=== PATIENT | female | born 1970 | race Caucasian/White ===

== ENCOUNTER 2017-10-24 07:10 | Emergency (ER) | payer OTHER ==
[2017-10-24 07:23] VITALS: BP 93/66; PULSE 85; RESP 18; TEMP 98.1
[2017-10-24] MEDS ORDERED: ACET/COD 300 MG/30 MG STARTER PACK 6 TAB BTL PO STA (07:47)
--- NOTE | 2017-10-24 07:52 | ED ---
General Adult HPI - General Chief complaint: Skin/Abscess/Foreign Body Stated complaint: Abscess on bottom Time Seen by Provider: 10/24/17 07:24 Source: patient, RN notes reviewed Mode of arrival: ambulatory Limitations: no limitations - History of Present Illness Initial comments: Patient is a pleasant 47-year-old female presenting to the emergency department with concerns for infection left gluteal region. Patient states it started out as a pimple however has spread. Patient has had abscesses previously in the general region. Patient has had previous incision and drainage. No fevers. No other areas of concern. - Related Data Previous Rx's Medication Instructions Recorded Clindamycin [Cleocin] 2 tab PO Q6H #80 capsule 10/24/17 Allergies Allergy/AdvReac Type Severity Reaction Status Date / Time metformin Allergy Unknown Verified 10/24/17 07:23 sulfamethoxazole Allergy Swelling Verified 10/24/17 07:23 [From Bactrim] trimethoprim [From Bactrim] Allergy Swelling Verified 10/24/17 07:23 Review of Systems ROS Statement: Those systems with pertinent positive or pertinent negative responses have been documented in the HPI. ROS Other: All systems not noted in ROS Statement are negative. Constitutional: Denies: fever Eyes: Denies: eye pain ENT: Denies: ear pain Respiratory: Denies: cough Cardiovascular: Denies: chest pain Endocrine: Denies: fatigue Gastrointestinal: Denies: abdominal pain Genitourinary: Denies: dysuria Musculoskeletal: Denies: back pain Skin: Reports: lesions Neurological: Denies: headache Past Medical History Past Medical History: Coronary Artery Disease (CAD), Chest Pain / Angina, COPD, CVA/TIA, Dementia, Hyperlipidemia, Hypertension, Myocardial Infarction ([place]) History of Any Multi-Drug Resistant Organisms: None Reported Past Surgical History: Coronary Bypass/CABG, Hernia Repair Past Psychological History: No Psychological Hx Reported Smoking Status: Current every day smoker Past Alcohol Use History: None Reported Past Drug Use History: None Reported General Exam Limitations: no limitations General appearance: alert, in no apparent distress Head exam: Present: atraumatic Eye exam: Present: normal appearance Neck exam: Present: normal inspection Respiratory exam: Present: normal lung sounds bilaterally Cardiovascular Exam: Present: regular rate, normal rhythm Neurological exam: Present: alert Psychiatric exam: Present: normal affect, normal mood Skin exam: Present: other (Left gluteal region with area of induration approximately 2 x 4 cm.) Course Vital Signs 10/24/17 07:18 Temperature 98.1 F Pulse Rate 85 Respiratory 18 Rate Blood Pressure 93/66 O2 Sat by Pulse 96 Oximetry Procedures - Incision & Drainage Consent Obtained: verbal consent Time Out Performed?: Yes Site: buttock (Left gluteal) Anesthetic Used: lidocaine 1% I&D Cleaning Method: Betadine Scalpel Used: #11 I&D Drainage Obtained: Blood Patient Tolerated Procedure: well, no complications Medical Decision Making - Medical Decision Making Incision and drainage unable to obtain pus pocket despite probing. Patient is made aware of this. Patient is made aware if symptoms worsen she may need procedure repeated. Disposition Clinical Impression: Cellulitis, gluteal, left Disposition: HOME SELF-CARE Condition: Stable Instructions: Abscess (ED) Additional Instructions: Please follow-up with primary care physician in the beginning of the week for recheck. Return for increased swelling, increased pain, redness, fevers, worsening symptoms or other concerns. Prescriptions: Clindamycin [Cleocin] 2 tab PO Q6H #80 capsule Referrals: Angela Carlos MD [STAFF PHYSICIAN] - 1-2 days Time of Disposition: 07:52
== END 2017-10-24 08:04 | disposition home or self-care (01) ==
LOC: EC 07:10
DX: L03.317 Cellulitis of buttock (principal); F17.200 Nicotine dependence, unspecified, uncomplicated; Z88.2 Allergy status to sulfonamides; Z88.8 Allergy status to other drugs, medicaments and biological substances
CPT/HCPCS: 10060; 99282

== ENCOUNTER 2017-12-26 02:22 | Emergency (ER) | payer OTHER ==
[2017-12-26] MEDS ORDERED: ACETAMINOPHEN TAB 500 MG TAB PO STA (02:44)
--- NOTE | 2017-12-26 02:59 | ED ---
URI HPI - General Chief Complaint: Upper Respiratory Infection Stated Complaint: Fever Time Seen by Provider: 12/26/17 02:38 Source: patient, RN notes reviewed Mode of arrival: ambulatory Limitations: no limitations - History of Present Illness Initial Comments: This is a 47-year-old female who presents to the emergency department with chief complaint of fever. Patient states that she has been feeling unwell since . She complains of fevers and chills, dry cough and nasal congestion. She does report a history of COPD. She states that she has been using her albuterol inhaler. Denies shortness of breath or chest pain, abdominal pain, nausea or vomiting, diarrhea or constipation, headache or dizziness, numbness or tingling, dysuria or hematuria. - Related Data Home Medications Medication Instructions Recorded Confirmed Aspirin EC [Ecotrin Low Dose] 81 mg PO ONCE PRN 10/26/17 10/26/17 Previous Rx's Medication Instructions Recorded Acetaminophen Tab [Tylenol] 650 mg PO Q6HR PRN tab 10/29/17 Amoxic-Pot Clav 875-125Mg 1 tab PO Q12HR #20 tablet 10/29/17 [Augmentin 875-125] Doxycycline Hyclate [Vibramycin] 100 mg PO BID #20 cap 10/29/17 Naproxen [Naprosyn] 500 mg PO BID #20 tab 10/29/17 Nicotine 21Mg/24Hr Patch [Habitrol] 1 patch TRANSDERM DAILY #30 patch 10/29/17 glipiZIDE [Glucotrol] 5 mg PO AC-BID #60 tab 10/29/17 Oseltamivir [Tamiflu] 75 mg PO Q12HR #10 cap 12/26/17 Allergies Allergy/AdvReac Type Severity Reaction Status Date / Time metformin Allergy Nausea & Verified 12/26/17 02:30 Vomiting & Diarrhea sulfamethoxazole Allergy Swelling Verified 12/26/17 02:30 [From Bactrim] trimethoprim [From Bactrim] Allergy Swelling Verified 12/26/17 02:30 Review of Systems ROS Statement: Those systems with pertinent positive or pertinent negative responses have been documented in the HPI. ROS Other: All systems not noted in ROS Statement are negative. Past Medical History Past Medical History: Coronary Artery Disease (CAD), Chest Pain / Angina, COPD, CVA/TIA, Diabetes Mellitus, Hyperlipidemia, Myocardial Infarction ([place]) Additional Past Medical History / Comment(s): Cardiac murmur, PAD, numbness/ tingling bilateral feet, pt states she was told she had a [place] about 6 yrs ago after she had a stress test/EKG- has never had a cardiac cath. Last Myocardial Infarction Date:: ?2011 History of Any Multi-Drug Resistant Organisms: None Reported Past Surgical History: Hernia Repair Additional Past Surgical History / Comment(s): I&D L gluteal abscess, aortagram , aortobi iliac bypass, laparoscopic surgery-one ovary/one tube removed from opposite sides, multiple abdominal incisional hernia repairs with mesh. Past Anesthesia/Blood Transfusion Reactions: No Reported Reaction Past Psychological History: Depression Smoking Status: Current every day smoker - Past Family History Mother Family Medical History: Cancer Additional Family Medical History / Comment(s): Mother is a breast cancer survivor. Father Family Medical History: Coronary Artery Disease (CAD), Diabetes Mellitus, Myocardial Infarction ([place]) Additional Family Medical History / Comment(s): Pt does not know at what age her father had his [place]. General Exam - General Exam Comments Initial Comments: General: Awake and alert, well-developed; in no apparent distress. HEENT: Head atraumatic, normocephalic. Pupils are equal, round and reactive to light. Extraocular movements intact. Oropharynx moist without erythema or exudate. Neck: Supple. Normal ROM. Cardiovascular: Regular rate and rhythm. No murmurs, rubs or gallops. Chest symmetrical. Respiratory: Lungs clear to auscultation bilaterally. No wheezes, rales or rhonchi. Normal respiratory effort with no use of accessory muscles. Abdomen: Soft, non-tender, non-distended. No rigidity, rebound or guarding. Normal bowel sounds in all 4 quadrants. Musculoskeletal: Normal ROM, no tenderness bilateral upper and lower extremities. Ambulating normally. Skin: [place], warm and dry without rashes or lesions. Neurological: Alert and oriented x3. CN II-XII grossly intact. Speech is fluent and answers are appropriate. No focal neuro deficits. Psychiatric: Normal mood and affect. No overt signs of depression or anxiety noted. Limitations: no limitations Course Vital Signs 12/26/17 02:28 Temperature 100.6 F H Pulse Rate 118 H Respiratory 20 Rate Blood Pressure 90/63 O2 Sat by Pulse 97 Oximetry Medical Decision Making - Medical Decision Making This is a 47-year-old female who presents to the emergency department with chief complaint of upper respiratory symptoms since . Patient states of fever, dry cough and sinus congestion. Denies chest pain or shortness of breath. Patient was febrile on presentation and was given Tylenol. Chest x- ray revealed no acute abnormalities. EKG was obtained and revealed normal sinus rhythm. Patient did test positive for influenza B. She will be started on Tamiflu. Recommended increasing fluid intake and treating fevers with Tylenol and/or Motrin. Return parameters were discussed. Patient will be discharged home at this time. She is in agreement with plan and voices understanding. All questions were answered. - Lab Data Lab Results 12/26/17 Range/Units 02:58 Influenza Type A RNA Not Detected (Not Detectd) Influenza Type B (PCR) Detected H (Not Detectd) EKG at 2:58:47. Normal sinus rhythm with possible left atrial enlargement. Ventricular rate 100 bpm, DE interval 128, QRS duration 90, QT/QTC 328/423. No evidence of ST segment elevation or depression. - Radiology Data Radiology results: report reviewed Chest x-ray impression: Normal chest x-ray. Disposition Clinical Impression: Influenza Disposition: HOME SELF-CARE Condition: Good Instructions: Influenza (ED) Additional Instructions: Please increase fluid intake. Please treat fevers with Tylenol and/or Motrin. Please take medications as prescribed. Please follow up with primary care provider within 1-2 days. Return to emergency department if symptoms should worsen or any concerns arise. Prescriptions: Oseltamivir [Tamiflu] 75 mg PO Q12HR #10 cap Referrals: None,Stated [Primary Care Provider] - 1-2 days Time of Disposition: 03:39
--- NOTE | 2017-12-26 03:31 | XR ---
EXAM: XR Chest, 2 Views CLINICAL HISTORY: ITS.REASON XR Reason: cough and fever TECHNIQUE: Frontal and lateral views of the chest. COMPARISON: None. FINDINGS: Lungs: Unremarkable. The lungs are clear. Pleural space: Unremarkable. No pneumothorax. Heart: Unremarkable. No cardiomegaly. Mediastinum: Unremarkable. Bones/joints: Unremarkable. IMPRESSION: Normal chest x-rays.
[2017-12-26 03:46] VITALS: BP 108/69; PULSE 79; RESP 16; TEMP 99.3
== END 2017-12-26 03:46 | disposition home or self-care (01) ==
LOC: EC 02:22
DX: J11.1 Influenza due to unidentified influenza virus with other respiratory manifestations (principal); F17.200 Nicotine dependence, unspecified, uncomplicated; Z86.73 Personal history of transient ischemic attack (TIA), and cerebral infarction without residual deficits; Z88.1 Allergy status to other antibiotic agents; Z88.2 Allergy status to sulfonamides; Z88.8 Allergy status to other drugs, medicaments and biological substances; Z79.82 Long term (current) use of aspirin
CPT/HCPCS: 71046; 87502; 93005; 99284

== ENCOUNTER → 2018-10-06 | Outpatient (CLI) | payer OTHER ==
--- NOTE | 2018-10-06 13:08 | US ---
EXAMINATION TYPE: US carotid duplex BILAT DATE OF EXAM: 10/06/2018 COMPARISON: CLINICAL HISTORY: I65.29 Occlusion and Stenosis. Hx of right CCA occulusion. Patient states having a hx of TIA. No HTN. EXAM MEASUREMENTS: RIGHT: Peak Systolic Velocity (PSV) cm/sec ----- Right CCA: Occluded ----- Right ICA: 22.1 ----- Right ECA: Occuluded ICA/CCA ratio: Unavailable RIGHT: End Diastole cm/sec ----- Right CCA: Occluded ----- Right ICA: 0.0 ----- Right ECA: Occluded LEFT: Peak Systolic Velocity (PSV) cm/sec ----- Left CCA: 154.9 ----- Left ICA: 187.3 ----- Left ECA: 178.5 ICA/CCA ratio: 1.2 LEFT: End Diastole cm/sec ----- Left CCA: 38.6 ----- Left ICA: 54.8 ----- Left ECA: 15.0 VERTEBRALS (direction of flow): Right Vertebral: Antegrade Left Vertebral: Antegrade Rhythm: Normal Elevated left CCA, ICA and ECA velocities. No flow seen in right CCA or ECA. Trickle flow seen in r ight ICA. Right CCA appears small in size compared to contralateral. Left CCA wall thickening visua lized. IMPRESSION: 1. 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 2. Globally elevated left velocities suggest underlying hypertension with degree of grayscale plaquin g suggesting 50-69% stenosis of the carotid bulb. CTA neck could further assess this finding. 3. Incidentally noted partially visualized heterogenous left thyroid nodule measuring 1.7 cm. Full th yroid ultrasound could be performed for full evaluation. Criteria for Assigning % of Stenosis / Diameter reduction (Estimation based on the indirect measurements of the internal carotid artery velocities (ICA PSV). 1. Normal (no stenosis)=ICA PSV < 125 cm/s: ratio < 2.0: ICA EDV<40 cm/s. 2. Less than 50% stenosis=ICA PSV < 125 cm/s: ratio < 2.0: ICA EDV<40 cm/s. 3. 50 to 69% stenosis=ICA PSV of 125 to 230 cm/s: ration 2.0 ? 4.0: ICA EDV 40-100 cm/s. 4. Greater than 70% stenosis to near occlusion= ICA PSV > 230 cm/s: ratio > 4.0: ICA EDV > 100 cm/s. 5. Near occlusion= ICA PSV velocities may be low or undetectable: variable ratio and ICA EDV. 6. Total occlusion=unable to detect flow.
== END ==
LOC: RADUSWWP 12:07
PROVIDERS: ATTEND Family Medicine
DX: I65.21 Occlusion and stenosis of right carotid artery (principal)
CPT/HCPCS: 93880

== ENCOUNTER 2018-11-01 07:48 | Day surgery (SDC) | payer OTHER ==
[2018-10-28 15:36] VITALS: BMI 19.2
[~2018-11-01 07:48] MED LIST: LACTATED RINGERS 1,000 ML IV SCH
[2018-11-01 08:15] VITALS: TEMP 97.8
[2018-11-01 08:23] LABS: Glucose,Whole Blood 138 mg/dL (75-99)
[2018-11-01] MEDS ORDERED: LIDOCAINE 1% INJ 10MG/ML (20 ML MDV) ONE (09:15)
[2018-11-01] MEDS ORDERED: PROPOFOL 10 MG/ML 20 ML VIAL IV ONE (09:15)
[2018-11-01 09:57] VITALS: RESP 18
--- NOTE | 2018-11-01 10:01 | P.PCN ---
Date of Procedure: 11/01/18 Procedure(s) Performed: Procedure: 1. Esophagogastroduodenoscopy and biopsy. 2. Total colonoscopy. Preoperative diagnosis: Abdominal pain, nausea vomiting and weight loss. Postoperative diagnosis: 1. Antral gastritis. 2. Multiple biopsies obtained from the duodenum, antrum and esophagus. 3. Normal colonoscopy. Preparation: HalfLytely prep. Sedation: Was provided by anesthesia. Brief clinical history: The patient is a 48-year-old female who we have evaluated in the office last month for abdominal pain, nausea and vomiting since July 2018. She lost 40 pounds since that time. Her bowel movements have been tending for constipation. No diarrhea or extraintestinal manifestations of inflammatory bowel disease. Procedure: With the patient on her left lateral decubitus position and after informed consent and adequate sedation, I passed the Olympus-GIF H 190 video upper endoscope through the cricopharyngeus down the esophagus. GE junction was at 40 cm from the incisors and there was no definite hiatal hernia or any obvious fasciitis or complicated reflux disease. The endoscope was then passed into the stomach which was insufflated with air and inspected in detail including the retroflex view in the cardia. There was mottling, erythema and friability in the antrum but no ulcers or erosions. Pyloric channel, duodenal bulb, post bulbar area and descending duodenum appeared within normal limits. Because of her symptoms, I obtained biopsies from the duodenum, antrum and esophagus then the endoscope was withdrawn and I proceeded with the colonoscopy. Perianal area did not show any fissures or fistulas. There were no masses felt on digital rectal examination. The Olympus CFH 190L video colonoscope was then inserted in the rectum in the usual fashion and advanced to the cecum. The mucosa appeared healthy. No polyps or tumors were seen or any obvious diverticular disease or other pathology. I retroflexed the endoscope in the rectum before the endoscope was withdrawn. The patient tolerated the procedure well. Plan: The patient was reassured. Will await biopsy results and make further plans based on her course and biopsy results. She will follow-up with you as planned and would keep you updated on her progress.
[2018-11-01 10:12] VITALS: BP 130/88; PULSE 81
== END 2018-11-01 10:39 | disposition home or self-care (01) ==
LOC: ORWHC2ENDO 07:48
DX: K29.50 Unspecified chronic gastritis without bleeding (principal); K20.9 Esophagitis, unspecified; I25.10 Atherosclerotic heart disease of native coronary artery without angina pectoris; J44.9 Chronic obstructive pulmonary disease, unspecified; E11.9 Type 2 diabetes mellitus without complications; E78.5 Hyperlipidemia, unspecified; E04.1 Nontoxic single thyroid nodule; I73.9 Peripheral vascular disease, unspecified; F17.210 Nicotine dependence, cigarettes, uncomplicated; Z79.4 Long term (current) use of insulin; Z88.1 Allergy status to other antibiotic agents; Z88.2 Allergy status to sulfonamides; Z88.8 Allergy status to other drugs, medicaments and biological substances; Z86.73 Personal history of transient ischemic attack (TIA), and cerebral infarction without residual deficits
CPT/HCPCS: 88305; 45378; 43239; J2001; J2704

== ENCOUNTER → 2018-12-06 | Outpatient (CLI) | payer OTHER ==
--- NOTE | 2018-12-06 14:53 | US ---
EXAMINATION TYPE: US thyroid st tissue head/neck DATE OF EXAM: 12/06/2018 COMPARISON: CTA neck 2012 CLINICAL HISTORY: E04.1 Thyroid Nodule. Thyroid nodules GLAND SIZE: Right Lobe: 5.5 x 1.6 x 1.9 cm Overall Parenchyma: heterogenous Left Lobe: 5.7 x 1.8 x 1.8 cm Overall Parenchyma: heterogeneous Isthmus Thickness: 0.2 cm NODULES RIGHT: # of nodules measured on right: 2 1. 0.8 X 0.6 x 0.7 cm hypoechoic mixed nodule at the upper pole with well-defined margins. This nod ule is wider than tall and shows intranodular vascularity. Prior size: no previous 2. 0.8 X 0.6 x 0.7 cm hypoechoic solid nodule at the lower pole with well-defined margins. This nodu le is wider than tall and shows intranodular vascularity. Prior size: no previous LEFT: # of nodules measured on left: 2 1. 2.0 X 1.4 x 1.9 cm hypoechoic mixed nodule at the mid pole with well-defined margins. This nodul e is taller than wide and shows intranodular vascularity. Prior size: no previous 2. 0.6 X 0.4 x 0.5 cm hypoechoic solid nodule at the lower pole with well-defined margins. This nodu le is wider than tall and shows intranodular vascularity. Prior size: no previous ISTHMUS: # of nodules measured in the isthmus: 0 Bilateral neck scanned, no evidence of lymphadenopathy. Homogeneous normal-sized thyroid is present with scattered subcentimeter nodules bilaterally. Dominan t mixed 2.0 cm oval well-circumscribed nodule anteriorly mid pole level is noted. IMPRESSION: A 2.0 cm mixed nodule left thyroid lobe mid pole level anteriorly total points 5 (mixed 1, isoechoic 1, taller than wide 3) TR 4 lesion, moderately suspicious. Advise ultrasound-guided fine-needle as piration.
== END | disposition home or self-care (01) ==
LOC: RADUSWWP 14:19
PROVIDERS: ATTEND Family Medicine
DX: E04.1 Nontoxic single thyroid nodule (principal); E05.90 Thyrotoxicosis, unspecified without thyrotoxic crisis or storm
CPT/HCPCS: 76536

== ENCOUNTER → 2018-12-22 | Outpatient (CLI) | payer OTHER ==
--- NOTE | 2018-12-23 09:51 | NM ---
EXAMINATION TYPE: NM thyroid image w uptake DATE OF EXAM: 12/23/2018 COMPARISON: Thyroid ultrasound 12/06/2018 HISTORY: 48-year-old female thyrotoxicosis TECHNIQUE: Thyroid iodine uptake is calculated and images performed after the oral administration of 309 uCi 1-123 Capsule. FINDINGS: Thyroid scan images show a area of rounded warm uptake at the left midpole. When correlating with thy roid ultrasound, this seems to correspond to the 2.0 cm left midpole nodule. The 4 hour iodine uptake is calculated at 11.4% (normal range 8-14%). The 24-hour iodine uptake is calculated at 28.9% (normal range 15-35%). IMPRESSION: 1. Normal 4 hour and 24-hour iodine uptake values. 2. A 2 cm warm nodule at the left midpole. FNA can be considered.
== END | disposition home or self-care (01) ==
LOC: RADNMMAIN 08:39
PROVIDERS: ATTEND Family Medicine
DX: E05.10 Thyrotoxicosis with toxic single thyroid nodule without thyrotoxic crisis or storm (principal)
CPT/HCPCS: 78014; A9516

== ENCOUNTER → 2019-02-18 | Outpatient (CLI) | payer OTHER ==
--- NOTE | 2019-02-18 13:23 | US ---
EXAMINATION TYPE: US gallbladder DATE OF EXAM: 02/18/2019 COMPARISON: CT 2018 CLINICAL HISTORY: K80.20 Calculus of gallbladder without cholecystit. Pt states ABD pain, possible ga llstones EXAM MEASUREMENTS: Liver Length: 15.7 cm Gallbladder Wall: 0.2 cm CBD: 0.4 cm Right Kidney: 13.1 x 4.6 x 6.7 cm Pancreas: wnl Liver: wnl Gallbladder: Small polyp at neck= 3mm, otherwise GB appeared wnl Evidence for sonographic Mayer's sign: No CBD: wnl Right Kidney: wnl No abnormality visualized to account for pt's symptoms IMPRESSION: 1. Small gallbladder polyp. Otherwise unremarkable study.
== END | disposition home or self-care (01) ==
LOC: RADUSMAIN 12:31
PROVIDERS: ATTEND Surgery Plastic and Reconstructive Surgery
DX: K82.4 Cholesterolosis of gallbladder (principal); Z88.2 Allergy status to sulfonamides; Z88.8 Allergy status to other drugs, medicaments and biological substances
CPT/HCPCS: 76705

== ENCOUNTER → 2019-03-07 | Outpatient (CLI) | payer OTHER ==
--- NOTE | 2019-03-07 10:10 | NM ---
EXAMINATION TYPE: NM hepatobiliary w EF DATE OF EXAM: 03/07/2019 COMPARISON: Ultrasound 02/18/2019 HISTORY: 49-year-old female with pain, cholecystitis TECHNIQUE: After the intravenous administration of 4.4 mCi Tc 99m Mebrofenin hepatobiliary scintigrap hy is performed. Immediate images post injection. FINDINGS: There is satisfactory initial accumulation of tracer by the liver. The gallbladder is visualized wit hin 8 minutes. The small bowel activity is noted within 38 minutes. At one hour 8 ounces of oral en sure plus is given to mimic CCK and gallbladder ejection fraction is calculated at 62.5 %, in the nor mal range. IMPRESSION: No scintigraphic evidence for acute/chronic cholecystitis or biliary dyskinesia.
== END | disposition home or self-care (01) ==
LOC: RADNMMAIN 07:02
PROVIDERS: ATTEND Surgery Plastic and Reconstructive Surgery
DX: K80.10 Calculus of gallbladder with chronic cholecystitis without obstruction (principal)
CPT/HCPCS: 78226; A9537

== ENCOUNTER 2019-03-10 09:26 | Day surgery (SDC) | payer OTHER ==
[2019-03-10 09:44] VITALS: TEMP 97.8
[2019-03-10 10:31] LABS: Glucose,Whole Blood 151 mg/dL (75-99)
[2019-03-10 11:51] VITALS: BP 135/79; PULSE 79; RESP 14
--- NOTE | 2019-03-10 13:42 | US ---
EXAMINATION TYPE: US FNA thyroid first lesion DATE OF EXAM: 03/10/2019 COMPARISON: Ultrasound thyroid 2018 HISTORY: Thyroid nodule. Maximal barrier technique was utilized. After informed consent, skin overlying the left lobe thyroid nodule was localized with ultrasound and the overlying skin prepped and draped. Ultrasound was utili zed using sterile technique. Lidocaine was used for local anesthesia. Five passes with a 25-gauge ne edle were made into the nodule and aspirated specimen was submitted to cytology. Following the proce dure hemostasis achieved. No immediate complication. The patient discharged in stable condition. IMPRESSION: STATUS POST ULTRASOUND GUIDED FINE NEEDLE ASPIRATION OF THYROID NODULE, PATHOLOGY IS PEND ING. THIS PROCEDURE WAS PERFORMED BY THE UNDERSIGNED.
== END 2019-03-10 11:35 | disposition home or self-care (01) ==
LOC: RADPROMAIN 09:26
PROVIDERS: ATTEND Surgery Plastic and Reconstructive Surgery
DX: E04.1 Nontoxic single thyroid nodule (principal); Z88.2 Allergy status to sulfonamides; Z88.8 Allergy status to other drugs, medicaments and biological substances
CPT/HCPCS: 10005; 88173; 88305

== ENCOUNTER → 2019-05-31 | Outpatient (CLI) | payer OTHER ==
[2019-05-31 09:39] LABS: HCT 48.4 % (34.0-46.0); HGB 15.9 gm/dL (11.4-16.0); MCH 29.8 pg (25.0-35.0); MCHC 32.9 g/dL (31.0-37.0); MCV 90.7 fL (80.0-100.0); Mean Platelet Volume 7.1; Platelet Count 276 k/uL (150-450); RBC 5.34 m/uL (3.80-5.40); RDW 13.8 % (11.5-15.5); WBC 8.5 k/uL (3.8-10.6)
== END | disposition home or self-care (01) ==
LOC: LABPAT 08:37
PROVIDERS: ATTEND Surgery Plastic and Reconstructive Surgery
DX: Z01.812 Encounter for preprocedural laboratory examination (principal)
CPT/HCPCS: 36415; 85027

== ENCOUNTER → 2019-06-03 | Day surgery (SDC) | payer OTHER ==
[2019-05-27 10:00] VITALS: BMI 21.4
[~2019-06-03] MED LIST changes: +ACETAMINOPHEN TAB 500 MG TAB PO ONE; +BUPIVACAIN-EPI 0.25%-1:200,000 30 ML VIAL SQ ONE; +DEXAMETHASONE SOD PHOSPHATE 10 MG/ML 1 ML VIAL IV ONE; +GLYCOPYRROLATE 0.2 MG/ML 2 ML VIAL ONE; +HEPARIN SODIUM,PORCINE 5,000 UNIT/ML 1 ML VIAL SQ ONE; +INDOCYANINE GREEN 25 MG VIAL IV ONE; +INDOCYANINE GREEN 25 MG VIAL IV STA; +KETOROLAC 30 MG/ML 1 ML VIAL ONE; +LIDOCAINE 1% 20 ML VIAL (10MG/ML) FOR IV START INTRADERMA PRN; +LIDOCAINE 1% INJ 10MG/ML (20 ML MDV) ONE; +MIDAZOLAM 2 MG/2 ML VIAL IV PRN; +MIDAZOLAM 2 MG/2 ML VIAL ONE; +NEOSTIGMINE 1 MG/ML 10 ML VIAL ONE; +ONDANSETRON 4 MG/2 ML VIAL IVP ONE; +ONDANSETRON 4 MG/2 ML VIAL IVP PRN; +PROPOFOL 10 MG/ML 20 ML VIAL IV ONE; +ROCURONIUM BROMIDE 10 MG/ML 10 ML VIAL IV ONE; +SCOPOLAMINE 1.5MG/72HR PATCH TRANSDERM ONE; +SUCCINYLCHOLINE CHLORIDE 100 MG/5 ML SYR IV ONE; +fentaNYL (PF) 50 MCG/ML 2 ML AMP ONE
--- NOTE | 2019-06-03 07:40 | P.GSHP ---
History of Present Illness H&P Date: 06/03/19 CHIEF COMPLAINT: Cholecystitis HISTORY OF PRESENT ILLNESS: The patient is a 49-year-old female who presents with history of epigastric including right upper quadrant abdominal pain. She underwent diagnostic studies for her gallbladder. Separately her clinical picture was consistent with cholecystitis. Now she presents for surgical intervention. PAST MEDICAL HISTORY: Please see list PAST SURGICAL HISTORY: Please see list MEDICATIONS: Please see list ALLERGIES: Please see list SOCIAL HISTORY: Please see list FAMILY HISTORY: Pertinent for gallbladder disease REVIEW OF ORGAN SYSTEMS: CONSTITUTIONAL: No reports of fevers or chills. HEENT: Denies any troubles with the vision or hearing. SKIN: No skin cancer. PHYSICAL EXAM: VITAL SIGNS: Afebrile vital signs stable GENERAL: Well-developed pleasant in no acute distress. HEENT: No scleral icterus. Extraocular movements grossly intact. Moist buccal mucosa. NECK: Supple without lymphadenopathy. CHEST: Unlabored respirations. Equal bilateral excursions. CARDIOVASCULAR: Regular rate regular rhythm rhythm. Distal 2+ pulses. ABDOMEN: Soft, nondistended. Tender along the epigastrium and right upper quadrant. MUSCULOSKELETAL: No clubbing, cyanosis, or edema. NEURO: Cranial nerves II to XII within normal limits. No focal or lateralizing signs. PSYCH: Alert and oriented to person, place and time. SKIN: Well-perfused good skin turgor. ASSESSMENT: 1. Epigastric and right upper quadrant abdominal pain 2. Chronic cholecystitis PLAN: 1. Will need a robotic cholecystectomy possible open. Benefits and risks were described. 2. Heparin for DVT prophylaxis 5000 units. 3. Antibiotic prophylaxis. Past Medical History Past Medical History: Coronary Artery Disease (CAD), Chest Pain / Angina, COPD, CVA/TIA, Diabetes Mellitus, Hyperlipidemia, Myocardial Infarction ([place]), Musculoskeletal Disorder, Pneumonia, Thyroid Disorder Additional Past Medical History / Comment(s): Cardiac murmur, DDD, Hyperthyroid/Thyroid Nodules, nausea and vomiting since after 2017. Has lost 75lbs. Hx CVA 2007 or 2008, no residual effects. 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 Hx Pneumonia. Last Myocardial Infarction Date:: 2011 History of Any Multi-Drug Resistant Organisms: None Reported Past Surgical History: Section, Heart Catheterization, Hernia Repair Additional Past Surgical History / Comment(s): I&D L gluteal abscess, aortagram, [id number] bypass, laparoscopic surgery-one ovary/one tube removed from opposite sides, multiple abdominal incisional hernia repairs with mesh, Attempted Heart cath but patient states veins collapsed and unable to do. Past Anesthesia/Blood Transfusion Reactions: No Reported Reaction Past Psychological History: No Psychological Hx Reported Smoking Status: Current every day smoker Past Alcohol Use History: None Reported Additional Past Alcohol Use History / Comment(s): Pt started smoking in 1984 and is a ppd smoker. Past Drug Use History: None Reported - Past Family History Mother Family Medical History: Cancer Additional Family Medical History / Comment(s): Mother is a breast cancer survivor. Father Family Medical History: Coronary Artery Disease (CAD), Diabetes Mellitus, Myocardial Infarction ([place]) Additional Family Medical History / Comment(s): Agent [place] Exposure. Pt does not know at what age her father had his [place]. Medications and Allergies Home Medications Medication Instructions Recorded Confirmed Type Insulin Glargine,Hum.rec.anlog 10 unit SQ TID PRN 10/28/18 05/27/19 History [Basaglar Kwikpen U-100] Insulin Lispro [Admelog Solostar] 10 unit SQ BID-W/MEALS PRN 10/28/18 05/27/19 History Acetaminophen Tab [Tylenol Tab] 1,000 mg PO Q6HR PRN 03/03/19 05/27/19 History buPROPion [Wellbutrin] 100 mg PO BID 03/03/19 05/27/19 History Naproxen Sodium [Aleve] 220 mg PO DAILY 03/10/19 05/27/19 History Bentyl (Unknown Dose) 1 tab PO TID PRN 05/27/19 05/27/19 History Allergies Allergy/AdvReac Type Severity Reaction Status Date / Time metformin Allergy Nausea & Verified 05/27/19 09:31 Vomiting & Diarrhea sulfamethoxazole Allergy Swelling Verified 05/27/19 09:31 [From Bactrim] trimethoprim [From Bactrim] Allergy Swelling Verified 05/27/19 09:31
[2019-06-03 10:05] LABS: Glucose,Whole Blood 159 mg/dL (75-99)
[2019-06-03 10:43] LABS: ALT 30 U/L (9-52); AST 25 U/L (14-36); African American GFR (CKD) >90 (>60 ml/min/1.73 sqM); Albumin 4.4 g/dL (3.5-5.0); Alkaline Phosphatase 98 U/L (38-126); Anion Gap 8 mmol/L; Blood Urea Nitrogen 15 mg/dL (7-17); Calcium 9.7 mg/dL (8.4-10.2); Carbon Dioxide 27 mmol/L (22-30); Chloride 105 mmol/L (98-107); Glucose 157 mg/dL (74-99); Potassium 4.1 mmol/L (3.5-5.1); Sodium 140 mmol/L (137-145); Total Bilirubin 0.8 mg/dL (0.2-1.3)
[2019-06-03] MEDS: HYDROmorphone 0.5 MG/0.5 ML SYRINGE IVP PRN ×2 (11:52→11:59)
--- NOTE | 2019-06-03 11:52 | P.OP ---
Date of Procedure: 06/03/19 Description of Procedure: SURGEON: TOYA TOVAR MD PREOPERATIVE DIAGNOSES: 1. Right upper quadrant abdominal pain 2. Gallbladder polyp 3. Chronic cholecystitis 4. Peripheral vascular occlusive disease 5. Diabetes type 2, insulin-dependent, poorly controlled 6. Depressive disorder 7. History of aortobifem bypass 8. History of multiple abdominal surgeries POSTOPERATIVE DIAGNOSES: 1. Right upper quadrant abdominal pain 2. Gallbladder polyp 3. Chronic cholecystitis 4. Peripheral vascular occlusive disease 5. Diabetes type 2, insulin-dependent, poorly controlled 6. Depressive disorder 7. History of aortobifem bypass 8. History of multiple abdominal surgeries OPERATION: Robotic-assisted da Stephane Xi laparoscopic cholecystectomy, multiport with FIREFLY ESTIMATED BLOOD LOSS: 5 mL. SPECIMENS REMOVED: Gallbladder. COMPLICATIONS: None. OPERATIVE FINDINGS: 1. Chronic cholecystitis 2. Console time 12 minutes INDICATIONS: The patient is a 49-year-old female who presents with cholelcystitis and gallbladder polyp. Surgical intervention with a laparoscopic cholecystectomy was described at length including injury to the biliary tree, bleeding, infection, need for further surgery. Informed consent was obtained. Robotic assisted laparoscopic approach was described. Benefits and risks of the procedure including but not limited to bleeding, infection, injury to the biliary tree was described. Informed consent was obtained. DESCRIPTION OF PROCEDURE: Patient was brought to the operating room, placed in supine position. After general induction, the abdomen had been prepped and draped in standard sterile fashion. The robotic da Stephane XI system was primed. After a timeout protocol was performed, the patient had been prepped and draped in standard sterile fashion. The patient was injected with indocyanine green. A 5 mm 0 degrees laparoscopic trocar entry was performed along the left upper quadrant. The abdomen insufflated to 15 mmHg pressure which was tolerated well. Diagnostic laparoscopy demonstrated no injury to bowel viscera or mesentery. The liver surface was unremarkable. Severe peritoneal adhesions including greater omentum to abdominal wall was identified obscuring view of the mid abdomen. The adhesions were undisturbed as the right upper abdomen was unremarkable. Ports were carefully placed along the right upper abdomen. Next, three 8 mm robotic ports were placed along the right upper abdomen. Another 8 mm port was placed along the left upper abdominal wall after exchanging the 5 mm port. Please note that the ports were placed at least 10 to 15 cm away from the target anatomy of the gallbladder. The robot was docked along the left lateral abdomen. The patient was repositioned in reverse Trendelenburg position. Using a grasper for arm 3, a grasper for arm 4, including hook cautery for arm 1, the robotic system was docked and primed as described. Instruments were interchanged by the assistant professor in family studies including hook cautery, Bovie cautery and clip appliers. I had sat at the console. The gallbladder fundus was retracted over the dome of the liver. Initial attention was brought to the infundibulum which was gently retracted in the inferior lateral approach. Using a grasper, the cystic duct including the cystic artery was carefully skeletonized. FIREFLY was used to identify the cystic artery and cystic structures. A critical view of safety was obtained. Large PLASTIC clips were used throughout the entire case. Using a clip negative retoucher 1 clips were placed proximally, and 1 clip was placed between the infundibulum and cystic duct and divided using cautery. Next, the cystic artery was similarly clipped and cauterized. Electro-Bovie cautery was used to remove the gallbladder from the hepatic fossa. Hemostasis was checked and found to be adequate. The robot was undocked. I re-scrubbed into the case. Using a 10 mm Endo Catch bag via the left upper quadrant incision, the specimen was removed from the abdominal cavity. All pneumoperitoneum instruments were evacuated from the abdominal cavity. The incisions were reapproximated using 4-0 Monocryl in an interrupted subcuticular fashion. Fascial defects were less than 8 mm in size. Please note along the trocar sites, local anesthetic was placed as a field block prior to insertion of all instruments. Liquid glue was applied to the skin. At the end of the procedure needle, sponge, and instrument count had been verified correct by the surgical scrub technician. The patient was transferred to postanesthesia care unit in stable condition. Intraoperative films were shared with the patient's family who were very pleased with the level of care. Plan - Discharge Summary Discharge Rx Participant: Yes New Discharge Prescriptions: New Ibuprofen [Motrin] 600 mg PO Q8HR PRN #30 tab PRN Reason: Pain Acetaminophen Tab [Tylenol Tab] 500 mg PO Q6H PRN #30 tablet PRN Reason: Pain No Action Insulin Lispro [Admelog Solostar] 10 unit SQ BID-W/MEALS PRN PRN Reason: Blood Sugar - High Insulin Glargine,Hum.rec.anlog [Basaglar Kwikpen U-100] 10 unit SQ TID PRN PRN Reason: Blood Sugar - High buPROPion [Wellbutrin] 100 mg PO BID Acetaminophen Tab [Tylenol Tab] 1,000 mg PO Q6HR PRN PRN Reason: Pain Naproxen Sodium [Aleve] 220 mg PO DAILY Bentyl (Unknown Dose) 1 tab PO TID PRN PRN Reason: Pain Discharge Medication List Insulin Glargine,Hum.rec.anlog [Basaglar Kwikpen U-100] 10 unit SQ TID PRN 10/28/18 [History] Insulin Lispro [Admelog Solostar] 10 unit SQ BID-W/MEALS PRN 10/28/18 [History] Acetaminophen Tab [Tylenol Tab] 1,000 mg PO Q6HR PRN 03/03/19 [History] buPROPion [Wellbutrin] 100 mg PO BID 03/03/19 [History] Naproxen Sodium [Aleve] 220 mg PO DAILY 03/10/19 [History] Bentyl (Unknown Dose) 1 tab PO TID PRN 05/27/19 [History] Acetaminophen Tab [Tylenol Tab] 500 mg PO Q6H PRN #30 tablet 06/03/19 [Rx] Ibuprofen [Motrin] 600 mg PO Q8HR PRN #30 tab 06/03/19 [Rx] Follow up Appointment(s)/Referral(s): Toya Tovar MD [STAFF PHYSICIAN] - 06/07/19 Patient Instructions/Handouts: Laparoscopic Cholecystectomy (DC), Low Fat Diet (DC) Activity/Diet/Wound Care/Special Instructions: May shower. No baths or soaks for 10 days until 06/13/2019. No lifting over 10 pounds until 06/13/2019. Low-fat diet tonight. Discharge Disposition: HOME SELF-CARE
[2019-06-03 11:56] VITALS: TEMP 97.4
[2019-06-03 12:40] VITALS: RESP 18
[2019-06-03 14:11] VITALS: BP 131/62; PULSE 74
== END | disposition home or self-care (01) ==
LOC: OR 09:31
PROVIDERS: ATTEND Surgery Plastic and Reconstructive Surgery
DX: K81.1 Chronic cholecystitis (principal); K66.0 Peritoneal adhesions (postprocedural) (postinfection); I25.10 Atherosclerotic heart disease of native coronary artery without angina pectoris; I25.2 Old myocardial infarction; I73.9 Peripheral vascular disease, unspecified; J44.9 Chronic obstructive pulmonary disease, unspecified; E11.9 Type 2 diabetes mellitus without complications; E78.5 Hyperlipidemia, unspecified; E05.90 Thyrotoxicosis, unspecified without thyrotoxic crisis or storm; F17.210 Nicotine dependence, cigarettes, uncomplicated; F32.9 Major depressive disorder, single episode, unspecified; Z88.2 Allergy status to sulfonamides; Z88.8 Allergy status to other drugs, medicaments and biological substances; Z86.73 Personal history of transient ischemic attack (TIA), and cerebral infarction without residual deficits; Z79.1 Long term (current) use of non-steroidal anti-inflammatories (NSAID); Z79.899 Other long term (current) drug therapy; Z98.890 Other specified postprocedural states; Z87.01 Personal history of pneumonia (recurrent); Z83.79 Family history of other diseases of the digestive system; Z80.3 Family history of malignant neoplasm of breast; Z82.49 Family history of ischemic heart disease and other diseases of the circulatory system; Z83.3 Family history of diabetes mellitus
CPT/HCPCS: 47562; 88304; 80053; J2250; J1644; J2710; J0690; J2405; J2001; J3010; J1885; J0330; J2704; J1170

== ENCOUNTER 2019-07-17 02:06 | Inpatient (IN) | payer OTHER ==
[2019-07-17 02:19] LABS: Basophils # (A) 0.1 k/uL (0-0.2); Basophils % (A) 1 %; Eosinophils # (A) 0.1 k/uL (0-0.7); Eosinophils % (A) 1 %; HCT 42.9 % (34.0-46.0); HGB 13.9 gm/dL (11.4-16.0); Lymphocytes # (A) 1.2 k/uL (1.0-4.8); Lymphocytes % (A) 10 %; MCH 29.6 pg (25.0-35.0); MCHC 32.3 g/dL (31.0-37.0); MCV 91.7 fL (80.0-100.0); Mean Platelet Volume 7.1; Monocytes # (A) 0.8 k/uL (0-1.0); Monocytes % (A) 7 %; Neutrophils # (A) 9.3 k/uL (1.3-7.7); Neutrophils % (A) 79 %; Platelet Count 196 k/uL (150-450); RBC 4.68 m/uL (3.80-5.40); RDW 12.6 % (11.5-15.5); WBC 11.7 k/uL (3.8-10.6)
[2019-07-17 02:42] LABS: Prothrombin Time 10.6 sec (9.0-12.0)
[2019-07-17] MEDS ORDERED: ATORVASTATIN 40 MG TAB PO STA (02:43)
[2019-07-17] MEDS ORDERED: FUROSEMIDE 10 MG/ML 4 ML VIAL IV STA (02:43)
[2019-07-17] MEDS ORDERED: NITROGLYCERIN-D5W PMX 50 MG in DEXTROSE/WATER 1 250ML.BAG IV ONE (02:43)
[2019-07-17 02:46] LABS: Partial Thromboplastin Time 101.7 sec (22.0-30.0)
--- NOTE | 2019-07-17 02:47 | ED ---
Chest Pain HPI - General Chief Complaint: Chest Pain Stated Complaint: Chest Pain Time Seen by Provider: 07/17/19 02:08 Source: patient, EMS Mode of arrival: EMS Limitations: no limitations - History of Present Illness Initial Comments: sEsence is a 49-year-old female with extensive past medical history most significant for known vasculopathy, diabetes, COPD. Patient presents to the ER today as a transfer from [facility]. Patient reports that last week she had a upper respiratory infection, cough and intermittent chest pain. She reports that over the past few days she's developed worsening pleuritic chest pain, pain is worse with inspiration. This is been associated with progressively worsening shortness of breath. Patient reports that it was the shortness of breath that prompted her to seek care in the emergency department today. Valuation the outside ER revealed chest x-ray concerning for heart failure, EKG with some ST elevations with no reciprocal depressions, labs with the elevated troponin. Patient care was discussed with cardiology who will evaluate the patient upon arrival to our emergency department and agreed with plan for transfer should the patient need cardiac superintendent geophysical laboratory. - Related Data Home Medications Medication Instructions Recorded Confirmed Insulin Glargine,Hum.rec.anlog 10 unit SQ TID PRN 10/28/18 06/03/19 [Basaglar Kwikpen U-100] Insulin Lispro [Admelog Solostar] 10 unit SQ BID-W/MEALS PRN 10/28/18 06/03/19 Acetaminophen Tab [Tylenol Tab] 1,000 mg PO Q6HR PRN 03/03/19 06/03/19 buPROPion [Wellbutrin] 100 mg PO BID 03/03/19 06/03/19 Naproxen Sodium [Aleve] 220 mg PO DAILY 03/10/19 06/03/19 Bentyl (Unknown Dose) 1 tab PO TID PRN 05/27/19 06/03/19 Previous Rx's Medication Instructions Recorded Acetaminophen Tab [Tylenol Tab] 500 mg PO Q6H PRN #30 tablet 06/03/19 Ibuprofen [Motrin] 600 mg PO Q8HR PRN #30 tab 06/03/19 Allergies Allergy/AdvReac Type Severity Reaction Status Date / Time metformin Allergy Nausea & Verified 06/03/19 10:14 Vomiting & Diarrhea sulfamethoxazole Allergy Swelling Verified 06/03/19 10:14 [From Bactrim] trimethoprim [From Bactrim] Allergy Swelling Verified 06/03/19 10:14 Review of Systems ROS Statement: Those systems with pertinent positive or pertinent negative responses have been documented in the HPI. ROS Other: All systems not noted in ROS Statement are negative. EKG Findings - EKG Comments: EKG Findings:: EKG was obtained due to complaint of chest pain and elevated trop onins, EKG was obtained at 2:06 AM, repeat is 1:15 rhythm is sinus tachycardia there is a rightward axis,, normal intervals, AL 136, QRS 96, QTC mildly prolonged at 503. previously present Q waves are now absent, there are ST elevations in V2 V3 and mild ST elevations in V4, no reciprocal depressions. This EKG is concerning for ischemia or inflammation but no acute infarction. Past Medical History Past Medical History: Coronary Artery Disease (CAD), Chest Pain / Angina, COPD, CVA/TIA, Diabetes Mellitus, Hyperlipidemia, Myocardial Infarction ([place]), Muscu loskeletal Disorder, Pneumonia, Thyroid Disorder Additional Past Medical History / Comment(s): Cardiac murmur, DDD, Hyperthyroid/Thyroid Nodules, nausea and vomiting since after of 2017. Has lost 75lbs. Hx CVA 2007 or 2008, no residual effects. 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 Hx Pneumonia. Last Myocardial Infarction Date:: 2011 History of Any Multi-Drug Resistant Organisms: None Reported Past Surgical History: Section, Heart Catheterization, Hernia Repair Additional Past Surgical History / Comment(s): I&D L gluteal abscess, aortagram, Etkpo-Dp-Ggp[place] bypass, laparoscopic surgery-one ovary/one tube removed from opposite sides, multiple abdominal incisional hernia repairs with mesh, Attempted Heart cath but patient states veins collapsed and unable to do. Past Anesthesia/Blood Transfusion Reactions: No Reported Reaction Past Psychological History: No Psychological Hx Reported Smoking Status: Current every day smoker Past Alcohol Use History: None Reported Past Drug Use History: None Reported - Past Family History Mother Family Medical History: Cancer Additional Family Medical History / Comment(s): Mother is a breast cancer survivor. Father Family Medical History: Coronary Artery Disease (CAD), Diabetes Mellitus, Myocardial Infarction ([place]) Additional Family Medical History / Comment(s): Agent [place] Exposure. Pt does not know at what age her father had his [place]. General Exam - General Exam Comments Initial Comments: Physical Exam GENERAL: Chrinically ill appearing, no acute distress, non toxic HENT: Normocephalic, Atraumatic. EYES: PERRL, EOMI PULMONARY: Crackles at bases CARDIOVASCULAR: Tachycardic, regular Poorly perfused bilateral lower extremities consistent with history of PAD ABDOMEN: Soft and nontender with normal bowel sounds. SKIN: Skin is clear with no lesions or rashes and otherwise unremarkable. : Deferred NEUROLOGIC: Patient is alert and oriented x3. Moving all extremities spontaneously MUSCULOSKELETAL: Normal extremities with adequate strength and full range of motion. No lower extremity swelling or edema. No calf tenderness. PSYCHIATRIC: Normal psychiatric evaluation. Limitations: no limitations Course Vital Signs 07/17/19 02:13 Temperature 98.5 F Pulse Rate 115 H Respiratory 22 Rate Blood Pressure 144/87 O2 Sat by Pulse 96 Oximetry Chest Pain MDM - MDM Patient care was discussed with transferring physician and cardiology prior to arrival in a sinus 49-year-old with extensive medical history present with chest pain and elevated troponin EKG with no signs of infarction but possible ischemia Patient was seen and evaluated immediately upon arrival to the emergency department, repeat labs and imaging were obtained Patient was evaluated by cardiology Dr Manrique, based on EKG changes and labs there is concerned that the patient has developed myocarditis he does not believe that this is coronary artery disease at this time. At this time we will treat acute heart failure which is likely secondary to myocarditis. Patient will be placed on nitro drip, given additional dose of Lasix, aspirin, Lipitor. Should the patient's blood pressure remained stable she will get lisinopril the morning. Philosophy Professor Will reevaluate in the morning and make decision regarding beta blockers. Heart failure admissions that was ordered Critical Care Time Critical Care Time: Yes Total Critical Care Time: 30 Critical Care Time: Critical Care Time Critical care time was exclusive of separately billable procedures and treating other patients and teaching time. Critical care was necessary to treat or prevent imminent or life-threatening deterioration. Given the critical condition in which the patient arrived, the patient was immediately assessed by myself and the nurse, and cardiac monitoring initiated due to the potential for rapid decompensation of the patient's clinical condition. During the course of the patients stay, I spent a considerable amount of time at the bedside performing serial re-evaluations of the patient's h emodynamic and clinical status because of the recognized potential threat to life or limb in this condition. I then had a chance to review not only all of the available current laboratory and radiographic studies obtained today, but I also reviewed old records available to me at the time. Additionally, any ancillary information available including aeronautical engineering technologist records were reviewed. Sequential vital signs were obtained. Disposition Clinical Impression: Myocarditis, Chest pain, Elevated troponin, Right lower lobe pneumonia, Cardiomyopathy Disposition: ADMITTED IP TO THIS HOSP Condition: Serious
[2019-07-17 02:52] LABS: ALT 36 U/L (9-52); AST 52 U/L (14-36); African American GFR (CKD) >90 (>60 ml/min/1.73 sqM); Albumin 3.8 g/dL (3.5-5.0); Alkaline Phosphatase 95 U/L (38-126); Anion Gap 12 mmol/L; Blood Urea Nitrogen 17 mg/dL (7-17); Calcium 9.3 mg/dL (8.4-10.2); Carbon Dioxide 19 mmol/L (22-30); Chloride 106 mmol/L (98-107); Glucose 283 mg/dL (74-99); Magnesium 1.7 mg/dL (1.6-2.3); Potassium 3.8 mmol/L (3.5-5.1); Sodium 137 mmol/L (137-145); Total Bilirubin 0.8 mg/dL (0.2-1.3); Total Protein 6.3 g/dL (6.3-8.2)
--- NOTE | 2019-07-17 03:16 | XR ---
EXAMINATION TYPE: XR chest 2V DATE OF EXAM: 07/17/2019 COMPARISON: 12/26/2017 HISTORY: Chest pain TECHNIQUE: Frontal and lateral views of the chest are obtained. FINDINGS: Heart is normal. There is coarsening of the pulmonary interstitial markings. There are no hilar masses. There are chest leads. There is some airspace infiltrate in the right lower lobe manager intel iorly. IMPRESSION: There is some right lower lobe airspace pneumonia that is new compared to old exam. Incr eased diffuse interstitial markings consistent with mild interstitial edema or pneumonia.
[2019-07-17] MEDS: HEPARIN SOD,PORK IN 0.45% NACL 25,000 UNIT in 0.45% NACL 1 250ML.BAG IV SCH (04:17)
--- NOTE | 2019-07-17 07:54 | P.CRDCN ---
History of Present Illness History of present illness: This is Dr. Manrique dictating a consult on this patient The patient was interviewed and examined by me at 2 AM in the ER IMPRESSION / ASSESSMENT: Likely viral myocarditis, with a upper respiratory infection for the past one week Acute heart failure with likely systolic dysfunction, echo awaited Short of breath for one week with pleuritic chest discomfort New 12-lead EKG changes with ST segment abnormality in the precordial leads V1 through V4 and loss of R waves in the precordial leads as compared to old EKGs from 2017 and 2018 Significant bilateral carotid atherosclerosis Significant vascular disease of the aorta, abdominal status post her to surgery by Dr. Rausch Type 2 diabetes Not on any cardiac medications Current smoker PLAN: IV nitroglycerin IV Lasix Continue IV heparin Oral lisinopril Heart failure management Carvedilol today once heart failure improves we'll proceed with coronary angiography HPI Patient presented to [facility] initially with one week of upper respiratory infection and then subsequently shortness of breath with minimal exertion and even at rest. For the last few days she's been experiencing severe discomfort in the chest which is clearly pleuritic in nature and she is unable to take 2 normal breaths. She hasn't smoked for 2 days but is a current smoker No loss of consciousness no palpitations but specifically a pleuritic chest discomfort that was relieved with morphine. When I saw her she had no pain Past called by the ER physician at [facility] stating that this lady had an ST elevation in the precordial leads, was vascular path and was complaining of chest discomfort Plan I reviewed the 12-lead ECGs she had Q waves V1 through V4 with ST segment elevation with biphasic ST-T changes in V1 and V2 and then biphasic in V3 V4 with T-wave inversions in V5 and V6 without any respiratory changes Her repeat ECG was similar We reviewed her old ECGs from 2016 2013 and they were normal with normal R waves Morphine completely relieved her pain but she was clearly short of breath at rest but getting better with IV Lasix Chest x-ray showed increased vascular markings consistent with interstitial edema She was transferred to an intermittent with her and examined her in the ER here ROS: No fever chills or rigors, no cough, phlegm or expectoration, no nausea, vomiting or diarrhea, no hematuria, dysuria, no musculoskeletal complaints, no strokes or seizures, no skin lesions. EXAMINATION: Short of breath at rest Blood pressure 144/87 mmHg initially No JVD. Crackles at the bases posteriorly bilaterally. No S3 gallop. No murmurs. Abdomen soft Unable to palpate femoral pulses. She's had abdominal surgery for aorta. I can't hear any carotid bruits REVIEW OF LABS, ECG & MEDICAL DATA First troponin 5, 2 hours later, her troponin was 4 and then subsequently 3 which not in proportion to her extensively ECG changes and the symptoms that began several days back White count 11.7 thousand with a leftward shift. At lites, normal renal function normal. Glucose elevated. AST 52 BNP 7000. Troponins 5 and 4 and 3 Past Medical History Past Medical History: Coronary Artery Disease (CAD), Chest Pain / Angina, COPD, CVA/TIA, Diabetes Mellitus, Hyperlipidemia, Myocardial Infarction ([place]), Musculoskeletal Disorder, Pneumonia, Thyroid Disorder Additional Past Medical History / Comment(s): Cardiac murmur, DDD, Hyperth yroid/Thyroid Nodules, nausea and vomiting since after 2017. Has lost 75lbs. Hx CVA 2007 or 2008, no residual effects. 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 Hx Pneumonia. Last Myocardial Infarction Date:: 2011 History of Any Multi-Drug Resistant Organisms: None Reported Past Surgical History: Section, Heart Catheterization, Hernia Repair Additional Past Surgical History / Comment(s): I&D L gluteal abscess, aortagram, Ijfue-Qk-Hvjqj bypass, laparoscopic surgery-one ovary/one tube removed from opposite sides, multiple abdominal incisional hernia repairs with mesh, Attempted Heart cath but patient states veins collapsed and unable to do. Past Anesthesia/Blood Transfusion Reactions: No Reported Reaction Past Psychological History: No Psychological Hx Reported Smoking Status: Current every day smoker Past Alcohol Use History: None Reported Past Drug Use History: None Reported - Past Family History Mother Family Medical History: Cancer Additional Family Medical History / Comment(s): Mother is a breast cancer survivor. Father Family Medical History: Coronary Artery Disease (CAD), Diabetes Mellitus, Myocardial Infarction ([place]) Additional Family Medical History / Comment(s): Agent [place] Exposure. Pt does not know at what age her father had his [place]. Medications and Allergies Home Medications Medication Instructions Recorded Confirmed Type Insulin Glargine,Hum.rec.anlog 30 unit SQ DAILY 10/28/18 07/17/19 History [Basaglar Kwikpen U-100] Albuterol Nebulized [Ventolin 2.5 mg INHALATION RT-Q6H PRN 07/17/19 07/17/19 History Nebulized] Cyanocobalamin [Vitamin B-12] 500 mcg PO DAILY 07/17/19 07/17/19 History Insulin Lispro [Admelog] 10 unit SQ AC-TID 07/17/19 07/17/19 History Varenicline Tartrate [Chantix 0.5 mg PO BID 07/17/19 07/17/19 History Starter Pack] Allergies Allergy/AdvReac Type Severity Reaction Status Date / Time sulfamethoxazole Allergy Swelling Verified 07/17/19 07:29 [From Bactrim] trimethoprim [From Bactrim] Allergy Swelling Verified 07/17/19 07:29 metformin AdvReac Nausea & Verified 07/17/19 07:29 Vomiting & Diarrhea Physical Exam Vitals: Vital Signs Temp Pulse Resp BP Pulse Ox 07/17/19 07:44 97.7 F 85 17 97/46 98 07/17/19 07:00 98 F 88 15 90/61 97 07/17/19 06:30 86 15 90/65 97 07/17/19 06:00 90 16 94/66 97 07/17/19 05:30 98.1 F 91 16 100/70 96 07/17/19 05:00 98 16 87/61 96 07/17/19 04:37 98 16 122/86 97 07/17/19 04:32 96 18 122/75 07/17/19 04:27 98 F 101 H 136/77 97 07/17/19 02:13 98.5 F 115 H 22 144/87 96 Intake and Output 07/16/19 07/17/19 07/17/19 22:59 06:59 14:59 Output Total 525 1300 Balance -525 -1300 Output: Urine 525 1300 Other: Weight 66.678 kg Results 07/17/19 02:05 07/17/19 02:05 Cardiac Enzymes 07/17/19 07/17/19 Range/Units 02:05 02:05 AST 52 H (14-36) U/L Troponin I 3.340 H* (0.000-0.034) ng/mL Coagulation 07/17/19 Range/Units 02:05 PT 10.6 (9.0-12.0) sec APTT 101.7 H* (22.0-30.0) sec CBC 07/17/19 Range/Units 02:05 WBC 11.7 H (3.8-10.6) k/uL RBC 4.68 (3.80-5.40) m/uL Hgb 13.9 (11.4-16.0) gm/dL Hct 42.9 (34.0-46.0) % Plt Count 196 (150-450) k/uL Comprehensive Metabolic Panel 07/17/19 Range/Units 02:05 Sodium 137 (137-145) mmol/L Potassium 3.8 (3.5-5.1) mmol/L Chloride 106 (98-107) mmol/L Carbon Dioxide 19 L (22-30) mmol/L BUN 17 (7-17) mg/dL Creatinine 0.71 (0.52-1.04) mg/dL Glucose 283 H (74-99) mg/dL Calcium 9.3 (8.4-10.2) mg/dL AST 52 H (14-36) U/L ALT 36 (9-52) U/L Alkaline Phosphatase 95 (38-126) U/L Total Protein 6.3 (6.3-8.2) g/dL Albumin 3.8 (3.5-5.0) g/dL Current Medications Generic Name Dose Route Start Last Admin Trade Name Freq PRN Reason Stop Dose Admin Aspirin 81 mg 07/18/19 02:45 Aspirin PO DAILY [facility] Atorvastatin Calcium 40 mg 07/17/19 21:00 Lipitor PO HS [facility] Heparin Sodium (Porcine) 0 unit 07/17/19 02:46 Heparin IV PER PROTOCOL PRN Low PTT Protocol Nitroglycerin/Dextrose 50 mg/ 250 mls @ 3 mls/hr 07/17/19 02:43 07/17/19 04:16 IV Solution IV 07/18/19 02:42 10 mcg/min .Q24H ONE 3 mls/hr Administration Protocol 10 MCG/MIN Heparin Sodium/Sodium Chloride 250 mls @ 8.001 mls/hr 07/17/19 03:00 07/17/19 04:17 25,000 unit/ Sodium Chloride IV 12 units/kg/hr .Q24H [facility] 8.001 mls/hr Administration Protocol 12 UNITS/KG/HR Lisinopril 5 mg 07/17/19 09:00 Zestril PO DAILY [facility] Intake and Output 07/16/19 07/17/19 07/17/19 22:59 06:59 14:59 Output Total 525 1300 Balance -525 -1300 Output: Urine 525 1300 Other: Weight 66.678 kg 07/17/19 02:05 07/17/19 02:05
[2019-07-17] MEDS ORDERED: LISINOPRIL 5 MG TAB PO SCH (09:00)
[2019-07-17] MEDS ORDERED: CARVEDILOL 1.563 MG TAB PO SCH (09:15)
[2019-07-17] MEDS: HEPARIN SODIUM,PORCINE 5,000 UNIT/ML 1 ML VIAL IV PRN ×3 (10:02→23:51)
[2019-07-17] MEDS: METOPROLOL TARTRATE 12.5 MG TAB PO SCH ×2 (10:32→20:18)
[2019-07-17 11:35] LABS: Glucose,Whole Blood 364 mg/dL (75-99)
[2019-07-17] MEDS: INSULIN ASPART (NovoLOG) 100 UNIT/ML VIAL SQ SCH ×3 (11:38→20:21)
[2019-07-17 13:09] LABS: African American GFR (CKD) >90 (>60 ml/min/1.73 sqM); Anion Gap 15 mmol/L; Blood Urea Nitrogen 17 mg/dL (7-17); Calcium 9.3 mg/dL (8.4-10.2); Carbon Dioxide 21 mmol/L (22-30); Chloride 101 mmol/L (98-107); Glucose 350 mg/dL (74-99); Sodium 137 mmol/L (137-145); Total Bilirubin 1.1 mg/dL (0.2-1.3); Total Protein 6.7 g/dL (6.3-8.2)
[2019-07-17 13:20] LABS: ALT 62 U/L (9-52); AST 111 U/L (14-36); Alkaline Phosphatase 82 U/L (38-126); Potassium 4.3 mmol/L (3.5-5.1)
--- NOTE | 2019-07-17 14:56 | ECHOF ---
Referral Reason:heart failure MEASUREMENTS -------- HEIGHT: 175.3 cm WEIGHT: 66.7 kg BP: 76/55 IVSd: 1.4 cm (0.6 - 1.1) LVIDd: 5.3 cm (3.9 - 5.3) LVPWd: 1.4 cm (0.6 - 1.1) IVSs: 2.2 cm LVIDs: 3.7 cm LVPWs: 1.9 cm LA Diam: 3.8 cm (2.7 - 3.8) RVIDd: 2.0 cm (< 3.3) LAESV Index (A-L): 26.74 ml/m Ao Diam: 2.6 cm (2.0 - 3.7) AV Cusp: 1.9 cm (1.5 - 2.6) EPSS: 2.0 cm MV E Jose: 0.98 m/s MV DecT: 120 ms MV A Jose: 0.64 m/s MV E/A Ratio: 1.54 AR PHT: 1016 ms MV EF SLOPE: 125.66 mm/s (70 - 150) MV EXCURSION: 12.15 mm (> 18.000) TAPSE: 13.54 mm FINDINGS -------- Sinus rhythm. This was a technically adequate study. The left ventricular size is normal. There is moderate concentric left ventricular hypertrophy. O verall left ventricular systolic function is moderate-severely impaired with, an EF between 30 - 35 % . The diastolic filling pattern indicates impaired relaxation 25.25. Apical anterior LV wall andrew on is hypokinetic. Apical lateral LV wall motion is hypokinetic. Apical inferior LV wall motion is hypokinetic. Apical septum LV wall motion is hypokinetic. The right ventricle is normal in size. Normal LA size by volume 22+/-6 ml/m2. The right atrium is normal in size. Interatrial and interventricular septum intact. Aortic valve is trileaflet and is mildly thickened. There is mild aortic regurgitation. Moderate mitral regurgitation is present. The tricuspid valve appears structurally normal. Trace/mild (physiologic) pulmonic regurgitation. The aortic root size is normal. Normal inferior vena cava with normal inspiratory collapse consistent with estimated right atrial pre ssure of 5 mmHg. There is no pericardial effusion. CONCLUSIONS -------- 1. Sinus rhythm. 2. This was a technically adequate study. 3. The left ventricular size is normal. 4. There is moderate concentric left ventricular hypertrophy. 5. Overall left ventricular systolic function is moderate-severely impaired with, an EF between 30 - 35 %. 6. The diastolic filling pattern indicates impaired relaxation 25.25.. 7. Apical anterior LV wall motion is hypokinetic. 8. Apical lateral LV wall motion is hypokinetic. 9. Apical inferior LV wall motion is hypokinetic. 10. Apical septum LV wall motion is hypokinetic. 11. The right ventricle is normal in size. 12. Normal LA size by volume 22+/-6 ml/m2. 13. The right atrium is normal in size. 14. Interatrial and interventricular septum intact. 15. Aortic valve is trileaflet and is mildly thickened. 16. There is mild aortic regurgitation. 17. Moderate mitral regurgitation is present. 18. The tricuspid valve appears structurally normal. 19. Trace/mild (physiologic) pulmonic regurgitation. 20. The aortic root size is normal. 21. Normal inferior vena cava with normal inspiratory collapse consistent with estimated right atrial pressure of 5 mmHg. 22. There is no pericardial effusion. HEAVY REPAIRER: Guillermina Chow RDCS
[2019-07-17] MEDS: INSULIN DETEMIR (LEVEMIR) 100 UNIT/ML SYR SQ SCH ×2 (15:22→17:59)
[2019-07-17] MEDS: FUROSEMIDE 20 MG TAB PO SCH (16:46)
[2019-07-17] MEDS: LISINOPRIL 5 MG TAB PO SCH (16:49)
[2019-07-17 17:58] LABS: Glucose,Whole Blood 293 mg/dL (75-99)
[2019-07-17 20:15] LABS: Glucose,Whole Blood 269 mg/dL (75-99)
[2019-07-17] MEDS: ATORVASTATIN 40 MG TAB PO SCH (20:15)
--- NOTE | 2019-07-17 20:44 | P.HPIM ---
History of Present Illness H&P Date: 07/17/19 Chief Complaint: Chest pressure History of presenting complaint: This is a pleasant [address] Freya Miles. Chronic stable medical conditions include COPD, , hyperlipidemia, diabetes. Patient states about 9 year ago she was having trouble walking even short distance. She was then seen by Dr. Smith. There trouble accessing her from the artery in the groin and also the rest. Subsequently she had took a bypass done to the block artery in the abdomen to improve her circulation to lower extremity. Patient has continued to smoke up to recently. She also has a complete report right carotid artery. History of 9:00 she suddenly became short of breath and developed chest pressure going across the chest. Became dizzy lightheaded. About 11:30 PM she went to [facility]. Her troponin there was 5 with EKG changes and she was transferred here. EKG was showing some ST elevation anterior leads. Patient also following congestive heart failure. Patient was transferred to our ER from [facility]. Patient is put on IV heparin and given IV Lasix. And admitted. Review of systems: GEN.: Tired EYES: None HEENT: None NECK: None RESPIRATORY: Short of breath and some wheezing CARDIOVASCULAR: As above GASTROINTESTINAL: None GENITOURINARY: None MUSCULOSKELETAL: None LYMPHATICS: None HEMATOLOGICAL: None PSYCHIATRY: But anxious] NEUROLOGICAL: None.. Past medical history to include: COPD, hyperlipidemia, diabetes, right carotid artery block, intra-abdominal artery that was bypassed for lower extremity claudication what patient describes as the aorta Social history: Smoking a pack a day for over 30 years has smoked last 3-4 days. Started using Chantix. Works for [employer]. Lives with her fianc. Physical examination: VITAL SIGNS: 98.5, 115, 22, 144/87, 96% on 4 L GENERAL: BMI 21.7, sitting up in bed a bit anxious. EYES: Pupils equal. Conjunctiva normal. HEENT: External appearance of nose and ears normal, oral cavity grossly normal. NECK: JVD not raised; masses not palpable. HEART: First and second heart sounds are normal; no edema. LUNGS: Respiratory rate increased, diminished breath sounds. ABDOMEN: Soft, nontender, liver spleen not palpable, no masses palpable. PSYCH: [Alert and oriented x3; mood and affect anxious l. NEUROLOGICAL: Cranial nerves grossly intact; no facial asymmetry, power and sensation grossly intact. LYMPHATICS: No lymph nodes palpable in the axilla and neck INVESTIGATIONS, reviewed in the clinical context: White count 10.7 hemoglobin 13.9 platelets 196 potassium 3.8 crit 0.71 glucose 283 Troponin 3.3, 5.5 ProBNP 7190 EKG tracing personally reviewed by me-ST segment elevation in anterior leads and flipped T waves in the V4 to V6 Chest x-ray film personally reviewed by me-pulmonary edema with fluid in the fissures, infiltrative patch at the right lung 2-D echo -, multiple wall motion hypokinesia, moderate MR, EF 20-25% Assessment: -Acute ST elevation myocardial infarction -Acute congestive heart failure from ischemic cardiomyopathy EF of 20-25% -Acute moderate mitral regurgitation could be from acute ischemic cardiomyopathy -acute COPD exacerbation in a smoker -Diabetes mellitus type 2, chronically on insulin -Possible peripheral artery disease -IV heparin monitoring -Possible right lower lobe pneumonia Plan: Cardiogenic of the case. Patient will IV heparin. Did receive IV Lasix. Then switched to by mouth Lasix also and Aldactone Lopressor DEVON inhibitor. And Lipitor. Care was discussed with the patient. Follow with cardiology. We'll a lso consult Dr. Smith, to home the patient is known and patient's a prior difficulty axis both the groin and the wrist. Started on IV ceftriaxone. Also will do a pulmonary consultation Past Medical History Past Medical History: Coronary Artery Disease (CAD), Chest Pain / Angina, COPD, CVA/TIA, Diabetes Mellitus, Hyperlipidemia, Myocardial Infarction ([place]), Musculoskeletal Disorder, Pneumonia, Thyroid Disorder Additional Past Medical History / Comment(s): Cardiac murmur, DDD, Hyperthyroid/Thyroid Nodules, nausea and vomiting since after of 2017. Has lost 75lbs. Hx CVA 2007 or 2008, no residual effects. 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 Hx Pneumonia. Last Myocardial Infarction Date:: 2011 History of Any Multi-Drug Resistant Organisms: None Reported Past Surgical History: Section, Heart Catheterization, Hernia Repair Additional Past Surgical History / Comment(s): I&D L gluteal abscess, aortagram, Fxpgo-Ym-Wvxio bypass, laparoscopic surgery-one ovary/one tube removed from opposite sides, multiple abdominal incisional hernia repairs with mesh, Attempted Heart cath but patient states veins collapsed and unable to do. Past Anesthesia/Blood Transfusion Reactions: No Reported Reaction Past Psychological History: No Psychological Hx Reported Smoking Status: Current every day smoker Past Alcohol Use History: None Reported Past Drug Use History: None Reported - Past Family History Mother Family Medical History: Cancer Additional Family Medical History / Comment(s): Mother is a breast cancer survivor. Father Family Medical History: Coronary Artery Disease (CAD), Diabetes Mellitus, Myocardial Infarction ([place]) Additional Family Medical History / Comment(s): Agent [place] Exposure. Pt does not know at what age her father had his [place]. Medications and Allergies Home Medications Medication Instructions Recorded Confirmed Type Insulin Glargine,Hum.rec.anlog 30 unit SQ DAILY 10/28/18 07/17/19 History [Basaglar Kwikpen U-100] Albuterol Nebulized [Ventolin 2.5 mg INHALATION RT-Q6H PRN 07/17/19 07/17/19 History Nebulized] Cyanocobalamin [Vitamin B-12] 500 mcg PO DAILY 07/17/19 07/17/19 History Insulin Lispro [Admelog] 10 unit SQ AC-TID 07/17/19 07/17/19 History Varenicline Tartrate [Chantix 0.5 mg PO BID 07/17/19 07/17/19 History Starter Pack] Allergies Allergy/AdvReac Type Severity Reaction Status Date / Time sulfamethoxazole Allergy Swelling Verified 07/17/19 07:29 [From Bactrim] trimethoprim [From Bactrim] Allergy Swelling Verified 07/17/19 07:29 metformin AdvReac Nausea & Verified 07/17/19 07:29 Vomiting & Diarrhea Physical Exam Vitals: Vital Signs Temp Pulse Pulse Resp BP BP Pulse Ox 07/17/19 09:50 90 92/72 07/17/19 09:40 69/57 07/17/19 08:59 82 18 79/58 95 07/17/19 08:00 98.3 F 87 18 97/46 97 07/17/19 07:44 97.7 F 85 17 97/46 98 07/17/19 07:00 98 F 88 15 90/61 97 07/17/19 06:30 86 15 90/65 97 07/17/19 06:00 90 16 94/66 97 07/17/19 05:30 98.1 F 91 16 100/70 96 07/17/19 05:00 98 16 87/61 96 07/17/19 04:37 98 16 122/86 97 07/17/19 04:32 96 18 122/75 07/17/19 04:27 98 F 101 H 136/77 97 07/17/19 03:15 98.3 F 87 18 97/46 97 07/17/19 02:13 98.5 F 115 H 22 144/87 96 Intake and Output 07/16/19 07/17/19 07/17/19 22:59 06:59 14:59 Intake Total 45.072 Output Total 525 1300 Balance -525 -1254.928 Intake: Intake, IV Titration 45.072 Amount Heparin Sod,Pork in 0.45% 45.072 NaCl 25,000 unit In 0.45 % NaCl 1 250ml.bag @ 12 UNITS/KG/HR 8.001 mls/hr IV .Q24H [facility] Rx#: [id number] Output: Urine 525 1300 Other: Voiding Method Bedside Commode Weight 66.678 kg Results CBC & Chem 7: 07/17/19 02:05 07/17/19 12:08 Labs: Abnormal Lab Results - Last 24 Hours (Table) 07/17/19 07/17/19 07/17/19 Range/Units 02:05 02:05 02:05 WBC 11.7 H (3.8-10.6) k/uL Neutrophils # 9.3 H (1.3-7.7) k/uL APTT 101.7 H* (22.0-30.0) sec Carbon Dioxide 19 L (22-30) mmol/L Glucose 283 H (74-99) mg/dL POC Glucose (mg/dL) (75-99) mg/dL AST 52 H (14-36) U/L Troponin I (0.000-0.034) ng/mL 07/17/19 07/17/19 07/17/19 Range/Units 02:05 08:15 08:15 WBC (3.8-10.6) k/uL Neutrophils # (1.3-7.7) k/uL APTT 30.2 H (22.0-30.0) sec Carbon Dioxide (22-30) mmol/L Glucose (74-99) mg/dL POC Glucose (mg/dL) (75-99) mg/dL AST (14-36) U/L Troponin I 3.340 H* 5.500 H* (0.000-0.034) ng/mL 07/17/19 Range/Units 11:34 WBC (3.8-10.6) k/uL Neutrophils # (1.3-7.7) k/uL APTT (22.0-30.0) sec Carbon Dioxide (22-30) mmol/L Glucose (74-99) mg/dL POC Glucose (mg/dL) 364 H (75-99) mg/dL AST (14-36) U/L Troponin I (0.000-0.034) ng/mL Thrombosis Risk Factor Assmnt - Choose All That Apply Any of the Below Risk Factors Present?: Yes Each Factor Represents 1 point: Abnormal pulmonary function (COPD), Age 41-60 years, Serious lung disease incl. pneumonia (< 1month) Thrombosis Risk Factor Assessment Total Risk Factor Score: 3 Thrombosis Risk Factor Assessment Level: Moderate Risk
[2019-07-17] MEDS: IPRATROPIUM-ALBUTEROL 3 ML NEB INHALATION SCH (21:04)
[2019-07-17] MEDS: BUDESONIDE 1 MG/2 ML NEBU INHALATION SCH (21:04)
[2019-07-18] MEDS: ASPIRIN 81 MG PO SCH ×2 (05:03→09:36)
[2019-07-18] MEDS: HEPARIN SOD,PORK IN 0.45% NACL 25,000 UNIT in 0.45% NACL 1 250ML.BAG IV SCH (05:35)
[2019-07-18 06:25] LABS: Glucose,Whole Blood 113 mg/dL (75-99)
[2019-07-18 06:28] LABS: Basophils % (A) 0 %; Eosinophils # (A) 0.1 k/uL (0-0.7); Eosinophils % (A) 1 %; HGB 12.9 gm/dL (11.4-16.0); Lymphocytes # (A) 2.8 k/uL (1.0-4.8); Lymphocytes % (A) 22 %; MCH 30.7 pg (25.0-35.0); MCHC 33.1 g/dL (31.0-37.0); MCV 92.9 fL (80.0-100.0); Mean Platelet Volume 6.6; Monocytes # (A) 0.8 k/uL (0-1.0); Monocytes % (A) 6 %; Neutrophils # (A) 8.9 k/uL (1.3-7.7); Neutrophils % (A) 69 %; Platelet Count 230 k/uL (150-450); RDW 12.6 % (11.5-15.5)
[2019-07-18 06:42] LABS: ALT 46 U/L (9-52); AST 48 U/L (14-36); African American GFR (CKD) >90 (>60 ml/min/1.73 sqM); Albumin 3.3 g/dL (3.5-5.0); Alkaline Phosphatase 72 U/L (38-126); Anion Gap 8 mmol/L; Blood Urea Nitrogen 17 mg/dL (7-17); Calcium 9.2 mg/dL (8.4-10.2); Carbon Dioxide 26 mmol/L (22-30); Chloride 104 mmol/L (98-107); Glucose 95 mg/dL (74-99); Potassium 3.8 mmol/L (3.5-5.1); Sodium 138 mmol/L (137-145); Total Bilirubin 0.6 mg/dL (0.2-1.3); Total Protein 5.7 g/dL (6.3-8.2)
[2019-07-18] MEDS: INSULIN ASPART (NovoLOG) 100 UNIT/ML VIAL SQ SCH ×7 (06:51→21:46)
[2019-07-18] MEDS: SPIRONOLACTONE 25 MG TAB PO SCH (09:36)
[2019-07-18] MEDS: METOPROLOL TARTRATE 12.5 MG TAB PO SCH (09:36)
[2019-07-18] MEDS: FUROSEMIDE 20 MG TAB PO SCH (09:36)
[2019-07-18] MEDS: LISINOPRIL 5 MG TAB PO SCH (09:36)
[2019-07-18] MEDS: AZITHROMYCIN 500 MG TAB PO SCH (09:40)
[2019-07-18] MEDS: BUDESONIDE 1 MG/2 ML NEBU INHALATION SCH ×2 (09:46→19:09)
[2019-07-18] MEDS: IPRATROPIUM-ALBUTEROL 3 ML NEB INHALATION SCH ×4 (09:46→19:09)
--- NOTE | 2019-07-18 10:17 | P.GSCN ---
History of Present Illness Consult date: 07/18/19 Reason for Consult: Known to our services, difficult femoral and radial access Requesting physician: Parker Keller History of present illness: This is a 49-year-old female patient who follows on an outpatient basis with Dr. Torin Miles. She has a previous medical history of hyperlipidemia, insulin- dependent diabetes mellitus, complete occlusion of the right internal carotid artery, COPD with current tobacco dependence, aorto-ileac bypass, recent cholecystectomy, and family history of heart disease. Apparently she had what she described as bronchitis approximately 2 weeks ago and was given a Z-Zeeshan, she felt better for a couple days, and then developed what she felt was flulike symptoms. She intended to go to an urgent care center today, however she became increasingly short of breath with worsening chest pain over the weekend, and she presented to [facility] for evaluation and treatment. Chest x- ray was completed with concern for congestive heart failure, EKG was completed with anterior wall ST elevations, troponin was 5, BNP was 7782, and patient was transferred to [facility] for further cardiac evaluation and treatment. First troponin at [facility] was 5.5, decreased to 3.34. She was admitted with consultation placed to cardiology. She was felt to be in acute heart failure with viral myocarditis as the cause for her elevated troponins and EKG changes. According to cardiology the plan is to maximize her heart failure status and then complete heart catheterization to evaluate for coronary artery disease. She does have a long-standing history of difficult vascular access and for this reason Dr. Smith was consulted. Review of Systems Review of systems was completed and is negative except as noted - Cardiovascular Reports as per HPI, Reports chest pain, Reports decreased exercise tolerance, Reports dyspnea on exertion, Reports shortness of breath - Respiratory Reports as per HPI, Reports cough, Reports dyspnea Past Medical History Past Medical History: Coronary Artery Disease (CAD), Chest Pain / Angina, COPD, CVA/TIA, Diabetes Mellitus, Hyperlipidemia, Myocardial Infarction ([place]), Musculoskeletal Disorder, Pneumonia, Thyroid Disorder Additional Past Medical History / Comment(s): Cardiac murmur, DDD, Hyper thyroid/Thyroid Nodules, nausea and vomiting since after 2017. Has lost 75lbs. Hx CVA 2007 or 2008, no residual effects. Right carotid artery 100% blocked, left carotid artery 50% blocked, follows with Dr Rausch [id number]. Hx Pneumonia. Last Myocardial Infarction Date:: 2011 History of Any Multi-Drug Resistant Organisms: None Reported Past Surgical History: Section, Cholecystectomy, Heart Catheterization, Hernia Repair Additional Past Surgical History / Comment(s): I&D L gluteal abscess, aortagram, Rekig-Fy-Bmpts bypass, laparoscopic surgery-one ovary/one tube removed from opposite sides, multiple abdominal incisional hernia repairs with mesh, Attempted Heart cath but patient states veins collapsed and unable to do. Past Anesthesia/Blood Transfusion Reactions: No Reported Reaction Past Psychological History: No Psychological Hx Reported Smoking Status: Current every day smoker Past Alcohol Use History: None Reported Past Drug Use History: None Reported - Past Family History Mother Family Medical History: Cancer, Coronary Artery Disease (CAD) Additional Family Medical History / Comment(s): Mother is a breast cancer survivor. Father Family Medical History: Coronary Artery Disease (CAD), Diabetes Mellitus, Myocardial Infarction ([place]) Additional Family Medical History / Comment(s): Agent [place] Exposure. Pt does not know at what age her father had his [place]. Medications and Allergies Home Medications Medication Instructions Recorded Confirmed Type Insulin Glargine,Hum.rec.anlog 30 unit SQ DAILY 10/28/18 07/17/19 History [Basaglar Kwikpen U-100] Albuterol Nebulized [Ventolin 2.5 mg INHALATION RT-Q6H PRN 07/17/19 07/17/19 History Nebulized] Cyanocobalamin [Vitamin B-12] 500 mcg PO DAILY 07/17/19 07/17/19 History Insulin Lispro [Admelog] 10 unit SQ AC-TID 07/17/19 07/17/19 History Varenicline Tartrate [Chantix 0.5 mg PO BID 07/17/19 07/17/19 History Starter Pack] Allergies Allergy/AdvReac Type Severity Reaction Status Date / Time sulfamethoxazole Allergy Swelling Verified 07/17/19 07:29 [From Bactrim] trimethoprim [From Bactrim] Allergy Swelling Verified 07/17/19 07:29 metformin AdvReac Nausea & Verified 07/17/19 07:29 Vomiting & Diarrhea Surgical - Exam Vital Signs Temp Pulse Resp BP Pulse Ox 98.5 F 115 H 22 144/87 96 07/17/19 02:13 07/17/19 02:13 07/17/19 02:13 07/17/19 02:13 07/17/19 02:13 - General well developed, well nourished, no distress, no pain - Eyes PERRL, normal ocular movement - ENT no hearing loss, poor half-way - Neck no masses, no bruits, trachea midline - Respiratory Lungs sounds diminished bilaterally. Respirations even, nonlabored. Currently on room air with oxygen saturation 93%. - Cardiovascular S1, S2 present. Regular rate and rhythm, sinus rhythm on telemetry. No edema present. No calf pain or tenderness noted. - Abdomen Abdomen: soft, non tender, bowel sounds - Genitourinary Deferred - Rectum Deferred - Integumentary no rash, no growths - Neurologic normal coordination, normal sensation - Musculoskeletal normal gait, normal posture - Psychiatric oriented to time, oriented to person, oriented to place, speech is normal, memory intact Results - Labs 07/18/19 05:40 07/18/19 05:40 Abnormal Lab Results - Last 24 Hours (Table) 07/17/19 07/17/19 07/17/19 Range/Units 11:34 12:08 15:43 WBC (3.8-10.6) k/uL Neutrophils # (1.3-7.7) k/uL APTT 43.7 H (22.0-30.0) sec Carbon Dioxide 21 L (22-30) mmol/L Glucose 350 H (74-99) mg/dL POC Glucose (mg/dL) 364 H (75-99) mg/dL AST 111 H (14-36) U/L ALT 62 H (9-52) U/L Total Protein (6.3-8.2) g/dL Albumin (3.5-5.0) g/dL 07/17/19 07/17/19 07/17/19 Range/Units 17:50 20:14 23:06 WBC (3.8-10.6) k/uL Neutrophils # (1.3-7.7) k/uL APTT 44.3 H (22.0-30.0) sec Carbon Dioxide (22-30) mmol/L Glucose (74-99) mg/dL POC Glucose (mg/dL) 293 H 269 H (75-99) mg/dL AST (14-36) U/L ALT (9-52) U/L Total Protein (6.3-8.2) g/dL Albumin (3.5-5.0) g/dL 07/18/19 07/18/19 07/18/19 Range/Units 05:40 05:40 05:40 WBC 13.0 H (3.8-10.6) k/uL Neutrophils # 8.9 H (1.3-7.7) k/uL APTT 32.6 H (22.0-30.0) sec Carbon Dioxide (22-30) mmol/L Glucose (74-99) mg/dL POC Glucose (mg/dL) (75-99) mg/dL AST 48 H (14-36) U/L ALT (9-52) U/L Total Protein 5.7 L (6.3-8.2) g/dL Albumin 3.3 L (3.5-5.0) g/dL 07/18/19 Range/Units 06:24 WBC (3.8-10.6) k/uL Neutrophils # (1.3-7.7) k/uL APTT (22.0-30.0) sec Carbon Dioxide (22-30) mmol/L Glucose (74-99) mg/dL POC Glucose (mg/dL) 113 H (75-99) mg/dL AST (14-36) U/L ALT (9-52) U/L Total Protein (6.3-8.2) g/dL Albumin (3.5-5.0) g/dL Diabetes panel 07/17/19 07/18/19 Range/Units 12:08 05:40 Sodium 137 138 (137-145) mmol/L Potassium 4.3 3.8 (3.5-5.1) mmol/L Chloride 101 104 (98-107) mmol/L Carbon Dioxide 21 L 26 (22-30) mmol/L BUN 17 17 (7-17) mg/dL Creatinine 0.63 0.66 (0.52-1.04) mg/dL Glucose 350 H 95 (74-99) mg/dL Calcium 9.3 9.2 (8.4-10.2) mg/dL AST 111 H 48 H (14-36) U/L ALT 62 H 46 (9-52) U/L Alkaline Phosphatase 82 72 (38-126) U/L Total Protein 6.7 5.7 L (6.3-8.2) g/dL Albumin 4.0 3.3 L (3.5-5.0) g/dL Calcium panel 07/17/19 07/18/19 Range/Units 12:08 05:40 Calcium 9.3 9.2 (8.4-10.2) mg/dL Albumin 4.0 3.3 L (3.5-5.0) g/dL Pituitary panel 07/17/19 07/18/19 Range/Units 12:08 05:40 Sodium 137 138 (137-145) mmol/L Potassium 4.3 3.8 (3.5-5.1) mmol/L Chloride 101 104 (98-107) mmol/L Carbon Dioxide 21 L 26 (22-30) mmol/L BUN 17 17 (7-17) mg/dL Creatinine 0.63 0.66 (0.52-1.04) mg/dL Glucose 350 H 95 (74-99) mg/dL Calcium 9.3 9.2 (8.4-10.2) mg/dL Adrenal panel 07/17/19 07/18/19 Range/Units 12:08 05:40 Sodium 137 138 (137-145) mmol/L Potassium 4.3 3.8 (3.5-5.1) mmol/L Chloride 101 104 (98-107) mmol/L Carbon Dioxide 21 L 26 (22-30) mmol/L BUN 17 17 (7-17) mg/dL Creatinine 0.63 0.66 (0.52-1.04) mg/dL Glucose 350 H 95 (74-99) mg/dL Calcium 9.3 9.2 (8.4-10.2) mg/dL Total Bilirubin 1.1 0.6 (0.2-1.3) mg/dL AST 111 H 48 H (14-36) U/L ALT 62 H 46 (9-52) U/L Alkaline Phosphatase 82 72 (38-126) U/L Total Protein 6.7 5.7 L (6.3-8.2) g/dL Albumin 4.0 3.3 L (3.5-5.0) g/dL - Imaging Chest x-ray: report reviewed, image reviewed EKG: image reviewed Assessment and Plan Assessment: 1. Elevated troponins with anterior wall EKG changes, questionable STEMI versus acute viral myocarditis 2. Acute systolic heart failure, EF 30-35%, moderate mitral regurgitation 3. Hyperlipidemia 4. Insulin-dependent diabetes mellitus 6. Complete occlusion of the right internal carotid artery 7. COPD with current tobacco dependence 8. History of aortoiliac bypass 9. Recent laparoscopic cholecystectomy Plan: The patient was seen and examined at the bedside. Her chart/diagnostics were reviewed. The case was discussed in detail with Dr. Smith. There is no surgical management from our standpoint. If femoral or radial axis is needed for heart catheterization and is unable to be obtained by the cardiologists, we recommend consultation placed to Dr. Eaton et. al for vascular assistance. Patient encouraged to quit smoking. Increase activity as tolerated. Continue current medical management of other comorbidities per primary care service, cardiology. Thank you Dr. Keller for this consult. Please call us with any further questions. Time with Patient: Greater than 30
[2019-07-18] MEDS ORDERED: ASPIRIN 325 MG TAB PO STA (11:31)
[2019-07-18] MEDS ORDERED: NITROGLYCERIN SL TABS 0.4 MG TAB SUBLINGUAL PRN (11:31)
[2019-07-18] MEDS ORDERED: SODIUM CHLORIDE 0.9% 1,000 ML in EMPTY BAG 1 BAG IV ONE (11:31)
[2019-07-18] MEDS ORDERED: ATORVASTATIN 80 MG TAB PO STA (11:31)
[2019-07-18] MEDS: CARVEDILOL 3.125 MG TAB PO SCH ×2 (11:45→18:08)
[2019-07-18] MEDS: VARENICLINE 1 MG TAB PO SCH ×2 (12:18→21:47)
[2019-07-18] MEDS: INSULIN DETEMIR (LEVEMIR) 100 UNIT/ML SYR SQ SCH (12:43)
[2019-07-18 13:00] LABS: Glucose,Whole Blood 252 mg/dL (75-99)
--- NOTE | 2019-07-18 13:42 | P.CNPUL ---
History of Present Illness Consult date: 07/18/19 Requesting physician: Parker Keller Reason for consult: cough, chest pain, COPD, pneumonia Chief complaint: Right lower lobe pneumonia History of present illness: This is a 49-year-old white female patient of Dr. Freya Miles, who sees Elieser Serna PA-C at her office, has passed Meck[place] history of COPD, not on oxygen at baseline, previous history of pneumonia, frequent bouts of bronchitis, carotid artery stenosis, and patient has a known 100% right carotid stenosis and 60% left-sided carotid stenosis she follows with Dr. Rausch, previous episode of myocardial infarction 8 years ago, diabetes mellitus type 2 on insulin, and patient carries [id number] smoking history, she recently quit 5 days ago, she is currently on Chantix. Patient presented to the emergency department on 07/17 with complaints of midsternal chest pain, which was nonradiating, which was exacerbated by episodes of coughing and deep breathing, increased cough, non-productive, denied any fever, chills, denied any hemoptysis. Patient was a transfer from [facility]. Apparently last week she had a upper respiratory infection, cough and intermittent chest pain. She developed worsening of the pleuritic chest pain worse with inspiration. EKG was obtained on admission showing sinus tachycardia, 1,[address] elevation in V2 and V3, V4 and V5. Labs showed mild leukocytosis with a white blood cell count of 11.7, hemoglobin of 13.9, electrolytes and renal profile were unremarkable with the exception of CO2 which was at 21, glucose was elevated at 350, troponin came back elevated at 3.340, and 5.5, proBNP was 7190, and subsequent one came down to 5330. Chest x-ray showed right lower lobe airspace disease likely related to pneumonia, and increased diffuse interstitial markings consistent with mild interstitial edema. She has been afebrile, she is maintaining stable oxygenation on room air, she has been started on Rocephin and Zithromax, she was given a dose of IV Lasix in the emergency department, she is being evaluated by cardiology, and her echocardiogram revealed moderately severe impaired LVEF of 30-35%, hypokinesis involving the apical anterior lateral LV wall, lateral LV wall and inferior LV wall, as well as a septal wall. There is mild aortic regurgitation, moderate mitral regurgitation, trace pulmonic regurgitation, no pericardial effusion. Review of Systems All systems: negative Constitutional: Denies chills, Denies fever Eyes: denies blurred vision, denies pain Ears, nose, mouth and throat: Denies headache, Denies sore throat Cardiovascular: Reports chest pain, Denies shortness of breath Respiratory: Denies cough Gastrointestinal: Denies abdominal pain, Denies diarrhea, Denies nausea, Denies vomiting Genitourinary: Denies dysuria, Denies hematuria Musculoskeletal: Denies myalgias Integumentary: Denies pruritus, Denies rash Neurological: Denies numbness, Denies weakness Psychiatric: Denies anxiety, Denies depression Endocrine: Denies fatigue, Denies weight change Past Medical History Past Medical History: Coronary Artery Disease (CAD), Chest Pain / Angina, COPD, CVA/TIA, Diabetes Mellitus, Hyperlipidemia, Myocardial Infarction (CO), Musculoskeletal Disorder, Pneumonia, Thyroid Disorder Additional Past Medical History / Comment(s): Cardiac murmur, DDD, Hyperthyroid/Thyroid Nodules, nausea and vomiting since after 2017. Has lost 75lbs. Hx CVA 2007 or 2008, no residual effects. Right carotid artery 100% blocked, left carotid artery 50% blocked, follows with Dr Rausch [id number]. Hx Pneumonia. Last Myocardial Infarction Date:: 2011 History of Any Multi-Drug Resistant Organisms: None Reported Past Surgical History: Section, Cholecystectomy, Heart Catheterization, Hernia Repair Additional Past Surgical History / Comment(s): I&D L gluteal abscess, aortagram, Esuun-Af-Ytnqd bypass, laparoscopic surgery-one ovary/one tube removed from opposite sides, multiple abdominal incisional hernia repairs with mesh, A ttempted Heart cath but patient states veins collapsed and unable to do. Past Anesthesia/Blood Transfusion Reactions: No Reported Reaction Past Psychological History: No Psychological Hx Reported Smoking Status: Current every day smoker Past Alcohol Use History: None Reported Past Drug Use History: None Reported - Past Family History Mother Family Medical History: Cancer, Coronary Artery Disease (CAD) Additional Family Medical History / Comment(s): Mother is a breast cancer survivor. Father Family Medical History: Coronary Artery Disease (CAD), Diabetes Mellitus, Myocardial Infarction (CO) Additional Family Medical History / Comment(s): Agent [place] Exposure. Pt does not know at what age her father had his CO. Medications and Allergies Home Medications Medication Instructions Recorded Confirmed Type Insulin Glargine,Hum.rec.anlog 30 unit SQ DAILY 10/28/18 07/17/19 History [Basaglar Kwikpen U-100] Albuterol Nebulized [Ventolin 2.5 mg INHALATION RT-Q6H PRN 07/17/19 07/17/19 History Nebulized] Cyanocobalamin [Vitamin B-12] 500 mcg PO DAILY 07/17/19 07/17/19 History Insulin Lispro [Admelog] 10 unit SQ AC-TID 07/17/19 07/17/19 History Varenicline Tartrate [Chantix 0.5 mg PO BID 07/17/19 07/17/19 History Starter Pack] Allergies Allergy/AdvReac Type Severity Reaction Status Date / Time sulfamethoxazole Allergy Swelling Verified 07/17/19 07:29 [From Bactrim] trimethoprim [From Bactrim] Allergy Swelling Verified 07/17/19 07:29 metformin AdvReac Nausea & Verified 07/17/19 07:29 Vomiting & Diarrhea Physical Exam Vitals: Vital Signs Temp Pulse Pulse Resp BP BP Pulse Ox 07/18/19 11:48 78 16 07/18/19 11:47 78 16 96/60 96 07/18/19 10:00 68 07/18/19 09:46 66 07/18/19 08:00 118 H 16 131/82 07/18/19 04:00 98.0 F 82 16 100/59 93 L 07/18/19 00:00 98.1 F 95 16 102/51 95 07/17/19 21:17 59 L 07/17/19 21:05 78 07/17/19 20:00 98.0 F 95 16 94/66 95 07/17/19 16:00 97.6 F 84 16 122/64 97 07/17/19 15:19 97 07/17/19 15:00 97.1 F L 94 16 117/67 98 07/17/19 14:14 87 73/60 Intake and Output 07/17/19 07/18/19 07/18/19 22:59 06:59 14:59 Intake Total 429.681 244.749 Output Total 500 Balance -70.319 244.749 Intake: Intake, IV Titration 69.681 244.749 Amount Heparin Sod,Pork in 0.45% 69.681 144.749 NaCl 25,000 unit In 0.45 % NaCl 1 250ml.bag @ 12 UNITS/KG/HR 8.001 mls/hr IV .Q24H [facility] Rx#: [id number] cefTRIAXone 1 gm In 100 Sodium Chloride 0.9% 50 ml @ 100 mls/hr IVPB Q24H [facility] Rx#:[id number] Oral 360 Output: Urine 500 Other: Voiding Method Toilet Toilet Weight 64.7 kg GENERAL EXAM: Alert, pleasant, 49-year-old white female, comfortable in no apparent distress. HEAD: Normocephalic/atraumatic. EYES: Normal reaction of pupils, equal size. Conjunctiva pink, sclera white. NOSE: Clear with pink turbinates. THROAT: No erythema or exudates. NECK: No masses, no JVD, no thyroid enlargement, no adenopathy. CHEST: No chest wall deformity. Symmetrical expansion. LUNGS: Equal air entry with rales at the left base, but no wheeze, rhonchi or dullness. CVS: Regular rate and rhythm, normal S1 and S2, no gallops, no murmurs, no rubs ABDOMEN: Soft, nontender. No hepatosplenomegaly, normal bowel sounds, no guarding or rigidity. EXTREMITIES: No clubbing, no edema, no cyanosis, 2+ pulses and upper and lower extremities. MUSCULOSKELETAL: Muscle strength and tone normal. SPINE: No scoliosis or deformity SKIN: No rashes CENTRAL NERVOUS SYSTEM: Alert and oriented -3. No focal deficits, tone is normal in all 4 extremities. PSYCHIATRIC: Alert and oriented -3. Appropriate affect. Intact judgment and insight. Results - Laboratory Findings CBC and BMP: 07/18/19 05:40 07/18/19 05:40 PT/INR, D-dimer PT 10.6 sec (9.0-12.0) 07/17/19 02:05 INR 1.0 (<1.2) 07/17/19 02:05 Abnormal lab findings: Abnormal Labs 07/17/19 07/17/19 07/17/19 02:05 02:05 02:05 WBC 11.7 H Neutrophils # 9.3 H APTT 101.7 H* Carbon Dioxide 19 L Glucose 283 H POC Glucose (mg/dL) AST 52 H ALT Troponin I Total Protein Albumin Procalcitonin 07/17/19 07/17/19 07/17/19 02:05 08:15 08:15 WBC Neutrophils # APTT 30.2 H Carbon Dioxide Glucose POC Glucose (mg/dL) AST ALT Troponin I 3.340 H* 5.500 H* Total Protein Albumin Procalcitonin 07/17/19 07/17/19 07/17/19 11:34 12:08 15:43 WBC Neutrophils # APTT 43.7 H Carbon Dioxide 21 L Glucose 350 H POC Glucose (mg/dL) 364 H AST 111 H ALT 62 H Troponin I Total Protein Albumin Procalcitonin 07/17/19 07/17/19 07/17/19 17:50 20:14 23:06 WBC Neutrophils # APTT 44.3 H Carbon Dioxide Glucose POC Glucose (mg/dL) 293 H 269 H AST ALT Troponin I Total Protein Albumin Procalcitonin 07/17/19 07/18/19 07/18/19 23:06 05:40 05:40 WBC 13.0 H Neutrophils # 8.9 H APTT Carbon Dioxide Glucose POC Glucose (mg/dL) AST 48 H ALT Troponin I Total Protein 5.7 L Albumin 3.3 L Procalcitonin 0.16 H 07/18/19 07/18/19 07/18/19 05:40 06:24 12:20 WBC Neutrophils # APTT 32.6 H 52.1 H Carbon Dioxide Glucose POC Glucose (mg/dL) 113 H AST ALT Troponin I Total Protein Albumin Procalcitonin 07/18/19 12:40 WBC Neutrophils # APTT Carbon Dioxide Glucose POC Glucose (mg/dL) 252 H AST ALT Troponin I Total Protein Albumin Procalcitonin - Diagnostic Findings Chest x-ray: report reviewed, image reviewed Additional studies: EKG reviewed Assessment and Plan Plan: Assessment: #1. Acute right lower lobe pneumonia, community-acquired #2. Elevated troponins with ST elevation in anterior leads, the possibility of ST elevated myocardial infarction versus acute viral myocarditis #3. Acute exacerbation of congestive heart failure with systolic dysfunction, and echocardiogram revealed severely impaired LVEF of 30-35%, and moderate mitral regurgitation #4. History of COPD #5. Chronic nicotine dependence, in remission for last 5 days, patient is on Chantix, prior to that patient smoked a pack a day for 33 years #6. History of aortoiliac bypass #7. Recent history of laparoscopic cholecystectomy #8. Insulin-dependent diabetes mellitus type 2 #9. Hyperlipidemia #10. Carotid stenosis, bilateral, 100% on the right and 60% on the left, patient follows with Dr. Rausch #11. Previous history of pneumonia, and frequent bouts of bronchitis Plan: Continue current antibiotic coverage, continue breathing treatments, collect a sputum culture. No significant respiratory distress, vital signs are stable, no fever or chills, patient is undergoing cardiac evaluation, echocardiogram results have been noted, her medical therapy is being maximized, she remains on heparin drip. We will continue to follow and make recommendations based on her clinical course, Chantix has been reordered, patient has been counseled on smoking cessation I performed a history & physical examination of the patient and discussed their management with my nurse practitioner, Daiana Rosa. I reviewed the nurse practitioner's note and agree with the documented findings and plan of care. Lung sounds are positive for left basilar crackles. The findings and the impression was discussed with the patient. I attest to the documentation by the nurse practitioner. Time with Patient: Greater than 30
--- NOTE | 2019-07-18 14:06 | P.PN ---
Subjective Progress Note Date: 07/18/19 This is a 49-year-old female who initially presented to [facility], with complaints of one week duration of upper respiratory infection with subsequent shortness of breath. Patient was experiencing some discomfort in the chest as well which is why she presented to [facility]. She described her pain as severe, and occurring only when she would take a deep breath. Patient does have history of nicotine dependence, diabetes, hyperlipidemia, COPD, prior TIA, thyroid disorder, prior aorto iiliac bypass, nicotine dependence, multiple abdominal incisional hernias repaired with mesh. Dr. Manrique was notified by the [facility] emergency room who felt that the patient may be having an ST elevation myocardial infarction. Dr. Manrique reviewed the EKG, on arrival here to [facility] the Dr. Manrique did go to see the patient, she had no pain at that time, and she would take a deep breath however she would complain of some pain. Very pleuritic in nature. Morphine had completely relieved the patient's pain. Chest x-ray was consistent with interstitial edema. It was felt that the patient likely had a viral myocarditis with upper respiratory infection as well as associated acute congestive heart failure. Echocardiogram with Doppler study reveals an ejection fraction of 30- 35% with apical anterior lateral inferior and septal hypokinesia and moderate mitral regurg. Patient was diuresed well through the weekend. Today her breathing is much improved. Blood pressure 90/60 with a heart rate in the 70s. White blood cell count 13.0, hemoglobin 12.9, platelet count 2:30, sodium 138, potassium 3.8, BUN 17 and creatinine 0.6. Pro calcitonin is 0.16. BNP 5330. Objective - Vital Signs Vital signs: Vital Signs Temp 98.0 F 07/18/19 04:00 Pulse 78 07/18/19 11:48 Resp 16 07/18/19 11:48 BP 96/60 07/18/19 11:47 Pulse Ox 96 07/18/19 11:47 Intake & Output 07/17/19 07/18/19 07/18/19 18:59 06:59 18:59 Intake Total 474.753 244.749 Output Total 1600 500 Balance -1125.247 -255.251 Weight 64.7 kg Intake: Intake, IV Titration 114.753 244.749 Amount Heparin Sod,Pork in 0.45% 114.753 144.749 NaCl 25,000 unit In 0.45 % NaCl 1 250ml.bag @ 12 UNITS/KG/HR 8.001 mls/hr IV .Q24H [facility] Rx#: [id number] cefTRIAXone 1 gm In 100 Sodium Chloride 0.9% 50 ml @ 100 mls/hr IVPB Q24H [facility] Rx#:[id number] Oral 360 Output: Urine 1600 500 Other: Voiding Method Toilet Toilet - Exam PHYSICAL EXAMINATION: GENERAL: 49-year-old female in no acute distress at the time of my examination HEENT: Head is atraumatic, normocephalic. Pupils equal, round. Sclera anicteric. Conjunctiva are clear. Mucous membranes of the mouth are moist. Neck is supple. There is no elevated jugular venous pressure. No carotid bruit is heard. HEART EXAMINATION: Heart S1, S2 normal. No murmur or gallop heard. CHEST EXAMINATION: Lungs are clear to auscultation and precussion. No chest wall tenderness is noted on palpation or with deep breathing. ABDOMEN: Soft, nontender. Bowel sounds are heard. No organomegaly noted. EXTREMITIES: Doppler to 1+ peripheral pulses with no evidence of peripheral edema and no calf tenderness noted. NEUROLOGIC patient is awake, alert and oriented 3 . . - Labs CBC & Chem 7: 07/18/19 05:40 07/18/19 05:40 Labs: Abnormal Lab Results - Last 24 Hours (Table) 07/17/19 07/17/19 07/17/19 Range/Units 15:43 17:50 20:14 WBC (3.8-10.6) k/uL Neutrophils # (1.3-7.7) k/uL APTT 43.7 H (22.0-30.0) sec POC Glucose (mg/dL) 293 H 269 H (75-99) mg/dL AST (14-36) U/L Total Protein (6.3-8.2) g/dL Albumin (3.5-5.0) g/dL Procalcitonin (0.02-0.09) ng/mL 07/17/19 07/17/19 07/18/19 Range/Units 23:06 23:06 05:40 WBC 13.0 H (3.8-10.6) k/uL Neutrophils # 8.9 H (1.3-7.7) k/uL APTT 44.3 H (22.0-30.0) sec POC Glucose (mg/dL) (75-99) mg/dL AST (14-36) U/L Total Protein (6.3-8.2) g/dL Albumin (3.5-5.0) g/dL Procalcitonin 0.16 H (0.02-0.09) ng/mL 07/18/19 07/18/19 07/18/19 Range/Units 05:40 05:40 06:24 WBC (3.8-10.6) k/uL Neutrophils # (1.3-7.7) k/uL APTT 32.6 H (22.0-30.0) sec POC Glucose (mg/dL) 113 H (75-99) mg/dL AST 48 H (14-36) U/L Total Protein 5.7 L (6.3-8.2) g/dL Albumin 3.3 L (3.5-5.0) g/dL Procalcitonin (0.02-0.09) ng/mL 07/18/19 07/18/19 Range/Units 12:20 12:40 WBC (3.8-10.6) k/uL Neutrophils # (1.3-7.7) k/uL APTT 52.1 H (22.0-30.0) sec POC Glucose (mg/dL) 252 H (75-99) mg/dL AST (14-36) U/L Total Protein (6.3-8.2) g/dL Albumin (3.5-5.0) g/dL Procalcitonin (0.02-0.09) ng/mL Assessment and Plan Plan: Assessment and plan #1 possible viral myocarditis, with a upper respiratory infection for the past one week #2 Acute heart failure , systolic acute, echocardiogram with Doppler study was performed which revealed an ejection fraction of 30-35% #3 Short of breath for one week with pleuritic chest discomfort, troponins 3.3, 5.5 with new 12-lead EKG changes with ST segment abnormality in the precordial leads V1 through V4 and loss of R waves in the precordial leads as compared to old EKGs from 2017 and 2018 #4 Significant bilateral carotid atherosclerosis #5 Significant vascular disease of the aorta, abdominal status post surgery by Dr. Rausch #6 Type 2 diabetes #7 nicotine dependence #8 hyperlipidemia Plan Patient will be scheduled tomorrow to undergo a cardiac catheterization with Dr. Connolly. The risks and the benefits were explained to the patient in detail and she is willing to proceed. Further recommendations will be based on these findings and the patient clinical course. DNP note has been reviewed, I agree with a documented findings and plan of care. Patient was seen and examined.
[2019-07-18 17:28] LABS: Glucose,Whole Blood 131 mg/dL (75-99)
[2019-07-18] MEDS: FORMOTEROL FUMARATE 20 MCG/2 ML NEBU INHALATION SCH (19:09)
[2019-07-18 21:08] LABS: Glucose,Whole Blood 147 mg/dL (75-99)
[2019-07-18] MEDS: ATORVASTATIN 40 MG TAB PO SCH (21:47)
--- NOTE | 2019-07-18 23:23 | P.PN ---
Progress Note - Text Progress Note Date: 07/18/19 Chief Complaint: Chest pressure History of presenting complaint: This is a pleasant [address] Freya Miles. Chronic stable medical conditions include COPD, , hyperlipidemia, diabetes. Patient states about 9 year ago she was having trouble walking even short distance. She was then seen by Dr. Smith. There trouble accessing her from the artery in the groin and also the rest. Subsequently she had took a bypass done to the block artery in the abdomen to improve her circulation to lower extremity. Patient has continued to smoke up to recently. She also has a complete report right carotid artery. History of 9:00 she suddenly became short of breath and developed chest pressure going across the chest. Became dizzy lightheaded. About 11:30 PM she went to [facility]. Her troponin there was 5 with EKG changes and she was transferred here. EKG was showing some ST elevation anterior leads. Patient also following congestive heart failure. Patient was transferred to our ER from [facility]. Patient is put on IV heparin and given IV Lasix.. Patient admitted with diagnosis of ST elevation myocardial infarction versus acute viral myocarditis., Acute CHF exacerbation EF 20-25%, right lower lobe pneumonia. Today-sitting up in bed. Feeling a bit better. The short of breath. No chest pain. Slight cough. Review of systems: Was done for constitutional, cardiovascular, GI, pulmonary. relevant finding as above Active Medications Albuterol/Ipratropium (Duoneb 0.5 Mg-3 Mg/3 Ml Soln) 3 ml INHALATION RT-QID [facility] Last Admin: 07/18/19 19:09 Dose: Not Given Documented by: Alprazolam (Xanax) 0.25 mg PO Q6HR PRN PRN Reason: Mild Anxiety Alprazolam (Xanax) 0.5 mg PO Q6HR PRN PRN Reason: Moderate Anxiety Aspirin (Aspirin) 81 mg PO DAILY [facility] Last Admin: 07/18/19 09:36 Dose: 81 mg Documented by: Aspirin (Aspirin) 325 mg PO ONCE ONE Stop: 07/19/19 05:01 Atorvastatin Calcium (Lipitor) 40 mg PO HS [facility] Last Admin: 07/18/19 21:47 Dose: 40 mg Documented by: Atorvastatin Calcium (Lipitor) 80 mg PO ONCE ONE Stop: 07/19/19 05:01 Azithromycin (Zithromax) 500 mg PO DAILY [facility] Last Admin: 07/18/19 09:40 Dose: 500 mg Documented by: Budesonide (Pulmicort) 1 mg INHALATION RT-BID [facility] Last Admin: 07/18/19 19:09 Dose: Not Given Documented by: Carvedilol (Coreg) 3.125 mg PO BID-W/MEALS [facility] Last Admin: 07/18/19 18:08 Dose: 3.125 mg Documented by: Formoterol Fumarate (Perforomist) 20 mcg INHALATION RT-BID [facility] Last Admin: 07/18/19 19:09 Dose: Not Given Documented by: Furosemide (Lasix) 20 mg PO DAILY [facility] Last Admin: 07/18/19 09:36 Dose: 20 mg Documented by: Heparin Sodium (Porcine) (Heparin) 0 unit IV PER PROTOCOL PRN; Protocol PRN Reason: Low PTT Last Admin: 07/17/19 23:51 Dose: 1,667 unit Documented by: Heparin Sodium/Sodium Chloride (25,000 unit/ Sodium Chloride) 250 mls @ 8.001 mls/hr IV .Q24H [facility]; Protocol Last Titration: 07/18/19 06:20 Dose: 22 units/kg/hr, 14.669 mls/hr Documented by: Ceftriaxone Sodium 1 gm/ (Sodium Chloride) 50 mls @ 100 mls/hr IVPB Q24H [facility] Last Admin: 07/18/19 21:46 Dose: 100 mls/hr Documented by: Sodium Chloride 1,000 ml/ IV (Solution) 1,000 mls @ 64.7 mls/hr IV .[id number] ONE Stop: 07/19/19 20:27 Insulin Aspart (Novolog) 0 unit SQ ACHS [facility]; Protocol Last Admin: 07/18/19 21:46 Dose: 1 unit Documented by: Insulin Aspart (Novolog) 6 unit SQ AC-TID [facility] Last Admin: 07/18/19 18:09 Dose: 6 unit Documented by: Insulin Detemir (Levemir) 20 unit SQ DAILY [facility] Last Admin: 07/18/19 12:43 Dose: 20 unit Documented by: Lisinopril (Zestril) 5 mg PO DAILY [facility] Last Admin: 07/18/19 09:36 Dose: 5 mg Documented by: Nitroglycerin (Nitrostat) 0.4 mg SUBLINGUAL Q5M PRN PRN Reason: Chest Pain Spironolactone (Aldactone) 25 mg PO DAILY [facility] Last Admin: 07/18/19 09:36 Dose: 25 mg Documented by: Varenicline (Chantix) 1 mg PO BID [facility] Last Admin: 07/18/19 21:47 Dose: 1 mg Documented by: Physical examination: VITAL SIGNS: 98, 82, 16, 100/59, 93% room air GENERAL: Sitting up in bed today a bit more restful EYES: Pupils equal. Conjunctiva normal. HEENT: External appearance of nose and ears normal, oral cavity grossly normal. NECK: JVD not raised; masses not palpable. HEART: First and second heart sounds are normal; no edema. LUNGS: Respiratory rate increased, diminished breath sounds. ABDOMEN: Soft, nontender, liver spleen not palpable, no masses palpable. PSYCH: [Alert and oriented x3; mood and affect, less anxious today INVESTIGATIONS, reviewed in the clinical context: White count 13 hemoglobin 12.9 potassium 3.8 creatinine 0.66 proBNP 5330, pro calcitonin 0.16 Previous testing White count 10.7 hemoglobin 13.9 platelets 196 potassium 3.8 crit 0.71 glucose 283 Troponin 3.3, 5.5 ProBNP 7190 EKG tracing personally reviewed by me-ST segment elevation in anterior leads and flipped T waves in the V4 to V6 Chest x-ray film personally reviewed by me-pulmonary edema with fluid in the fissures, infiltrative patch at the right lung 2-D echo -, multiple wall motion hypokinesia, moderate MR, EF 20-25% Assessment: -Acute ST elevation myocardial infarction, possibly viral myocarditis -Acute congestive heart failure from ischemic cardiomyopathy EF of 20-25% -Acute moderate mitral regurgitation could be from acute ischemic cardiomyopathy -acute COPD exacerbation in a smoker -Diabetes mellitus type 2, chronically on insulin -Possible peripheral artery disease -IV heparin monitoring - right lower lobe pneumonia, suspect gram-negative organism Plan: Continue patient on bronchodilators, IV ceftriaxone, Zithromax,. Other medications to continue. Cardiology is planning cardiac catheterization tomorrow. Care was discussed with the patient. Questions were answered.
[2019-07-19] MEDS ORDERED: ASPIRIN 325 MG TAB PO ONE (05:00)
[2019-07-19] MEDS ORDERED: ATORVASTATIN 80 MG TAB PO ONE (05:00)
[2019-07-19] MEDS ORDERED: SODIUM CHLORIDE 0.9% 1,000 ML in EMPTY BAG 1 BAG IV ONE (05:00)
[2019-07-19 06:19] LABS: Glucose,Whole Blood 141 mg/dL (75-99)
[2019-07-19] MEDS: CARVEDILOL 3.125 MG TAB PO SCH (06:20)
[2019-07-19] MEDS ORDERED: LIDOCAINE 1% INJ 10MG/ML (20 ML MDV) ONE (07:29)
[2019-07-19] MEDS: INSULIN ASPART (NovoLOG) 100 UNIT/ML VIAL SQ SCH ×7 (07:34→21:06)
[2019-07-19] MEDS: HEPARIN SOD,PORK IN 0.45% NACL 25,000 UNIT in 0.45% NACL 1 250ML.BAG IV SCH (07:34)
[2019-07-19] MEDS ORDERED: IV FLUID CONTINUATION 900 ML IV ONE (07:38)
[2019-07-19] MEDS: ASPIRIN 81 MG PO SCH (07:41)
[2019-07-19] MEDS ORDERED: VERAPAMIL 2.5 MG/ML 2 ML AMP ONE (07:46)
[2019-07-19] MEDS ORDERED: HEPARIN SODIUM 1,000 UN/ML (10ML VL) ONE (07:47)
[2019-07-19] MEDS ORDERED: MIDAZOLAM 2 MG/2 ML VIAL IVP ONE ×2 (07:56→08:03)
[2019-07-19 07:57] LABS: Basophils % (A) 0 %; Eosinophils # (A) 0.2 k/uL (0-0.7); Eosinophils % (A) 2 %; HCT 42.1 % (34.0-46.0); HGB 13.7 gm/dL (11.4-16.0); Lymphocytes # (A) 2.8 k/uL (1.0-4.8); Lymphocytes % (A) 32 %; MCH 30.4 pg (25.0-35.0); MCHC 32.6 g/dL (31.0-37.0); MCV 93.2 fL (80.0-100.0); Mean Platelet Volume 6.7; Monocytes # (A) 0.6 k/uL (0-1.0); Monocytes % (A) 7 %; Neutrophils # (A) 4.9 k/uL (1.3-7.7); Neutrophils % (A) 56 %; Platelet Count 242 k/uL (150-450); RBC 4.52 m/uL (3.80-5.40); RDW 12.6 % (11.5-15.5); WBC 8.7 k/uL (3.8-10.6)
[2019-07-19] MEDS ORDERED: LIDOCAINE 1% INJ 10MG/ML (20 ML MDV) SQ ONE (08:00)
[2019-07-19] MEDS ORDERED: NITROGLYCERIN 1000MCG/10ML SYRINGE INTRACORON ONE (08:06)
[2019-07-19] MEDS ORDERED: IOPAMIDOL-370 125ML BTL INJ ONE (08:21)
[2019-07-19] MEDS ORDERED: RX INFO: IV CONTRAST WAS GIVEN 1 EACH MISC MISCELLANE PRN (08:21)
--- NOTE | 2019-07-19 08:27 | P.PCN ---
Date of Procedure: 07/19/19 Operative Findings: CARDIAC CATHETERIZATION PERFORMING PHYSICIAN: Estevan Monet MD, RPVI PROCEDURE PERFORMED: 1. Selective right and left coronary angiogram 2. Left heart catheterization INDICATION: This is a 49-year-old female patient with history of peripheral arterial disease as well as carotid disease as well as hypertension and dyslipidemia was admitted to the hospital with symptoms of chest discomfort as well as shortness of breath and she was diagnosed was congestive heart failure exacerbation. She also ruled in for acute coronary syndrome. The echo showed cardiomyopathy with wall motion abnormalities concerning for severe coronary artery disease and because of that heart catheterization was advised. COMPLICATION: None APPROACH: Left common femoral artery LEVEL OF SEDATION: Moderate sedation with sedation length of 22 minutes PROCEDURE DESCRIPTION: After obtaining an informed consent, the patient was brought to cardiac crime lab technician. Local anesthesia was performed using lidocaine subcutaneously. The left common femoral artery was cannulated using Seldinger technique, the guidewire passed easily, following that we advanced a [place] sheath dilator assembly, the wire and dilator were removed and sheath was flushed. Selective right and left coronary angiogram using a [place] JR4 and JL 3.5 catheters. Following that we did left heart catheterization using 6[place] pigtail catheter. The procedure was completed there was no complication. SELECTIVE CORONARY ANGIOGRAM: The right coronary artery: Is a moderate caliber vessel and its a dominant vessel. It is diffusely diseased up to about 90% on multiple segments. Distally bifurcates into PDA and PLV branches. The PDA branch has a lesion appears to be in the range of 70-80%. Left main: Is angiographically normal and bifurcates into LCx and LAD. The left circumflex: Is a large caliber vessel and its and on dominant vessel. The proximal LCx appeared to have [id number] disease only. The mid LCx has a long tubular lesion appears to be in the range of 80-90% involving second OM branch which is a moderate to large caliber vessel. The circumflex continue after that as a moderate caliber vessel. First OM branch is a small to medium caliber vessel with severe disease in the midportion. The left anterior descending artery: The proximal LAD appears to have mild disease only. It gives rises into a large diagonal branch which has a long tubular lesion appears to be in the range of 80-90%. The mid LAD has tubular lesion appears to be in the range of 99.9%. HEMODYNAMICS: The LVEDP was 13 mmHg without significant gradient across aortic valve CONCLUSION: 1. Severe two-vessel coronary artery disease 2. Elevated LVEDP. The LVEDP was 30 mmHg POSTPROCEDURE MANAGEMENT: Consult surgeon for evaluation of coronary artery that is grafting.
[2019-07-19] MEDS ORDERED: SODIUM CHLORIDE 0.9% 1,000 ML IV SCH (08:30)
[2019-07-19] MEDS: LISINOPRIL 5 MG TAB PO SCH (09:56)
[2019-07-19] MEDS: AZITHROMYCIN 500 MG TAB PO SCH (09:56)
[2019-07-19] MEDS: VARENICLINE 1 MG TAB PO SCH ×2 (09:57→21:16)
[2019-07-19] MEDS: SPIRONOLACTONE 25 MG TAB PO SCH (09:57)
[2019-07-19] MEDS ORDERED: HYDROmorphone 0.5 MG/0.5 ML SYRINGE IVP STA (10:12)
[2019-07-19] MEDS: BUDESONIDE 1 MG/2 ML NEBU INHALATION SCH ×2 (10:12→19:57)
[2019-07-19] MEDS: FORMOTEROL FUMARATE 20 MCG/2 ML NEBU INHALATION SCH ×2 (10:12→19:57)
[2019-07-19] MEDS: IPRATROPIUM-ALBUTEROL 3 ML NEB INHALATION SCH ×4 (10:12→19:57)
[2019-07-19 11:25] LABS: ALT 47 U/L (9-52); AST 26 U/L (14-36); African American GFR (CKD) >90 (>60 ml/min/1.73 sqM); Albumin 3.4 g/dL (3.5-5.0); Alkaline Phosphatase 86 U/L (38-126); Anion Gap 7 mmol/L; Blood Urea Nitrogen 22 mg/dL (7-17); Carbon Dioxide 27 mmol/L (22-30); Chloride 104 mmol/L (98-107); Cholesterol 120 mg/dL (<200); Glucose 115 mg/dL (74-99); HDL Cholesterol 31 mg/dL (40-60); LDL Cholesterol,Calculated 57 mg/dL (0-99); Magnesium 1.8 mg/dL (1.6-2.3); Potassium 4.3 mmol/L (3.5-5.1); Sodium 138 mmol/L (137-145); Total Bilirubin 0.6 mg/dL (0.2-1.3); Total Protein 5.7 g/dL (6.3-8.2); Triglycerides 161 mg/dL (<150)
--- NOTE | 2019-07-19 11:43 | P.GSCN ---
<Jesu Lin - Last Filed: 07/19/19 10:29> History of Present Illness Consult date: 07/19/19 Reason for Consult: Triple-vessel coronary artery disease, non-STEMI this admission. Requesting physician: Thai Manrique History of present illness: This is a 49-year-old female patient who is followed by Dr. Freya Miles on an outpatient basis. 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 The patient reports that she has been having flulike symptoms for the last 2 weeks and states that she has been very fati gued, sleeping a lot and having chest pain, shortness of breath with a dry nonproductive cough. On Thursday evening 07/15/2019 she developed some chest pressure in the middle of her chest. She took some NyQuil which she reports took the pain away and she slept throughout the night Thursday evening. When she woke up on Thursday morning the pain to her chest was present, she had an episode of vomiting and felt she had progressive shortness of breath. She denies any recent fever, chills, diarrhea, constipation, palpitations, presyncope or syncope. Subsequently she reported to the emergency department at [facility] for further evaluation. The lab report from [facility] showed she had an elevated troponin of 5.014. A chest x- ray was also completed which showed her to have diffuse pulmonary edema according to the chest x-ray report. She was transferred to [facility] for further cardiac evaluation and workup. A troponin was completed at [facility] which was 3.34 and a follow-up troponin was 5.5. Also noted her BNP was 7782. A 12-lead EKG was completed which showed anterior wall ST elevations. A chest x-ray was completed which showed some right lower lobe airspace pneumonia, diffuse interstitial markings consistent with mild interstitial edema or pneumonia. Due to the patient's presenting symptoms and positive troponins Dr. Manrique from cardiology was consulted. A 2-D echocardiogram was completed which showed her left ventricular size to be normal with moderate concentric left ventricular hypertrophy and an overall ventricular systolic function to be moderately to severely impaired with an ejection fractio n of 30-35%. It also showed apical septum left ventricular wall motion to be hypokinetic, mild aortic valve regurgitation, moderate mitral valve regurgitation, and traced to mild pulmonic valve regurgitation. For further evaluation she was taken today for a selective right and left coronary angiog cezar, left heart catheterization which demonstrated a 90% stenosis to her right coronary artery, a 90% stenosis to her circumflex coronary artery, a 20% stenosis to her proximal left anterior descending coronary artery and a 99% stenosis to her mid left anterior descending coronary artery. Due to these findings on her heart catheterization a consult was placed to Dr. Joon Shen from cardiothoracic surgery for further evaluation and myocardial revascularization options. Review of Systems A 14 point review of systems was completed and was negative except as mentioned in the HPI. Past Medical History Past Medical History: Coronary Artery Disease (CAD), Chest Pain / Angina, COPD, CVA/TIA, Diabetes Mellitus, Hyperlipidemia, Myocardial Infarction (AK), Pneumonia, Thyroid Disorder Additional Past Medical History / Comment(s): Cardiac murmur, DDD, Hyperthyroid/Thyroid Nodules, nausea and vomiting since after of 2017. Has lost 75lbs. Hx CVA 2007 or 2008, no residual effects. Right carotid artery 100% blocked, left carotid artery 50% blocked, follows with Dr Rausch [id number]. Hx Pneumonia. Last Myocardial Infarction Date:: 2011 History of Any Multi-Drug Resistant Organisms: None Reported Past Surgical History: Section, Cholecystectomy, Heart Catheterization, Hernia Repair Additional Past Surgical History / Comment(s): I&D L gluteal abscess, aortagram, Fvcne-Op-Zxvuz bypass, laparoscopic surgery-one ovary/one tube removed from opposite sides, multiple abdominal incisional hernia repairs with mesh, Attempted Heart cath but patient states veins collapsed and unable to do. Past Anesthesia/Blood Transfusion Reactions: No Reported Reaction Past Psychological History: Depression Smoking Status: Current every day smoker (Smokes 1 pack per day, reports she has been on Chantix for the past week.) Past Alcohol Use History: None Reported Past Drug Use History: None Reported - Past Family History Mother Family Medical History: Cancer, Coronary Artery Disease (CAD) Additional Family Medical History / Comment(s): Mother is a breast cancer survivor. Father Family Medical History: Coronary Artery Disease (CAD), Diabetes Mellitus, Myoca rdial Infarction (AK) Additional Family Medical History / Comment(s): Agent [place] Exposure. Pt does not know at what age her father had his AK. Medications and Allergies Home Medications Medication Instructions Recorded Confirmed Type Insulin Glargine,Hum.rec.anlog 30 unit SQ DAILY 10/28/18 07/17/19 History [Basaglar Kwikpen U-100] Albuterol Nebulized [Ventolin 2.5 mg INHALATION RT-Q6H PRN 07/17/19 07/17/19 History Nebulized] Cyanocobalamin [Vitamin B-12] 500 mcg PO DAILY 07/17/19 07/17/19 History Insulin Lispro [Admelog] 10 unit SQ AC-TID 07/17/19 07/17/19 History Varenicline Tartrate [Chantix 0.5 mg PO BID 07/17/19 07/17/19 History Starter Pack] Allergies Allergy/AdvReac Type Severity Reaction Status Date / Time sulfamethoxazole Allergy Swelling Verified 07/17/19 07:29 [From Bactrim] trimethoprim [From Bactrim] Allergy Swelling Verified 07/17/19 07:29 metformin AdvReac Nausea & Verified 07/17/19 07:29 Vomiting & Diarrhea Surgical - Exam Vital Signs Temp Pulse Resp BP Pulse Ox 98.5 F 115 H 22 144/87 96 07/17/19 02:13 07/17/19 02:13 07/17/19 02:13 07/17/19 02:13 07/17/19 02:13 - General Thin well developed, well nourished, no distress, no pain - Eyes PERRL, normal ocular movement - ENT normal pinna, normal nares, normal mucosa, no hearing loss, no congestion, dentures - Neck Neck is supple, no lymphadenopathy. no masses, trachea midline, no venous distension carotid bruit: bilateral - Respiratory Lung sounds are essentially clear throughout, diminished to her right lower lobe. Respirations are symmetrical and nonlabored. Oxygen saturation 94% on room air. - Cardiovascular Regular rhythm and rate. S1 and S2 present, negative for S3, gallop or murmur. No edema present. - Abdomen Abdomen is soft, nontender and nondistended. Active bowel sounds present in all 4 abdominal quadrants. No guarding or rigidity. No organomegaly present. - Genitourinary Deferred - Rectum Deferred - Integumentary no rash, no growths, no abnormal pigmentation - Neurologic Cranial nerves II through XII intact, no focal deficits. normal coordination, normal sensation - Musculoskeletal Bedrest at this time. normal gait, normal posture - Psychiatric oriented to time, oriented to person, oriented to place, speech is normal, memory intact Results - Labs 07/19/19 07:15 07/18/19 05:40 Abnormal Lab Results - Last 24 Hours (Table) 07/17/19 07/18/19 07/18/19 Range/Units 23:06 12:20 12:40 APTT 52.1 H (22.0-30.0) sec POC Glucose (mg/dL) 252 H (75-99) mg/dL Procalcitonin 0.16 H (0.02-0.09) ng/mL 07/18/19 07/18/19 07/19/19 Range/Units 17:26 21:07 06:17 APTT (22.0-30.0) sec POC Glucose (mg/dL) 131 H 147 H 141 H (75-99) mg/dL Procalcitonin (0.02-0.09) ng/mL 07/19/19 Range/Units 07:15 APTT 31.4 H (22.0-30.0) sec POC Glucose (mg/dL) (75-99) mg/dL Procalcitonin (0.02-0.09) ng/mL - Imaging Chest x-ray: report reviewed, image reviewed EKG: image reviewed Additional studies: Heart catheterization results and 2-D echocardiogram results reviewed by Dr. Joon Shen. Assessment and Plan Assessment: 1. Triple-vessel coronary artery disease 2. Moderate mitral valve regurgitation 3. Elevated troponins with anterior wall EKG changes, questionable STEMI versus acute viral myocarditis 4. Acute systolic heart failure, EF 30-35% 5. Hyperlipidemia 6. Insulin-dependent diabetes mellitus 7. Complete occlusion of the right internal carotid artery 8. COPD with current tobacco dependence 9. History of aortoiliac bypass 10. Recent laparoscopic cholecystectomy Plan: The patient was seen and examined at the bedside on the cardiac stepdown unit. Her chart and diagnostics were reviewed. The patient was also seen and evaluated by Dr. Joon Shen. The findings on the heart catheterization and 2- D echo radiogram results were discussed with the patient by Dr. Joon Shen. Current recommendations are to optimize medical management continue aspirin, statin and beta kirk. Due to her moderate mitral valve regurgitation on the 2-D echocardiogram a transesophageal echocardiogram is recommended to evaluate her mitral valve further. Preoperative testing has been initiated. Once her preoperative workup has been completed an STS risk will be calculated in discussed with the patient and surgical intervention will be discussed with the patient at that time. We will obtain a 5 minute walk test. Encourage use of her incentive spirometry every hour while awake. Continue GI and DVT prophylaxis. The importance of smoking cessation were discussed with the patient at length by Dr. Shen. Medical management and other comorbidities per primary care service. Preoperative teaching has been initiated. Further recommendations to follow based on the patient's preoperative workup and clinical progress. Thank you Dr. Manrique for this consult and we will look for to working within the care of your patient. Time with Patient: Greater than 30 <Joon Shen R - Last Filed: 07/19/19 13:20> Surgical - Exam Vital Signs Temp Pulse Resp BP Pulse Ox 98.5 F 115 H 22 144/87 96 07/17/19 02:13 07/17/19 02:13 07/17/19 02:13 07/17/19 02:13 07/17/19 02:13 Results - Labs 07/19/19 07:15 07/19/19 07:15 Abnormal Lab Results - Last 24 Hours (Table) 07/17/19 07/18/19 07/18/19 Range/Units 23:06 17:26 21:07 APTT (22.0-30.0) sec BUN (7-17) mg/dL Glucose (74-99) mg/dL POC Glucose (mg/dL) 131 H 147 H (75-99) mg/dL Total Protein (6.3-8.2) g/dL Albumin (3.5-5.0) g/dL Triglycerides (<150) mg/dL HDL Cholesterol (40-60) mg/dL Procalcitonin 0.16 H (0.02-0.09) ng/mL 07/19/19 07/19/19 07/19/19 Range/Units 06:17 07:15 07:15 APTT 31.4 H (22.0-30.0) sec BUN 22 H (7-17) mg/dL Glucose 115 H (74-99) mg/dL POC Glucose (mg/dL) 141 H (75-99) mg/dL Total Protein 5.7 L (6.3-8.2) g/dL Albumin 3.4 L (3.5-5.0) g/dL Triglycerides 161 H (<150) mg/dL HDL Cholesterol 31 L (40-60) mg/dL Procalcitonin (0.02-0.09) ng/mL 07/19/19 Range/Units 12:10 APTT (22.0-30.0) sec BUN (7-17) mg/dL Glucose (74-99) mg/dL POC Glucose (mg/dL) 154 H (75-99) mg/dL Total Protein (6.3-8.2) g/dL Albumin (3.5-5.0) g/dL Triglycerides (<150) mg/dL HDL Cholesterol (40-60) mg/dL Procalcitonin (0.02-0.09) ng/mL Diabetes panel 07/19/19 Range/Units 07:15 Sodium 138 (137-145) mmol/L Potassium 4.3 (3.5-5.1) mmol/L Chloride 104 (98-107) mmol/L Carbon Dioxide 27 (22-30) mmol/L BUN 22 H (7-17) mg/dL Creatinine 0.83 (0.52-1.04) mg/dL Glucose 115 H (74-99) mg/dL Calcium 9.0 (8.4-10.2) mg/dL AST 26 (14-36) U/L ALT 47 (9-52) U/L Alkaline Phosphatase 86 (38-126) U/L Total Protein 5.7 L (6.3-8.2) g/dL Albumin 3.4 L (3.5-5.0) g/dL Triglycerides 161 H (<150) mg/dL HDL Cholesterol 31 L (40-60) mg/dL Thyroid panel 07/19/19 Range/Units 07:15 TSH 0.649 (0.465-4.680) mIU/L Calcium panel 07/19/19 Range/Units 07:15 Calcium 9.0 (8.4-10.2) mg/dL Albumin 3.4 L (3.5-5.0) g/dL Pituitary panel 07/19/19 Range/Units 07:15 Sodium 138 (137-145) mmol/L Potassium 4.3 (3.5-5.1) mmol/L Chloride 104 (98-107) mmol/L Carbon Dioxide 27 (22-30) mmol/L BUN 22 H (7-17) mg/dL Creatinine 0.83 (0.52-1.04) mg/dL Glucose 115 H (74-99) mg/dL Calcium 9.0 (8.4-10.2) mg/dL TSH 0.649 (0.465-4.680) mIU/L Adrenal panel 07/19/19 Range/Units 07:15 Sodium 138 (137-145) mmol/L Potassium 4.3 (3.5-5.1) mmol/L Chloride 104 (98-107) mmol/L Carbon Dioxide 27 (22-30) mmol/L BUN 22 H (7-17) mg/dL Creatinine 0.83 (0.52-1.04) mg/dL Glucose 115 H (74-99) mg/dL Calcium 9.0 (8.4-10.2) mg/dL Total Bilirubin 0.6 (0.2-1.3) mg/dL AST 26 (14-36) U/L ALT 47 (9-52) U/L Alkaline Phosphatase 86 (38-126) U/L Total Protein 5.7 L (6.3-8.2) g/dL Albumin 3.4 L (3.5-5.0) g/dL Assessment and Plan Assessment: 49-year-old female with severe peripheral vascular disease and previous surgery for aortic occlusive disease. Patient is an active smoker. Patient presents with exacerbation of COPD, CHF, myocardial infarction. Cardiac catheterization today shows severe three-vessel coronary artery disease. Echocardiography shows diminished ejection fraction with global hypokinesis, LVEF of around 30%, moderate mitral regurgitation and mild aortic insufficiency. Patient will require coronary artery bypass grafting. Appropriate targets appear to be one or 2 distal RCA branches, large second and possibly third obtuse marginal, diagonal and LAD. NIK is recommended to assess for severity of mitral regurgitation prior to cardiac surgery planning. I met with the patient and discussed with her the need for coronary revascularization. I also discussed with her the findings of some degree of mitral regurgitation which needs to be clarified with NIK assessment. I discussed with her the severity of her situation given her young age and severe peripheral vascular disease as well as the adamant importance of quitting smoking.
[2019-07-19 12:31] LABS: Glucose,Whole Blood 154 mg/dL (75-99)
[2019-07-19] MEDS: INSULIN DETEMIR (LEVEMIR) 100 UNIT/ML SYR SQ SCH (12:36)
[2019-07-19 13:08] LABS: INR 0.9 (<1.2); Prothrombin Time 9.8 sec (9.0-12.0)
--- NOTE | 2019-07-19 13:09 | US ---
EXAMINATION TYPE: US carotid duplex BILAT DATE OF EXAM: 07/19/2019 COMPARISON: US CLINICAL HISTORY: Pre-Op Cardiac Surgery . prior smoker; history of right CCA/ICA occlusion per patie nt EXAM MEASUREMENTS: RIGHT: Peak Systolic Velocity (PSV) cm/sec ----- Right CCA: cardiac wall thump heard ----- Right ICA: reverse flow noted proximally ----- Right ECA: 61.2 reverse flow noted ICA/CCA ratio: NA RIGHT: End Diastole cm/sec ----- Right CCA: NA ----- Right ICA: NA ----- Right ECA: 20.6 reverse flow LEFT: Peak Systolic Velocity (PSV) cm/sec ----- Left CCA: 167.3 ----- Left ICA: 186.4 proximally ----- Left ECA: 126.2 distally ICA/CCA ratio: 1.1 LEFT: End Diastole cm/sec ----- Left CCA: 43.1 ----- Left ICA: 48.5 ----- Left ECA: 35.5 VERTEBRALS (direction of flow): Right Vertebral: Antegrade Left Vertebral: Retrograde Rhythm: Normal Occluded Right CCA with reverse and diminished flow noted Right ICA, right ECA. Left vertebral artery demonstrated reverse flow (suspect left subclavian steal as patient stated has low blood pressure le ft arm. Abnormally elevated PSV left CCA, ECA and ICA with significant wall changes. IMPRESSION: 1. Redemonstration of known right common carotid artery occlusion and diminutive flow in the right IC A and ECA as seen on the prior. 2. Reverse flow in the left vertebral artery, concerning for subclavian steal. CTA neck could assess for more proximal stenosis in the subclavian artery. 3. Elevated velocities diffusely on the left again could represent hypertension or stenosis of 50-69% and could be further evaluated with CTA neck. Criteria for Assigning % of Stenosis / Diameter reduction (Estimation based on the indirect measurements of the internal carotid artery velocities (ICA PSV). 1. Normal (no stenosis)=ICA PSV < 125 cm/s: ratio < 2.0: ICA EDV<40 cm/s. 2. Less than 50% stenosis=ICA PSV < 125 cm/s: ratio < 2.0: ICA EDV<40 cm/s. 3. 50 to 69% stenosis=ICA PSV of 125 to 230 cm/s: ration 2.0 ? 4.0: ICA EDV 40-100 cm/s. 4. Greater than 70% stenosis to near occlusion= ICA PSV > 230 cm/s: ratio > 4.0: ICA EDV > 100 cm/s. 5. Near occlusion= ICA PSV velocities may be low or undetectable: variable ratio and ICA EDV. 6. Total occlusion=unable to detect flow.
[2019-07-19 13:22] LABS: Appearance,Urine Clear (Clear); Bilirubin,Urine Negative (Negative); Blood,Urine Negative (Negative); Color,Urine Light Yellow; Glucose,Urine (UA) Negative (Negative); Ketones,Urine Negative (Negative); Leukocyte Esterase,Urine Negative (Negative); Nitrite,Urine Negative (Negative); Protein,Urine Negative (Negative); Specific Gravity,Urine 1.028 (1.001-1.035); Urobilinogen,Urine <2.0 mg/dL (<2.0)
--- NOTE | 2019-07-19 13:32 | P.PN ---
Subjective Progress Note Date: 07/19/19 Principal diagnosis: Right lower lobe pneumonia, triple-vessel coronary artery disease This is a 49-year-old white female patient of Dr. Freya Miles, who sees Elieser Serna PA-C at her office, has passed [facility] history of COPD, not on oxygen at baseline, previous history of pneumonia, frequent bouts of bronchitis, carotid artery stenosis, and patient has a known 100% right carotid stenosis and 60% left-sided carotid stenosis she follows with Dr. Rausch, previous episode of myocardial infarction 8 years ago, diabetes mellitus type 2 on insulin, and patient carries [id number] smoking history, she recently quit 5 days ago, she is currently on Chantix. Patient presented to the emergency department on 07/17/2019 with complaints of midsternal chest pain, which was nonradiating, which was exacerbated by episodes of coughing and deep breathing, increased cough, non-productive, denied any fever, chills, denied any hemoptysis. Patient was a transfer from [facility]. Apparently last week she had a upper respiratory infection, cough and intermittent chest pain. She developed worsening of the pleuritic chest pain worse with inspiration. EKG was obtained on admission showing sinus tachycardia, 1,[address] elevation in V2 and V3, V4 and V5. Labs showed mild leukocytosis with a white blood cell count of 11.7, hemoglobin of 13.9, electrolytes and renal profile were unremarkable with the exception of CO2 which was at 21, glucose was elevated at 350, troponin came back elevated at 3.340, and 5.5, proBNP was 7190, and subsequent one came down to 5330. Chest x-ray showed right lower lobe airspace disease likely related to pneumonia, and increased diffuse interstitial markings consistent with mild interstitial edema. She has been afebrile, she is maintaining stable oxygenation on room air, she has been started on Rocephin and Zithromax, she was given a dose of IV Lasix in the emergency department, she is being evaluated by cardiology, and her echocardiogram revealed moderately severe impaired LVEF of 30-35%, hypokinesis involving the apical anterior lateral LV wall, lateral LV wall and inferior LV wall, as well as a septal wall. There is mild aortic regurgitation, moderate mitral regurgitation, trace pulmonic regurgitation, no pericardial effusion. On 07/19/2019 patient seen in follow-up on selective care unit, she is awake and alert, she had just returned from the heart catheterization and she was found to have evidence of multivessel coronary artery disease and she was referred to cardiothoracic surgery for possibility of bypass grafting. She is resting comfortably in bed, she slightly upset, but no acute distress, she states her breathing is stable, she is on room air, and her pulse ox is 91%, no fever or chills, no complaints of chest pain, hemodynamically stable. She has not been able to provide a sputum specimen, she is on a combination of Zithromax and Rocephin, nebulized bronchodilators. Objective - Vital Signs Vital signs: Vital Signs Temp 98.2 F 07/19/19 05:00 Pulse 95 07/19/19 10:45 Resp 16 07/19/19 11:42 BP 120/70 07/19/19 10:45 Pulse Ox 91 L 07/19/19 10:45 Intake & Output 07/18/19 07/19/19 07/19/19 18:59 06:59 18:59 Intake Total 501.502 100 Output Total 400 600 300 Balance -400 -98.498 -200 Weight 64.7 kg 66.3 kg Intake: IV 100 Intake, IV Titration 9.502 Amount Heparin Sod,Pork in 0.45% 9.502 NaCl 25,000 unit In 0.45 % NaCl 1 250ml.bag @ 12 UNITS/KG/HR 8.001 mls/hr IV .Q24H [facility] [place] Rx#: [id number] Oral 492 Output: Urine 400 600 300 Other: Voiding Method Toilet # Voids 2 1 - Exam GENERAL EXAM: Alert, pleasant, 49-year-old white female, comfortable in no apparent distress. HEAD: Normocephalic/atraumatic. EYES: Normal reaction of pupils, equal size. Conjunctiva pink, sclera white. NOSE: Clear with pink turbinates. THROAT: No erythema or exudates. NECK: No masses, no JVD, no thyroid enlargement, no adenopathy. CHEST: No chest wall deformity. Symmetrical expansion. LUNGS: Equal air entry with rales at the left base, but no wheeze, rhonchi or dullness. CVS: Regular rate and rhythm, normal S1 and S2, no gallops, no murmurs, no rubs ABDOMEN: Soft, nontender. No hepatosplenomegaly, normal bowel sounds, no guarding or rigidity. EXTREMITIES: No clubbing, no edema, no cyanosis, 2+ pulses and upper and lower extremities. MUSCULOSKELETAL: Muscle strength and tone normal. SPINE: No scoliosis or deformity SKIN: No rashes CENTRAL NERVOUS SYSTEM: Alert and oriented -3. No focal deficits, tone is normal in all 4 extremities. PSYCHIATRIC: Alert and oriented -3. Appropriate affect. Intact judgment and insight. - Labs CBC & Chem 7: 07/19/19 07:15 07/19/19 07:15 Labs: Abnormal Lab Results - Last 24 Hours (Table) 07/18/19 07/18/19 07/19/19 Range/Units 17:26 21:07 06:17 APTT (22.0-30.0) sec BUN (7-17) mg/dL Glucose (74-99) mg/dL POC Glucose (mg/dL) 131 H 147 H 141 H (75-99) mg/dL Total Protein (6.3-8.2) g/dL Albumin (3.5-5.0) g/dL Triglycerides (<150) mg/dL HDL Cholesterol (40-60) mg/dL 07/19/19 07/19/19 07/19/19 Range/Units 07:15 07:15 12:10 APTT 31.4 H (22.0-30.0) sec BUN 22 H (7-17) mg/dL Glucose 115 H (74-99) mg/dL POC Glucose (mg/dL) 154 H (75-99) mg/dL Total Protein 5.7 L (6.3-8.2) g/dL Albumin 3.4 L (3.5-5.0) g/dL Triglycerides 161 H (<150) mg/dL HDL Cholesterol 31 L (40-60) mg/dL Assessment and Plan Plan: Assessment: #1. Acute right lower lobe pneumonia, community-acquired #2. Triple-vessel coronary artery disease, being evaluated for possibility of bypass grafting #3. Moderate mitral valve regurgitation #4. Elevated troponins with ST elevation in anterior leads, the possibility of ST elevated myocardial infarction versus acute viral myocarditis #5. Acute exacerbation of congestive heart failure with systolic dysfunction, and echocardiogram revealed severely impaired LVEF of 30-35%, and moderate mitral regurgitation #6. History of COPD #7. Chronic nicotine dependence, in remission for last 5 days, patient is on Chantix, prior to that patient smoked a pack a day for 33 years #8. History of aortoiliac bypass #9. Recent history of laparoscopic cholecystectomy #10. Insulin-dependent diabetes mellitus type 2 #11. Hyperlipidemia #12. Carotid stenosis, bilateral, 100% on the right and 60% on the left, patient follows with Dr. Rausch #13. Previous history of pneumonia, and frequent bouts of bronchitis Plan: Continue current antibiotic coverage, nebulized broncho-dilators, we have not been able to collect a sputum culture, and there have been no fever or chills, her breathing is stable, no significant cough or chest congestion, patient is being evaluated for possibility of bypass grafting, CT surgery has been consulted, we will continue to follow. I performed a history & physical examination of the patient and discussed their management with my nurse practitioner, Daiana Rosa. I reviewed the nurse practitioner's note and agree with the documented findings and plan of care. Lung sounds are positive for left basilar crackles. The findings and the impression was discussed with the patient. I attest to the documentation by the nurse practitioner. Time with Patient: Less than 30
[2019-07-19] MEDS: FUROSEMIDE 20 MG TAB PO SCH (16:01)
[2019-07-19 17:26] LABS: Glucose,Whole Blood 102 mg/dL (75-99)
[2019-07-19] MEDS: CARVEDILOL 6.25 MG TAB PO SCH (17:33)
[2019-07-19] MEDS: ALPRAZolam 0.5 MG TAB PO PRN (17:35)
[2019-07-19 18:51] LABS: Hemoglobin A1C 7.6 % (4.0-6.0)
[2019-07-19 21:02] LABS: Glucose,Whole Blood 111 mg/dL (75-99)
[2019-07-19] MEDS: MUPIROCIN 2% OINT 22 GM TUBE NASAL SCH (21:07)
[2019-07-19 21:11] LABS: Hepatitis A Antibody IgM Non-Reactive (Non-Reactive); Hepatitis B Core IgM Non-Reactive (Non-Reactive); Hepatitis B Surface Antigen Non-Reactive (Non-Reactive); Hepatitis C IgG Antibody Non-Reactive (Non-Reactive)
[2019-07-19] MEDS: ATORVASTATIN 40 MG TAB PO SCH (21:16)
--- NOTE | 2019-07-19 22:18 | P.PN ---
Progress Note - Text Progress Note Date: 07/19/19 Chief Complaint: Chest pressure History of presenting complaint: This is a pleasant [address] Freya Miles. Chronic stable medical conditions include COPD, , hyperlipidemia, diabetes. Patient states about 9 year ago she was having trouble walking even short distance. She was then seen by Dr. Smith. There trouble accessing her from the artery in the groin and also the rest. Subsequently she had took a bypass done to the block artery in the abdomen to improve her circulation to lower extremity. Patient has continued to smoke up to recently. She also has a complete report right carotid artery. History of 9:00 she suddenly became short of breath and developed chest pressure going across the chest. Became dizzy lightheaded. About 11:30 PM she went to [facility]. Her troponin there was 5 with EKG changes and she was transferred here. EKG was showing some ST elevation anterior leads. Patient also following congestive heart failure. Patient was transferred to our ER from [facility]. Patient is put on IV heparin and given IV Lasix.. Patient admitted with diagnosis of ST elevation myocardial infarction versus acute viral myocarditis., Acute CHF exacerbation EF 20-25%, right lower lobe pneumonia. Today-status post cardiac catheterization by Dr. Monet today. Found to have severe 2 vessel disease. Cardiothoracic surgery was consulted. Breathing is stable. No chest pain. Patient is a bit anxious with the results. Review of systems: Was done for constitutional, cardiovascular, GI, pulmonary. relevant finding as above Active Medications Albuterol/Ipratropium (Duoneb 0.5 Mg-3 Mg/3 Ml Soln) 3 ml INHALATION RT-QID [facility] Last Admin: 07/19/19 19:57 Dose: Not Given Documented by: Alprazolam (Xanax) 0.25 mg PO Q6HR PRN PRN Reason: Mild Anxiety Alprazolam (Xanax) 0.5 mg PO Q6HR PRN PRN Reason: Moderate Anxiety Last Admin: 07/19/19 17:35 Dose: 0.5 mg Documented by: Aspirin (Aspirin) 81 mg PO DAILY [facility] Last Admin: 07/19/19 07:41 Dose: Not Given Documented by: Atorvastatin Calcium (Lipitor) 40 mg PO HS [facility] Last Admin: 07/19/19 21:16 Dose: 40 mg Documented by: Azithromycin (Zithromax) 500 mg PO DAILY [facility] Last Admin: 07/19/19 09:56 Dose: 500 mg Documented by: Budesonide (Pulmicort) 1 mg INHALATION RT-BID [facility] Last Admin: 07/19/19 19:57 Dose: Not Given Documented by: Carvedilol (Coreg) 6.25 mg PO BID-W/MEALS [facility] Last Admin: 07/19/19 17:33 Dose: 6.25 mg Documented by: Chlorhexidine Gluconate (Peridex) 15 ml MUCOUS MEM ONCE ONE Stop: 07/20/19 05:01 Formoterol Fumarate (Perforomist) 20 mcg INHALATION RT-BID [facility] Last Admin: 07/19/19 19:57 Dose: Not Given Documented by: Furosemide (Lasix) 20 mg PO DAILY [facility] Last Admin: 07/19/19 16:01 Dose: 20 mg Documented by: Heparin Sodium (Porcine) (Heparin) 0 unit IV PER PROTOCOL PRN; Protocol PRN Reason: Low PTT Last Admin: 07/17/19 23:51 Dose: 1,667 unit Documented by: Heparin Sodium/Sodium Chloride (25,000 unit/ Sodium Chloride) 250 mls @ 8.001 mls/hr IV .Q24H [facility]; Protocol Last Admin: 07/19/19 07:34 Dose: Not Given Documented by: Ceftriaxone Sodium 1 gm/ (Sodium Chloride) 50 mls @ 100 mls/hr IVPB Q24H [facility] Last Admin: 07/19/19 21:16 Dose: 100 mls/hr Documented by: Insulin Aspart (Novolog) 0 unit SQ ACHS [facility]; Protocol Last Admin: 07/19/19 21:06 Dose: Not Given Documented by: Insulin Aspart (Novolog) 6 unit SQ AC-TID [facility] Last Admin: 07/19/19 17:33 Dose: Not Given Documented by: Insulin Detemir (Levemir) 20 unit SQ DAILY [facility] Last Admin: 07/19/19 12:36 Dose: 20 unit Documented by: Lisinopril (Zestril) 5 mg PO DAILY [facility] Last Admin: 07/19/19 09:56 Dose: 5 mg Documented by: Miscellaneous Information (Rx Info: Iv Contrast Was Given) 1 each MISCELLANE DAILY PRN PRN Reason: Per Protocol Stop: 07/21/19 08:21 Mupirocin (Bactroban Oint) 1 applic NASAL BID [facility] Stop: 07/24/19 21:01 Last Admin: 07/19/19 21:07 Dose: Not Given Documented by: Nitroglycerin (Nitrostat) 0.4 mg SUBLINGUAL Q5M PRN PRN Reason: Chest Pain Spironolactone (Aldactone) 25 mg PO DAILY [facility] Last Admin: 07/19/19 09:57 Dose: 25 mg Documented by: Varenicline (Chantix) 1 mg PO BID [facility] Last Admin: 07/19/19 21:16 Dose: 1 mg Documented by: Physical examination: Vital signs-98.2, 96, 16, 101/72, 93% room air GENERAL: Sitting up in bed, but anxious EYES: Pupils equal. Conjunctiva normal. HEENT: External appearance of nose and ears normal, oral cavity grossly normal. NECK: JVD not raised; masses not palpable. HEART: First and second heart sounds are normal; no edema. LUNGS: Respiratory rate increased, diminished breath sounds. ABDOMEN: Soft, nontender, liver spleen not palpable, no masses palpable. PSYCH: [Alert and oriented x3; mood and affect, less anxious today INVESTIGATIONS, reviewed in the clinical context: Accu-Cheks noted Previous testing White count 10.7 hemoglobin 13.9 platelets 196 potassium 3.8 crit 0.71 glucose 283 Troponin 3.3, 5.5 ProBNP 7190 EKG tracing personally reviewed by me-ST segment elevation in anterior leads and flipped T waves in the V4 to V6 Chest x-ray film personally reviewed by me-pulmonary edema with fluid in the fissures, infiltrative patch at the right lung 2-D echo -, multiple wall motion hypokinesia, moderate MR, EF 20-25% pro calcitonin 0.16 Assessment: -Acute ST elevation myocardial infarction, POA -Severe 2 vessel coronary artery disease per cardiac cath -Acute congestive heart failure from ischemic cardiomyopathy EF of 20-25% -Acute moderate mitral regurgitation could be from acute ischemic cardiomyopathy -acute COPD exacerbation in a smoker -Diabetes mellitus type 2, chronically on insulin -Possible peripheral artery disease -IV heparin monitoring - right lower lobe pneumonia, suspect gram-negative organism Plan: Care was discussed with the patient. Await input from cardiac thoracic surgery. Other medications to continue. Patient has been having no fever. Switched to oral antibiotics tomorrow.
[2019-07-20] MEDS: ALPRAZolam 0.5 MG TAB PO PRN (00:51)
--- NOTE | 2019-07-20 01:06 | CT ---
EXAMINATION TYPE: CT abdomen pelvis wo con DATE OF EXAM: 07/20/2019 COMPARISON: 10/26/2017 HISTORY: Patient presents with right sided flank pain. CT DLP: 427.70 mGycm Automated exposure control for dose reduction was used. TECHNIQUE: Helical acquisition of images was performed from the lung bases through the pelvis. FINDINGS: There are mild bilateral pleural effusions. Heart size is normal. There is a small pericardial effusi on. There is extensive coarse interstitial infiltrates in the lower lobes. Liver shows no focal defect. There are clips from cholecystectomy. Bile ducts are not dilated. Spleen is intact. There is no evidence of pancreatic mass. The stomach is intact. Right kidney shows compensatory hypertrophy. The left kidney is small with cortical thinning. There a re multiple calcifications in left kidney. There is aortoiliac bypass graft. There is no retroperiton eal adenopathy. There is no hydronephrosis. There is high attenuation in the urinary bladder and righ t renal collecting system consistent with previous contrast injection. There is no retroperitoneal ad enopathy. There is no free fluid in the pelvis. Uterus is retroverted. There is no evidence of pelvic mass. There is no mesenteric edema. There is no ascites or free air. Appendix appears normal. There is no sign of a bowel obstruction. There are spondylotic mild changes in the thoracic and lumbar spin e. Bony pelvis is intact. I see no bony destructive process. There is some degenerative cyst formatio n in the right femoral head. IMPRESSION: ATHEROSCLEROTIC VASCULAR DISEASE. HYPOPLASTIC OR ATROPHIC LEFT KIDNEY. NO SIGN OF RENAL OBSTRUCTION. Renal calcification. Amorphous density in the right kidney could relate to contrast. Normal appendix. Extensive interstitial infiltrates in the lower lobes consistent with interstitial e shasta that is a change compared to last exam. Bilateral pleural effusions are new compared to old exam . This could relate to heart failure. No sign of renal obstruction.
[2019-07-20] MEDS ORDERED: CHLORHEXIDINE GLUCONATE 15 ML CUP MUCOUS MEM ONE (05:00)
[2019-07-20 06:48] LABS: Glucose,Whole Blood 103 mg/dL (75-99)
[2019-07-20] MEDS: INSULIN ASPART (NovoLOG) 100 UNIT/ML VIAL SQ SCH ×8 (06:55→21:27)
[2019-07-20] MEDS: HEPARIN SOD,PORK IN 0.45% NACL 25,000 UNIT in 0.45% NACL 1 250ML.BAG IV SCH ×2 (06:55→18:46)
[2019-07-20] MEDS: CARVEDILOL 6.25 MG TAB PO SCH ×2 (06:58→17:12)
[2019-07-20 07:10] LABS: Basophils # (A) 0.1 k/uL (0-0.2); Basophils % (A) 1 %; Eosinophils # (A) 0.3 k/uL (0-0.7); Eosinophils % (A) 3 %; HCT 41.6 % (34.0-46.0); HGB 13.8 gm/dL (11.4-16.0); Lymphocytes # (A) 1.8 k/uL (1.0-4.8); Lymphocytes % (A) 17 %; MCH 30.3 pg (25.0-35.0); MCHC 33.3 g/dL (31.0-37.0); MCV 90.9 fL (80.0-100.0); Mean Platelet Volume 6.7; Monocytes # (A) 0.8 k/uL (0-1.0); Monocytes % (A) 8 %; Neutrophils # (A) 7.2 k/uL (1.3-7.7); Neutrophils % (A) 69 %; Platelet Count 256 k/uL (150-450); RBC 4.57 m/uL (3.80-5.40); RDW 12.5 % (11.5-15.5); WBC 10.5 k/uL (3.8-10.6)
[2019-07-20 07:20] LABS: Amylase 38 U/L (30-110); LDH 994 U/L (313-618)
[2019-07-20] MEDS: FORMOTEROL FUMARATE 20 MCG/2 ML NEBU INHALATION SCH ×2 (08:06→19:32)
[2019-07-20] MEDS: IPRATROPIUM-ALBUTEROL 3 ML NEB INHALATION SCH ×4 (08:06→19:32)
[2019-07-20] MEDS: BUDESONIDE 1 MG/2 ML NEBU INHALATION SCH ×2 (08:06→19:32)
[2019-07-20] MEDS: ASPIRIN 81 MG PO SCH (09:47)
[2019-07-20] MEDS: MUPIROCIN 2% OINT 22 GM TUBE NASAL SCH ×2 (09:47→21:27)
[2019-07-20] MEDS: AZITHROMYCIN 500 MG TAB PO SCH (09:47)
[2019-07-20] MEDS: VARENICLINE 1 MG TAB PO SCH ×2 (09:48→21:27)
[2019-07-20] MEDS ORDERED: fentaNYL (PF) 50 MCG/ML 2 ML AMP ONE (10:42)
[2019-07-20] MEDS ORDERED: SODIUM CHLORIDE 0.9% 500 ML 500 ML IV ONE (11:10)
--- NOTE | 2019-07-20 11:16 | P.ARTDOP ---
Arterial Doppler LOWER EXTREMITY ARTERIAL DOPPLER: DATE OF SERVICE: 07/19/2019 Reason for study: Preop CABG. Doppler waveforms: Ankles are multiphasic on the left and atypical on the right. Pulse volume recording: []. Pressure gradients: Gradient at the right ankle is mild to moderate. Ankle-brachial indices: 0.73 on the right and 0.99 on the left. Toe pressures: [] on the right, [] on the left Impression: The left side is normal. There is mild to moderate right fem-pop disease suspected..
--- NOTE | 2019-07-20 11:18 | P.VSCSTY ---
Greater Saphenous Vein Mapping This is bilateral lower extremity greater saphenous vein mapping. Date of service: 07/19/2019 Vein quality and ultrasound appearance: No intraluminal thrombus or wall changes are seen. Vein size groin right : 5.3 x 5.4 groin left: 5.9 x 7.3 High thigh right: 4.0 x 4.3 high thigh left: 4.8 x 5.5 Mid thigh right: 3.9 x 4.0 mid thigh left: 3.6 x 4.5 Above-knee right: 4.1 x 4.3 above- knee left: 20.7 x 3.5 Below knee right: 2.7 x 3.1 below-knee left: 2.2 x 2.9 Mid calf right: 2.7 x 3.8 mid calf left: 1.9 x 2.8 Ankle right: 1.7 x 2.4 ankle left: 2.5 x 3.1. Impression: Usable bilateral greater saphenous vein. Right ankle and left mid calf may be a bit small for use as conduit..
[2019-07-20] MEDS: BENZOCAINE SPRAY 1 CAN MUCOUS MEM ONE ×2 (11:26→11:55)
[2019-07-20] MEDS ORDERED: MIDAZOLAM 2 MG/2 ML VIAL IV ONE ×2 (11:58→12:05)
--- NOTE | 2019-07-20 12:42 | ECHOT ---
TRANSESOPHAGEAL ECHOCARDIOGRAM DATE OF SERVICE: 07/20/2019 PERFORMING PHYSICIAN: Estevan Monet MD. PROCEDURE PERFORMED: Transesophageal echocardiogram. INDICATION: This is a 49-year-old female patient with history of peripheral arterial disease, hypertension, and dyslipidemia and prior history of smoking, who was admitted to the hospital with acute non ST elevation myocardial infarction. She underwent a heart catheterization which revealed severe triple-vessel coronary artery disease. An echocardiogram was performed and revealed cardiomyopathy with EF around 35% with evidence of moderate mitral regurgitation. The patient was seen and evaluated by cardiothoracic surgeon, Dr. Shen, who requested a NIK for further looking at the mitral valve apparatus. COMPLICATION: None. LEVEL OF SEDATION: Moderate with sedation length of 15 minutes. PROCEDURE DESCRIPTION: After obtaining an informed consent, the patient was brought to the transesophageal echocardiogram suite. Pulse oximetry and heart rate monitors were attached the patient. Subsequently, a bite guard was placed. The patient's throat was sprayed using lidocaine. Subsequently, the transesophageal echocardiogram probe was advanced through the bite guard to the mid esophagus where 2D echocardiogram images, color Doppler images, pulsed and continuous-wave images, were obtained. Particular attention was paid to the mitral valve apparatus. Subsequently. the transesophageal echocardiogram was advanced to the stomach where transgastric views were obtained. The procedure was completed without any complication. FINDINGS: The left ventricle appeared to be dilated. The left ventricular systolic function appeared to be impaired with EF between 30%-35%. The right ventricle appeared to be of normal size and function. The left atrium appeared to be dilated. The left atrial appendage appeared to be free from any thrombus. The inter atrial septum appeared to be intact. The aortic valve is trileaflet valve without stenosis with mild regurgitation. The mitral valve seems to be mildly thickened with evidence of severe mitral regurgitation by color-flow Doppler, by vena contract measurement, as well as by [place]. The tricuspid valve appeared to have mild tricuspid regurgitation. The aorta appeared to be atherosclerotic as well. CONCLUSION: 1. Impaired left ventricular function with ejection fraction between 30%-35%, associated with wall motion abnormalities. 2. Normal right ventricular dimension and systolic function. 3. Severely dilated left atrium. 4. Normal left atrial appendage without any evidence of thrombus. 5. Intact interatrial septum without any evidence of shunt. 6. Trileaflet aortic valve without stenosis with mild insufficiency. 7. Thickened mitral valve leaflets with evidence of severe mitral regurgitation. MMODL / IJN: [id number] /
--- NOTE | 2019-07-20 12:54 | P.PN ---
Subjective Progress Note Date: 07/20/19 Principal diagnosis: Right lower lobe pneumonia, triple-vessel coronary artery disease This is a 49-year-old white female patient of Dr. Freya Miles, who sees Elieser Serna PA-C at her office, has passed [facility] history of COPD, not on oxygen at baseline, previous history of pneumonia, frequent bouts of bronchitis, carotid artery stenosis, and patient has a known 100% right carotid stenosis and 60% left-sided carotid stenosis she follows with Dr. Rausch, previous episode of myocardial infarction 8 years ago, diabetes mellitus type 2 on insulin, and patient carries [id number] smoking history, she recently quit 5 days ago, she is currently on Chantix. Patient presented to the emergency department on 07/17/2019 with complaints of midsternal chest pain, which was nonradiating, which was exacerbated by episodes of coughing and deep breathing, increased cough, non-productive, denied any fever, chills, denied any hemoptysis. Patient was a transfer from [facility]. Apparently last week she had a upper respiratory infection, cough and intermittent chest pain. She developed worsening of the pleuritic chest pain worse with inspiration. EKG was obtained on admission showing sinus tachycardia, 1,[address] elevation in V2 and V3, V4 and V5. Labs showed mild leukocytosis with a white blood cell count of 11.7, hemoglobin of 13.9, electrolytes and renal profile were unremarkable with the exception of CO2 which was at 21, glucose was elevated at 350, troponin came back elevated at 3.340, and 5.5, proBNP was 7190, and subsequent one came down to 5330. Chest x-ray showed right lower lobe airspace disease likely related to pneumonia, and increased diffuse interstitial markings consistent with mild interstitial edema. She has been afebrile, she is maintaining stable oxygenation on room air, she has been started on Rocephin and Zithromax, she was given a dose of IV Lasix in the emergency department, she is being evaluated by cardiology, and her echocardiogram revealed moderately severe impaired LVEF of 30-35%, hypokinesis involving the apical anterior lateral LV wall, lateral LV wall and inferior LV wall, as well as a septal wall. There is mild aortic regurgitation, moderate mitral regurgitation, trace pulmonic regurgitation, no pericardial effusion. On 07/19/2019 patient seen in follow-up on selective care unit, she is awake and alert, she had just returned from the heart catheterization and she was found to have evidence of multivessel coronary artery disease and she was referred to cardiothoracic surgery for possibility of bypass grafting. She is resting comfortably in bed, she slightly upset, but no acute distress, she states her breathing is stable, she is on room air, and her pulse ox is 91%, no fever or chills, no complaints of chest pain, hemodynamically stable. She has not been able to provide a sputum specimen, she is on a combination of Zithromax and Rocephin, nebulized bronchodilators. On 07/20/2090 patient seen in follow-up on further care unit, she is up ambulating, she is getting very to get a shower, room air pulse ox is 98%, no fever or chills, hemodynamically stable, no complaints of chest pain, no complaints of difficulty breathing, respirations are even and nonlabored, lung sounds are diminished, no rhonchi, no wheezing noted, patient is on a combination of Rocephin and Zithromax, was unable to produce a sputum sample for us. She is undergoing evaluation for bypass grafting surgery. She had a transesophageal echocardiogram today, which showed impaired left ventricle systolic function with an ejection of 30-35%, severely dilated left atrium, no evidence of thrombus in the left atrial appendage, trileaflet aortic valve without stenosis with mild insufficiency, and thickened mitral valve leaflets with evidence of severe mitral regurgitation Objective - Vital Signs Vital signs: Vital Signs Temp 98.0 F 07/20/19 12:44 Pulse 88 07/20/19 12:44 Resp 18 07/20/19 12:44 BP 99/59 07/20/19 12:44 Pulse Ox 98 07/20/19 12:44 Intake & Output 07/19/19 07/20/19 07/20/19 18:59 06:59 18:59 Intake Total 460 150 Output Total 1200 Balance -740 150 Weight 64.8 kg Intake: IV 100 150 Oral 360 Output: Urine 1200 Other: Voiding Method Toilet Toilet # Voids 1 - Exam GENERAL EXAM: Alert, pleasant, 49-year-old white female, comfortable in no apparent distress. HEAD: Normocephalic/atraumatic. EYES: Normal reaction of pupils, equal size. Conjunctiva pink, sclera white. NOSE: Clear with pink turbinates. THROAT: No erythema or exudates. NECK: No masses, no JVD, no thyroid enlargement, no adenopathy. CHEST: No chest wall deformity. Symmetrical expansion. LUNGS: Equal air entry with rales at the left base, but no wheeze, rhonchi or dullness. CVS: Regular rate and rhythm, normal S1 and S2, no gallops, no murmurs, no rubs ABDOMEN: Soft, nontender. No hepatosplenomegaly, normal bowel sounds, no guarding or rigidity. EXTREMITIES: No clubbing, no edema, no cyanosis, 2+ pulses and upper and lower extremities. MUSCULOSKELETAL: Muscle strength and tone normal. SPINE: No scoliosis or deformity SKIN: No rashes CENTRAL NERVOUS SYSTEM: Alert and oriented -3. No focal deficits, tone is normal in all 4 extremities. PSYCHIATRIC: Alert and oriented -3. Appropriate affect. Intact judgment and insight. - Labs CBC & Chem 7: 07/20/19 05:49 07/19/19 07:15 Labs: Abnormal Lab Results - Last 24 Hours (Table) 07/19/19 07/19/19 07/19/19 Range/Units 07:15 17:24 21:00 POC Glucose (mg/dL) 102 H 111 H (75-99) mg/dL Hemoglobin A1c 7.6 H (4.0-6.0) % Lactate Dehydrogenase (313-618) U/L Lipase (23-300) U/L 07/20/19 07/20/19 Range/Units 05:49 06:47 POC Glucose (mg/dL) 103 H (75-99) mg/dL Hemoglobin A1c (4.0-6.0) % Lactate Dehydrogenase 994 H (313-618) U/L Lipase 12 L (23-300) U/L Microbiology - Last 24 Hours (Table) 07/19/19 12:30 Nasal Screen MRSA/MSSA - Preliminary Nasopharyngeal Swab Assessment and Plan Plan: Assessment: #1. Acute right lower lobe pneumonia, community-acquired #2. Triple-vessel coronary artery disease, being evaluated for possibility of bypass grafting #3. Moderate mitral valve regurgitation #4. Elevated troponins with ST elevation in anterior leads, the possibility of ST elevated myocardial infarction versus acute viral myocarditis #5. Acute exacerbation of congestive heart failure with systolic dysfunction, and echocardiogram revealed severely impaired LVEF of 30-35%, and moderate mitral regurgitation #6. History of COPD #7. Chronic nicotine dependence, in remission for last 5 days, patient is on Chantix, prior to that patient smoked a pack a day for 33 years #8. History of aortoiliac bypass #9. Recent history of laparoscopic cholecystectomy #10. Insulin-dependent diabetes mellitus type 2 #11. Hyperlipidemia #12. Carotid stenosis, bilateral, 100% on the right and 60% on the left, patient follows with Dr. Rausch #13. Previous history of pneumonia, and frequent bouts of bronchitis Plan: Continue current antibiotic coverage, patient denies any worsening dyspnea, no cough or congestion, no hemoptysis, no fever, culture showed no growth, he denies any chest pain, she underwent transesophageal echocardiogram which showed evidence of severe mitral regurgitation, and impaired LV function with an EF of 30-35%. She is undergoing evaluation for bypass grafting. I performed a history & physical examination of the patient and discussed their management with my nurse practitioner, Daiana Rosa. I reviewed the nurse practitioner's note and agree with the documented findings and plan of care. Lung sounds are positive for left basilar crackles. The findings and the impression was discussed with the patient. I attest to the documentation by the nurse practitioner. Time with Patient: Less than 30
--- NOTE | 2019-07-20 13:49 | P.PN ---
Subjective Progress Note Date: 07/20/19 Principal diagnosis: Triple-vessel coronary artery disease, STEMI this admission. S/P left heart catheterization which demonstrated a 90% stenosis to her right coronary artery, a 90% stenosis to her circumflex coronary artery, a 20% stenosis to her proximal left anterior descending coronary artery and a 99% stenosis to her mid left anterior descending coronary artery. Past medical history significant for hyperlipidemia, insulin-dependent diabetes mellitus with HgbA1c 7.6%, severe chronic obstructive pulmonary disease with FEV1 42% of predicted, history of peripheral arterial disease with severely symptomatic aortoiliac occlusion status post aortobiiliac bypass in 2010, hi story of TIA in 2007, chronic nicotine abuse smokes about 1 pack per day of cigarettes, chronic cholecystitis with history of recent cholecystectomy, depressive disorder and history of complete occlusion of her right internal carotid artery, left carotid with reversal of flow and retrograde left vertebral flow Patient lying in bed receiving a breathing treatment. She is on RA and denies any SOB. She c/o right costovetebral pain. Objective - Vital Signs Vital signs: Vital Signs Temp 97.5 F L 07/20/19 04:00 Pulse 94 07/20/19 12:14 Resp 14 07/20/19 11:11 BP 116/65 07/20/19 12:14 Pulse Ox 94 L 07/20/19 12:14 Intake & Output 07/19/19 07/20/19 07/20/19 18:59 06:59 18:59 Intake Total 460 150 Output Total 1200 Balance -740 150 Weight 64.8 kg Intake: IV 100 150 Oral 360 Output: Urine 1200 Other: Voiding Method Toilet # Voids 1 - Constitutional General appearance: Present: cooperative, no acute distress - Neck Details: Carotid bruit bilaterally. Trachea midline, no adenopathy or masses. - Respiratory Details: Breathing even and unlabored. Lung sounds are essentially clear throughout, diminished right lower lobe. Oxygen saturation 98% on room air. - Cardiovascular Details: Regular rhythm and rate. S1 and S2 present, no gallop or murmur. No peripheral edema present. Capillary refill < 2 seconds. - Gastrointestinal Gastrointestinal Comment(s): Abdomen soft, non-tender, and non-distended. + BS x 4 quadrants. - Integumentary Integumentary: Present: normal - Neurologic Neurologic: Present: CNII-XII intact - Psychiatric Psychiatric: Present: A&O x's 3, appropriate affect, intact judgment & insight - Labs CBC & Chem 7: 07/20/19 05:49 07/19/19 07:15 Labs: Abnormal Lab Results - Last 24 Hours (Table) 07/19/19 07/19/19 07/19/19 Range/Units 07:15 12:10 17:24 POC Glucose (mg/dL) 154 H 102 H (75-99) mg/dL Hemoglobin A1c 7.6 H (4.0-6.0) % Lactate Dehydrogenase (313-618) U/L Lipase (23-300) U/L 07/19/19 07/20/19 07/20/19 Range/Units 21:00 05:49 06:47 POC Glucose (mg/dL) 111 H 103 H (75-99) mg/dL Hemoglobin A1c (4.0-6.0) % Lactate Dehydrogenase 994 H (313-618) U/L Lipase 12 L (23-300) U/L Microbiology - Last 24 Hours (Table) 07/19/19 12:30 Nasal Screen MRSA/MSSA - Preliminary Nasopharyngeal Swab - Imaging and Cardiology Chest x-ray: report reviewed, image reviewed CT scan - abdomen: report reviewed, image reviewed CT scan - chest: report reviewed, image reviewed CT Scan - head: report reviewed, image reviewed Venous US: report reviewed, image reviewed Assessment and Plan Assessment: 1. Triple-vessel coronary artery disease 2. Moderate mitral valve regurgitation 3. Elevated troponins with anterior wall EKG changes, STEMI 4. Acute systolic heart failure, EF 30-35% 5. Hyperlipidemia 6. Insulin-dependent diabetes mellitus with HgbA1c 7.6% 7. Complete occlusion of the right internal carotid artery, left carotid with reversal of flow, vertebral artery with retrograde flow 8. Severe COPD with current tobacco dependence, FEV1 42% 9. Peripheral vascular disease with history of aortoiliac bypass 10. Recent laparoscopic cholecystectomy Plan: 1. NIK today 2. CTA of the neck to evaluate for subclavian steal syndrome, and if present patient will have stent placed by Dr. Monet, after stent patient will need to have plavix so we will coordinate with Dr. Monet for timing of surgery 3. Continue to reinforce pre-operative teaching 4. Continue to maximize medical therapy with ASA, DEVON, beta kirk, and diuretic 5. Medical management and other co-morbidities per primary care service 6. Reinforce importance of smoking cessation, continue Chantix 7. Increase activity as tolerated, cardiac rehab following, will obtain 5m walk test 8. Continue GI/DVT prophylaxis 9. Once all pre operative testing obtained and reviewed will make plans for CABG and Mitral valve repair 10. More recommendations to follow Time with Patient: Greater than 30
[2019-07-20] MEDS: INSULIN DETEMIR (LEVEMIR) 100 UNIT/ML SYR SQ SCH (14:30)
[2019-07-20] MEDS: SPIRONOLACTONE 25 MG TAB PO SCH (14:34)
[2019-07-20] MEDS: LISINOPRIL 5 MG TAB PO SCH (14:34)
[2019-07-20] MEDS: FUROSEMIDE 20 MG TAB PO SCH (14:34)
--- NOTE | 2019-07-20 16:04 | P.PN ---
Progress Note - Text Progress Note Date: 07/20/19 Consult received for abdominal pain. Attempted to see patient twice today. Both times, patient has been off the floor for testing. Will attempt to evaluate patient tomorrow
[2019-07-20 17:22] LABS: Glucose,Whole Blood 225 mg/dL (75-99)
--- NOTE | 2019-07-20 17:35 | CT ---
EXAMINATION TYPE: CT angio neck DATE OF EXAM: 07/20/2019 HISTORY: eval aortic arch and carotids for subclavian steel COMPARISON: 04/13/2012 CT DLP: 335.9 mGycm. Automated Exposure Control for Dose Reduction was Utilized. TECHNIQUE: CTA scan of the neck is performed with IV Contrast, patient injected with 65 mL of Isovue 370, axial images are obtained, coronal and sagittal reformatted images are reviewed. Three-D recons tructed images are created on an independent workstation and reviewed. FINDINGS: There is severe stenosis at the origin of the left subclavian artery. There is normal branching patte rn of the great vessels. There is probably 50% stenosis at the origin of the innominate artery with i nvolvement of the right subclavian artery. There is absent flow in the right common carotid artery. T here is arterial flow in the right vertebral artery. There is a very small left vertebral artery. The re is probably reversed flow in the left vertebral artery. The proximal left vertebral artery shows n o definite blood flow. There is arterial flow in the left common carotid artery. There is some plaque formation and 25% sten osis of the proximal left internal carotid artery. There is arterial flow in the vertebrobasilar artery system. IMPRESSION: There is more than 90% stenosis at the origin of the left subclavian artery. There is evidence of lef t clavian steal phenomenon and probably reversed flow in the left vertebral artery. There is apparent complete occlusion proximal left vertebral artery that is a change compared to old exam. There is 50% stenosis of the innominate artery. Unchanged. There is absent flow in the right carotid artery. Unchanged. There is approximate 25% stenosis proximal left internal carotid artery unchanged.
[2019-07-20 21:00] LABS: Glucose,Whole Blood 199 mg/dL (75-99)
[2019-07-20] MEDS: ATORVASTATIN 40 MG TAB PO SCH (21:27)
[2019-07-20] MEDS: ALPRAZolam 0.25 MG TAB PO PRN (21:30)
--- NOTE | 2019-07-20 21:49 | P.PN ---
Progress Note - Text Progress Note Date: 07/20/19 Chief Complaint: Chest pressure History of presenting complaint: This is a pleasant [address] Freya Miles. Chronic stable medical conditions include COPD, , hyperlipidemia, diabetes. Patient states about 9 year ago she was having trouble walking even short distance. She was then seen by Dr. Smith. There trouble accessing her from the artery in the groin and also the rest. Subsequently she had took a bypass done to the block artery in the abdomen to improve her circulation to lower extremity. Patient has continued to smoke up to recently. She also has a complete report right carotid artery. History of 9:00 she suddenly became short of breath and developed chest pressure going across the chest. Became dizzy lightheaded. About 11:30 PM she went to [facility]. Her troponin there was 5 with EKG changes and she was transferred here. EKG was showing some ST elevation anterior leads. Patient also following congestive heart failure. Patient was transferred to our ER from [facility]. Patient is put on IV heparin and given IV Lasix.. Patient admitted with diagnosis of ST elevation myocardial infarction versus acute viral myocarditis., Acute CHF exacerbation EF 20-25%, right lower lobe pneumonia. cardiac catheterization by Dr. Monet -. Found to have severe 2 vessel disease. Cardiothoracic surgery was consulted. Today-. NIK done today. Showed EF of 30-35% with severe mitral regurgitation. Laying in bed. More comfortable. Review of systems: Was done for constitutional, cardiovascular, GI, pulmonary. relevant finding as above Active Medications Albuterol/Ipratropium (Duoneb 0.5 Mg-3 Mg/3 Ml Soln) 3 ml INHALATION RT-QID [facility] Last Admin: 07/20/19 19:32 Dose: Not Given Documented by: Alprazolam (Xanax) 0.25 mg PO Q6HR PRN PRN Reason: Mild Anxiety Last Admin: 07/20/19 21:30 Dose: 0.25 mg Documented by: Alprazolam (Xanax) 0.5 mg PO Q6HR PRN PRN Reason: Moderate Anxiety Last Admin: 07/20/19 00:51 Dose: 0.5 mg Documented by: Aspirin (Aspirin) 81 mg PO DAILY [facility] Last Admin: 07/20/19 09:47 Dose: 81 mg Documented by: Atorvastatin Calcium (Lipitor) 40 mg PO HS [facility] Last Admin: 07/20/19 21:27 Dose: 40 mg Documented by: Azithromycin (Zithromax) 500 mg PO DAILY [facility] Last Admin: 07/20/19 09:47 Dose: 500 mg Documented by: Budesonide (Pulmicort) 1 mg INHALATION RT-BID [facility] Last Admin: 07/20/19 19:32 Dose: Not Given Documented by: Carvedilol (Coreg) 6.25 mg PO BID-W/MEALS [facility] Last Admin: 07/20/19 17:12 Dose: 6.25 mg Documented by: Formoterol Fumarate (Perforomist) 20 mcg INHALATION RT-BID [facility] Last Admin: 07/20/19 19:32 Dose: Not Given Documented by: Furosemide (Lasix) 20 mg PO DAILY [facility] Last Admin: 07/20/19 14:34 Dose: 20 mg Documented by: Heparin Sodium (Porcine) (Heparin) 0 unit IV PER PROTOCOL PRN; Protocol PRN Reason: Low PTT Last Admin: 07/17/19 23:51 Dose: 1,667 unit Documented by: Heparin Sodium/Sodium Chloride (25,000 unit/ Sodium Chloride) 250 mls @ 8.001 mls/hr IV .Q24H [facility]; Protocol Last Admin: 07/20/19 18:46 Dose: Not Given Documented by: Ceftriaxone Sodium 1 gm/ (Sodium Chloride) 50 mls @ 100 mls/hr IVPB Q24H [facility] Last Admin: 07/20/19 21:27 Dose: 100 mls/hr Documented by: Insulin Aspart (Novolog) 0 unit SQ ACHS [facility]; Protocol Last Admin: 07/20/19 21:27 Dose: 2 unit Documented by: Insulin Aspart (Novolog) 6 unit SQ AC-TID [facility] Last Admin: 07/20/19 17:12 Dose: Not Given Documented by: Insulin Detemir (Levemir) 20 unit SQ DAILY [facility] Last Admin: 07/20/19 14:30 Dose: Not Given Documented by: Lisinopril (Zestril) 5 mg PO DAILY [facility] Last Admin: 07/20/19 14:34 Dose: 5 mg Documented by: Miscellaneous Information (Rx Info: Iv Contrast Was Given) 1 each MISCELLANE DAILY PRN PRN Reason: Per Protocol Stop: 07/21/19 08:21 Mupirocin (Bactroban Oint) 1 applic NASAL BID [facility] Stop: 07/24/19 21:01 Last Admin: 07/20/19 21:27 Dose: 1 applic Documented by: Nitroglycerin (Nitrostat) 0.4 mg SUBLINGUAL Q5M PRN PRN Reason: Chest Pain Spironolactone (Aldactone) 25 mg PO DAILY [facility] Last Admin: 07/20/19 14:34 Dose: 25 mg Documented by: Varenicline (Chantix) 1 mg PO BID [facility] Last Admin: 07/20/19 21:27 Dose: 1 mg Documented by: Physical examination: Vital signs-98, 88, 18, 99/59, 98% room air GENERAL: Laying in bed, a bit anxious EYES: Pupils equal. Conjunctiva normal. HEENT: External appearance of nose and ears normal, oral cavity grossly normal. NECK: JVD not raised; masses not palpable. HEART: First and second heart sounds are normal; no edema. LUNGS: Respiratory rate increased, diminished breath sounds. ABDOMEN: Soft, nontender, liver spleen not palpable, no masses palpable. PSYCH: [Alert and oriented x3; mood and affect, less anxious today INVESTIGATIONS, reviewed in the clinical context: White count 10.5 hemoglobin 10.8 platelets 256 NIK-shows EF of 30-35%, with severe mitral regurgitation Previous testing White count 10.7 hemoglobin 13.9 platelets 196 potassium 3.8 crit 0.71 glucose 283 Troponin 3.3, 5.5 ProBNP 7190 EKG tracing personally reviewed by me-ST segment elevation in anterior leads and flipped T waves in the V4 to V6 Chest x-ray film personally reviewed by me-pulmonary edema with fluid in the fissures, infiltrative patch at the right lung 2-D echo -, multiple wall motion hypokinesia, moderate MR, EF 20-25% pro calcitonin 0.16 Assessment: -Acute ST elevation myocardial infarction, POA -Severe 2 vessel coronary artery disease per cardiac cath, being evaluated for coronary bypass -Acute congestive heart failure from ischemic cardiomyopathy EF of 30-35 % -Acute severe mitral regurgitation could be from acute ischemic cardiomyopathy -acute COPD exacerbation in a smoker -Diabetes mellitus type 2, chronically on insulin -Possible peripheral artery disease -IV heparin monitoring - right lower lobe pneumonia, suspect gram-negative organism Plan: Continue current medication treatment plan. We'll await a final determination regarding thoracic surgery. Other medications to continue. Care was discussed with the patient.
[2019-07-21] MEDS: INSULIN ASPART (NovoLOG) 100 UNIT/ML VIAL SQ SCH ×7 (06:30→21:12)
[2019-07-21 06:41] LABS: Glucose,Whole Blood 190 mg/dL (75-99)
[2019-07-21 07:15] LABS: HCT 41.5 % (34.0-46.0); MCH 30.5 pg (25.0-35.0); MCHC 33.7 g/dL (31.0-37.0); MCV 90.6 fL (80.0-100.0); Mean Platelet Volume 6.5; Platelet Count 259 k/uL (150-450); RBC 4.58 m/uL (3.80-5.40); RDW 12.5 % (11.5-15.5); WBC 10.4 k/uL (3.8-10.6)
[2019-07-21 07:22] LABS: African American GFR (CKD) >90 (>60 ml/min/1.73 sqM); Anion Gap 7 mmol/L; Blood Urea Nitrogen 23 mg/dL (7-17); Carbon Dioxide 27 mmol/L (22-30); Chloride 103 mmol/L (98-107); Glucose 178 mg/dL (74-99); Potassium 4.2 mmol/L (3.5-5.1); Sodium 137 mmol/L (137-145)
[2019-07-21] MEDS: ASPIRIN 81 MG PO SCH (07:48)
[2019-07-21] MEDS: MUPIROCIN 2% OINT 22 GM TUBE NASAL SCH ×2 (07:48→20:18)
[2019-07-21] MEDS: CARVEDILOL 6.25 MG TAB PO SCH (07:48)
[2019-07-21] MEDS: VARENICLINE 1 MG TAB PO SCH ×2 (07:48→20:16)
[2019-07-21] MEDS: AZITHROMYCIN 500 MG TAB PO SCH (07:48)
[2019-07-21] MEDS: INSULIN DETEMIR (LEVEMIR) 100 UNIT/ML SYR SQ SCH (07:49)
[2019-07-21] MEDS: FORMOTEROL FUMARATE 20 MCG/2 ML NEBU INHALATION SCH ×2 (08:23→21:16)
[2019-07-21] MEDS: BUDESONIDE 1 MG/2 ML NEBU INHALATION SCH ×2 (08:23→21:16)
[2019-07-21] MEDS: IPRATROPIUM-ALBUTEROL 3 ML NEB INHALATION SCH ×4 (08:23→21:16)
--- NOTE | 2019-07-21 08:32 | XR ---
EXAMINATION TYPE: XR chest 1V portable DATE OF EXAM: 07/21/2019 COMPARISON: 07/17/2019 INDICATION: Right lower lobe infiltrate TECHNIQUE: Single frontal view of the chest is obtained. FINDINGS: The heart size is normal. The pulmonary vasculature is normal. The lungs are clear. Previous right lower lobe infiltrate has resolved. No suspicious new or residual infiltrates are evid ent. IMPRESSION: 1. No acute pulmonary process.
[2019-07-21] MEDS ORDERED: BENZOCAINE/MENTHOL LOZENG 1 EACH LOZENGE MUCOUS MEM PRN (09:39)
--- NOTE | 2019-07-21 10:37 | P.PN ---
Subjective Progress Note Date: 07/21/19 Principal diagnosis: Severe triple-vessel coronary artery disease, STEMI this admission, severe mitral valve regurgitation, acute systolic heart failure with impaired left ventricular systolic function and EF 30-35%, right lower lobe pneumonia present on admission. 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 The patient is currently sitting up in bed in no acute distress. Denies any chest pain or shortness of breath. Right flank pain which she complained of yesterday has resolved. The patient does report some dizziness with ambulation, otherwise no new complaints. She had a transesophageal echocardiogram yesterday confirming severe mitral valve regurgitation. In addition she had a CT angiogram of the neck demonstrating a known complete right occlusive carotid artery disease, as well as left internal carotid artery disease and left subclavian stenosis with subclavian steal syndrome. This was discussed with the patient. Objective - Vital Signs Vital signs: Vital Signs Temp 98.6 F 07/21/19 04:07 Pulse 96 07/21/19 07:37 Resp 18 07/21/19 07:37 BP 93/56 07/21/19 06:31 Pulse Ox 93 L 07/21/19 04:07 Intake & Output 07/20/19 07/21/19 07/21/19 18:59 06:59 18:59 Intake Total 250 290 400 Output Total 375 Balance -125 290 400 Weight 64 kg Intake: IV 150 Intake, IV Titration 50 Amount cefTRIAXone 1 gm In 50 Sodium Chloride 0.9% 50 ml @ 100 mls/hr IVPB Q24H [facility] Rx#:[id number] Oral 100 240 400 Output: Urine 375 Other: Voiding Method Toilet Toilet Toilet # Voids 1 1 1 - Constitutional General appearance: Present: cooperative, no acute distress - Neck Carotids: bilateral: bruit present - Respiratory Details: Lungs sounds diminished bilaterally. Respirations even, nonlabored. Currently on room air with oxygen saturation 93%. Able to achieve 1500 mL on her incentive spirometry. - Cardiovascular Details: S1, S2 present. Regular rate and rhythm, sinus rhythm on telemetry. Palpable pulses bilaterally, diminished left radial pulse. No edema present. No calf pain or tenderness noted. - Gastrointestinal Gastrointestinal Comment(s): Abdomen soft, nontender, nondistended. Active bowel sounds present 4 quadrants. Tolerating diet. - Genitourinary Genitourinary Comment(s): Continues to void - Integumentary Integumentary Comment(s): Skin is warm and dry - Neurologic Neurologic: Present: CNII-XII intact - Musculoskeletal Musculoskeletal: Present: strength equal bilaterally - Psychiatric Psychiatric: Present: A&O x's 3, appropriate affect, intact judgment & insight - Allied health notes Allied health notes reviewed: nursing - Labs CBC & Chem 7: 07/21/19 06:47 07/21/19 06:47 Labs: Abnormal Lab Results - Last 24 Hours (Table) 07/20/19 07/20/19 07/21/19 Range/Units 17:20 20:58 06:29 BUN (7-17) mg/dL Glucose (74-99) mg/dL POC Glucose (mg/dL) 225 H 199 H 190 H (75-99) mg/dL 07/21/19 Range/Units 06:47 BUN 23 H (7-17) mg/dL Glucose 178 H (74-99) mg/dL POC Glucose (mg/dL) (75-99) mg/dL Microbiology - Last 24 Hours (Table) 07/19/19 12:30 Nasal Screen MRSA/MSSA - Final Nasopharyngeal Swab - Imaging and Cardiology Chest x-ray: report reviewed, image reviewed CT anterior neck, NIK reviewed Assessment and Plan Assessment: 1. Severe triple-vessel coronary artery disease 2. STEMI this admission 3. Severe mitral valve regurgitation per transesophageal echocardiogram 4. Acute systolic heart failure with impaired left ventricular systolic function, EF 30-35% 5. Right lower lobe pneumonia, community-acquired, currently on antibiotics 6. Hyperlipidemia 7. Insulin-dependent diabetes mellitus with HgbA1c 7.6% 8. 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 Peripheral arterial disease aortic iliac occlusion status post aortobiiliac bypass in 2011 10. TIA in 2008 11. Chronic current nicotine dependence 12. Severe COPD with preoperative FEV1 42% of predicted 13. Recent laparoscopic cholecystectomy 14. Depressive disorder 15. Family history of heart disease Plan: 1. Continue aspirin, statin, DEVON inhibitor, beta kirk therapy. Continue Lasix, Aldactone. 2. Encourage incentive spirometry is 10 times every hour while awake. Reinforce importance of smoking cessation, continue Chantix 3. Bronchodilators per pulmonology. 4. Continue to reinforce pre-operative teaching 5. Increase activity as tolerated, cardiac rehab following. Patient refusing 5 m walk at this time secondary to dizziness. 6. Antibiotics per primary care/pulmonology 7. GI/DVT prophylaxis 8. Medical management of other comorbidities per primary care services 9. Patient will need coronary artery bypass graft surgery with mitral valve repair and stenting of the left subclavian artery. Timing of surgery to be determined collaboratively by cardiology and cardiothoracic surgery. Dr. Sarmiento will review scans today and we will make recommendations for timing of surgery. 10. More recommendations to follow Time with Patient: Greater than 30
[2019-07-21] MEDS: FUROSEMIDE 20 MG TAB PO SCH (11:06)
--- NOTE | 2019-07-21 11:26 | P.PN ---
Subjective Progress Note Date: 07/21/19 Principal diagnosis: Right lower lobe pneumonia, triple-vessel coronary artery disease This is a 49-year-old white female patient of Dr. Freya Miles, who sees Elieser Serna PA-C at her office, has passed [facility] history of COPD, not on oxygen at baseline, previous history of pneumonia, frequent bouts of bronchitis, carotid artery stenosis, and patient has a known 100% right carotid stenosis and 60% left-sided carotid stenosis she follows with Dr. Rausch, previous episode of myocardial infarction 8 years ago, diabetes mellitus type 2 on insulin, and patient carries [id number] smoking history, she recently quit 5 days ago, she is currently on Chantix. Patient presented to the emergency department on 07/17/2019 with complaints of midsternal chest pain, which was nonradiating, which was exacerbated by episodes of coughing and deep breathing, increased cough, non-productive, denied any fever, chills, denied any hemoptysis. Patient was a transfer from [facility]. Apparently last week she had a upper respiratory infection, cough and intermittent chest pain. She developed worsening of the pleuritic chest pain worse with inspiration. EKG was obtained on admission showing sinus tachycardia, 1,[address] elevation in V2 and V3, V4 and V5. Labs showed mild leukocytosis with a white blood cell count of 11.7, hemoglobin of 13.9, electrolytes and renal profile were unremarkable with the exception of CO2 which was at 21, glucose was elevated at 350, troponin came back elevated at 3.340, and 5.5, proBNP was 7190, and subsequent one came down to 5330. Chest x-ray showed right lower lobe airspace disease likely related to pneumonia, and increased diffuse interstitial markings consistent with mild interstitial edema. She has been afebrile, she is maintaining stable oxygenation on room air, she has been started on Rocephin and Zithromax, she was given a dose of IV Lasix in the emergency department, she is being evaluated by cardiology, and her echocardiogram revealed moderately severe impaired LVEF of 30-35%, hypokinesis involving the apical anterior lateral LV wall, lateral LV wall and inferior LV wall, as well as a septal wall. There is mild aortic regurgitation, moderate mitral regurgitation, trace pulmonic regurgitation, no pericardial effusion. On 07/19/2019 patient seen in follow-up on selective care unit, she is awake and alert, she had just returned from the heart catheterization and she was found to have evidence of multivessel coronary artery disease and she was referred to cardiothoracic surgery for possibility of bypass grafting. She is resting comfortably in bed, she slightly upset, but no acute distress, she states her breathing is stable, she is on room air, and her pulse ox is 91%, no fever or chills, no complaints of chest pain, hemodynamically stable. She has not been able to provide a sputum specimen, she is on a combination of Zithromax and Rocephin, nebulized bronchodilators. On 07/20/2090 patient seen in follow-up on further care unit, she is up ambulating, she is getting very to get a shower, room air pulse ox is 98%, no fever or chills, hemodynamically stable, no complaints of chest pain, no complaints of difficulty breathing, respirations are even and nonlabored, lung sounds are diminished, no rhonchi, no wheezing noted, patient is on a combination of Rocephin and Zithromax, was unable to produce a sputum sample for us. She is undergoing evaluation for bypass grafting surgery. She had a transesophageal echocardiogram today, which showed impaired left ventricle systolic function with an ejection of 30-35%, severely dilated left atrium, no evidence of thrombus in the left atrial appendage, trileaflet aortic valve without stenosis with mild insufficiency, and thickened mitral valve leaflets with evidence of severe mitral regurgitation On 07/21/2019 patient seen in follow-up on selective care unit, she is resting comfortably, she denies any acute distress, she denies any recurrent episodes of any chest pain, no shortness of breath, she is currently on room air. No cough or phlegm production, room air pulse ox is 96%, low-grade fever this morning with a temp of 99.0F. Lung sounds are diminished at the bases, no rhonchi, no wheezing. Today's lab work shows white blood cell count of 10.4, hemoglobin is 14.0, electrolytes and renal profile were unremarkable. No pleuritic chest discomfort, no hemoptysis, patient had a bedside spirometry done and it was a poor effort, and he did show FEV1 of 1.39 L or 42% of predicted, consistent with severe obstructive pulmonary defect. We will have to repeat her PFT. Continues on a combination of Rocephin and Zithromax, nebulized bronchodilators. Objective - Vital Signs Vital signs: Vital Signs Temp 99.0 F 07/21/19 11:07 Pulse 86 07/21/19 11:07 Resp 16 07/21/19 11:07 BP 83/51 07/21/19 11:07 Pulse Ox 96 07/21/19 11:07 Intake & Output 07/20/19 07/21/19 07/21/19 18:59 06:59 18:59 Intake Total 250 290 400 Output Total 375 Balance -125 290 400 Weight 64 kg Intake: IV 150 Intake, IV Titration 50 Amount cefTRIAXone 1 gm In 50 Sodium Chloride 0.9% 50 ml @ 100 mls/hr IVPB Q24H [facility] Rx#:[id number] Oral 100 240 400 Output: Urine 375 Other: Voiding Method Toilet Toilet Toilet # Voids 1 1 1 - Exam GENERAL EXAM: Alert, pleasant, 49-year-old white female, comfortable in no apparent distress. HEAD: Normocephalic/atraumatic. EYES: Normal reaction of pupils, equal size. Conjunctiva pink, sclera white. NOSE: Clear with pink turbinates. THROAT: No erythema or exudates. NECK: No masses, no JVD, no thyroid enlargement, no adenopathy. CHEST: No chest wall deformity. Symmetrical expansion. LUNGS: Equal air entry with rales at the left base, but no wheeze, rhonchi or dullness. CVS: Regular rate and rhythm, normal S1 and S2, no gallops, no murmurs, no rubs ABDOMEN: Soft, nontender. No hepatosplenomegaly, normal bowel sounds, no guarding or rigidity. EXTREMITIES: No clubbing, no edema, no cyanosis, 2+ pulses and upper and lower extremities. MUSCULOSKELETAL: Muscle strength and tone normal. SPINE: No scoliosis or deformity SKIN: No rashes CENTRAL NERVOUS SYSTEM: Alert and oriented -3. No focal deficits, tone is normal in all 4 extremities. PSYCHIATRIC: Alert and oriented -3. Appropriate affect. Intact judgment and insight. - Labs CBC & Chem 7: 07/21/19 06:47 07/21/19 06:47 Labs: Abnormal Lab Results - Last 24 Hours (Table) 07/20/19 07/20/19 07/21/19 Range/Units 17:20 20:58 06:29 BUN (7-17) mg/dL Glucose (74-99) mg/dL POC Glucose (mg/dL) 225 H 199 H 190 H (75-99) mg/dL 07/21/19 Range/Units 06:47 BUN 23 H (7-17) mg/dL Glucose 178 H (74-99) mg/dL POC Glucose (mg/dL) (75-99) mg/dL Microbiology - Last 24 Hours (Table) 07/19/19 12:30 Nasal Screen MRSA/MSSA - Final Nasopharyngeal Swab Assessment and Plan Plan: Assessment: #1. Acute right lower lobe pneumonia, community-acquired #2. Triple-vessel coronary artery disease, being evaluated for possibility of bypass grafting, cardiac catheterization showed RCA 90% occluded, circumflex is 90%, proximal LAD of 20% and mid LAD of 99%, LVEDP was 30 mmHg #3. Moderate mitral valve regurgitation #4. Elevated troponins with ST elevation in anterior leads, the possibility of ST elevated myocardial infarction versus acute viral myocarditis #5. Acute exacerbation of congestive heart failure with systolic dysfunction, and echocardiogram revealed severely impaired LVEF of 30-35%, and moderate mitral regurgitation #6. History of COPD, bedside PFT showed severe obstruction with FEV1 of 1.39 L of 42% of predicted #7. Chronic nicotine dependence, in remission for last 5 days, patient is on Chantix, prior to that patient smoked a pack a day for 33 years #8. History of aortoiliac bypass #9. Recent history of laparoscopic cholecystectomy #10. Insulin-dependent diabetes mellitus type 2 #11. Hyperlipidemia #12. Carotid stenosis, bilateral, 100% on the right and 60% on the left, patient follows with Dr. Rausch. Patient has left subclavian stenosis of 90% #13. Previous history of pneumonia, and frequent bouts of bronchitis Plan: Continue current antibiotics, nebulized bronchodilators, we may have to repeat the bedside spirometry, apparently patient had a poor effort on the first PFT. Denies any chest pain, denies any significant cough or congestion, afebrile. Patient was found to have 90% left subclavian stenosis, and patient is being evaluated for possibility of subclavian stent placement prior to bypass grafting. Otherwise no specific complaints. Today's follow-up chest x-ray maira wed complete clearing of the previously noted right lower lobe infiltrate. I performed a history & physical examination of the patient and discussed their management with my nurse practitioner, Daiana Rosa. I reviewed the nurse practitioner's note and agree with the documented findings and plan of care. Lung sounds are positive for left basilar crackles. The findings and the impression was discussed with the patient. I attest to the documentation by the nurse practitioner. Time with Patient: Less than 30
--- NOTE | 2019-07-21 12:15 | P.PN ---
Subjective This is Hattie Orellana PA-C dictating a progress note on this patient The patient was interviewed and examined by me as well as by Dr. Manrique Case discussed with Dr. Manrique and he agrees with the plan of care IMPRESSION / ASSESSMENT: Severe underlying ischemic cardiomyopathy, EF 30-35%, cannot exclude concomitant viral myocarditis based on patient's history Severe 2 vessel coronary artery disease Evidence of subclavian steal phenomenon on recent chest CT Severe mitral regurgitation on recent NIK Bilateral carotid atherosclerosis Peripheral vascular disease Type 2 diabetes Nicotine dependence Dyslipidemia PLAN: Will review the case and discuss future plan with Dr. ora wilhelm [address] Monet and make a final decision regarding the timing of her CABG and subclavian artery stenting Decrease carvedilol to 3.125 mg twice a day and stop Lasix to avoid hypotension 2 no aspirin and statin Continue lisinopril Continue spironolactone HPI/interval history Patient is a 49-year-old female who initially presented to [facility] with an upper respiratory infection and shortness of breath. She was transferred to [facility] for further evaluation. She was diagnosed with possible viral myocarditis and associated acute CHF. Echo showed EF 30-35%. She was diuresed with IV Lasix. She underwent a coronary angiogram which showed severe [address] chest showed greater than 90% stenosis at the origin of the left subclavian artery, evidence of left subclavian steal phenomenon. NIK showed EF 30-35%, no evidence of thrombus in the left atrial appendage, no evidence of intra-or atrial shunt, severe MR. She is awaiting CABG. Patient seen and examined resting comfortably in bed, lying flat. Complaining of a sore throat. States her breathing has improved. No chest pain. No dizziness. EXAMINATION Temperature 99.0F, pulse 86, respirations 16, blood pressure 83/51, oxygen saturation 96% on room air Patient seen and examined resting comfortably in bed, in no acute distress Lungs clear to auscultation bilaterally Heart is regular, very soft systolic murmur at the apex No lower extremity edema REVIEW OF LABS, ECG WBC 10.4, hemoglobin 14, platelets 253, potassium 4.2, BUN 23, creatinine 0.86 Objective - Vital Signs Vital signs: Vital Signs Temp 99.0 F 07/21/19 11:07 Pulse 86 07/21/19 11:07 Resp 16 07/21/19 11:07 BP 83/51 07/21/19 11:07 Pulse Ox 96 07/21/19 11:07 Intake & Output 07/20/19 07/21/19 07/21/19 18:59 06:59 18:59 Intake Total 250 290 400 Output Total 375 Balance -125 290 400 Weight 64 kg Intake: IV 150 Intake, IV Titration 50 Amount cefTRIAXone 1 gm In 50 Sodium Chloride 0.9% 50 ml @ 100 mls/hr IVPB Q24H [facility] Rx#:[id number] Oral 100 240 400 Output: Urine 375 Other: Voiding Method Toilet Toilet Toilet # Voids 1 1 1 - Labs CBC & Chem 7: 07/21/19 06:47 07/21/19 06:47 Labs: Abnormal Lab Results - Last 24 Hours (Table) 07/20/19 07/20/19 07/21/19 Range/Units 17:20 20:58 06:29 BUN (7-17) mg/dL Glucose (74-99) mg/dL POC Glucose (mg/dL) 225 H 199 H 190 H (75-99) mg/dL 07/21/19 Range/Units 06:47 BUN 23 H (7-17) mg/dL Glucose 178 H (74-99) mg/dL POC Glucose (mg/dL) (75-99) mg/dL Microbiology - Last 24 Hours (Table) 07/19/19 12:30 Nasal Screen MRSA/MSSA - Final Nasopharyngeal Swab
[2019-07-21 12:27] LABS: Glucose,Whole Blood 167 mg/dL (75-99)
[2019-07-21 12:34] LABS: Parvovirus B-19 IgG Antibodies 0.27 INDEX (<=0.90)
[2019-07-21] MEDS: SPIRONOLACTONE 25 MG TAB PO SCH (12:56)
[2019-07-21] MEDS: LISINOPRIL 5 MG TAB PO SCH (12:56)
[2019-07-21 17:33] LABS: Glucose,Whole Blood 98 mg/dL (75-99)
[2019-07-21] MEDS: CARVEDILOL 3.125 MG TAB PO SCH (17:40)
--- NOTE | 2019-07-21 17:44 | CT ---
EXAMINATION TYPE: CT brain wo con DATE OF EXAM: 07/21/2019 COMPARISON: 04/13/2012 HISTORY: History of stroke. Pre-surgical. CT DLP: 1094.4 mGycm. Automated Exposure Control for Dose Reduction was Utilized. TECHNIQUE: CT scan of the head is performed without contrast. FINDINGS: Ventricles have normal size. There is no mass effect nor midline shift. There is no sign of intracranial hemorrhage. Calvarium is intact. IMPRESSION: Negative head CT scan. No evidence of cortical infarct.
--- NOTE | 2019-07-21 17:50 | CT ---
EXAMINATION TYPE: CT chest wo con DATE OF EXAM: 07/21/2019 COMPARISON: 12/26/2011 HISTORY: Pre-surgical. Evaluate acsending aorta. CT DLP: 265.6 mGycm. Automated Exposure Control for Dose Reduction was Utilized. TECHNIQUE: CT scan of the thorax is performed without IV contrast. FINDINGS: Multiple axial sections were obtained from the thoracic inlet to the diaphragm without contrast. There are small pleural effusions with pleural thickening at the lung bases. There is mild atelectasi s and scarring at the posterior lung bases. Heart size is fairly normal. There is minimal thickening of the pericardium. There are no hilar masses. There are small mediastinal peritracheal lymph nodes t hat measure less than 1 cm. Thoracic aorta shows no aneurysm. There is no evidence of a pulmonary mas s. There is spurring in the thoracic spine. I see no bony destructive process. IMPRESSION: There is some atelectasis and pleural thickening and probable scarring at the posterior l ab bases that is new compared to old exam. There is new small pericardial effusion. The ascending aorta measures 2.6 cm. No change. No evidence of aneurysm.
--- NOTE | 2019-07-21 19:24 | P.PN ---
Progress Note - Text Progress Note Date: 07/21/19 Chief Complaint: Chest pressure Interval history: This is a pleasant [address] Freya Miles. Chronic stable medical conditions include COPD, , hyperlipidemia, diabetes. Patient states about 9 year ago she was having trouble walking even short distance. She was then seen by Dr. Smith. There trouble accessing her from the artery in the groin and also the rest. Subsequently she had took a bypass done to the block artery in the abdomen to improve her circulation to lower extremity. Patient has continued to smoke up to recently. She also has a complete report right carotid artery. History of 9:00 she suddenly became short of breath and developed chest pressure going across the chest. Became dizzy lightheaded. About 11:30 PM she went to [facility]. Her troponin there was 5 with EKG changes and she was transferred here. EKG was showing some ST elevation anterior leads. Patient also following congestive heart failure. Patient was transferred to our ER from [facility]. Patient is put on IV heparin and given IV Lasix.. Patient admitted with diagnosis of ST elevation myocardial infarction versus acute viral myocarditis., Acute CHF exacerbation EF 20-25%, right lower lobe pneumonia. cardiac catheterization by Dr. Monet -. Found to have severe 2 vessel disease. Cardiothoracic surgery was consulted. NIK - EF of 30-35% with severe mitral regurgitation. Today-. Resting in bed. No chest pain or shortness of breath. A bit anxious about the whole thing.. Review of systems: Was done for constitutional, cardiovascular, GI, pulmonary. relevant finding as above Active Medications Albuterol/Ipratropium (Duoneb 0.5 Mg-3 Mg/3 Ml Soln) 3 ml INHALATION RT-QID [facility] Last Admin: 07/21/19 17:25 Dose: Not Given Documented by: Alprazolam (Xanax) 0.25 mg PO Q6HR PRN PRN Reason: Mild Anxiety Last Admin: 07/20/19 21:30 Dose: 0.25 mg Documented by: Alprazolam (Xanax) 0.5 mg PO Q6HR PRN PRN Reason: Moderate Anxiety Last Admin: 07/20/19 00:51 Dose: 0.5 mg Documented by: Aspirin (Aspirin) 81 mg PO DAILY [facility] Last Admin: 07/21/19 07:48 Dose: 81 mg Documented by: Atorvastatin Calcium (Lipitor) 40 mg PO HS [facility] Last Admin: 07/20/19 21:27 Dose: 40 mg Documented by: Azithromycin (Zithromax) 500 mg PO DAILY [facility] Last Admin: 07/21/19 07:48 Dose: 500 mg Documented by: Benzocaine/Menthol (Cepacol Lozenge) 1 each MUCOUS MEM Q4HR PRN PRN Reason: Sore Throat Budesonide (Pulmicort) 1 mg INHALATION RT-BID [facility] Last Admin: 07/21/19 08:23 Dose: Not Given Documented by: Carvedilol (Coreg) 3.125 mg PO BID-W/MEALS [facility] Last Admin: 07/21/19 17:40 Dose: 3.125 mg Documented by: Formoterol Fumarate (Perforomist) 20 mcg INHALATION RT-BID [facility] Last Admin: 07/21/19 08:23 Dose: Not Given Documented by: Heparin Sodium (Porcine) (Heparin) 0 unit IV PER PROTOCOL PRN; Protocol PRN Reason: Low PTT Last Admin: 07/17/19 23:51 Dose: 1,667 unit Documented by: Heparin Sodium/Sodium Chloride (25,000 unit/ Sodium Chloride) 250 mls @ 8.001 mls/hr IV .Q24H [facility]; Protocol Last Admin: 07/20/19 18:46 Dose: Not Given Documented by: Ceftriaxone Sodium 1 gm/ (Sodium Chloride) 50 mls @ 100 mls/hr IVPB Q24H [facility] Last Admin: 07/20/19 21:27 Dose: 100 mls/hr Documented by: Insulin Aspart (Novolog) 0 unit SQ ACHS [facility]; Protocol Last Admin: 07/21/19 17:39 Dose: Not Given Documented by: Insulin Aspart (Novolog) 6 unit SQ AC-TID [facility] Last Admin: 07/21/19 17:40 Dose: Not Given Documented by: Insulin Detemir (Levemir) 20 unit SQ DAILY [facility] Last Admin: 07/21/19 07:49 Dose: 20 unit Documented by: Lisinopril (Zestril) 5 mg PO DAILY [facility] Last Admin: 07/21/19 12:56 Dose: 5 mg Documented by: Mupirocin (Bactroban Oint) 1 applic NASAL BID [facility] Stop: 07/24/19 21:01 Last Admin: 07/21/19 07:48 Dose: 1 applic Documented by: Nitroglycerin (Nitrostat) 0.4 mg SUBLINGUAL Q5M PRN PRN Reason: Chest Pain Spironolactone (Aldactone) 25 mg PO DAILY [facility] Last Admin: 07/21/19 12:56 Dose: 25 mg Documented by: Varenicline (Chantix) 1 mg PO BID [facility] Last Admin: 07/21/19 07:48 Dose: 1 mg Documented by: Physical examination: Vital signs-99, 86, 16, 83/51, 96% room air GENERAL: Laying in bed, a bit anxious EYES: Pupils equal. Conjunctiva normal. HEENT: External appearance of nose and ears normal, oral cavity grossly normal. NECK: JVD not raised; masses not palpable. HEART: First and second heart sounds are normal; no edema. LUNGS: Respiratory rate increased, diminished breath sounds. ABDOMEN: Soft, nontender, liver spleen not palpable, no masses palpable. PSYCH: [Alert and oriented x3; mood and affect, less anxious today INVESTIGATIONS, reviewed in the clinical context: White count 10.4 hemoglobin 14 creatinine 0.86 Previous testing White count 10.7 hemoglobin 13.9 platelets 196 potassium 3.8 crit 0.71 glucose 283 Troponin 3.3, 5.5 ProBNP 7190 EKG tracing personally reviewed by me-ST segment elevation in anterior leads and flipped T waves in the V4 to V6 Chest x-ray film personally reviewed by me-pulmonary edema with fluid in the fissures, infiltrative patch at the right lung 2-D echo -, multiple wall motion hypokinesia, moderate MR, EF 20-25% pro calcitonin 0.16 CT angiogram of the neck-more than 90% stenosis at the origin of the left subclavian artery. Evidence of left subclavian steal phenomena and probably reversed for the left vertebral artery. Apparent complete occlusion proximal left vertebral artery. 50% stenosis of the innominate artery. Absent flow on the right carotid artery. NIK-shows EF of 30-35%, with severe mitral regurgitation Assessment: -Acute ST elevation myocardial infarction, POA -Severe 2 vessel coronary artery disease per cardiac cath, being evaluated for coronary bypass -Acute congestive heart failure from ischemic cardiomyopathy EF of 30-35 % -Acute severe mitral regurgitation could be from acute ischemic cardiomyopathy -acute COPD exacerbation in a smoker -Diabetes mellitus 2, chronically on insulin -Possible peripheral artery disease -IV heparin monitoring - right lower lobe pneumonia, suspect gram-negative organism. Improved -more than 90% stenosis at the origin of the left subclavian artery. Evidence of left subclavian steal phenomena and probably reversed for the left vertebral artery. Apparent complete occlusion proximal left vertebral artery. 50% stenosis of the innominate artery. Absent flow on the right carotid artery. Plan: Continue current medication treatment plan. cardiothoracic surgery is talking with cardiology and will decide about the timing after coronary bypass procedure and also subclavian artery intervention. We'll consult vascular.
[2019-07-21 20:14] LABS: Glucose,Whole Blood 209 mg/dL (75-99)
[2019-07-21] MEDS: ATORVASTATIN 40 MG TAB PO SCH (20:16)
[2019-07-21] MEDS: ALPRAZolam 0.5 MG TAB PO PRN (20:16)
[2019-07-22] MEDS: HEPARIN SOD,PORK IN 0.45% NACL 25,000 UNIT in 0.45% NACL 1 250ML.BAG IV SCH (06:16)
[2019-07-22 06:58] LABS: Glucose,Whole Blood 131 mg/dL (75-99)
[2019-07-22] MEDS: INSULIN ASPART (NovoLOG) 100 UNIT/ML VIAL SQ SCH ×7 (07:01→21:08)
[2019-07-22] MEDS: BUDESONIDE 1 MG/2 ML NEBU INHALATION SCH ×2 (07:52→20:14)
[2019-07-22] MEDS: FORMOTEROL FUMARATE 20 MCG/2 ML NEBU INHALATION SCH ×2 (07:53→20:14)
[2019-07-22] MEDS: IPRATROPIUM-ALBUTEROL 3 ML NEB INHALATION SCH ×4 (07:53→20:30)
[2019-07-22] MEDS: ASPIRIN 81 MG PO SCH (09:01)
[2019-07-22] MEDS: INSULIN DETEMIR (LEVEMIR) 100 UNIT/ML SYR SQ SCH (09:01)
[2019-07-22] MEDS: CARVEDILOL 3.125 MG TAB PO SCH ×2 (09:01→18:01)
[2019-07-22] MEDS: SPIRONOLACTONE 25 MG TAB PO SCH (09:01)
[2019-07-22] MEDS: LISINOPRIL 5 MG TAB PO SCH (09:01)
[2019-07-22] MEDS: AZITHROMYCIN 500 MG TAB PO SCH (09:01)
[2019-07-22] MEDS: VARENICLINE 1 MG TAB PO SCH ×2 (09:01→21:26)
[2019-07-22] MEDS: MUPIROCIN 2% OINT 22 GM TUBE NASAL SCH ×2 (09:02→20:15)
[2019-07-22 12:17] LABS: Glucose,Whole Blood 249 mg/dL (75-99)
--- NOTE | 2019-07-22 12:58 | P.PN ---
Subjective Patient is resting comfortably in bed. No shortness of breath dizziness no chest discomfort no lightheadedness Pulse rate is in the 90s respirations 18-20 Blood pressure 105/64 mmHg 100% O2 sat on room air Breath sounds are clear No rhonchi no crackles Normal S1 normal S2 no murmurs or gallops. Abdomen soft nontender Extremity is warm no edema Impression Patient admitted with acute heart failure, acute and chronic Symptoms consistent with myocarditis Underlying severe coronary artery disease with underlying ischemic cardiomyopathy Severe peripheral vascular disease and. Aorta iliac disease Left subclavian artery stenosis Mitral regurgitation Awaiting coronary artery bypass grafting mitral valve repair for severe mitral regurgitation and subclavian arteries stenting, same setting Plan Continue current medications Await CV surgery and subclavian artery stenosis stenting and mitral valve repair Objective - Vital Signs Vital signs: Vital Signs Temp 97.6 F 07/22/19 04:00 Pulse 96 07/22/19 08:23 Resp 20 07/22/19 08:00 BP 105/64 07/22/19 08:00 Pulse Ox 100 07/22/19 08:00 Intake & Output 07/21/19 07/22/19 07/22/19 18:59 06:59 18:59 Intake Total 1120 100 360 Output Total 675 Balance 445 100 360 Weight 64.5 kg Intake: Intake, IV Titration 100 Amount cefTRIAXone 1 gm In 100 Sodium Chloride 0.9% 50 ml @ 100 mls/hr IVPB Q24H [facility] Rx#:[id number] Oral 1120 360 Output: Urine 675 Other: Voiding Method Toilet Toilet # Voids 2 2 - Labs CBC & Chem 7: 07/21/19 06:47 07/21/19 06:47 Labs: Abnormal Lab Results - Last 24 Hours (Table) 07/21/19 07/22/19 07/22/19 Range/Units 20:13 06:56 12:15 POC Glucose (mg/dL) 209 H 131 H 249 H (75-99) mg/dL
--- NOTE | 2019-07-22 14:29 | P.PN ---
Subjective Progress Note Date: 07/22/19 Principal diagnosis: Severe triple-vessel coronary artery disease, STEMI this admission, severe mitral valve regurgitation, acute systolic heart failure with impaired left ventricular systolic function and EF 30-35%, right lower lobe pneumonia present on admission. 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 The patient is currently sitting up in bed in no acute distress. Denies any chest pain or shortness of breath. We did discuss the need for coronary artery bypass graft surgery with mitral valve repair yesterday with the patient, all questions were answered, will decide on surgery date today, and patient is agreeable to this. No new questions. Objective - Vital Signs Vital signs: Vital Signs Temp 97.6 F 07/22/19 04:00 Pulse 95 07/22/19 07:53 Resp 18 07/22/19 04:00 BP 81/38 07/22/19 04:00 Pulse Ox 98 07/22/19 07:53 Intake & Output 07/21/19 07/22/19 07/22/19 18:59 06:59 18:59 Intake Total 1120 100 Output Total 675 Balance 445 100 Weight 64.5 kg Intake: Intake, IV Titration 100 Amount cefTRIAXone 1 gm In 100 Sodium Chloride 0.9% 50 ml @ 100 mls/hr IVPB Q24H [facility] Rx#:[id number] Oral 1120 Output: Urine 675 Other: Voiding Method Toilet Toilet # Voids 2 - Constitutional General appearance: Present: cooperative, no acute distress - Neck Carotids: bilateral: bruit present - Respiratory Details: Lungs sounds diminished bilaterally. Respirations even, nonlabored. Currently on room air with oxygen saturation 97%. Able to achieve 1500 mL on her incentive spirometry. - Cardiovascular Details: S1, S2 present. Regular rate and rhythm, sinus rhythm on telemetry. Palpable pulses bilaterally, diminished left radial pulse. No edema present. No calf pain or tenderness noted. - Gastrointestinal Gastrointestinal Comment(s): Abdomen soft, nontender, nondistended. Active bowel sounds present 4 quadrants. Tolerating diet. - Genitourinary Genitourinary Comment(s): Continues to void - Integumentary Integumentary Comment(s): Skin is warm and dry - Neurologic Neurologic: Present: CNII-XII intact - Musculoskeletal Musculoskeletal: Present: gait normal, strength equal bilaterally - Psychiatric Psychiatric: Present: A&O x's 3, appropriate affect, intact judgment & insight - Allied health notes Allied health notes reviewed: nursing - Labs CBC & Chem 7: 07/21/19 06:47 07/21/19 06:47 Labs: Abnormal Lab Results - Last 24 Hours (Table) 07/21/19 07/21/19 07/22/19 Range/Units 12:25 20:13 06:56 POC Glucose (mg/dL) 167 H 209 H 131 H (75-99) mg/dL - Imaging and Cardiology CT scan - chest: report reviewed, image reviewed CT Scan - head: report reviewed, image reviewed Assessment and Plan Assessment: 1. Severe triple-vessel coronary artery disease 2. STEMI this admission 3. Severe mitral valve regurgitation per transesophageal echocardiogram 4. Acute systolic heart failure with impaired left ventricular systolic function, EF 30-35% 5. Right lower lobe pneumonia, community-acquired, currently on antibiotics 6. Hyperlipidemia 7. Insulin-dependent diabetes mellitus with HgbA1c 7.6% 8. 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 TIA in 2007 11. Chronic current nicotine dependence 12. Severe COPD with preoperative FEV1 42% of predicted 13. Recent laparoscopic cholecystectomy 14. Depressive disorder 15. Family history of heart disease Plan: 1. Continue aspirin, statin, DEVON inhibitor, beta kirk therapy. Continue Aldactone. 2. Encourage incentive spirometry is 10 times every hour while awake. Reinforce importance of smoking cessation, continue Chantix 3. Bronchodilators per pulmonology. 4. Continue to reinforce pre-operative teaching 5. Increase activity as tolerated, cardiac rehab following. Will attempt 5 m walk test again later today or tomorrow 6. Antibiotics per primary care/pulmonology 7. GI/DVT prophylaxis 8. Medical management of other comorbidities per primary care services 9. CT of the chest completed yesterday to evaluate calcification of the aorta, CT of the brain completed yesterday for preoperative a baseline as patient is at high risk for stroke post surgery 10. Patient scheduled for coronary artery bypass surgery, mitral valve repair possible replacement, utilizing the right internal mammary artery and endoscopic vein harvest, left atrial appendage ligation, and intraoperative transesophageal echocardiogram by Dr. Sarmiento on July 25. This was discussed with the patient and she is agreeable. 11. Patient may have left subclavian artery stented in the future with Dr. Monet. This was discussed between Dr. Monet and Dr. Sarmiento, as well as with the patient and all are in agreement. 12. More recommendations to follow Time with Patient: Greater than 30
[2019-07-22] MEDS ORDERED: MD COMMUNICATION TO PHARMACY 1 EACH MISC PO ONE ×3 (14:31)
--- NOTE | 2019-07-22 15:57 | P.PN ---
Progress Note - Text Progress Note Date: 07/21/19 The patient states her abdominal pain is completely resolved. She has no significant abdominal or flank pain. She is requesting an increase her diet. On exam her vital signs are stable. Her abdomen soft. Patient will be observed. She is undergoing workup of her STEMI
--- NOTE | 2019-07-22 15:57 | P.GSCN ---
History of Present Illness Consult date: 07/20/19 Reason for Consult: Left abdominal and flank pain History of present illness: This is a 41-year-old female who has complaints of left abdominal and flank pain. Patient states the pain was sudden in onset however resolved spontaneously. Patient currently denies any significant abdominal pain. She is undergoing workup currently by the [facility] thoracic surgery service congestive heart failure. Patient has previous history of viral myocarditis. She's had elevated troponins. Past Medical History Past Medical History: Coronary Artery Disease (CAD), Chest Pain / Angina, COPD, CVA/TIA, Diabetes Mellitus, Hyperlipidemia, Myocardial Infarction ([place]), Pneumonia, Thyroid Disorder Additional Past Medical History / Comment(s): Cardiac murmur, DDD, Hyperthyroid/Thyroid Nodules, nausea and vomiting since after 2017. Has lost 75lbs. Hx CVA 2007 or 2008, no residual effects. 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 Hx Pneumonia. Last Myocardial Infarction Date:: 2011 History of Any Multi-Drug Resistant Organisms: None Reported Past Surgical History: Section, Cholecystectomy, Heart Catheterization, Hernia Repair Additional Past Surgical History / Comment(s): I&D L gluteal abscess, aortagram, [id number] bypass, laparoscopic surgery-one ovary/one tube removed from opposite sides, multiple abdominal incisional hernia repairs with mesh, Attempted Heart cath but patient states veins collapsed and unable to do. Past Anesthesia/Blood Transfusion Reactions: No Reported Reaction Past Psychological History: Depression Smoking Status: Current every day smoker (Smokes 1 pack per day, reports she has been on Chantix for the past week.) Past Alcohol Use History: None Reported Past Drug Use History: None Reported - Past Family History Mother Family Medical History: Cancer, Coronary Artery Disease (CAD) Additional Family Medical History / Comment(s): Mother is a breast cancer survi vor. Father Family Medical History: Coronary Artery Disease (CAD), Diabetes Mellitus, Myocardial Infarction ([place]) Additional Family Medical History / Comment(s): Agent [place] Exposure. Pt does not know at what age her father had his [place]. Medications and Allergies Home Medications Medication Instructions Recorded Confirmed Type Insulin Glargine,Hum.rec.anlog 30 unit SQ DAILY 10/28/18 07/17/19 History [Elif Olea U-100] Albuterol Nebulized [Ventolin 2.5 mg INHALATION RT-Q6H PRN 07/17/19 07/17/19 History Nebulized] Cyanocobalamin [Vitamin B-12] 500 mcg PO DAILY 07/17/19 07/17/19 History Insulin Lispro [Admelog] 10 unit SQ AC-TID 07/17/19 07/17/19 History Varenicline Tartrate [Chantix 0.5 mg PO BID 07/17/19 07/17/19 History Starter Pack] Allergies Allergy/AdvReac Type Severity Reaction Status Date / Time sulfamethoxazole Allergy Swelling Verified 07/17/19 07:29 [From Bactrim] trimethoprim [From Bactrim] Allergy Swelling Verified 07/17/19 07:29 metformin AdvReac Nausea & Verified 07/17/19 07:29 Vomiting & Diarrhea Surgical - Exam Vital Signs Temp Pulse Resp BP Pulse Ox 98.5 F 115 H 22 144/87 96 07/17/19 02:13 07/17/19 02:13 07/17/19 02:13 07/17/19 02:13 07/17/19 02:13 - General well developed, well nourished, no distress - Eyes PERRL - ENT normal pinna - Neck no masses - Respiratory normal expansion - Cardiovascular Rhythm: regular - Abdomen Abdomen: soft, non tender Results - Labs 07/21/19 06:47 07/21/19 06:47 Abnormal Lab Results - Last 24 Hours (Table) 07/21/19 07/22/19 07/22/19 Range/Units 20:13 06:56 12:15 POC Glucose (mg/dL) 209 H 131 H 249 H (75-99) mg/dL Assessment and Plan Assessment: Results left upper quadrant and left flank pain. Patient will continue workup by cardiac surgery for possible treatment of heart failure and STEMI.
--- NOTE | 2019-07-22 15:58 | P.PN ---
Progress Note - Text Progress Note Date: 07/22/19 The patient feels well. She denies any significant abdominal pain. On exam her vital signs show.. ABDOMINAL PAIN/FLANK PAIN COMPLETELY RESOLVED. PATIENT WILL FOLLOW-UP NEEDED. WE WILL SIGN OFF.
[2019-07-22 16:15] LABS: Appearance,Urine Cloudy (Clear); Bilirubin,Urine Negative (Negative); Blood,Urine Negative (Negative); Color,Urine Yellow; Glucose,Urine (UA) Negative (Negative); Hyaline Casts,Urine 11 /lpf (0-2); Ketones,Urine Negative (Negative); Leukocyte Esterase,Urine Large (Negative); Mucus,Urine Few /hpf; Nitrite,Urine Negative (Negative); PH, Urine 5.5 (5.0-8.0); Protein,Urine 1+ (Negative); RBC,Urine 7 /hpf (0-5); Specific Gravity,Urine 1.026 (1.001-1.035); Squamous Epithelial Cell,Urine 15 /hpf (0-4); Urobilinogen,Urine <2.0 mg/dL (<2.0)
--- NOTE | 2019-07-22 16:43 | P.PN ---
Progress Note - Text Progress Note Date: 07/22/19 Chief Complaint: Chest pressure Interval history: This is a pleasant [address] Freya Miles. Chronic stable medical conditions include COPD, , hyperlipidemia, diabetes. Patient states about 9 year ago she was having trouble walking even short distance. She was then seen by Dr. Smith. There trouble accessing her from the artery in the groin and also the rest. Subsequently she had took a bypass done to the block artery in the abdomen to improve her circulation to lower extremity. Patient has continued to smoke up to recently. She also has a complete report right carotid artery. History of 9:00 she suddenly became short of breath and developed chest pressure going across the chest. Became dizzy lightheaded. About 11:30 PM she went to [facility]. Her troponin there was 5 with EKG changes and she was transferred here. EKG was showing some ST elevation anterior leads. Patient also following congestive heart failure. Patient was transferred to our ER from [facility]. Patient is put on IV heparin and given IV Lasix.. Patient admitted with diagnosis of ST elevation myocardial infarction versus acute viral myocarditis., Acute CHF exacerbation EF 20-25%, right lower lobe pneumonia. cardiac catheterization by Dr. Monet -. Found to have severe 2 vessel disease. Cardiothoracic surgery was consulted. NIK - EF of 30-35% with severe mitral regurgitation. Today-. Resting bed. No new issues. No chest pain or shortness of breath. Tolerating a diet. Review of systems: Was done for constitutional, cardiovascular, GI, pulmonary. relevant finding as above Active Medications Albuterol/Ipratropium (Duoneb 0.5 Mg-3 Mg/3 Ml Soln) 3 ml INHALATION RT-QID [facility] Last Admin: 07/22/19 16:10 Dose: 3 ml Documented by: Alprazolam (Xanax) 0.25 mg PO Q6HR PRN PRN Reason: Mild Anxiety Last Admin: 07/20/19 21:30 Dose: 0.25 mg Documented by: Alprazolam (Xanax) 0.5 mg PO Q6HR PRN PRN Reason: Moderate Anxiety Last Admin: 07/21/19 20:16 Dose: 0.5 mg Documented by: Aspirin (Aspirin) 81 mg PO DAILY [facility] Last Admin: 07/22/19 09:01 Dose: 81 mg Documented by: Aspirin (Aspirin) 325 mg PO ONCE ONE Stop: 07/25/19 05:01 Atorvastatin Calcium (Lipitor) 40 mg PO HS [facility] Last Admin: 07/21/19 20:16 Dose: 40 mg Documented by: Atorvastatin Calcium (Lipitor) 10 mg PO ONCE ONE Stop: 07/25/19 05:01 Azithromycin (Zithromax) 500 mg PO DAILY [facility] Last Admin: 07/22/19 09:01 Dose: 500 mg Documented by: Benzocaine/Menthol (Cepacol Lozenge) 1 each MUCOUS MEM Q4HR PRN PRN Reason: Sore Throat Budesonide (Pulmicort) 1 mg INHALATION RT-BID [facility] Last Admin: 07/22/19 07:52 Dose: 1 mg Documented by: Calcium Chloride (Calcium Chloride) 1,000 mg IVP ONCE ONE Stop: 07/25/19 05:01 Carvedilol (Coreg) 3.125 mg PO BID-W/MEALS [facility] Last Admin: 07/22/19 09:01 Dose: 3.125 mg Documented by: Chlorhexidine Gluconate (Peridex) 15 ml MUCOUS MEM ONCE ONE Stop: 07/25/19 05:01 Formoterol Fumarate (Perforomist) 20 mcg INHALATION RT-BID [facility] Last Admin: 07/22/19 07:53 Dose: 20 mcg Documented by: Heparin Sodium (Porcine) (Heparin) 0 unit IV PER PROTOCOL PRN; Protocol PRN Reason: Low PTT Last Admin: 07/17/19 23:51 Dose: 1,667 unit Documented by: Heparin Sodium (Porcine) (Heparin Sodium (1,000 Unit/Ml)) 10,000 unit IV ONCE ONE Stop: 07/25/19 05:01 Heparin Sodium (Porcine) (Heparin) 30,000 unit IV ONCE ONE Stop: 07/25/19 05:01 Heparin Sodium (Porcine) (Heparin) 30,000 unit IV ONCE ONE Stop: 07/25/19 05:01 Heparin Sodium (Porcine) (Heparin) 30,000 unit IV ONCE ONE Stop: 07/25/19 05:01 Heparin Sodium/Sodium Chloride (25,000 unit/ Sodium Chloride) 250 mls @ 8.001 mls/hr IV .Q24H [facility]; Protocol Last Admin: 07/22/19 06:16 Dose: Not Given Documented by: Ceftriaxone Sodium 1 gm/ (Sodium Chloride) 50 mls @ 100 mls/hr IVPB Q24H [facility] Last Admin: 07/21/19 20:35 Dose: 100 mls/hr Documented by: Heparin Sodium (Porcine) 5,000 (unit/ Sodium Chloride) 501 mls @ 0 mls/hr IV ONCE ONE Stop: 07/25/19 05:01 Protamine Sulfate 250 mg/ IV (Solution) 25 mls @ 0 mls/hr IV ONCE ONE Stop: 07/25/19 05:01 Nitroglycerin/Dextrose 50 mg/ (IV Solution) 250 mls @ 1.5 mls/hr IV .Q24H [facility]; Protocol Albumin Human 50 ml/ IV (Solution) 50 mls @ 100 mls/hr IVPB ONCE ONE Stop: 07/25/19 05:29 Albumin Human 50 ml/ IV (Solution) 50 mls @ 100 mls/hr IVPB ONCE ONE Stop: 07/25/19 05:29 Clevidipine 25 mg/ IV Solution 50 mls @ 2 mls/hr IV .Q24H [facility]; Protocol Phenylephrine HCl 40 mg/ (Sodium Chloride) 254 mls @ 0 mls/hr IV .Q0M ONE; Protocol Stop: 07/25/19 05:01 Albumin Human 500 ml/ IV (Solution) 500 mls @ 250 mls/hr IVPB ONCE ONE Stop: 07/25/19 06:59 Albumin Human 500 ml/ IV (Solution) 500 mls @ 250 mls/hr IVPB ONCE ONE Stop: 07/25/19 06:59 Albumin Human 500 ml/ IV (Solution) 500 mls @ 250 mls/hr IVPB ONCE ONE Stop: 07/25/19 06:59 Albumin Human 500 ml/ IV (Solution) 500 mls @ 250 mls/hr IVPB ONCE ONE Stop: 07/25/19 06:59 Albumin Human 500 ml/ IV (Solution) 500 mls @ 250 mls/hr IVPB ONCE ONE Stop: 07/25/19 06:59 Albumin Human 500 ml/ IV (Solution) 500 mls @ 250 mls/hr IVPB ONCE ONE Stop: 07/25/19 06:59 Norepinephrine Bitartrate 4 mg (/ Sodium Chloride) 254 mls @ 0 mls/hr IV .Q0M [facility] Propofol 1,000 mg/ IV Solution 100 mls @ 0 mls/hr IV .Q0M PRN; Protocol PRN Reason: Per Protocol Lactated Ringer's (Lactated Ringers) 1,000 mls @ 10 mls/hr IV .Q24H [facility] Cefazolin Sodium 2 gm/ Sodium (Chloride) 30 mls @ 60 mls/hr IVPB ONCE ONE Stop: 07/25/19 05:29 Cefazolin Sodium 1,000 mg/ (Sodium Chloride) 1,000 mls @ 999 mls/hr IRRIGATION ONCE ONE Stop: 07/25/19 06:00 Cefazolin Sodium 2,000 mg/ (Sodium Chloride) 30 mls @ 999 mls/hr IVPB ONCE ONE Stop: 07/25/19 05:01 Potassium Chloride 110 meq/Magnesium Sulfate 16 meq/Sodium Bicarbonate 40 ml/Lidocaine HCl 100 mg/ Dextrose /Water 1,109 mls @ 0 mls/hr IV .Q0M [facility] Potassium Chloride 25 meq/Sodium Chloride 27 meq/Magnesium Sulfate 16 meq/Sodium Bicarbonate 40 ml/Lidocaine HCl 100 mg/ Dextrose /Water 1,077.3 mls @ 0 mls/hr IV .Q0M [facility] Tranexamic Acid 2,000 mg/ (Sodium Chloride) 200 mls @ 0 mls/hr IV .Q0M ONE; Protocol Stop: 07/25/19 05:01 Papaverine HCl 360 mg/ Sodium (Chloride) 102 mls @ 0 mls/hr IV ONCE ONE Stop: 07/25/19 05:01 Insulin Human Regular 100 unit (/ Sodium Chloride) 100 mls @ 0 mls/hr IV .Q0M [facility]; Protocol Insulin Aspart (Novolog) 0 unit SQ ACHS [facility]; Protocol Last Admin: 07/22/19 12:40 Dose: 4 unit Documented by: Insulin Aspart (Novolog) 6 unit SQ AC-TID [facility] Last Admin: 07/22/19 07:49 Dose: 6 unit Documented by: Insulin Detemir (Levemir) 20 unit SQ DAILY [facility] Last Admin: 07/22/19 09:01 Dose: 20 unit Documented by: Lisinopril (Zestril) 5 mg PO DAILY [facility] Stop: 07/23/19 05:00 Last Admin: 07/22/19 09:01 Dose: 5 mg Documented by: Magnesium Sulfate (Magnesium Sulfate Syg) 16.24 meq IV ONCE ONE Stop: 07/25/19 05:01 Mannitol (Osmitrol 25%) 12.5 gm IV ONCE ONE Stop: 07/25/19 05:01 Mannitol (Osmitrol 25%) 12.5 gm IV ONCE ONE Stop: 07/25/19 05:01 Mupirocin (Bactroban Oint) 1 applic NASAL BID [facility] Stop: 07/24/19 21:01 Last Admin: 07/22/19 09:02 Dose: 1 applic Documented by: Nitroglycerin (Nitrostat) 0.4 mg SUBLINGUAL Q5M PRN PRN Reason: Chest Pain Nitroglycerin/Dextrose (Nitro Drip 25 Mg/250 Ml In D5w Pmx) 1 mg IV ONCE ONE Stop: 07/25/19 05:01 Phenylephrine HCl (Charles-Synephrine) 0 mg IV ONCE ONE Stop: 07/25/19 05:01 Protamine Sulfate (Protamine Sulfate) 250 mg IV ONCE ONE Stop: 07/25/19 05:01 Sodium Bicarbonate (Sodium Bicarb 8.4% Syr (1 Meq/Ml)) 50 ml IV ONCE ONE Stop: 07/25/19 05:01 Spironolactone (Aldactone) 25 mg PO DAILY [facility] Last Admin: 07/22/19 09:01 Dose: 25 mg Documented by: Varenicline (Chantix) 1 mg PO BID [facility] Last Admin: 07/22/19 09:01 Dose: 1 mg Documented by: Physical examination: Vital signs-98.2, 88, 18, 83/48, platelet percent room air GENERAL: Laying in bed, comfortable EYES: Pupils equal. Conjunctiva normal. HEENT: External appearance of nose and ears normal, oral cavity grossly normal. NECK: JVD not raised; masses not palpable. HEART: First and second heart sounds are normal; no edema. LUNGS: Respiratory rate increased, diminished breath sounds. ABDOMEN: Soft, nontender, liver spleen not palpable, no masses palpable. PSYCH: [Alert and oriented x3; mood and affect, less anxious today INVESTIGATIONS, reviewed in the clinical context: [id number], 249 Previous testing White count 10.7 hemoglobin 13.9 platelets 196 potassium 3.8 crit 0.71 glucose 283 Troponin 3.3, 5.5 ProBNP 7190 EKG tracing personally reviewed by me-ST segment elevation in anterior leads and flipped T waves in the V4 to V6 Chest x-ray film personally reviewed by me-pulmonary edema with fluid in the fissures, infiltrative patch at the right lung 2-D echo -, multiple wall motion hypokinesia, moderate MR, EF 20-25% pro calcitonin 0.16 CT angiogram of the neck-more than 90% stenosis at the origin of the left subclavian artery. Evidence of left subclavian steal phenomena and probably reversed for the left vertebral artery. Apparent complete occlusion proximal left vertebral artery. 50% stenosis of the innominate artery. Absent flow on the right carotid artery. NIK-shows EF of 30-35%, with severe mitral regurgitation Assessment: -Acute ST elevation myocardial infarction, POA -Severe 2 vessel coronary artery disease per cardiac cath, being evaluated for coronary bypass -Acute congestive heart failure from ischemic cardiomyopathy EF of 30-35 % -Acute severe mitral regurgitation could be from acute ischemic cardiomyopathy -acute COPD exacerbation in a smoker -Diabetes mellitus 2, chronically on insulin -Possible peripheral artery disease -IV heparin monitoring - right lower lobe pneumonia, suspect gram-negative organism. Improved -more than 90% stenosis at the origin of the left subclavian artery. Evidence of left subclavian steal phenomena and probably reversed for the left vertebral artery. Apparent complete occlusion proximal left vertebral artery. 50% stenosis of the innominate artery. Absent flow on the right carotid artery. Plan: Spoke to a be from cardiothoracic team. Plan is for patient to go down for bypass surgery Thursday. Subclavian artery stenosis. Will be dealt at a later stage.
[2019-07-22 17:23] LABS: Glucose,Whole Blood 188 mg/dL (75-99)
[2019-07-22] MEDS: ATORVASTATIN 40 MG TAB PO SCH (20:15)
[2019-07-22] MEDS: ALPRAZolam 0.5 MG TAB PO PRN (20:15)
[2019-07-22 21:00] LABS: Glucose,Whole Blood 79 mg/dL (75-99)
[2019-07-23] MEDS: INSULIN ASPART (NovoLOG) 100 UNIT/ML VIAL SQ SCH ×7 (07:06→21:33)
[2019-07-23 07:12] LABS: Glucose,Whole Blood 117 mg/dL (75-99)
[2019-07-23] MEDS: ASPIRIN 81 MG PO SCH (07:53)
[2019-07-23] MEDS: AZITHROMYCIN 500 MG TAB PO SCH (07:53)
[2019-07-23] MEDS: CARVEDILOL 3.125 MG TAB PO SCH ×2 (07:53→17:43)
[2019-07-23] MEDS: SPIRONOLACTONE 25 MG TAB PO SCH (07:53)
[2019-07-23] MEDS: INSULIN DETEMIR (LEVEMIR) 100 UNIT/ML SYR SQ SCH (07:54)
[2019-07-23] MEDS: VARENICLINE 1 MG TAB PO SCH ×2 (07:54→21:32)
[2019-07-23] MEDS: HEPARIN SOD,PORK IN 0.45% NACL 25,000 UNIT in 0.45% NACL 1 250ML.BAG IV SCH (08:03)
--- NOTE | 2019-07-23 08:36 | P.PN ---
Subjective Progress Note Date: 07/23/19 Principal diagnosis: Severe triple-vessel coronary artery disease, STEMI this admission, severe mitral valve regurgitation, acute systolic heart failure with impaired left ventricular systolic function and EF 30-35%, right lower lobe pneumonia present on admission. 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 The patient is currently sitting up in bed in no acute distress. Denies any chest pain or shortness of breath. Has been ambulatory without difficulty. Denies any more dizziness since decrease in medications. No new concerns. Objective - Vital Signs Vital signs: Vital Signs Temp 98.7 F 07/23/19 04:15 Pulse 86 07/23/19 04:15 Resp 18 07/23/19 04:15 BP 96/61 07/23/19 04:15 Pulse Ox 95 07/23/19 04:15 Intake & Output 07/22/19 07/23/19 07/23/19 18:59 06:59 18:59 Intake Total 960 360 Output Total 400 Balance 960 -40 Weight 64.7 kg Intake: Oral 960 360 Output: Urine 400 Other: # Voids 2 1 - Constitutional General appearance: Present: cooperative, no acute distress - Respiratory Details: Lungs sounds diminished bilaterally. Respirations even, nonlabored. Currently on room air with oxygen saturation 95%. Able to achieve 3000 mL on her incentive spirometry. - Cardiovascular Details: S1, S2 present. Regular rate and rhythm, sinus rhythm on telemetry. Palpable pulses bilaterally, diminished left radial pulse. No edema present. No calf pain or tenderness noted. - Gastrointestinal Gastrointestinal Comment(s): Abdomen soft, nontender, nondistended. Active bowel sounds present 4 quadrants. Tolerating diet. - Genitourinary Genitourinary Comment(s): Continues to void - Integumentary Integumentary Comment(s): Skin is warm and dry - Neurologic Neurologic: Present: CNII-XII intact - Musculoskeletal Musculoskeletal: Present: gait normal, strength equal bilaterally - Psychiatric Psychiatric: Present: A&O x's 3, appropriate affect, intact judgment & insight - Allied health notes Allied health notes reviewed: nursing - Labs CBC & Chem 7: 07/21/19 06:47 07/21/19 06:47 Labs: Abnormal Lab Results - Last 24 Hours (Table) 07/22/19 07/22/19 07/22/19 Range/Units 12:15 16:05 17:20 POC Glucose (mg/dL) 249 H 188 H (75-99) mg/dL Urine Appearance Cloudy H (Clear) Urine Protein 1+ H (Negative) Ur Leukocyte Esterase Large H (Negative) Urine RBC 7 H (0-5) /hpf Urine WBC 18 H (0-5) /hpf Ur Squamous Epith Cells 15 H (0-4) /hpf Hyaline Casts 11 H (0-2) /lpf Urine Mucus Few H (None) /hpf 07/23/19 Range/Units 06:59 POC Glucose (mg/dL) 117 H (75-99) mg/dL Urine Appearance (Clear) Urine Protein (Negative) Ur Leukocyte Esterase (Negative) Urine RBC (0-5) /hpf Urine WBC (0-5) /hpf Ur Squamous Epith Cells (0-4) /hpf Hyaline Casts (0-2) /lpf Urine Mucus (None) /hpf Microbiology - Last 24 Hours (Table) 07/22/19 16:05 Urine Culture - Preliminary Urine,Voided Assessment and Plan Assessment: 1. Severe triple-vessel coronary artery disease 2. STEMI this admission 3. Severe mitral valve regurgitation per transesophageal echocardiogram 4. Acute systolic heart failure with impaired left ventricular systolic function, EF 30-35% 5. Right lower lobe pneumonia, community-acquired, currently on antibiotics 6. Hyperlipidemia 7. Insulin-dependent diabetes mellitus with HgbA1c 7.6% 8. 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 TIA in 2007 11. Chronic current nicotine dependence 12. Severe COPD with preoperative FEV1 42% of predicted 13. Recent laparoscopic cholecystectomy 14. Depressive disorder 15. Family history of heart disease 16. Urinalysis positive for leukocyte esterase, white blood cells, hyaline cast, although likely secondary to contamination Plan: 1. Continue aspirin, statin, beta kirk therapy. Continue Aldactone. DEVON inhibitor discontinued to reduce hypotension intra-and postoperatively 2. Encourage incentive spirometry is 10 times every hour while awake. Reinforce importance of smoking cessation, continue Chantix 3. Bronchodilators per pulmonology. 4. Continue to reinforce pre-operative teaching 5. Increase activity as tolerated, cardiac rehab following. 5 m walk completed, #1 4.35 sec, #2 3.8 sec, #3 3.8 sec 6. Antibiotics per primary care/pulmonology 7. GI/DVT prophylaxis 8. Medical management of other comorbidities per primary care services 9. Await urine culture. Patient is artery on IV antibiotics, urine specimen likely contaminated 10. Patient scheduled for coronary artery bypass surgery, mitral valve repair possible replacement, utilizing the right internal mammary artery and endoscopic vein harvest, left atrial appendage ligation, and intraoperative transesophageal echocardiogram by Dr. Sarmiento on July 25. This was discussed with the patient and she is agreeable. Nothing to eat or drink by mouth after midnight Thursday morning. STS risk score was calculated and reviewed with the patient 11. Patient may have left subclavian artery stented in the future with Dr. Monet. This was discussed between Dr. Monet and Dr. Sarmiento, as well as with the patient and all are in agreement. 12. More recommendations to follow Time with Patient: Greater than 30
[2019-07-23] MEDS: FORMOTEROL FUMARATE 20 MCG/2 ML NEBU INHALATION SCH ×2 (09:19→20:27)
[2019-07-23] MEDS: BUDESONIDE 1 MG/2 ML NEBU INHALATION SCH ×2 (09:19→20:27)
[2019-07-23] MEDS: IPRATROPIUM-ALBUTEROL 3 ML NEB INHALATION SCH ×4 (09:19→20:27)
[2019-07-23] MEDS: MUPIROCIN 2% OINT 22 GM TUBE NASAL SCH ×2 (09:28→21:34)
[2019-07-23 12:10] LABS: Glucose,Whole Blood 177 mg/dL (75-99)
--- NOTE | 2019-07-23 14:03 | P.PN ---
Subjective Progress Note Date: 07/23/19 This is a 49-year-old female initially presented to [facility] with an upper respiratory infection and shortness of breath. She was transferred to [facility] for further evaluation. She was diagnosed with possible viral myocarditis and associated acute CHF. Echo showed EF 30-35%. She was diuresed with IV Lasix. She underwent a coronary angiogram which showed severe [address] chest showed greater than 90% stenosis at the origin of the left subclavian artery, evidence of left subclavian steal phenomenon. NIK showed EF 30-35%, no evidence of thrombus in the left atrial appendage, no evidence of intra-or atrial shunt, severe MR. She is awaiting CABG. Patient seen and examined resting comfortably in bed, lying flat. Complaining of a sore throat. States her breathing has improved. No chest pain. No dizziness. 07/23: Patient is found sitting up in bed and appears to be in no acute distress. Multiple family members at the bedside. Patient denies any chest pain or shortness of breath. She denies any lightheadedness or dizziness. She is waiting for CABG scheduled for Thursday. Gen: This is a 49-year-old female. She is resting in bed appears to be comfortable and in no acute distress. Afebrile, heart rate 88, blood pressure 91/51, pulse ox 97% on room air HEENT: Head is atraumatic, normocephalic. Pupils equal, round. Sclerae is anicteric. NECK: Supple. No JVD. No lymphadenopathy. No thyromegaly. LUNGS: Clear to auscultation. No wheezes or rhonchi. No intercostal retractions. HEART: Regular rate and rhythm. Soft systolic murmur. ABDOMEN: Soft. Bowel sounds are present. No masses. No tenderness. EXTREMITIES: No pedal edema. No calf tenderness. NEUROLOGICAL: Patient is awake, alert and oriented x3. Cranial nerves 2 through 12 are grossly intact. Assessment: Acute on chronic systolic heart failure Possible myocarditis Underlying coronary artery disease with ischemic cardiomyopathy Severe peripheral vascular disease and aortoiliac disease Left subclavian artery stenosis Mitral regurgitation Plan: Await coronary artery bypass grafting for coronary artery disease and mitral valve repair/possible replacement for severe mitral regurgitation on Thursday Stenting of the left subclavian artery stenting at a later date by Dr. Skaf Continue current medications including aspirin, Coreg 3.125 mg twice daily Further recommendations to follow up on clinical course Nurse practitioner note has been reviewed, I agree with documented findings and plan of care. Patient was seen and examined. Objective - Vital Signs Vital signs: Vital Signs Temp 98.1 F 07/23/19 08:00 Pulse 88 07/23/19 12:28 Resp 20 07/23/19 08:00 BP 106/65 07/23/19 08:00 Pulse Ox 98 07/23/19 08:00 Intake & Output 07/22/19 07/23/19 07/23/19 18:59 06:59 18:59 Intake Total 960 360 240 Output Total 400 Balance 960 -40 240 Weight 64.7 kg Intake: Oral 960 360 240 Output: Urine 400 Other: # Voids 2 1 - Labs CBC & Chem 7: 07/21/19 06:47 07/21/19 06:47 Labs: Abnormal Lab Results - Last 24 Hours (Table) 07/22/19 07/22/19 07/23/19 Range/Units 16:05 17:20 06:59 POC Glucose (mg/dL) 188 H 117 H (75-99) mg/dL Urine Appearance Cloudy H (Clear) Urine Protein 1+ H (Negative) Ur Leukocyte Esterase Large H (Negative) Urine RBC 7 H (0-5) /hpf Urine WBC 18 H (0-5) /hpf Ur Squamous Epith Cells 15 H (0-4) /hpf Hyaline Casts 11 H (0-2) /lpf Urine Mucus Few H (None) /hpf 07/23/19 Range/Units 12:08 POC Glucose (mg/dL) 177 H (75-99) mg/dL Urine Appearance (Clear) Urine Protein (Negative) Ur Leukocyte Esterase (Negative) Urine RBC (0-5) /hpf Urine WBC (0-5) /hpf Ur Squamous Epith Cells (0-4) /hpf Hyaline Casts (0-2) /lpf Urine Mucus (None) /hpf Microbiology - Last 24 Hours (Table) 07/22/19 16:05 Urine Culture - Preliminary Urine,Voided
[2019-07-23 16:08] LABS: Glucose,Whole Blood 78 mg/dL (75-99)
[2019-07-23 17:34] LABS: Glucose,Whole Blood 125 mg/dL (75-99)
[2019-07-23 21:16] LABS: Glucose,Whole Blood 327 mg/dL (75-99)
[2019-07-23] MEDS: ATORVASTATIN 40 MG TAB PO SCH (21:32)
[2019-07-23] MEDS: ALPRAZolam 0.5 MG TAB PO PRN (21:32)
[2019-07-24 06:59] LABS: Basophils # (A) 0.1 k/uL (0-0.2); Basophils % (A) 1 %; Eosinophils # (A) 0.5 k/uL (0-0.7); Eosinophils % (A) 6 %; HCT 38.1 % (34.0-46.0); HGB 12.5 gm/dL (11.4-16.0); Lymphocytes % (A) 22 %; MCHC 32.9 g/dL (31.0-37.0); MCV 91.4 fL (80.0-100.0); Mean Platelet Volume 6.5; Monocytes # (A) 0.6 k/uL (0-1.0); Monocytes % (A) 7 %; Neutrophils # (A) 5.4 k/uL (1.3-7.7); Neutrophils % (A) 61 %; Platelet Count 289 k/uL (150-450); RBC 4.17 m/uL (3.80-5.40); RDW 12.3 % (11.5-15.5); WBC 8.9 k/uL (3.8-10.6)
[2019-07-24] MEDS: CARVEDILOL 3.125 MG TAB PO SCH ×2 (07:02→17:16)
[2019-07-24 07:12] LABS: ALT 24 U/L (9-52); AST 16 U/L (14-36); African American GFR (CKD) >90 (>60 ml/min/1.73 sqM); Albumin 3.2 g/dL (3.5-5.0); Alkaline Phosphatase 82 U/L (38-126); Anion Gap 8 mmol/L; Blood Urea Nitrogen 16 mg/dL (7-17); Calcium 8.8 mg/dL (8.4-10.2); Carbon Dioxide 25 mmol/L (22-30); Chloride 105 mmol/L (98-107); Glucose 113 mg/dL (74-99); Magnesium 2.1 mg/dL (1.6-2.3); Potassium 4.8 mmol/L (3.5-5.1); Sodium 138 mmol/L (137-145); Total Bilirubin 0.5 mg/dL (0.2-1.3); Total Protein 5.7 g/dL (6.3-8.2)
[2019-07-24 07:14] LABS: INR 0.9 (<1.2); Prothrombin Time 10.1 sec (9.0-12.0)
[2019-07-24 07:15] LABS: Glucose,Whole Blood 123 mg/dL (75-99)
[2019-07-24] MEDS: HEPARIN SOD,PORK IN 0.45% NACL 25,000 UNIT in 0.45% NACL 1 250ML.BAG IV SCH (07:25)
[2019-07-24] MEDS: INSULIN ASPART (NovoLOG) 100 UNIT/ML VIAL SQ SCH ×7 (07:26→22:18)
[2019-07-24] MEDS: INSULIN DETEMIR (LEVEMIR) 100 UNIT/ML SYR SQ SCH (08:35)
[2019-07-24] MEDS: VARENICLINE 1 MG TAB PO SCH ×2 (08:35→22:18)
[2019-07-24] MEDS: SPIRONOLACTONE 25 MG TAB PO SCH (08:35)
[2019-07-24] MEDS: ASPIRIN 81 MG PO SCH (08:35)
[2019-07-24] MEDS: AZITHROMYCIN 500 MG TAB PO SCH (08:35)
[2019-07-24] MEDS: MUPIROCIN 2% OINT 22 GM TUBE NASAL SCH ×2 (08:35→22:18)
[2019-07-24 08:36] LABS: Glucose,Whole Blood 166 mg/dL (75-99)
[2019-07-24] MEDS: BUDESONIDE 1 MG/2 ML NEBU INHALATION SCH ×2 (08:55→19:49)
[2019-07-24] MEDS: IPRATROPIUM-ALBUTEROL 3 ML NEB INHALATION SCH ×4 (08:55→19:49)
[2019-07-24] MEDS: FORMOTEROL FUMARATE 20 MCG/2 ML NEBU INHALATION SCH ×2 (08:55→19:49)
--- NOTE | 2019-07-24 09:19 | P.PN ---
Subjective Progress Note Date: 07/24/19 Principal diagnosis: Severe triple-vessel coronary artery disease, STEMI this admission, severe mitral valve regurgitation, acute systolic heart failure with impaired left ventricular systolic function and EF 30-35%, right lower lobe pneumonia present on admission. 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 The patient is currently sitting up in bed in no acute distress. Denies any chest pain or shortness of breath. Has been ambulatory without difficulty. No new questions concerning surgery tomorrow. No new concerns. Objective - Vital Signs Vital signs: Vital Signs Temp 98.5 F 07/24/19 05:00 Pulse 96 07/24/19 09:07 Resp 16 07/24/19 05:00 BP 102/57 07/24/19 05:00 Pulse Ox 97 07/24/19 05:00 Intake & Output 07/23/19 07/24/19 07/24/19 18:59 06:59 18:59 Intake Total 240 355 236 Balance 240 355 236 Weight 64.7 kg 65.1 kg Intake: Oral 240 355 236 Other: Voiding Method Toilet # Voids 2 1 - Constitutional General appearance: Present: cooperative, no acute distress - Respiratory Details: Lungs sounds diminished bilaterally. Respirations even, nonlabored. Currently on room air with oxygen saturation 97%. Able to achieve 2000 mL on her incentive spirometry, although she did get up to 5000 mL last night. - Cardiovascular Details: S1, S2 present. Regular rate and rhythm, sinus rhythm on telemetry. Palpable pulses bilaterally, diminished left radial pulse. No edema present. No calf pain or tenderness noted. - Gastrointestinal Gastrointestinal Comment(s): Abdomen soft, nontender, nondistended. Active bowel sounds present 4 quadrants. Tolerating diet. - Genitourinary Genitourinary Comment(s): Continues to void - Integumentary Integumentary Comment(s): Skin is warm and dry - Neurologic Neurologic: Present: CNII-XII intact - Musculoskeletal Musculoskeletal: Present: gait normal, strength equal bilaterally - Psychiatric Psychiatric: Present: A&O x's 3, appropriate affect, intact judgment & insight - Allied health notes Allied health notes reviewed: nursing - Labs CBC & Chem 7: 07/24/19 06:11 07/24/19 06:11 Labs: Abnormal Lab Results - Last 24 Hours (Table) 07/23/19 07/23/19 07/23/19 Range/Units 12:08 17:32 21:03 Glucose (74-99) mg/dL POC Glucose (mg/dL) 177 H 125 H 327 H (75-99) mg/dL Total Protein (6.3-8.2) g/dL Albumin (3.5-5.0) g/dL Crossmatch 07/24/19 07/24/19 07/24/19 Range/Units 06:11 06:11 07:12 Glucose 113 H (74-99) mg/dL POC Glucose (mg/dL) 123 H (75-99) mg/dL Total Protein 5.7 L (6.3-8.2) g/dL Albumin 3.2 L (3.5-5.0) g/dL Crossmatch See Detail 07/24/19 Range/Units 08:34 Glucose (74-99) mg/dL POC Glucose (mg/dL) 166 H (75-99) mg/dL Total Protein (6.3-8.2) g/dL Albumin (3.5-5.0) g/dL Crossmatch Microbiology - Last 24 Hours (Table) 07/22/19 16:05 Urine Culture - Final Urine,Voided Assessment and Plan Assessment: 1. Severe triple-vessel coronary artery disease 2. STEMI this admission 3. Severe mitral valve regurgitation per transesophageal echocardiogram 4. Acute systolic heart failure with impaired left ventricular systolic function, EF 30-35% 5. Right lower lobe pneumonia, community-acquired, currently on antibiotics 6. Hyperlipidemia 7. Insulin-dependent diabetes mellitus with HgbA1c 7.6% 8. 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 TIA in 2007 11. Chronic current nicotine dependence 12. Severe COPD with preoperative FEV1 42% of predicted 13. Recent laparoscopic cholecystectomy 14. Depressive disorder 15. Family history of heart disease Plan: 1. Continue aspirin, statin, beta kirk therapy. Continue Aldactone. DEVON inhibitor discontinued to reduce hypotension intra-and postoperatively 2. Encourage incentive spirometry is 10 times every hour while awake. Reinforce importance of smoking cessation, continue Chantix 3. Bronchodilators per pulmonology. 4. Continue to reinforce pre-operative teaching 5. Increase activity as tolerated, cardiac rehab following. 6. Antibiotics per primary care/pulmonology 7. GI/DVT prophylaxis 8. Medical management of other comorbidities per primary care services 9. Patient scheduled for coronary artery bypass surgery, mitral valve repair possible replacement, utilizing the right internal mammary artery and endoscopic vein harvest, left atrial appendage ligation, and intraoperative transesophageal echocardiogram by Dr. Sarmiento on July 25. Nothing to eat or drink by mouth after midnight Thursday. 10. Patient may have left subclavian artery stented in the future with Dr. Monet. This was discussed between Dr. Monet and Dr. Sarmiento, as well as with the patient and all are in agreement. 11. More recommendations to follow Time with Patient: Greater than 30
[2019-07-24 12:40] LABS: Glucose,Whole Blood 197 mg/dL (75-99)
--- NOTE | 2019-07-24 12:59 | P.PN ---
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 Constitutional: Denied any fatigue denied any fever. Cardio vascular: denied any chest pain, palpitations Gastrointestinal denied any nausea vomiting Pulmonary: Denied any shortness of breath cough Neurologic denied any new focal deficits All inpatient medications were reviewed and appropriate changes in these medications as dictated in the interval history and assessment and plan. Objective - Vital Signs Vital signs: Vital Signs Temp 98.1 F 07/24/19 09:00 Pulse 96 07/24/19 12:03 Resp 20 07/24/19 09:00 BP 109/60 07/24/19 09:00 Pulse Ox 96 07/24/19 09:00 Intake & Output 07/23/19 07/24/19 07/24/19 18:59 06:59 18:59 Intake Total 240 355 236 Balance 240 355 236 Weight 64.7 kg 65.1 kg Intake: Oral 240 355 236 Other: Voiding Method Toilet # Voids 2 1 - Exam PHYSICAL EXAMINATION: GENERAL: The patient is alert and oriented x3, not in any acute distress. Well developed, well nourished. HEENT: Pupils are round and equally reacting to light. EOMI. No scleral icterus. No conjunctival pallor. Normocephalic, atraumatic. No pharyngeal erythema. No thyromegaly. CARDIOVASCULAR: S1 and S2 present. No murmurs, rubs, or gallops. PULMONARY: Chest is clear to auscultation, no wheezing or crackles. ABDOMEN: Soft, nontender, nondistended, normoactive bowel sounds. No palpable organomegaly. MUSCULOSKELETAL: No joint swelling or deformity. EXTREMITIES: No cyanosis, clubbing, or pedal edema. NEUROLOGICAL: Gross neurological examination did not reveal any focal deficits. SKIN: No rashes. - Labs CBC & Chem 7: 07/24/19 06:11 07/24/19 06:11 Labs: Abnormal Lab Results - Last 24 Hours (Table) 07/23/19 07/23/19 07/24/19 Range/Units 17:32 21:03 06:11 Glucose (74-99) mg/dL POC Glucose (mg/dL) 125 H 327 H (75-99) mg/dL Total Protein (6.3-8.2) g/dL Albumin (3.5-5.0) g/dL Crossmatch See Detail 07/24/19 07/24/19 07/24/19 Range/Units 06:11 07:12 08:34 Glucose 113 H (74-99) mg/dL POC Glucose (mg/dL) 123 H 166 H (75-99) mg/dL Total Protein 5.7 L (6.3-8.2) g/dL Albumin 3.2 L (3.5-5.0) g/dL Crossmatch 07/24/19 Range/Units 12:38 Glucose (74-99) mg/dL POC Glucose (mg/dL) 197 H (75-99) mg/dL Total Protein (6.3-8.2) g/dL Albumin (3.5-5.0) g/dL Crossmatch Microbiology - Last 24 Hours (Table) 07/22/19 16:05 Urine Culture - Final Urine,Voided Assessment and Plan Plan: current artery disease with severe triple-vessel disease patient will undergo c arotid artery bypass grafting most probably on Thursday -History elevation microinfarction on admission -Severe mitral regurgitation -Congestive heart failure chronic systolic dysfunction EF of 30-35% without any acute exacerbation -No evidence of pneumonia antibiotics will be deciding her -Hyperlipidemia -Insulin-dependent diabetes mellitus with a hemoglobin A1c of 7.6 -Progressive disease -TIA in the past -Carotid vascular disease -Severe COPD with FEV1 of 42% not in acute exacerbation -Depression
--- NOTE | 2019-07-24 13:00 | P.PN ---
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 07/24/2019 patient is complaining of vaginal increased infection will use topical antifungals Constitutional: Denied any fatigue denied any fever. Cardio vascular: denied any chest pain, palpitations Gastrointestinal denied any nausea vomiting Pulmonary: Denied any shortness of breath cough Neurologic denied any new focal deficits All inpatient medications were reviewed and appropriate changes in these medications as dictated in the interval history and assessment and plan. Objective - Vital Signs Vital signs: Vital Signs Temp 98.1 F 07/24/19 09:00 Pulse 96 07/24/19 12:03 Resp 20 07/24/19 09:00 BP 109/60 07/24/19 09:00 Pulse Ox 96 07/24/19 09:00 Intake & Output 07/23/19 07/24/19 07/24/19 18:59 06:59 18:59 Intake Total 240 355 236 Balance 240 355 236 Weight 64.7 kg 65.1 kg Intake: Oral 240 355 236 Other: Voiding Method Toilet # Voids 2 1 - Exam PHYSICAL EXAMINATION: GENERAL: The patient is alert and oriented x3, not in any acute distress. Well developed, well nourished. HEENT: Pupils are round and equally reacting to light. EOMI. No scleral icterus. No conjunctival pallor. Normocephalic, atraumatic. No pharyngeal erythema. No thyromegaly. CARDIOVASCULAR: S1 and S2 present. No murmurs, rubs, or gallops. PULMONARY: Chest is clear to auscultation, no wheezing or crackles. ABDOMEN: Soft, nontender, nondistended, normoactive bowel sounds. No palpable organomegaly. MUSCULOSKELETAL: No joint swelling or deformity. EXTREMITIES: No cyanosis, clubbing, or pedal edema. NEUROLOGICAL: Gross neurological examination did not reveal any focal deficits. SKIN: No rashes. - Labs CBC & Chem 7: 07/24/19 06:11 07/24/19 06:11 Labs: Abnormal Lab Results - Last 24 Hours (Table) 07/23/19 07/23/19 07/24/19 Range/Units 17:32 21:03 06:11 Glucose (74-99) mg/dL POC Glucose (mg/dL) 125 H 327 H (75-99) mg/dL Total Protein (6.3-8.2) g/dL Albumin (3.5-5.0) g/dL Crossmatch See Detail 07/24/19 07/24/19 07/24/19 Range/Units 06:11 07:12 08:34 Glucose 113 H (74-99) mg/dL POC Glucose (mg/dL) 123 H 166 H (75-99) mg/dL Total Protein 5.7 L (6.3-8.2) g/dL Albumin 3.2 L (3.5-5.0) g/dL Crossmatch 07/24/19 Range/Units 12:38 Glucose (74-99) mg/dL POC Glucose (mg/dL) 197 H (75-99) mg/dL Total Protein (6.3-8.2) g/dL Albumin (3.5-5.0) g/dL Crossmatch Microbiology - Last 24 Hours (Table) 07/22/19 16:05 Urine Culture - Final Urine,Voided Assessment and Plan Plan: current artery disease with severe triple-vessel disease patient will undergo carotid artery bypass grafting most probably on Thursday -acute non-ST elevation myocardial infarction on admission -Severe mitral regurgitation -Congestive heart failure chronic systolic dysfunction EF of 30-35% without any acute exacerbation -No evidence of pneumonia antibiotics will be deciding her -Hyperlipidemia -Insulin-dependent diabetes mellitus with a hemoglobin A1c of 7.6 -Progressive disease -TIA in the past -Carotid vascular disease -Severe COPD with FEV1 of 42% not in acute exacerbation -Depression -vaginal any is to infection for which we'll use topical antifungals
[2019-07-24 16:53] LABS: Glucose,Whole Blood 138 mg/dL (75-99)
[2019-07-24] MEDS: ALPRAZolam 0.25 MG TAB PO PRN (17:30)
[2019-07-24 20:25] LABS: Glucose,Whole Blood 163 mg/dL (75-99)
[2019-07-24] MEDS ORDERED: MICONAZOLE NITRATE 4%/2% VAG CREAM KIT VAGINAL SCH (21:00)
[2019-07-24] MEDS: ALPRAZolam 0.5 MG TAB PO PRN (22:17)
[2019-07-24] MEDS: ATORVASTATIN 40 MG TAB PO SCH (22:17)
[2019-07-25] MEDS ORDERED: HEPARIN SODIUM,PORCINE 5,000 UNIT in SODIUM CHLORIDE 0.9% 500 ML 500 ML IV ONE (05:00)
[2019-07-25] MEDS ORDERED: CALCIUM CHLORIDE 100 MG/ML 10 ML SYRINGE IVP ONE (05:00)
[2019-07-25] MEDS ORDERED: DEXTROSE 5% IN WATER 1,000 ML with POTASSIUM CHLORIDE 25 MEQ, SODIUM CHLORIDE 2.5MEQ/ML... IV SCH ×6 (05:00)
[2019-07-25] MEDS ORDERED: CLEVIDIPINE BUTYRATE 25 MG in EMPTY BAG 1 BAG IV SCH (05:00)
[2019-07-25] MEDS ORDERED: MANNITOL 25% 12.5 GM/50 ML VIAL IV ONE ×2 (05:00)
[2019-07-25] MEDS ORDERED: TRANEXAMIC ACID 2,000 MG in SODIUM CHLORIDE 0.9% 80 ML IV ONE (05:00)
[2019-07-25] MEDS ORDERED: ALBUMIN HUMAN 5% 500 ML in EMPTY BAG 1 BAG IVPB ONE ×6 (05:00)
[2019-07-25] MEDS ORDERED: NOREPINEPHRINE 4 MG in SODIUM CHLORIDE 0.9% 250 ML IV SCH (05:00)
[2019-07-25] MEDS ORDERED: PROTAMINE SULFATE 10 MG/ML 25 ML VIAL IV ONE ×2 (05:00→08:00)
[2019-07-25] MEDS ORDERED: SODIUM BICARB 8.4% 50 ML SYR (1 MEQ/ML) IV ONE (05:00)
[2019-07-25] MEDS ORDERED: NITROGLYCERIN-D5W PMX 25 MG/250 ML BTL IV ONE (05:00)
[2019-07-25] MEDS ORDERED: DEXTROSE 5% IN WATER 1,000 ML with POTASSIUM CHLORIDE 110 MEQ, MAGNESIUM SULFATE 16 MEQ... IV SCH ×5 (05:00)
[2019-07-25] MEDS ORDERED: ceFAZolin 2 GM in SODIUM CHLORIDE 0.9% 30 ML IVPB ONE (05:00)
[2019-07-25] MEDS ORDERED: PHENYLEPHRINE 40 MG in SODIUM CHLORIDE 0.9% 250 ML IV ONE (05:00)
[2019-07-25] MEDS ORDERED: ASPIRIN 325 MG TAB PO ONE (05:00)
[2019-07-25] MEDS ORDERED: ATORVASTATIN 10 MG TAB PO ONE (05:00)
[2019-07-25] MEDS ORDERED: PAPAVERINE 360 MG in SODIUM CHLORIDE 0.9% 90 ML IV ONE (05:00)
[2019-07-25] MEDS ORDERED: CHLORHEXIDINE GLUCONATE 15 ML CUP MUCOUS MEM ONE (05:00)
[2019-07-25] MEDS ORDERED: PROTAMINE SULFATE 250 MG in EMPTY BAG 1 BAG IV ONE (05:00)
[2019-07-25] MEDS ORDERED: PROPOFOL 1,000 MG in EMPTY BAG 1 BAG IV PRN (05:00)
[2019-07-25] MEDS ORDERED: ceFAZolin 1,000 MG in SODIUM CHLORIDE 0.9% IRRIGATIO 1,000 ML IRRIGATION ONE (05:00)
[2019-07-25] MEDS ORDERED: HEPARIN SODIUM 1,000 UN/ML (10ML VL) IV ONE (05:00)
[2019-07-25] MEDS ORDERED: ceFAZolin 2,000 MG in SODIUM CHLORIDE 0.9% 30 ML IVPB ONE (05:00)
[2019-07-25] MEDS ORDERED: LACTATED RINGERS 1,000 ML IV SCH ×2 (05:00→15:47)
[2019-07-25] MEDS ORDERED: MAGNESIUM SULFATE SYG 4.06 MEQ/ML SYRINGE IV ONE (05:00)
[2019-07-25] MEDS ORDERED: PHENYLEPHRINE 10 MG/ML VIAL IV ONE (05:00)
[2019-07-25] MEDS ORDERED: ALBUMIN HUMAN 25% 50 ML in EMPTY BAG 1 BAG IVPB ONE (05:00)
[2019-07-25 06:04] LABS: Glucose,Whole Blood 119 mg/dL (75-99)
[2019-07-25] MEDS ORDERED: LACTATED RINGERS 1,000 ML IV ONE (06:31)
[2019-07-25] MEDS: CARVEDILOL 3.125 MG TAB PO SCH (06:48)
[2019-07-25] MEDS ORDERED: PROPOFOL 10 MG/ML 20 ML VIAL IV ONE (08:00)
[2019-07-25] MEDS ORDERED: MILRINONE 1 MG/ML 20 ML VIAL IV ONE (08:00)
[2019-07-25] MEDS ORDERED: SODIUM CHLORIDE 0.9% 250 ML BAG ONE (08:00)
[2019-07-25] MEDS ORDERED: TRANEXAMIC ACID 1,000 MG/10 ML VIAL ONE (08:00)
[2019-07-25] MEDS ORDERED: fentaNYL (PF) 50 MCG/ML 2 ML AMP ONE (08:00)
[2019-07-25] MEDS ORDERED: ELECTROLYTE-R (PH 7.4) 1,000 ML IV.SOLN IV ONE (08:00)
[2019-07-25] MEDS ORDERED: HEPARIN SODIUM,PORCINE 10,000 UNIT/ML 1 ML VIAL ONE (08:00)
[2019-07-25] MEDS ORDERED: INSULIN REGULAR 100 UNIT/ML VIAL ONE (08:00)
[2019-07-25] MEDS ORDERED: ALBUMIN HUMAN 5% (25gm) 500 ML VIAL IVPB ONE (08:00)
[2019-07-25] MEDS ORDERED: NITROGLYCERIN-D5W PMX 50 MG/250 ML BOTTLE IV ONE (08:00)
[2019-07-25] MEDS ORDERED: LIDOCAINE 2% SYG (PF) 100 MG/5 ML ONE (08:00)
[2019-07-25] MEDS ORDERED: ePHEDrine SULFATE/0.9% NACL/PF 50 MG/5 ML SYRINGE IV ONE (08:00)
[2019-07-25] MEDS ORDERED: VECURONIUM 10 MG VIAL IV ONE (08:00)
[2019-07-25] MEDS ORDERED: NOREPINEPHRINE 1 MG/ML 4 ML VIAL IV ONE (08:00)
[2019-07-25] MEDS ORDERED: fentaNYL (PF) 50 MCG/ML 50 ML VIAL ONE (08:00)
[2019-07-25] MEDS ORDERED: MIDAZOLAM 2 MG/2 ML VIAL ONE (08:00)
[2019-07-25 08:35] LABS: ABG Glucose Whole Blood 110 mg/dL (75-99); ABG HCO3 26 mmol/L (21-25); ABG Hematocrit 37 % (34.0-46.0); ABG Ionized Calcium 4.8 mg/dL (4.5-5.3); ABG Lactic Acid Whole Blood 1.2 mmol/L (0.5-1.6); ABG Oxygen Saturation 99.9 % (94-97); ABG PCO2 40 mmHg (35-45); ABG PH 7.42 (7.35-7.45); ABG PO2 257 mmHg (83-108); ABG Potassium Whole Blood 4.9 mmol/L (3.4-4.5); ABG Sodium Whole Blood 137 mmol/L (135-146); ABG TCO2 27 mmol/L (19-24)
[2019-07-25] MEDS: IPRATROPIUM-ALBUTEROL 3 ML NEB INHALATION SCH ×5 (09:00→21:57)
[2019-07-25] MEDS: BUDESONIDE 1 MG/2 ML NEBU INHALATION SCH ×2 (09:00→19:18)
[2019-07-25] MEDS: FORMOTEROL FUMARATE 20 MCG/2 ML NEBU INHALATION SCH (09:00)
[2019-07-25 10:32] LABS: ABG Base Excess -0.1 mmol/L; ABG Glucose Whole Blood 164 mg/dL (75-99); ABG HCO3 25 mmol/L (21-25); ABG Hematocrit 37 % (34.0-46.0); ABG Ionized Calcium 4.8 mg/dL (4.5-5.3); ABG Lactic Acid Whole Blood 0.9 mmol/L (0.5-1.6); ABG Oxygen Saturation 99.6 % (94-97); ABG PCO2 42 mmHg (35-45); ABG PH 7.38 (7.35-7.45); ABG PO2 172 mmHg (83-108); ABG Potassium Whole Blood 5.7 mmol/L (3.4-4.5); ABG Sodium Whole Blood 136 mmol/L (135-146); ABG TCO2 26 mmol/L (19-24)
[2019-07-25 11:25] LABS: ABG Base Excess -1.2 mmol/L; ABG HCO3 24 mmol/L (21-25); ABG Hematocrit 27 % (34.0-46.0); ABG Ionized Calcium 4.3 mg/dL (4.5-5.3); ABG PCO2 40 mmHg (35-45); ABG PH 7.38 (7.35-7.45); ABG Potassium Whole Blood 5.7 mmol/L (3.4-4.5); ABG Sodium Whole Blood 131 mmol/L (135-146); ABG TCO2 25 mmol/L (19-24)
[2019-07-25 12:35] LABS: ABG Base Excess -1.9 mmol/L; ABG Glucose Whole Blood 263 mg/dL (75-99); ABG HCO3 23 mmol/L (21-25); ABG Hematocrit 25 % (34.0-46.0); ABG Ionized Calcium 4.4 mg/dL (4.5-5.3); ABG Oxygen Saturation 99.8 % (94-97); ABG PCO2 40 mmHg (35-45); ABG PH 7.37 (7.35-7.45); ABG PO2 273 mmHg (83-108); ABG Potassium Whole Blood 5.3 mmol/L (3.4-4.5); ABG Sodium Whole Blood 132 mmol/L (135-146); ABG TCO2 25 mmol/L (19-24)
[2019-07-25 13:07] LABS: ABG Base Excess -2.4 mmol/L; ABG Glucose Whole Blood 260 mg/dL (75-99); ABG HCO3 23 mmol/L (21-25); ABG Ionized Calcium 4.4 mg/dL (4.5-5.3); ABG Oxygen Saturation 99.8 % (94-97); ABG PCO2 42 mmHg (35-45); ABG PH 7.35 (7.35-7.45); ABG PO2 365 mmHg (83-108); ABG Potassium Whole Blood 5.3 mmol/L (3.4-4.5); ABG Sodium Whole Blood 133 mmol/L (135-146); ABG TCO2 24 mmol/L (19-24)
[2019-07-25 13:36] LABS: ABG Base Excess -1.9 mmol/L; ABG Glucose Whole Blood 259 mg/dL (75-99); ABG HCO3 24 mmol/L (21-25); ABG Ionized Calcium 4.4 mg/dL (4.5-5.3); ABG Lactic Acid Whole Blood 1.8 mmol/L (0.5-1.6); ABG Oxygen Saturation 99.8 % (94-97); ABG PCO2 42 mmHg (35-45); ABG PH 7.35 (7.35-7.45); ABG PO2 367 mmHg (83-108); ABG Sodium Whole Blood 133 mmol/L (135-146); ABG TCO2 25 mmol/L (19-24)
[2019-07-25 14:31] LABS: ABG Base Excess -2.6 mmol/L; ABG Glucose Whole Blood 172 mg/dL (75-99); ABG HCO3 23 mmol/L (21-25); ABG Lactic Acid Whole Blood 1.9 mmol/L (0.5-1.6); ABG Oxygen Saturation 94.6 % (94-97); ABG PCO2 45 mmHg (35-45); ABG PH 7.33 (7.35-7.45); ABG PO2 75 mmHg (83-108); ABG Potassium Whole Blood 4.5 mmol/L (3.4-4.5); ABG Sodium Whole Blood 135 mmol/L (135-146); ABG TCO2 25 mmol/L (19-24)
[2019-07-25 14:45] LABS: ABG PO2 329 mmHg (83-108)
[2019-07-25 14:46] LABS: ABG Glucose Whole Blood 266 mg/dL (75-99)
[2019-07-25 14:48] LABS: ABG Hematocrit 24 % (34.0-46.0)
[2019-07-25 14:49] LABS: ABG Hematocrit 24 % (34.0-46.0)
[2019-07-25 14:49] LABS: ABG Hematocrit 24 % (34.0-46.0)
[2019-07-25 15:20] LABS: ABG Base Excess -1.6 mmol/L; ABG Glucose Whole Blood 118 mg/dL (75-99); ABG HCO3 23 mmol/L (21-25); ABG Hematocrit 29 % (34.0-46.0); ABG Ionized Calcium 4.7 mg/dL (4.5-5.3); ABG Lactic Acid Whole Blood 1.2 mmol/L (0.5-1.6); ABG Oxygen Saturation 92.1 % (94-97); ABG PCO2 40 mmHg (35-45); ABG PH 7.38 (7.35-7.45); ABG PO2 63 mmHg (83-108); ABG Potassium Whole Blood 4.3 mmol/L (3.4-4.5); ABG Sodium Whole Blood 136 mmol/L (135-146); ABG TCO2 25 mmol/L (19-24)
[2019-07-25] MEDS ORDERED: IPRATROPIUM-ALBUTEROL 3 ML NEB INHALATION PRN (15:47)
[2019-07-25] MEDS ORDERED: AMIODARONE 360 MG in DEXTROSE 5% IN WATER 200 ML IV PRN ×2 (15:47)
[2019-07-25] MEDS ORDERED: BENZOCAINE/MENTHOL LOZENG 1 EACH LOZENGE MUCOUS MEM PRN (15:47)
[2019-07-25] MEDS ORDERED: METOCLOPRAMIDE 5 MG/ML 2 ML VIAL IVP PRN (15:47)
[2019-07-25] MEDS ORDERED: DEXTROSE 5% IN WATER 100 ML with AMIODARONE 150 MG IV PRN (15:47)
[2019-07-25] MEDS ORDERED: Phosphorus Replacement Protoco 1 EACH MISC MISCELLANE PRN (15:47)
[2019-07-25] MEDS ORDERED: AMIODARONE 300 MG in DEXTROSE 5% IN WATER 250 ML IV PRN ×2 (15:47)
[2019-07-25] MEDS ORDERED: Magnesium Replacement Protocol 1 EACH MISC MISCELLANE PRN (15:47)
[2019-07-25] MEDS ORDERED: CALCIUM GLUCONATE 2 GM in SODIUM CHLORIDE 0.9% 100 ML IVPB PRN (15:47)
[2019-07-25] MEDS ORDERED: PROPOFOL 1,000 MG in EMPTY BAG 1 BAG IV SCH (15:47)
[2019-07-25] MEDS ORDERED: MORPHINE SULFATE 2 MG/ML SYRINGE IVP PRN (15:47)
[2019-07-25] MEDS ORDERED: Potassium Replacement Protocol 1 EACH MISC MISCELLANE PRN (15:47)
[2019-07-25] MEDS: NITROGLYCERIN-D5W PMX 50 MG in DEXTROSE/WATER 1 250ML.BAG IV SCH ×2 (16:18→16:21)
[2019-07-25] MEDS: VARENICLINE 1 MG TAB PO SCH ×2 (16:18→23:19)
[2019-07-25] MEDS: MILRINONE-D5W PMX 20 MG in DEXTROSE/WATER 1 100ML.BAG IV SCH (16:20)
[2019-07-25] MEDS: INSULIN REGULAR 100 UNIT in SODIUM CHLORIDE 0.9% 100 ML IV SCH (16:20)
[2019-07-25 16:22] LABS: Glucose,Whole Blood 101 mg/dL (75-99)
[2019-07-25] MEDS: NOREPINEPHRINE 4 MG in SODIUM CHLORIDE 0.9% 250 ML IV SCH (16:22)
[2019-07-25 16:26] LABS: Basophils # (A) 0.1 k/uL (0-0.2); Basophils % (A) 1 %; Eosinophils # (A) 0.1 k/uL (0-0.7); Eosinophils % (A) 1 %; HCT 27.4 % (34.0-46.0); Lymphocytes % (A) 9 %; MCH 30.5 pg (25.0-35.0); MCHC 33.8 g/dL (31.0-37.0); MCV 90.5 fL (80.0-100.0); Mean Platelet Volume 6.9; Monocytes # (A) 0.8 k/uL (0-1.0); Monocytes % (A) 7 %; Neutrophils # (A) 8.8 k/uL (1.3-7.7); Neutrophils % (A) 80 %; Platelet Count 205 k/uL (150-450); RBC 3.03 m/uL (3.80-5.40); RDW 12.3 % (11.5-15.5); WBC 10.9 k/uL (3.8-10.6)
[2019-07-25 16:37] LABS: ALT 111 U/L (9-52); AST 293 U/L (14-36); African American GFR (CKD) >90 (>60 ml/min/1.73 sqM); Albumin 2.7 g/dL (3.5-5.0); Alkaline Phosphatase 82 U/L (38-126); Anion Gap 4 mmol/L; Blood Urea Nitrogen 16 mg/dL (7-17); Carbon Dioxide 25 mmol/L (22-30); Chloride 109 mmol/L (98-107); Glucose 92 mg/dL (74-99); Magnesium 2.8 mg/dL (1.6-2.3); Potassium 4.3 mmol/L (3.5-5.1); Sodium 138 mmol/L (137-145); Total Bilirubin 0.7 mg/dL (0.2-1.3); Total Protein 4.4 g/dL (6.3-8.2)
[2019-07-25 16:38] LABS: INR 1.1 (<1.2); Partial Thromboplastin Time 26.4 sec (22.0-30.0); Prothrombin Time 11.3 sec (9.0-12.0)
--- NOTE | 2019-07-25 16:40 | XR ---
EXAMINATION TYPE: XR chest 1V portable DATE OF EXAM: 07/25/2019 COMPARISON: 07/21/2019 INDICATION: Postop cardiac surgery TECHNIQUE: Single frontal view of the chest is obtained. FINDINGS: The heart size is normal. The pulmonary vasculature is normal. The lungs are clear. Right-sided chest tube is present. A minimal right apical pneumothorax is present Avilla-Chidi catheter is present with the tip in the main pulmonary artery. Endotracheal tube tip is above the sulema. Naso gastric tube transverses the thorax. Mediastinal tubes are present. IMPRESSION: 1. Small right apical pneumothorax less than 10%. 2. Multiple lines and catheters discussed above. A [place] level critical message alert has been initiated for Nadia Herman via the [employer] Results System on 07/25/2019 4:37 PM. This message alert has been sent to Nadia Herman via the pref erences provided by the clinician for the receipt of Radiology Critical Findings. Message ID [id number].
[2019-07-25 17:02] LABS: Glucose,Whole Blood 100 mg/dL (75-99)
[2019-07-25 17:03] LABS: ABG Base Excess -0.9 mmol/L; ABG HCO3 25 mmol/L (21-25); ABG Oxygen Saturation 99.6 % (94-97); ABG PCO2 51 mmHg (35-45); ABG PH 7.31 (7.35-7.45); ABG PO2 199 mmHg (83-108); ABG TCO2 27 mmol/L (19-24); Allen Test Performed? Yes
[2019-07-25 17:10] LABS: HGB 9.3 gm/dL (11.4-16.0)
[2019-07-25 18:15] LABS: Glucose,Whole Blood 142 mg/dL (75-99)
[2019-07-25] MEDS: ACETAMINOPHEN IV (For NPO) 1,000 MG in EMPTY BAG 1 BAG IVPB SCH (18:51)
[2019-07-25] MEDS: CLEVIDIPINE BUTYRATE 25 MG in EMPTY BAG 1 BAG IV SCH (18:51)
[2019-07-25 19:19] LABS: Glucose,Whole Blood 132 mg/dL (75-99)
[2019-07-25 19:22] LABS: Basophils # (A) 0.1 k/uL (0-0.2); Basophils % (A) 1 %; Eosinophils % (A) 0 %; HCT 28.6 % (34.0-46.0); HGB 9.8 gm/dL (11.4-16.0); Lymphocytes # (A) 0.9 k/uL (1.0-4.8); Lymphocytes % (A) 6 %; MCH 30.9 pg (25.0-35.0); MCHC 34.2 g/dL (31.0-37.0); MCV 90.4 fL (80.0-100.0); Mean Platelet Volume 6.9; Monocytes # (A) 0.8 k/uL (0-1.0); Monocytes % (A) 6 %; Neutrophils # (A) 11.4 k/uL (1.3-7.7); Neutrophils % (A) 84 %; Platelet Count 216 k/uL (150-450); RBC 3.16 m/uL (3.80-5.40); RDW 12.2 % (11.5-15.5); WBC 13.6 k/uL (3.8-10.6)
[2019-07-25] MEDS: ALBUMIN HUMAN 5% 250 ML in EMPTY BAG 1 BAG IVPB PRN ×2 (19:51→21:40)
[2019-07-25 20:18] LABS: Glucose,Whole Blood 134 mg/dL (75-99)
[2019-07-25] MEDS ORDERED: CLOPIDOGREL 75 MG TAB PO SCH (21:00)
[2019-07-25] MEDS ORDERED: ASPIRIN 325 MG TAB PO SCH (21:00)
[2019-07-25 21:04] LABS: Glucose,Whole Blood 129 mg/dL (75-99)
[2019-07-25 21:13] LABS: ABG Base Excess -0.9 mmol/L; ABG HCO3 24 mmol/L (21-25); ABG Oxygen Saturation 97.5 % (94-97); ABG PCO2 40 mmHg (35-45); ABG PH 7.39 (7.35-7.45); ABG PO2 95 mmHg (83-108); ABG TCO2 25 mmol/L (19-24); Allen Test Performed? Yes
[2019-07-25] MEDS: ATORVASTATIN 40 MG TAB PO SCH (21:13)
[2019-07-25 21:40] LABS: Echovirus AB Type 11 1:40 (<1:10); Echovirus AB Type 6 1:10 (<1:10); Echovirus AB Type 7 <1:10 (<1:10); Echovirus AB Type 9 <1:10 (<1:10)
[2019-07-25 22:17] LABS: Glucose,Whole Blood 121 mg/dL (75-99)
--- NOTE | 2019-07-25 22:52 | CONS ---
CONSULTATION Essence is a 49-year-old lady with history of mitral regurgitation, coronary artery disease, ischemic cardiomyopathy, peripheral vascular disease, aortoiliac disease and left subclavian artery stenosis. I am seeing the patient for the first time. She underwent bypass surgery with mitral valve repair. At the time of my evaluation, she is intubated on vent. On exam, patient remains in sinus rhythm. Heart rate is 88 beats per minute. Blood pressure is 120/70, respiratory rate is 16. Chest exam reveals diminished air entry bilaterally. Heart exam reveals first and second heart sounds. No gallop. Exam of extremities did not reveal any edema. Peripheral pulses are felt. LABS: Labs show that hemoglobin is 12.5, platelet count is 289, potassium is 4.3, creatinine is 0.68. ASSESSMENT: 1. Multivessel coronary artery disease status post coronary artery bypass grafting. 2. Mitral regurgitation status post mitral valve repair. 3. Ischemic cardiomyopathy. 4. Peripheral vascular disease. 5. Subclavian stenosis. PLAN: Patient will continue with supportive care. She is on aspirin, Lipitor and Plavix and we will gradually resume medication based on how she progresses overnight. MMODL / IJN: [id number] /
[2019-07-25 23:06] LABS: Glucose,Whole Blood 122 mg/dL (75-99)
--- NOTE | 2019-07-25 23:12 | OP ---
OPERATIVE REPORT DATE OF THE SURGERY: 07/25/2019. SURGEON: Dr. Katherine Sarmiento. WEIGHT GUESSER: Edward Lin NP and Jose E GONZALEZ. 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 PROCEDURE PERFORMED: 1. Quadruple coronary artery bypass grafting using the in situ right internal mammary artery crossing anteriorly over the aorta in the midline to the left anterior descending artery. Reverse saphenous vein graft from the aorta to the first diagonal artery, reverse saphenous vein graft from the aorta to the 2nd obtuse marginal artery, reverse saphenous vein graft from the aorta to the RCA into the PDA. 2. Mitral valve repair with posterior annuloplasty using a 28 mm annuloflex ring. 3. Exclusion of the left atrial appendage using a 35 mm AtriClip. 4. Intraoperative transesophageal echocardiogram and epiaortic scanning. 5. Graft flow measurements using the Medi-Stim system. INDICATIONS FOR THE SURGERY: The patient is a 49-year-old lady with the above risk factors, who is a vasculopath who presented with chest pain and was ruled in for non-ST elevation myocardial infarction. Workup included cardiac catheterization that showed evidence of severe LAD stenosis with MARIBELL 2 flow and significant stenosis in the rest of the circumflex and the right coronary artery system. Her left ventricular function was estimated at around 35%. Her NIK showed moderate to severe mitral valve regurgitation with moderate left ventricular dysfunction with anterior hypokinesia/akinesia. The patient had also a CTA of the extracranial vessels that confirmed a suspected left subclavian artery stenosis that was significant and she has a known occluded right internal carotid artery that resulted in transient neurological deficits several years ago. A noncontrast head CT scan did not show any obvious ischemic infarctions. The patient at this point has been taken for coronary artery bypass grafting, mitral valve repair. The increased risks were obviously discussed with her including the SDS risk. She understood and agreed to proceed. DESCRIPTION OF THE PROCEDURE: The patient in supine position in the preoperative holding area. Right internal jugular [place] catheter was inserted with a PA pressure 45/20 and a cardiac index of 2.3. Subsequently, she was brought to the operating room where general endotracheal anesthesia was induced uneventfully. Saravia catheter was inserted. The chest, abdomen and both lower extremities were prepped and draped using ChloraPrep. Ioban was used to cover the skin. The patient received 2 g of cefazolin intravenously. Transesophageal echocardiogram even on the unloading condition showed moderate mitral valve regurgitation that was central with evidence of moderate left ventricular dysfunction. Midline sternotomy was performed and the bone was mildly osteoporotic. No bone wax was used. The right courtney sternum was elevated and the right internal mammary artery was harvested in a somewhat skeletonized fashion. The right pleura was opened in this process and was drained with a 19-Bruneian Deepak drain. The left pleura remained intact. The patient was given 5000 units of heparin and the right internal mammary artery was double clipped distally and transected, had an excellent pulsatile flow in it and was around 1.5 mm in diameter thin-walled. In the same setting, the right greater saphenous vein was harvested endoscopically from groin to above ankle level. All the branches were tied. The leg incisions were closed over a drain. The vein appeared to be of excellent quality around 4 mm in diameter. Mediastinal fat was transected with the Bovie, and mediastinal veins were clipped. Epiaortic scanning revealed no protruding atheroma in the ascending aorta. Pericardium was opened in an inverted T-fashion and a pericardial cradle was created. Findings included a normal size, soft aorta and heart was bit enlarged leftward rotated with evidence of anteroapical thinning pointing to an old anterior wall myocardial infarction. After systemic heparinization, after placement of respective pledgeted pursestring, aortic cannulation, the proximal arch anteriorly with a 21-Bruneian soft flow cannula and venous cannulation with a dual stage 29/37 cannula via the right atrial appendage was performed. Antegrade as well as retrograde cardioplegia catheter were placed. Cardioplegia bypass was initiated with the heart empty and warm and beating, we looked at the target. The LAD, the diagonal artery, the 2nd obtuse marginal artery and the proximal aspect of the posterior descending artery into the right coronary artery would be the site for bypass. The aorta was clamped and during aortic clamping myocardial protection was achieved with initial dose of 700 mL of antegrade cold blood cardioplegia followed by 500 mL of retrograde cold blood cardioplegia with adequate arrest at around 250 mL. All subsequent doses were given retrograde at 15 minutes interval. We started by performing the venous distal anastomosis. The 1st distal anastomosis was between a segment of vein graft and the right coronary artery which was opened and the opening was extended into the proximal aspect of the takeoff of the posterior descending artery straddling the bifurcation and the anastomosis was completed using Prolene 7-0 in continuous fashion. The 2nd distal anastomosis was between another segment of vein of good quality and the 2nd obtuse marginal artery which was around 1.5 mm in diameter using Prolene 7-0 in continuous fashion. The 3rd distal anastomosis was between another segment of reverse saphenous vein graft and the first diagonal artery which was around 1.4 mm in diameter using Prolene 7-0 in continuous fashion. All heels and toes were probed before completion. Before performing the right internal mammary artery to the left anterior descending artery anastomosis which would be anterior over the aorta, I decided at this point to move to the mitral valve part. The mitral valve Sharifa retractor was used. After developing the interatrial groove, a standard left atriotomy transversely was made. The atrium was not dilated. Exploration revealed dilated mitral valve anulus and teathered leaflet, but no obvious prolapse.It was almost impossible to visualize the anterior annulus. I placed x9 Tycron 2-0 sutures from trigone to trigone posteriorly and those were passed into a 28 mm annular flex posterior band, needle cut and the suture tied using the cor knot device. Testing at this point revealed no mitral valve regurgitation. The CO2 was blowing over the field as long as the left atrium was opened. Subsequently, the left atrium was opened using a single layer of 4-0 Prolene pledgeted on each corner and meeting in the midline. The left atrial appendage was excluded with a 35 mm AtriClip deployed at its base. At this point, we performed the 3 proximal anastomosis of the 3 venous grafts after punching 3 buttons of the ascending aorta and performing the proximal anastomosis using Prolene 6-0 in a continuous fashion. Rewarming was started as we completed the surgery by completing the distal anastomosis of the right internal mammary artery that crossed the midline at the mid aortic level anteriorly and going to the mid aspect of the left anterior descending artery which was around 1.7 mm in diameter using Prolene 7-0 in continuous fashion. The mammary veins were affixed to the epicardium with a couple of Prolene 6-0 sutures. There was no tension on the right internal mammary artery. The patient was half loaded with Primacor and started on a drip, was given lidocaine and magnesium and de-airing maneuver were performed. The patient was placed in steep Trendelenburg position. Aortic vent was on maximum as we unclamped the aorta. The patient regained spontaneous sinus rhythm and did not require any defibrillation. After a period of reperfusion and after adequate de-airing guided by NIK, requiring inserting a needle in the apex to decompress the air that was lodged in the akinetic anteroapical segment. We weaned off cardioplegia bypass on 0.3 mics per kg per minute of Primacor and low-dose of Levophed with a cardiac index of 2.5 and mean artery pressure of around 67 with a normal sinus rhythm with good conduction at 82. Graft flow measurements at this point revealed the flow into the vein graft to the RCA that was 42 mL/minute, pulsatility index of 3.3 and diastolic filling of 43%, showing an excellent functioning graft. The flow into the vein to the diagonal artery was 44 mL/minute, pulsatility index of 1.6, diastolic filling of 59%. The flow into the vein graft to the 2nd obtuse marginal artery was 40 mL/minute, pulsatility index of 4.7, diastolic filling of 56%. The flow into the right internal mammary artery going to the left anterior descending artery was 22 mL/minute, pulsatility index of 2.8, diastolic filling of 71% showing all well functioning grafts. With that test was then full dose protamine was given. Two monopolar atrial pacing wires were affixed to the respective pursestrings on the right atrium. One bipolar ventricular pacing wire was driven via the inferior aspect of the right ventricle. Decannulation followed. The venous cannulation site was reinforced with a running 4-0 Prolene. The pericardial fat was approximated over the heart and the grafts. Two nineteen- [place] Deepak drain were placed substernally. After ensuring adequate hemostasis and hemodynamic and with a NIK showing adequate de- airing, moderate left ventricular dysfunction and no mitral valve regurgitation, we proceeded at closing the sternum using 5 [id number] pineal cable after interposing fibular between the sternal edges. Thorough irrigation with cefazolin followed. The rest of the closure proceeded in layers. Skin glue was applied. Patient did not receive any blood bank product but received 1250 mL of Cell Saver blood. She was transferred to the ICU in stable condition. Normal sinus rhythm at 87. PA pressure of 28/14, mean arterial pressure of 67 on low-dose Levophed and 0.3 mics per kg per minute of Primacor. MMODL / IJN: [id number] / MTDD
[2019-07-25] MEDS: METOPROLOL TARTRATE 12.5 MG TAB PO SCH (23:19)
[2019-07-25 23:20] LABS: Basophils % (A) 0 %; Eosinophils # (A) 0.1 k/uL (0-0.7); Eosinophils % (A) 1 %; HGB 8.6 gm/dL (11.4-16.0); Lymphocytes # (A) 0.8 k/uL (1.0-4.8); Lymphocytes % (A) 9 %; MCH 30.8 pg (25.0-35.0); MCHC 34.3 g/dL (31.0-37.0); MCV 89.9 fL (80.0-100.0); Mean Platelet Volume 7.9; Monocytes # (A) 0.6 k/uL (0-1.0); Monocytes % (A) 6 %; Neutrophils # (A) 7.7 k/uL (1.3-7.7); Neutrophils % (A) 81 %; Platelet Count 175 k/uL (150-450); RBC 2.78 m/uL (3.80-5.40); RDW 12.3 % (11.5-15.5); WBC 9.5 k/uL (3.8-10.6)
[2019-07-25] MEDS: HEPARIN SODIUM,PORCINE 5,000 UNIT/ML 1 ML VIAL SQ SCH (23:22)
[2019-07-26 00:07] LABS: Glucose,Whole Blood 117 mg/dL (75-99)
[2019-07-26] MEDS: ACETAMINOPHEN IV (For NPO) 1,000 MG in EMPTY BAG 1 BAG IVPB SCH (00:22)
[2019-07-26 01:10] LABS: Glucose,Whole Blood 116 mg/dL (75-99)
[2019-07-26 02:09] LABS: Glucose,Whole Blood 115 mg/dL (75-99)
[2019-07-26] MEDS: ALBUMIN HUMAN 5% 250 ML in EMPTY BAG 1 BAG IVPB PRN ×5 (02:25→18:45)
[2019-07-26] MEDS: MILRINONE-D5W PMX 20 MG in DEXTROSE/WATER 1 100ML.BAG IV SCH (02:41)
[2019-07-26 03:11] LABS: Glucose,Whole Blood 111 mg/dL (75-99)
[2019-07-26] MEDS ORDERED: HYDROcodone/APAP 5-325MG 1 EACH TAB PO PRN (03:41)
[2019-07-26 04:11] LABS: Glucose,Whole Blood 124 mg/dL (75-99)
[2019-07-26 04:28] LABS: Basophils % (A) 0 %; Eosinophils # (A) 0.2 k/uL (0-0.7); Eosinophils % (A) 2 %; HCT 23.8 % (34.0-46.0); Ionized Calcium 4.8 mg/dL (4.5-5.3); Lymphocytes # (A) 1.2 k/uL (1.0-4.8); Lymphocytes % (A) 14 %; MCH 30.5 pg (25.0-35.0); MCHC 33.6 g/dL (31.0-37.0); MCV 90.7 fL (80.0-100.0); Mean Platelet Volume 7.5; Monocytes # (A) 0.7 k/uL (0-1.0); Monocytes % (A) 8 %; Neutrophils # (A) 6.3 k/uL (1.3-7.7); Neutrophils % (A) 73 %; Platelet Count 156 k/uL (150-450); RBC 2.62 m/uL (3.80-5.40); RDW 12.3 % (11.5-15.5); WBC 8.7 k/uL (3.8-10.6)
[2019-07-26 04:41] LABS: ALT 69 U/L (9-52); AST 81 U/L (14-36); African American GFR (CKD) >90 (>60 ml/min/1.73 sqM); Albumin 2.9 g/dL (3.5-5.0); Alkaline Phosphatase 67 U/L (38-126); Anion Gap 7 mmol/L; Blood Urea Nitrogen 18 mg/dL (7-17); Calcium 8.1 mg/dL (8.4-10.2); Carbon Dioxide 23 mmol/L (22-30); Chloride 106 mmol/L (98-107); Glucose 104 mg/dL (74-99); Magnesium 2.2 mg/dL (1.6-2.3); Sodium 136 mmol/L (137-145); Total Bilirubin 0.6 mg/dL (0.2-1.3); Total Protein 4.6 g/dL (6.3-8.2)
[2019-07-26 05:14] LABS: Glucose,Whole Blood 118 mg/dL (75-99)
[2019-07-26 06:29] LABS: Glucose,Whole Blood 122 mg/dL (75-99)
[2019-07-26] MEDS: KETOROLAC 30 MG/ML 1 ML VIAL IVP SCH ×3 (06:46→17:29)
[2019-07-26] MEDS ORDERED: FUROSEMIDE 10 MG/ML 2 ML VIAL IV ONE (06:47)
[2019-07-26] MEDS ORDERED: CALCIUM GLUCONATE 2 GM in SODIUM CHLORIDE 0.9% 100 ML IVPB ONE (07:00)
[2019-07-26] MEDS: SODIUM CHLORIDE 0.45% 1,000 ML IV SCH (07:04)
[2019-07-26 07:17] LABS: Glucose,Whole Blood 129 mg/dL (75-99)
[2019-07-26] MEDS: BUDESONIDE 1 MG/2 ML NEBU INHALATION SCH ×2 (07:39→20:10)
[2019-07-26] MEDS: IPRATROPIUM-ALBUTEROL 3 ML NEB INHALATION SCH ×4 (07:39→20:11)
[2019-07-26] MEDS: NITROGLYCERIN-D5W PMX 50 MG in DEXTROSE/WATER 1 250ML.BAG IV SCH (07:45)
--- NOTE | 2019-07-26 07:56 | P.PN ---
Subjective Progress Note Date: 07/26/19 Principal diagnosis: Severe triple-vessel coronary artery disease, NSTEMI this admission, severe mitral valve regurgitation, acute systolic heart failure with moderately impaired left ventricular systolic function and EF 30-35%, right lower lobe pneumonia present on admission. 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 POD #1 urgent quadruple coronary artery bypass grafting using the in situ right internal mammary artery crossing anteriorly over the aorta in the midline to the left anterior descending artery, reverse saphenous vein graft from the aorta to the first diagonal artery, reverse saphenous vein graft from the aorta to the second obtuse marginal artery, reverse saphenous vein graft from the aorta to the RCA into the PDA. Mitral valve repair with posterior annuloplasty using a 28 mm AnnuloFlex ring. Exclusion of the left atrial appendage using a 35 mm AtriClip. Endoscopic vein harvesting of the right greater saphenous vein from the groin to above the ankle level. Intraoperative transesophageal echocardiogram and epi-aortic scanning. Graft flow measurements using the [employer] system. Postoperative acute blood loss anemia, expected outcome given hemodilution and cardiopulmonary bypass pump The patient's currently sitting up in a recliner in no acute distress in the intensive care unit. She was successfully extubated last night at 21:32. She does complain of post surgical chest pain, but denies shortness of breath. She is not using her incentive spirometry appropriately, and is not coughing effectively. Remains hemodynamically stable although with marginal blood pressure on IV Primacor, Levophed has been off since last night. Mediastinal and right pleural chest tubes, [place]/Cordis, arterial line all remain. No other new concerns. Objective - Vital Signs Vital signs: Vital Signs Temp 98.1 F 07/25/19 19:00 Pulse 81 07/26/19 06:00 Resp 22 07/26/19 06:00 BP 112/71 07/25/19 06:19 Pulse Ox 96 07/26/19 06:00 Intake & Output 07/25/19 07/26/19 07/26/19 18:59 06:59 18:59 Intake Total 396.160 2218.139 0 Output Total 1720 1064 Balance -4373.250 2452.139 0 Weight 67.2 kg Intake: IV 192 2209 ACETAMINOPHEN IV (For NPO 100 ) 1,000 mg In Empty Bag 1 bag @ 400 mls/hr IVPB Q6HR [facility] Rx#:[id number] Albumin Human 5% 250 ml 1000 In Empty Bag 1 bag @ 250 mls/hr IVPB Q1HR PRN Rx#: [id number] Injectate 60 360 LR 100 600 Pressure Lines: CVP/AL/PA 99 ceFAZolin 2 gm In Sodium 50 Chloride 0.9% 50 ml @ 100 mls/hr IVPB Q8HR [facility] Rx# :[id number] Intake, IV Titration 0.579 93.139 0 Amount Insulin Regular 100 unit 0.333 9.417 0 In Sodium Chloride 0.9% 100 ml @ Titrate IV .Q0M [facility] Rx#:[id number] Milrinone-D5w Pmx 20 mg 83.722 In Dextrose/Water 1 100ml .bag @ Per Protocol IV . Q0M [facility] Rx#:[id number] Norepinephrine 4 mg In 0.246 Sodium Chloride 0.9% 250 ml @ 0.02 MCG/KG/MIN 4. 923 mls/hr IV .Q24H [facility] Rx#:[id number] Oral 50 Output: Chest Tube Drainage 245 270 MS x2 85 160 Right Pleural 160 110 Gastric Drainage 40 Drainage 30 Right Leg BARBRA 30 Urine 475 724 Estimated Blood Loss 1000 Other: Voiding Method Indwelling Catheter ABP, PAP, CO, CI - Last Documented Arterial Blood Pressure 92/45 Pulmonary Artery Pressure 26/13 Cardiac Output 4.8 Cardiac Index 2.7 - Constitutional General appearance: Present: cooperative, no acute distress - Respiratory Details: Lungs sounds diminished bilaterally. Respirations even, nonlabored. Currently on 2 L nasal cannula with oxygen saturation 99%. Only able to achieve less than 500 mL on her incentive spirometry. Very weak cough. Mediastinal chest tubes present to continuous wall suction, 90 mL serosanguineous drainage overnight, 300 mL since surgery. Right pleural chest tube to continuous wall suction, 50 mL serosanguineous drainage overnight, 250 mL since surgery. No air leaks present. - Cardiovascular Details: S1, S2 present. Regular rate and rhythm, sinus rhythm on telemetry. Sternum stable. A/V epicardial pacemaker wires present, connected to generator, DDD mode with backup rate 50 bpm. Right internal jugular [place]/Cordis, right brachial arterial line present. Last CO/CI 4.8/2.7 on 0.3 mcg/kg/min of Primacor. Palpable pulses bilaterally. No edema present. No calf pain or tenderness noted. Heart hugger in place with patient demonstrating appropriate use. Antiembolism stockings, SCDs present. - Gastrointestinal Gastrointestinal Comment(s): Abdomen soft, nontender, nondistended. Hypoactive bowel sounds present 4 quadrants. Tolerating ice chips. Positive flatus. - Genitourinary Genitourinary Comment(s): Saravia present draining clear, yellow urine. Output 35-50 mL per hour overnight. - Integumentary Integumentary Comment(s): Skin is warm and dry with evidence of good perfusion. Anterior chest incision well approximated and covered with dry intact dressings. Right lower extremity EVH site well approximated, BARBRA drain present with minimal serosanguineous drainage. - Neurologic Neurologic: Present: CNII-XII intact - Musculoskeletal Musculoskeletal: Present: strength equal bilaterally - Psychiatric Psychiatric: Present: A&O x's 3, appropriate affect, intact judgment & insight - Allied health notes Allied health notes reviewed: nursing - Labs CBC & Chem 7: 07/26/19 04:10 07/26/19 04:10 Labs: Abnormal Lab Results - Last 24 Hours (Table) 07/17/19 07/24/19 07/25/19 Range/Units 08:15 06:11 08:35 WBC (3.8-10.6) k/uL RBC (3.80-5.40) m/uL Hgb (11.4-16.0) gm/dL Hct (34.0-46.0) % Neutrophils # (1.3-7.7) k/uL Lymphocytes # (1.0-4.8) k/uL ABG pH (7.35-7.45) ABG pCO2 (35-45) mmHg ABG pO2 257 H (83-108) mmHg ABG HCO3 26 H (21-25) mmol/L ABG Total CO2 27 H (19-24) mmol/L ABG O2 Saturation 99.9 H (94-97) % ABG Hematocrit (34.0-46.0) % ABG Sodium (135-146) mmol/L ABG Potassium 4.9 H (3.4-4.5) mmol/L ABG Ionized Calcium (4.5-5.3) mg/dL ABG Glucose 110 H (75-99) mg/dL ABG Lactic Acid (0.5-1.6) mmol/L Hemoglobin (11.4-16.0) gm/dL Sodium (137-145) mmol/L Chloride (98-107) mmol/L BUN (7-17) mg/dL Glucose (74-99) mg/dL POC Glucose (mg/dL) (75-99) mg/dL Calcium (8.4-10.2) mg/dL Magnesium (1.6-2.3) mg/dL AST (14-36) U/L ALT (9-52) U/L Total Protein (6.3-8.2) g/dL Albumin (3.5-5.0) g/dL Arterial Blood Potassium 4.9 H (3.4-4.5) mmol/L Arterial Blood Glucose 110 H (75-99) mg/dL [place] Type B(3) Ab 1:80 H (<1:10) [place] Type B(4) Ab >= 1:640 H (<1:10) Crossmatch See Detail 07/25/19 07/25/19 07/25/19 Range/Units 10:36 12:04 12:38 WBC (3.8-10.6) k/uL RBC (3.80-5.40) m/uL Hgb (11.4-16.0) gm/dL Hct (34.0-46.0) % Neutrophils # (1.3-7.7) k/uL Lymphocytes # (1.0-4.8) k/uL ABG pH (7.35-7.45) ABG pCO2 (35-45) mmHg ABG pO2 172 H 329 H 273 H (83-108) mmHg ABG HCO3 (21-25) mmol/L ABG Total CO2 26 H 25 H 25 H (19-24) mmol/L ABG O2 Saturation 99.6 H 100.0 H 99.8 H (94-97) % ABG Hematocrit 27 L 25 L (34.0-46.0) % ABG Sodium 131 L 132 L (135-146) mmol/L ABG Potassium 5.7 H 5.7 H 5.3 H (3.4-4.5) mmol/L ABG Ionized Calcium 4.3 L 4.4 L (4.5-5.3) mg/dL ABG Glucose 164 H 266 H 263 H (75-99) mg/dL ABG Lactic Acid 2.0 H (0.5-1.6) mmol/L Hemoglobin 8.9 L 8.0 L (11.4-16.0) gm/dL Sodium (137-145) mmol/L Chloride (98-107) mmol/L BUN (7-17) mg/dL Glucose (74-99) mg/dL POC Glucose (mg/dL) (75-99) mg/dL Calcium (8.4-10.2) mg/dL Magnesium (1.6-2.3) mg/dL AST (14-36) U/L ALT (9-52) U/L Total Protein (6.3-8.2) g/dL Albumin (3.5-5.0) g/dL Arterial Blood Potassium 5.7 H 5.7 H 5.3 H (3.4-4.5) mmol/L Arterial Blood Glucose 164 H 266 H 263 H (75-99) mg/dL [place] Type B(3) Ab (<1:10) [place] Type B(4) Ab (<1:10) Crossmatch 07/25/19 07/25/19 07/25/19 Range/Units 13:10 13:40 14:34 WBC (3.8-10.6) k/uL RBC (3.80-5.40) m/uL Hgb (11.4-16.0) gm/dL Hct (34.0-46.0) % Neutrophils # (1.3-7.7) k/uL Lymphocytes # (1.0-4.8) k/uL ABG pH 7.33 L (7.35-7.45) ABG pCO2 (35-45) mmHg ABG pO2 365 H 367 H 75 L (83-108) mmHg ABG HCO3 (21-25) mmol/L ABG Total CO2 25 H 25 H (19-24) mmol/L ABG O2 Saturation 99.8 H 99.8 H (94-97) % ABG Hematocrit 24 L 24 L 24 L (34.0-46.0) % ABG Sodium 133 L 133 L (135-146) mmol/L ABG Potassium 5.3 H 5.0 H (3.4-4.5) mmol/L ABG Ionized Calcium 4.4 L 4.4 L (4.5-5.3) mg/dL ABG Glucose 260 H 259 H 172 H (75-99) mg/dL ABG Lactic Acid 2.0 H 1.8 H 1.9 H (0.5-1.6) mmol/L Hemoglobin 7.9 L 7.8 L 7.9 L (11.4-16.0) gm/dL Sodium (137-145) mmol/L Chloride (98-107) mmol/L BUN (7-17) mg/dL Glucose (74-99) mg/dL POC Glucose (mg/dL) (75-99) mg/dL Calcium (8.4-10.2) mg/dL Magnesium (1.6-2.3) mg/dL AST (14-36) U/L ALT (9-52) U/L Total Protein (6.3-8.2) g/dL Albumin (3.5-5.0) g/dL Arterial Blood Potassium 5.3 H 5.0 H (3.4-4.5) mmol/L Arterial Blood Glucose 260 H 259 H 172 H (75-99) mg/dL [place] Type B(3) Ab (<1:10) [place] Type B(4) Ab (<1:10) Crossmatch 07/25/19 07/25/19 07/25/19 Range/Units 15:24 16:10 16:10 WBC 10.9 H (3.8-10.6) k/uL RBC 3.03 L (3.80-5.40) m/uL Hgb 9.3 L D (11.4-16.0) gm/dL Hct 27.4 L (34.0-46.0) % Neutrophils # 8.8 H (1.3-7.7) k/uL Lymphocytes # (1.0-4.8) k/uL ABG pH (7.35-7.45) ABG pCO2 (35-45) mmHg ABG pO2 63 L (83-108) mmHg ABG HCO3 (21-25) mmol/L ABG Total CO2 25 H (19-24) mmol/L ABG O2 Saturation 92.1 L (94-97) % ABG Hematocrit 29 L (34.0-46.0) % ABG Sodium (135-146) mmol/L ABG Potassium (3.4-4.5) mmol/L ABG Ionized Calcium (4.5-5.3) mg/dL ABG Glucose 118 H (75-99) mg/dL ABG Lactic Acid (0.5-1.6) mmol/L Hemoglobin 9.5 L (11.4-16.0) gm/dL Sodium (137-145) mmol/L Chloride 109 H (98-107) mmol/L BUN (7-17) mg/dL Glucose (74-99) mg/dL POC Glucose (mg/dL) (75-99) mg/dL Calcium 8.0 L (8.4-10.2) mg/dL Magnesium 2.8 H (1.6-2.3) mg/dL AST 293 H (14-36) U/L ALT 111 H (9-52) U/L Total Protein 4.4 L (6.3-8.2) g/dL Albumin 2.7 L (3.5-5.0) g/dL Arterial Blood Potassium (3.4-4.5) mmol/L Arterial Blood Glucose 118 H (75-99) mg/dL [place] Type B(3) Ab (<1:10) [place] Type B(4) Ab (<1:10) Crossmatch 07/25/19 07/25/19 07/25/19 Range/Units 16:11 17:00 17:01 WBC (3.8-10.6) k/uL RBC (3.80-5.40) m/uL Hgb (11.4-16.0) gm/dL Hct (34.0-46.0) % Neutrophils # (1.3-7.7) k/uL Lymphocytes # (1.0-4.8) k/uL ABG pH 7.31 L (7.35-7.45) ABG pCO2 51 H (35-45) mmHg ABG pO2 199 H (83-108) mmHg ABG HCO3 (21-25) mmol/L ABG Total CO2 27 H (19-24) mmol/L ABG O2 Saturation 99.6 H (94-97) % ABG Hematocrit (34.0-46.0) % ABG Sodium (135-146) mmol/L ABG Potassium (3.4-4.5) mmol/L ABG Ionized Calcium (4.5-5.3) mg/dL ABG Glucose (75-99) mg/dL ABG Lactic Acid (0.5-1.6) mmol/L Hemoglobin (11.4-16.0) gm/dL Sodium (137-145) mmol/L Chloride (98-107) mmol/L BUN (7-17) mg/dL Glucose (74-99) mg/dL POC Glucose (mg/dL) 101 H 100 H (75-99) mg/dL Calcium (8.4-10.2) mg/dL Magnesium (1.6-2.3) mg/dL AST (14-36) U/L ALT (9-52) U/L Total Protein (6.3-8.2) g/dL Albumin (3.5-5.0) g/dL Arterial Blood Potassium (3.4-4.5) mmol/L Arterial Blood Glucose (75-99) mg/dL [place] Type B(3) Ab (<1:10) [place] Type B(4) Ab (<1:10) Crossmatch 07/25/19 07/25/19 07/25/19 Range/Units 18:14 19:10 19:17 WBC 13.6 H (3.8-10.6) k/uL RBC 3.16 L (3.80-5.40) m/uL Hgb 9.8 L (11.4-16.0) gm/dL Hct 28.6 L (34.0-46.0) % Neutrophils # 11.4 H (1.3-7.7) k/uL Lymphocytes # 0.9 L (1.0-4.8) k/uL ABG pH (7.35-7.45) ABG pCO2 (35-45) mmHg ABG pO2 (83-108) mmHg ABG HCO3 (21-25) mmol/L ABG Total CO2 (19-24) mmol/L ABG O2 Saturation (94-97) % ABG Hematocrit (34.0-46.0) % ABG Sodium (135-146) mmol/L ABG Potassium (3.4-4.5) mmol/L ABG Ionized Calcium (4.5-5.3) mg/dL ABG Glucose (75-99) mg/dL ABG Lactic Acid (0.5-1.6) mmol/L Hemoglobin (11.4-16.0) gm/dL Sodium (137-145) mmol/L Chloride (98-107) mmol/L BUN (7-17) mg/dL Glucose (74-99) mg/dL POC Glucose (mg/dL) 142 H 132 H (75-99) mg/dL Calcium (8.4-10.2) mg/dL Magnesium (1.6-2.3) mg/dL AST (14-36) U/L ALT (9-52) U/L Total Protein (6.3-8.2) g/dL Albumin (3.5-5.0) g/dL Arterial Blood Potassium (3.4-4.5) mmol/L Arterial Blood Glucose (75-99) mg/dL [place] Type B(3) Ab (<1:10) [place] Type B(4) Ab (<1:10) Crossmatch 07/25/19 07/25/19 07/25/19 Range/Units 20:13 21:02 21:11 WBC (3.8-10.6) k/uL RBC (3.80-5.40) m/uL Hgb (11.4-16.0) gm/dL Hct (34.0-46.0) % Neutrophils # (1.3-7.7) k/uL Lymphocytes # (1.0-4.8) k/uL ABG pH (7.35-7.45) ABG pCO2 (35-45) mmHg ABG pO2 (83-108) mmHg ABG HCO3 (21-25) mmol/L ABG Total CO2 25 H (19-24) mmol/L ABG O2 Saturation 97.5 H (94-97) % ABG Hematocrit (34.0-46.0) % ABG Sodium (135-146) mmol/L ABG Potassium (3.4-4.5) mmol/L ABG Ionized Calcium (4.5-5.3) mg/dL ABG Glucose (75-99) mg/dL ABG Lactic Acid (0.5-1.6) mmol/L Hemoglobin (11.4-16.0) gm/dL Sodium (137-145) mmol/L Chloride (98-107) mmol/L BUN (7-17) mg/dL Glucose (74-99) mg/dL POC Glucose (mg/dL) 134 H 129 H (75-99) mg/dL Calcium (8.4-10.2) mg/dL Magnesium (1.6-2.3) mg/dL AST (14-36) U/L ALT (9-52) U/L Total Protein (6.3-8.2) g/dL Albumin (3.5-5.0) g/dL Arterial Blood Potassium (3.4-4.5) mmol/L Arterial Blood Glucose (75-99) mg/dL [place] Type B(3) Ab (<1:10) [place] Type B(4) Ab (<1:10) Crossmatch 07/25/19 07/25/19 07/25/19 Range/Units 22:15 23:04 23:13 WBC (3.8-10.6) k/uL RBC 2.78 L (3.80-5.40) m/uL Hgb 8.6 L (11.4-16.0) gm/dL Hct 25.0 L (34.0-46.0) % Neutrophils # (1.3-7.7) k/uL Lymphocytes # 0.8 L (1.0-4.8) k/uL ABG pH (7.35-7.45) ABG pCO2 (35-45) mmHg ABG pO2 (83-108) mmHg ABG HCO3 (21-25) mmol/L ABG Total CO2 (19-24) mmol/L ABG O2 Saturation (94-97) % ABG Hematocrit (34.0-46.0) % ABG Sodium (135-146) mmol/L ABG Potassium (3.4-4.5) mmol/L ABG Ionized Calcium (4.5-5.3) mg/dL ABG Glucose (75-99) mg/dL ABG Lactic Acid (0.5-1.6) mmol/L Hemoglobin (11.4-16.0) gm/dL Sodium (137-145) mmol/L Chloride (98-107) mmol/L BUN (7-17) mg/dL Glucose (74-99) mg/dL POC Glucose (mg/dL) 121 H 122 H (75-99) mg/dL Calcium (8.4-10.2) mg/dL Magnesium (1.6-2.3) mg/dL AST (14-36) U/L ALT (9-52) U/L Total Protein (6.3-8.2) g/dL Albumin (3.5-5.0) g/dL Arterial Blood Potassium (3.4-4.5) mmol/L Arterial Blood Glucose (75-99) mg/dL [place] Type B(3) Ab (<1:10) [place] Type B(4) Ab (<1:10) Crossmatch 07/26/19 07/26/19 07/26/19 Range/Units 00:04 01:07 02:07 WBC (3.8-10.6) k/uL RBC (3.80-5.40) m/uL Hgb (11.4-16.0) gm/dL Hct (34.0-46.0) % Neutrophils # (1.3-7.7) k/uL Lymphocytes # (1.0-4.8) k/uL ABG pH (7.35-7.45) ABG pCO2 (35-45) mmHg ABG pO2 (83-108) mmHg ABG HCO3 (21-25) mmol/L ABG Total CO2 (19-24) mmol/L ABG O2 Saturation (94-97) % ABG Hematocrit (34.0-46.0) % ABG Sodium (135-146) mmol/L ABG Potassium (3.4-4.5) mmol/L ABG Ionized Calcium (4.5-5.3) mg/dL ABG Glucose (75-99) mg/dL ABG Lactic Acid (0.5-1.6) mmol/L Hemoglobin (11.4-16.0) gm/dL Sodium (137-145) mmol/L Chloride (98-107) mmol/L BUN (7-17) mg/dL Glucose (74-99) mg/dL POC Glucose (mg/dL) 117 H 116 H 115 H (75-99) mg/dL Calcium (8.4-10.2) mg/dL Magnesium (1.6-2.3) mg/dL AST (14-36) U/L ALT (9-52) U/L Total Protein (6.3-8.2) g/dL Albumin (3.5-5.0) g/dL Arterial Blood Potassium (3.4-4.5) mmol/L Arterial Blood Glucose (75-99) mg/dL [place] Type B(3) Ab (<1:10) [place] Type B(4) Ab (<1:10) Crossmatch 07/26/19 07/26/19 07/26/19 Range/Units 03:09 04:10 04:10 WBC (3.8-10.6) k/uL RBC 2.62 L (3.80-5.40) m/uL Hgb 8.0 L (11.4-16.0) gm/dL Hct 23.8 L (34.0-46.0) % Neutrophils # (1.3-7.7) k/uL Lymphocytes # (1.0-4.8) k/uL ABG pH (7.35-7.45) ABG pCO2 (35-45) mmHg ABG pO2 (83-108) mmHg ABG HCO3 (21-25) mmol/L ABG Total CO2 (19-24) mmol/L ABG O2 Saturation (94-97) % ABG Hematocrit (34.0-46.0) % ABG Sodium (135-146) mmol/L ABG Potassium (3.4-4.5) mmol/L ABG Ionized Calcium (4.5-5.3) mg/dL ABG Glucose (75-99) mg/dL ABG Lactic Acid (0.5-1.6) mmol/L Hemoglobin (11.4-16.0) gm/dL Sodium 136 L (137-145) mmol/L Chloride (98-107) mmol/L BUN 18 H (7-17) mg/dL Glucose 104 H (74-99) mg/dL POC Glucose (mg/dL) 111 H (75-99) mg/dL Calcium 8.1 L (8.4-10.2) mg/dL Magnesium (1.6-2.3) mg/dL AST 81 H (14-36) U/L ALT 69 H (9-52) U/L Total Protein 4.6 L (6.3-8.2) g/dL Albumin 2.9 L (3.5-5.0) g/dL Arterial Blood Potassium (3.4-4.5) mmol/L Arterial Blood Glucose (75-99) mg/dL [place] Type B(3) Ab (<1:10) [place] Type B(4) Ab (<1:10) Crossmatch 07/26/19 07/26/19 07/26/19 Range/Units 04:10 05:11 06:27 WBC (3.8-10.6) k/uL RBC (3.80-5.40) m/uL Hgb (11.4-16.0) gm/dL Hct (34.0-46.0) % Neutrophils # (1.3-7.7) k/uL Lymphocytes # (1.0-4.8) k/uL ABG pH (7.35-7.45) ABG pCO2 (35-45) mmHg ABG pO2 (83-108) mmHg ABG HCO3 (21-25) mmol/L ABG Total CO2 (19-24) mmol/L ABG O2 Saturation (94-97) % ABG Hematocrit (34.0-46.0) % ABG Sodium (135-146) mmol/L ABG Potassium (3.4-4.5) mmol/L ABG Ionized Calcium (4.5-5.3) mg/dL ABG Glucose (75-99) mg/dL ABG Lactic Acid (0.5-1.6) mmol/L Hemoglobin (11.4-16.0) gm/dL Sodium (137-145) mmol/L Chloride (98-107) mmol/L BUN (7-17) mg/dL Glucose (74-99) mg/dL POC Glucose (mg/dL) 124 H 118 H 122 H (75-99) mg/dL Calcium (8.4-10.2) mg/dL Magnesium (1.6-2.3) mg/dL AST (14-36) U/L ALT (9-52) U/L Total Protein (6.3-8.2) g/dL Albumin (3.5-5.0) g/dL Arterial Blood Potassium (3.4-4.5) mmol/L Arterial Blood Glucose (75-99) mg/dL [place] Type B(3) Ab (<1:10) [place] Type B(4) Ab (<1:10) Crossmatch 07/26/19 Range/Units 07:12 WBC (3.8-10.6) k/uL RBC (3.80-5.40) m/uL Hgb (11.4-16.0) gm/dL Hct (34.0-46.0) % Neutrophils # (1.3-7.7) k/uL Lymphocytes # (1.0-4.8) k/uL ABG pH (7.35-7.45) ABG pCO2 (35-45) mmHg ABG pO2 (83-108) mmHg ABG HCO3 (21-25) mmol/L ABG Total CO2 (19-24) mmol/L ABG O2 Saturation (94-97) % ABG Hematocrit (34.0-46.0) % ABG Sodium (135-146) mmol/L ABG Potassium (3.4-4.5) mmol/L ABG Ionized Calcium (4.5-5.3) mg/dL ABG Glucose (75-99) mg/dL ABG Lactic Acid (0.5-1.6) mmol/L Hemoglobin (11.4-16.0) gm/dL Sodium (137-145) mmol/L Chloride (98-107) mmol/L BUN (7-17) mg/dL Glucose (74-99) mg/dL POC Glucose (mg/dL) 129 H (75-99) mg/dL Calcium (8.4-10.2) mg/dL Magnesium (1.6-2.3) mg/dL AST (14-36) U/L ALT (9-52) U/L Total Protein (6.3-8.2) g/dL Albumin (3.5-5.0) g/dL Arterial Blood Potassium (3.4-4.5) mmol/L Arterial Blood Glucose (75-99) mg/dL [place] Type B(3) Ab (<1:10) [place] Type B(4) Ab (<1:10) Crossmatch - Imaging and Cardiology Chest x-ray: image reviewed Assessment and Plan Assessment: 1. Severe triple-vessel coronary artery disease, status post urgent 4 vessel CABG 2. NSTEMI this admission 3. Severe mitral valve regurgitation per transesophageal echocardiogram, status post mitral valve repair with AnnuloFlex ring 4. Acute systolic heart failure with moderately impaired left ventricular systolic function, EF 30-35% 5. Right lower lobe pneumonia, community-acquired 6. Hyperlipidemia 7. Insulin-dependent diabetes mellitus with HgbA1c 7.6% 8. 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 TIA in 2007 11. Chronic current nicotine dependence, currently on Chantix 12. Severe COPD with preoperative FEV1 42% of predicted 13. Hyperthyroidism 14. Recent laparoscopic cholecystectomy 15. Depressive disorder 16. Family history of heart disease 17. Postoperative acute blood loss anemia Plan: 1. Continue aspirin, statin, beta kirk therapy. Will increase beta kirk therapy as tolerated. Will start Plavix. Will add DEVON inhibitor when able 2. Wean O2 as tolerated. Encourage incentive spirometry is 10 times every hour while awake. Patient needs a lot of encouragement to cough and deep breathe. 3. Reinforce importance of smoking cessation, continue Chantix 4. Bronchodilators, inhaled steroids per pulmonology. 5. Increase activity as tolerated, PT/OT/cardiac rehab following. Patient needs a lot of encouragement to get up and move. 6. Will wean Primacor. Keep [place] for now. Keep mediastinal and right pleural chest tubes for another. 7. Keep [place] for another 24 hours for strict accurate intake and output. 8. GI/DVT prophylaxis 9. Insulin management per primary care service. 10. Pain control with current medication regimen. Toradol added. 11. Will give 20 mg IV Lasix today when able. 12. Will restart home Wellbutrin. 13. Patient may have left subclavian artery stented in the future with Dr. Monet. This was discussed between Dr. Monet and Dr. Sarmiento, as well as with the patient and all are in agreement. 14. More recommendations to follow Time with Patient: Greater than 30
--- NOTE | 2019-07-26 08:26 | XR ---
EXAMINATION TYPE: XR chest 1V portable DATE OF EXAM: 07/26/2019 Comparison: 07/25/2019 Clinical History: 49-year-old female Post Operative Cardiac Surgery Findings: Right IJ [place] catheter with tip in the region of the distal main pulmonary outflow tract. Right- sided chest tube in place. No appreciable pneumothorax. Heart borderline enlarged. Increasing patchy and hazy lower lung densities. Impression: 1. Borderline heart size. Possible mild pulmonary vascular congestion. 2. Increasing patchy and hazy bibasilar opacities, likely small effusions with adjacent atelectasis a nd/or consolidation. 3. Right-sided chest tube. No appreciable pneumothorax.
[2019-07-26 08:30] LABS: Glucose,Whole Blood 138 mg/dL (75-99)
[2019-07-26] MEDS ORDERED: PANTOPRAZOLE 40 MG/10 ML VIAL IVP SCH (09:00)
[2019-07-26] MEDS ORDERED: BISACODYL 10 MG SUPP RECTAL PRN (09:00)
[2019-07-26] MEDS ORDERED: CLOPIDOGREL 75 MG TAB PO SCH (09:00)
[2019-07-26] MEDS ORDERED: ASPIRIN 325 MG TAB PO SCH (09:00)
[2019-07-26] MEDS ORDERED: MAGNESIUM HYDROXIDE 2,400 MG/10 ML CUP PO PRN (09:00)
--- NOTE | 2019-07-26 09:35 | P.PN ---
Subjective Progress Note Date: 07/26/19 Principal diagnosis: Right lower lobe pneumonia, triple-vessel coronary artery disease This is a 49-year-old white female patient of Dr. Freya Miles, who sees Elieser Serna PA-C at her office, has passed [facility] history of COPD, not on oxygen at baseline, previous history of pneumonia, frequent bouts of bronchitis, carotid artery stenosis, and patient has a known 100% right carotid stenosis and 60% left-sided carotid stenosis she follows with Dr. Rausch, previous episode of myocardial infarction 8 years ago, diabetes mellitus type 2 on insulin, and patient carries [id number] smoking history, she recently quit 5 days ago, she is currently on Chantix. Patient presented to the emergency department on 07/17/2019 with complaints of midsternal chest pain, which was nonradiating, which was exacerbated by episodes of coughing and deep breathing, increased cough, non-productive, denied any fever, chills, denied any hemoptysis. Patient was a transfer from [facility]. Apparently last week she had a upper respiratory infection, cough and intermittent chest pain. She developed worsening of the pleuritic chest pain worse with inspiration. EKG was obtained on admission showing sinus tachycardia, 1,[address] elevation in V2 and V3, V4 and V5. Labs showed mild leukocytosis with a white blood cell count of 11.7, hemoglobin of 13.9, electrolytes and renal profile were unremarkable with the exception of CO2 which was at 21, glucose was elevated at 350, troponin came back elevated at 3.340, and 5.5, proBNP was 7190, and subsequent one came down to 5330. Chest x-ray showed right lower lobe airspace disease likely related to pneumonia, and increased diffuse interstitial markings consistent with mild interstitial edema. She has been afebrile, she is maintaining stable oxygenation on room air, she has been started on Rocephin and Zithromax, she was given a dose of IV Lasix in the emergency department, she is being evaluated by cardiology, and her echocardiogram revealed moderately severe impaired LVEF of 30-35%, hypokinesis involving the apical anterior lateral LV wall, lateral LV wall and inferior LV wall, as well as a septal wall. There is mild aortic regurgitation, moderate mitral regurgitation, trace pulmonic regurgitation, no pericardial effusion. On 07/19/2019 patient seen in follow-up on selective care unit, she is awake and alert, she had just returned from the heart catheterization and she was found to have evidence of multivessel coronary artery disease and she was referred to cardiothoracic surgery for possibility of bypass grafting. She is resting comfortably in bed, she slightly upset, but no acute distress, she states her breathing is stable, she is on room air, and her pulse ox is 91%, no fever or chills, no complaints of chest pain, hemodynamically stable. She has not been able to provide a sputum specimen, she is on a combination of Zithromax and Rocephin, nebulized bronchodilators. On 07/20/2090 patient seen in follow-up on further care unit, she is up ambulating, she is getting very to get a shower, room air pulse ox is 98%, no fever or chills, hemodynamically stable, no complaints of chest pain, no complaints of difficulty breathing, respirations are even and nonlabored, lung sounds are diminished, no rhonchi, no wheezing noted, patient is on a combination of Rocephin and Zithromax, was unable to produce a sputum sample for us. She is undergoing evaluation for bypass grafting surgery. She had a transesophageal echocardiogram today, which showed impaired left ventricle systolic function with an ejection of 30-35%, severely dilated left atrium, no evidence of thrombus in the left atrial appendage, trileaflet aortic valve without stenosis with mild insufficiency, and thickened mitral valve leaflets with evidence of severe mitral regurgitation On 07/21/2019 patient seen in follow-up on selective care unit, she is resting comfortably, she denies any acute distress, she denies any recurrent episodes of any chest pain, no shortness of breath, she is currently on room air. No cough or phlegm production, room air pulse ox is 96%, low-grade fever this morning with a temp of 99.0F. Lung sounds are diminished at the bases, no rhonchi, no wheezing. Today's lab work shows white blood cell count of 10.4, hemoglobin is 14.0, electrolytes and renal profile were unremarkable. No pleuritic chest discomfort, no hemoptysis, patient had a bedside spirometry done and it was a poor effort, and he did show FEV1 of 1.39 L or 42% of predicted, consistent with severe obstructive pulmonary defect. We will have to repeat her PFT. Continues on a combination of Rocephin and Zithromax, nebulized bronchodilators. On 07/26/2019 patient is seen in the intensive care unit, this is postoperative day 1, status post four-vessel coronary artery bypass grafting using the in situ right internal mammary artery to the LAD, reverse SVG to the first diagonal, reverse SVG to the second obtuse marginal artery, reverse SVG to the RCA into the PDA, and mitral valve repair with posterior annuloplasty using a 28 mm flex ring. Exclusion of the left atrial appendage using 35mm etcher clip was also done. OR exit time was 1559, and extubation time was 2132. This morning patient is seen in the ICU, she is awake and alert, sitting up in the recliner, having mild to moderate amount of incisional discomfort, but no acute distress, she is currently on 2 L of oxygen with a pulse ox of 97%, hemodynamically patient is stable, remains on small amount of Primacor which is being weaned down, Primacor is currently infusing at a rate of 0.5 mics per kilo per minute. 0.45 at 50 ML per hour, insulin drip is 0.5 units per hour. PA pressure is 19/16, cardiac output and index is 2.8 and 2.7 respectively. Incentive spirometer effort is 500 mL, lung sounds are positive for some scattered rhonchi. Afebrile. This morning's blood work has been reviewed, showing white blood cell count of 8.7, hemoglobin is 8.0, sodium is 136, potassium 5.0, BUN is 18 and creatinine 0.73. She did not require any blood products. 2 mediastinal chest tubes with Dr. 145 mL of serosanguineous output in last 24 hours, and right pleural was 270 mL serosanguineous output, right leg BARBRA drain with 30 mL of serosanguineous output. Saravia catheter is in, output is in the order of 55- 150 ML respectively, today's chest x-ray has been reviewed showing mild pulmonary vessel congestion, and patchy and hazy bibasilar opacities likely small effusions with the adjacent atelectasis, no evidence of pneumothorax. Objective - Vital Signs Vital signs: Vital Signs Temp 97.6 F 07/26/19 08:00 Pulse 84 07/26/19 08:00 Resp 22 10/29/19 08:00 BP 112/71 07/25/19 06:19 Pulse Ox 97 07/26/19 08:00 Intake & Output 07/25/19 07/26/19 07/26/19 18:59 06:59 18:59 Intake Total 921.769 7464.139 59 Output Total 1720 1064 160 Balance -4333.387 4016.139 -101 Weight 67.2 kg Intake: IV 192 2209 59 ACETAMINOPHEN IV (For NPO 100 ) 1,000 mg In Empty Bag 1 bag @ 400 mls/hr IVPB Q6HR [facility] Rx#:[id number] Albumin Human 5% 250 ml 1000 In Empty Bag 1 bag @ 250 mls/hr IVPB Q1HR PRN Rx#: [id number] Injectate 60 360 LR 100 600 Pressure Lines: CVP/AL/PA 99 9 Sodium Chloride 0.45% 1, 50 000 ml @ 50 mls/hr IV . Q20H [facility] Rx#:[id number] ceFAZolin 2 gm In Sodium 50 Chloride 0.9% 50 ml @ 100 mls/hr IVPB Q8HR [facility] Rx# :[id number] Intake, IV Titration 0.579 93.139 0 Amount Insulin Regular 100 unit 0.333 9.417 0 In Sodium Chloride 0.9% 100 ml @ Titrate IV .Q0M [facility] Rx#:[id number] Milrinone-D5w Pmx 20 mg 83.722 In Dextrose/Water 1 100ml .bag @ Per Protocol IV . Q0M [facility]IS Rx#:[id number] Norepinephrine 4 mg In 0.246 Sodium Chloride 0.9% 250 ml @ 0.02 MCG/KG/MIN 4. 923 mls/hr IV .Q24H [facility] Rx#:[id number] Oral 50 Output: Chest Tube Drainage 245 270 10 MS x2 85 160 4 Right Pleural 160 110 6 Gastric Drainage 40 Drainage 30 Right Leg BARBRA 30 Urine 475 724 150 Estimated Blood Loss 1000 Other: Voiding Method Indwelling Catheter ABP, PAP, CO, CI - Last Documented Arterial Blood Pressure 90/39 Pulmonary Artery Pressure 20/6 Cardiac Output 4.8 Cardiac Index 2.7 - Exam GENERAL EXAM: Alert, pleasant, 49-year-old white female, on 2 L of oxygen with a pulse ox of 97% and mild to moderate amount of discomfort, incisions, but no acute distress HEAD: Normocephalic/atraumatic. EYES: Normal reaction of pupils, equal size. Conjunctiva pink, sclera white. NOSE: Clear with pink turbinates. THROAT: No erythema or exudates. NECK: No masses, no JVD, no thyroid enlargement, no adenopathy. CHEST: No chest wall deformity. Symmetrical expansion. Midsternal incisions clean dry and intact, 2 mediastinal chest tubes and a right pleural chest tubes with no air leak, with moderate amount of serosanguineous output in the Pleur- evac containers LUNGS: Equal air entry with some scattered rhonchi CVS: Regular rate and rhythm, normal S1 and S2, no gallops, no murmurs, no rubs ABDOMEN: Soft, nontender. No hepatosplenomegaly, normal bowel sounds, no guarding or rigidity. EXTREMITIES: No clubbing, no edema, no cyanosis, 2+ pulses and upper and lower extremities. Right leg incision is clean dry and intact, BARBRA drain with small amount of serosanguineous output, SCDs on on bilateral lower extremities MUSCULOSKELETAL: Muscle strength and tone normal. SPINE: No scoliosis or deformity SKIN: No rashes CENTRAL NERVOUS SYSTEM: Alert and oriented -3. No focal deficits, tone is nor mal in all 4 extremities. PSYCHIATRIC: Alert and oriented -3. Appropriate affect. Intact judgment and insight. - Labs CBC & Chem 7: 07/26/19 04:10 07/26/19 04:10 Labs: Abnormal Lab Results - Last 24 Hours (Table) 07/17/19 07/24/19 07/25/19 Range/Units 08:15 06:11 08:35 WBC (3.8-10.6) k/uL RBC (3.80-5.40) m/uL Hgb (11.4-16.0) gm/dL Hct (34.0-46.0) % Neutrophils # (1.3-7.7) k/uL Lymphocytes # (1.0-4.8) k/uL ABG pH (7.35-7.45) ABG pCO2 (35-45) mmHg ABG pO2 257 H (83-108) mmHg ABG HCO3 26 H (21-25) mmol/L ABG Total CO2 27 H (19-24) mmol/L ABG O2 Saturation 99.9 H (94-97) % ABG Hematocrit (34.0-46.0) % ABG Sodium (135-146) mmol/L ABG Potassium 4.9 H (3.4-4.5) mmol/L ABG Ionized Calcium (4.5-5.3) mg/dL ABG Glucose 110 H (75-99) mg/dL ABG Lactic Acid (0.5-1.6) mmol/L Hemoglobin (11.4-16.0) gm/dL Sodium (137-145) mmol/L Chloride (98-107) mmol/L BUN (7-17) mg/dL Glucose (74-99) mg/dL POC Glucose (mg/dL) (75-99) mg/dL Calcium (8.4-10.2) mg/dL Magnesium (1.6-2.3) mg/dL AST (14-36) U/L ALT (9-52) U/L Total Protein (6.3-8.2) g/dL Albumin (3.5-5.0) g/dL Arterial Blood Potassium 4.9 H (3.4-4.5) mmol/L Arterial Blood Glucose 110 H (75-99) mg/dL [place] Type B(3) Ab 1:80 H (<1:10) [place] Type B(4) Ab >= 1:640 H (<1:10) Crossmatch See Detail 07/25/19 07/25/19 07/25/19 Range/Units 10:36 12:04 12:38 WBC (3.8-10.6) k/uL RBC (3.80-5.40) m/uL Hgb (11.4-16.0) gm/dL Hct (34.0-46.0) % Neutrophils # (1.3-7.7) k/uL Lymphocytes # (1.0-4.8) k/uL ABG pH (7.35-7.45) ABG pCO2 (35-45) mmHg ABG pO2 172 H 329 H 273 H (83-108) mmHg ABG HCO3 (21-25) mmol/L ABG Total CO2 26 H 25 H 25 H (19-24) mmol/L ABG O2 Saturation 99.6 H 100.0 H 99.8 H (94-97) % ABG Hematocrit 27 L 25 L (34.0-46.0) % ABG Sodium 131 L 132 L (135-146) mmol/L ABG Potassium 5.7 H 5.7 H 5.3 H (3.4-4.5) mmol/L ABG Ionized Calcium 4.3 L 4.4 L (4.5-5.3) mg/dL ABG Glucose 164 H 266 H 263 H (75-99) mg/dL ABG Lactic Acid 2.0 H (0.5-1.6) mmol/L Hemoglobin 8.9 L 8.0 L (11.4-16.0) gm/dL Sodium (137-145) mmol/L Chloride (98-107) mmol/L BUN (7-17) mg/dL Glucose (74-99) mg/dL POC Glucose (mg/dL) (75-99) mg/dL Calcium (8.4-10.2) mg/dL Magnesium (1.6-2.3) mg/dL AST (14-36) U/L ALT (9-52) U/L Total Protein (6.3-8.2) g/dL Albumin (3.5-5.0) g/dL Arterial Blood Potassium 5.7 H 5.7 H 5.3 H (3.4-4.5) mmol/L Arterial Blood Glucose 164 H 266 H 263 H (75-99) mg/dL [place] Type B(3) Ab (<1:10) [place] Type B(4) Ab (<1:10) Crossmatch 07/25/19 07/25/19 07/25/19 Range/Units 13:10 13:40 14:34 WBC (3.8-10.6) k/uL RBC (3.80-5.40) m/uL Hgb (11.4-16.0) gm/dL Hct (34.0-46.0) % Neutrophils # (1.3-7.7) k/uL Lymphocytes # (1.0-4.8) k/uL ABG pH 7.33 L (7.35-7.45) ABG pCO2 (35-45) mmHg ABG pO2 365 H 367 H 75 L (83-108) mmHg ABG HCO3 (21-25) mmol/L ABG Total CO2 25 H 25 H (19-24) mmol/L ABG O2 Saturation 99.8 H 99.8 H (94-97) % ABG Hematocrit 24 L 24 L 24 L (34.0-46.0) % ABG Sodium 133 L 133 L (135-146) mmol/L ABG Potassium 5.3 H 5.0 H (3.4-4.5) mmol/L ABG Ionized Calcium 4.4 L 4.4 L (4.5-5.3) mg/dL ABG Glucose 260 H 259 H 172 H (75-99) mg/dL ABG Lactic Acid 2.0 H 1.8 H 1.9 H (0.5-1.6) mmol/L Hemoglobin 7.9 L 7.8 L 7.9 L (11.4-16.0) gm/dL Sodium (137-145) mmol/L Chloride (98-107) mmol/L BUN (7-17) mg/dL Glucose (74-99) mg/dL POC Glucose (mg/dL) (75-99) mg/dL Calcium (8.4-10.2) mg/dL Magnesium (1.6-2.3) mg/dL AST (14-36) U/L ALT (9-52) U/L Total Protein (6.3-8.2) g/dL Albumin (3.5-5.0) g/dL Arterial Blood Potassium 5.3 H 5.0 H (3.4-4.5) mmol/L Arterial Blood Glucose 260 H 259 H 172 H (75-99) mg/dL [place] Type B(3) Ab (<1:10) [place] Type B(4) Ab (<1:10) Crossmatch 07/25/19 07/25/19 07/25/19 Range/Units 15:24 16:10 16:10 WBC 10.9 H (3.8-10.6) k/uL RBC 3.03 L (3.80-5.40) m/uL Hgb 9.3 L D (11.4-16.0) gm/dL Hct 27.4 L (34.0-46.0) % Neutrophils # 8.8 H (1.3-7.7) k/uL Lymphocytes # (1.0-4.8) k/uL ABG pH (7.35-7.45) ABG pCO2 (35-45) mmHg ABG pO2 63 L (83-108) mmHg ABG HCO3 (21-25) mmol/L ABG Total CO2 25 H (19-24) mmol/L ABG O2 Saturation 92.1 L (94-97) % ABG Hematocrit 29 L (34.0-46.0) % ABG Sodium (135-146) mmol/L ABG Potassium (3.4-4.5) mmol/L ABG Ionized Calcium (4.5-5.3) mg/dL ABG Glucose 118 H (75-99) mg/dL ABG Lactic Acid (0.5-1.6) mmol/L Hemoglobin 9.5 L (11.4-16.0) gm/dL Sodium (137-145) mmol/L Chloride 109 H (98-107) mmol/L BUN (7-17) mg/dL Glucose (74-99) mg/dL POC Glucose (mg/dL) (75-99) mg/dL Calcium 8.0 L (8.4-10.2) mg/dL Magnesium 2.8 H (1.6-2.3) mg/dL AST 293 H (14-36) U/L ALT 111 H (9-52) U/L Total Protein 4.4 L (6.3-8.2) g/dL Albumin 2.7 L (3.5-5.0) g/dL Arterial Blood Potassium (3.4-4.5) mmol/L Arterial Blood Glucose 118 H (75-99) mg/dL [place] Type B(3) Ab (<1:10) [place] Type B(4) Ab (<1:10) Crossmatch 07/25/19 07/25/19 07/25/19 Range/Units 16:11 17:00 17:01 WBC (3.8-10.6) k/uL RBC (3.80-5.40) m/uL Hgb (11.4-16.0) gm/dL Hct (34.0-46.0) % Neutrophils # (1.3-7.7) k/uL Lymphocytes # (1.0-4.8) k/uL ABG pH 7.31 L (7.35-7.45) ABG pCO2 51 H (35-45) mmHg ABG pO2 199 H (83-108) mmHg ABG HCO3 (21-25) mmol/L ABG Total CO2 27 H (19-24) mmol/L ABG O2 Saturation 99.6 H (94-97) % ABG Hematocrit (34.0-46.0) % ABG Sodium (135-146) mmol/L ABG Potassium (3.4-4.5) mmol/L ABG Ionized Calcium (4.5-5.3) mg/dL ABG Glucose (75-99) mg/dL ABG Lactic Acid (0.5-1.6) mmol/L Hemoglobin (11.4-16.0) gm/dL Sodium (137-145) mmol/L Chloride (98-107) mmol/L BUN (7-17) mg/dL Glucose (74-99) mg/dL POC Glucose (mg/dL) 101 H 100 H (75-99) mg/dL Calcium (8.4-10.2) mg/dL Magnesium (1.6-2.3) mg/dL AST (14-36) U/L ALT (9-52) U/L Total Protein (6.3-8.2) g/dL Albumin (3.5-5.0) g/dL Arterial Blood Potassium (3.4-4.5) mmol/L Arterial Blood Glucose (75-99) mg/dL [place] Type B(3) Ab (<1:10) [place] Type B(4) Ab (<1:10) Crossmatch 07/25/19 07/25/19 07/25/19 Range/Units 18:14 19:10 19:17 WBC 13.6 H (3.8-10.6) k/uL RBC 3.16 L (3.80-5.40) m/uL Hgb 9.8 L (11.4-16.0) gm/dL Hct 28.6 L (34.0-46.0) % Neutrophils # 11.4 H (1.3-7.7) k/uL Lymphocytes # 0.9 L (1.0-4.8) k/uL ABG pH (7.35-7.45) ABG pCO2 (35-45) mmHg ABG pO2 (83-108) mmHg ABG HCO3 (21-25) mmol/L ABG Total CO2 (19-24) mmol/L ABG O2 Saturation (94-97) % ABG Hematocrit (34.0-46.0) % ABG Sodium (135-146) mmol/L ABG Potassium (3.4-4.5) mmol/L ABG Ionized Calcium (4.5-5.3) mg/dL ABG Glucose (75-99) mg/dL ABG Lactic Acid (0.5-1.6) mmol/L Hemoglobin (11.4-16.0) gm/dL Sodium (137-145) mmol/L Chloride (98-107) mmol/L BUN (7-17) mg/dL Glucose (74-99) mg/dL POC Glucose (mg/dL) 142 H 132 H (75-99) mg/dL Calcium (8.4-10.2) mg/dL Magnesium (1.6-2.3) mg/dL AST (14-36) U/L ALT (9-52) U/L Total Protein (6.3-8.2) g/dL Albumin (3.5-5.0) g/dL Arterial Blood Potassium (3.4-4.5) mmol/L Arterial Blood Glucose (75-99) mg/dL [place] Type B(3) Ab (<1:10) [place] Type B(4) Ab (<1:10) Crossmatch 07/25/19 07/25/19 07/25/19 Range/Units 20:13 21:02 21:11 WBC (3.8-10.6) k/uL RBC (3.80-5.40) m/uL Hgb (11.4-16.0) gm/dL Hct (34.0-46.0) % Neutrophils # (1.3-7.7) k/uL Lymphocytes # (1.0-4.8) k/uL ABG pH (7.35-7.45) ABG pCO2 (35-45) mmHg ABG pO2 (83-108) mmHg ABG HCO3 (21-25) mmol/L ABG Total CO2 25 H (19-24) mmol/L ABG O2 Saturation 97.5 H (94-97) % ABG Hematocrit (34.0-46.0) % ABG Sodium (135-146) mmol/L ABG Potassium (3.4-4.5) mmol/L ABG Ionized Calcium (4.5-5.3) mg/dL ABG Glucose (75-99) mg/dL ABG Lactic Acid (0.5-1.6) mmol/L Hemoglobin (11.4-16.0) gm/dL Sodium (137-145) mmol/L Chloride (98-107) mmol/L BUN (7-17) mg/dL Glucose (74-99) mg/dL POC Glucose (mg/dL) 134 H 129 H (75-99) mg/dL Calcium (8.4-10.2) mg/dL Magnesium (1.6-2.3) mg/dL AST (14-36) U/L ALT (9-52) U/L Total Protein (6.3-8.2) g/dL Albumin (3.5-5.0) g/dL Arterial Blood Potassium (3.4-4.5) mmol/L Arterial Blood Glucose (75-99) mg/dL [place] Type B(3) Ab (<1:10) [place] Type B(4) Ab (<1:10) Crossmatch 07/25/19 07/25/19 07/25/19 Range/Units 22:15 23:04 23:13 WBC (3.8-10.6) k/uL RBC 2.78 L (3.80-5.40) m/uL Hgb 8.6 L (11.4-16.0) gm/dL Hct 25.0 L (34.0-46.0) % Neutrophils # (1.3-7.7) k/uL Lymphocytes # 0.8 L (1.0-4.8) k/uL ABG pH (7.35-7.45) ABG pCO2 (35-45) mmHg ABG pO2 (83-108) mmHg ABG HCO3 (21-25) mmol/L ABG Total CO2 (19-24) mmol/L ABG O2 Saturation (94-97) % ABG Hematocrit (34.0-46.0) % ABG Sodium (135-146) mmol/L ABG Potassium (3.4-4.5) mmol/L ABG Ionized Calcium (4.5-5.3) mg/dL ABG Glucose (75-99) mg/dL ABG Lactic Acid (0.5-1.6) mmol/L Hemoglobin (11.4-16.0) gm/dL Sodium (137-145) mmol/L Chloride (98-107) mmol/L BUN (7-17) mg/dL Glucose (74-99) mg/dL POC Glucose (mg/dL) 121 H 122 H (75-99) mg/dL Calcium (8.4-10.2) mg/dL Magnesium (1.6-2.3) mg/dL AST (14-36) U/L ALT (9-52) U/L Total Protein (6.3-8.2) g/dL Albumin (3.5-5.0) g/dL Arterial Blood Potassium (3.4-4.5) mmol/L Arterial Blood Glucose (75-99) mg/dL [place] Type B(3) Ab (<1:10) [place] Type B(4) Ab (<1:10) Crossmatch 07/26/19 07/26/19 07/26/19 Range/Units 00:04 01:07 02:07 WBC (3.8-10.6) k/uL RBC (3.80-5.40) m/uL Hgb (11.4-16.0) gm/dL Hct (34.0-46.0) % Neutrophils # (1.3-7.7) k/uL Lymphocytes # (1.0-4.8) k/uL ABG pH (7.35-7.45) ABG pCO2 (35-45) mmHg ABG pO2 (83-108) mmHg ABG HCO3 (21-25) mmol/L ABG Total CO2 (19-24) mmol/L ABG O2 Saturation (94-97) % ABG Hematocrit (34.0-46.0) % ABG Sodium (135-146) mmol/L ABG Potassium (3.4-4.5) mmol/L ABG Ionized Calcium (4.5-5.3) mg/dL ABG Glucose (75-99) mg/dL ABG Lactic Acid (0.5-1.6) mmol/L Hemoglobin (11.4-16.0) gm/dL Sodium (137-145) mmol/L Chloride (98-107) mmol/L BUN (7-17) mg/dL Glucose (74-99) mg/dL POC Glucose (mg/dL) 117 H 116 H 115 H (75-99) mg/dL Calcium (8.4-10.2) mg/dL Magnesium (1.6-2.3) mg/dL AST (14-36) U/L ALT (9-52) U/L Total Protein (6.3-8.2) g/dL Albumin (3.5-5.0) g/dL Arterial Blood Potassium (3.4-4.5) mmol/L Arterial Blood Glucose (75-99) mg/dL [place] Type B(3) Ab (<1:10) [place] Type B(4) Ab (<1:10) Crossmatch 07/26/19 07/26/19 07/26/19 Range/Units 03:09 04:10 04:10 WBC (3.8-10.6) k/uL RBC 2.62 L (3.80-5.40) m/uL Hgb 8.0 L (11.4-16.0) gm/dL Hct 23.8 L (34.0-46.0) % Neutrophils # (1.3-7.7) k/uL Lymphocytes # (1.0-4.8) k/uL ABG pH (7.35-7.45) ABG pCO2 (35-45) mmHg ABG pO2 (83-108) mmHg ABG HCO3 (21-25) mmol/L ABG Total CO2 (19-24) mmol/L ABG O2 Saturation (94-97) % ABG Hematocrit (34.0-46.0) % ABG Sodium (135-146) mmol/L ABG Potassium (3.4-4.5) mmol/L ABG Ionized Calcium (4.5-5.3) mg/dL ABG Glucose (75-99) mg/dL ABG Lactic Acid (0.5-1.6) mmol/L Hemoglobin (11.4-16.0) gm/dL Sodium 136 L (137-145) mmol/L Chloride (98-107) mmol/L BUN 18 H (7-17) mg/dL Glucose 104 H (74-99) mg/dL POC Glucose (mg/dL) 111 H (75-99) mg/dL Calcium 8.1 L (8.4-10.2) mg/dL Magnesium (1.6-2.3) mg/dL AST 81 H (14-36) U/L ALT 69 H (9-52) U/L Total Protein 4.6 L (6.3-8.2) g/dL Albumin 2.9 L (3.5-5.0) g/dL Arterial Blood Potassium (3.4-4.5) mmol/L Arterial Blood Glucose (75-99) mg/dL [place] Type B(3) Ab (<1:10) [place] Type B(4) Ab (<1:10) Crossmatch 07/26/19 07/26/19 07/26/19 Range/Units 04:10 05:11 06:27 WBC (3.8-10.6) k/uL RBC (3.80-5.40) m/uL Hgb (11.4-16.0) gm/dL Hct (34.0-46.0) % Neutrophils # (1.3-7.7) k/uL Lymphocytes # (1.0-4.8) k/uL ABG pH (7.35-7.45) ABG pCO2 (35-45) mmHg ABG pO2 (83-108) mmHg ABG HCO3 (21-25) mmol/L ABG Total CO2 (19-24) mmol/L ABG O2 Saturation (94-97) % ABG Hematocrit (34.0-46.0) % ABG Sodium (135-146) mmol/L ABG Potassium (3.4-4.5) mmol/L ABG Ionized Calcium (4.5-5.3) mg/dL ABG Glucose (75-99) mg/dL ABG Lactic Acid (0.5-1.6) mmol/L Hemoglobin (11.4-16.0) gm/dL Sodium (137-145) mmol/L Chloride (98-107) mmol/L BUN (7-17) mg/dL Glucose (74-99) mg/dL POC Glucose (mg/dL) 124 H 118 H 122 H (75-99) mg/dL Calcium (8.4-10.2) mg/dL Magnesium (1.6-2.3) mg/dL AST (14-36) U/L ALT (9-52) U/L Total Protein (6.3-8.2) g/dL Albumin (3.5-5.0) g/dL Arterial Blood Potassium (3.4-4.5) mmol/L Arterial Blood Glucose (75-99) mg/dL [place] Type B(3) Ab (<1:10) [place] Type B(4) Ab (<1:10) Crossmatch 07/26/19 07/26/19 Range/Units 07:12 08:28 WBC (3.8-10.6) k/uL RBC (3.80-5.40) m/uL Hgb (11.4-16.0) gm/dL Hct (34.0-46.0) % Neutrophils # (1.3-7.7) k/uL Lymphocytes # (1.0-4.8) k/uL ABG pH (7.35-7.45) ABG pCO2 (35-45) mmHg ABG pO2 (83-108) mmHg ABG HCO3 (21-25) mmol/L ABG Total CO2 (19-24) mmol/L ABG O2 Saturation (94-97) % ABG Hematocrit (34.0-46.0) % ABG Sodium (135-146) mmol/L ABG Potassium (3.4-4.5) mmol/L ABG Ionized Calcium (4.5-5.3) mg/dL ABG Glucose (75-99) mg/dL ABG Lactic Acid (0.5-1.6) mmol/L Hemoglobin (11.4-16.0) gm/dL Sodium (137-145) mmol/L Chloride (98-107) mmol/L BUN (7-17) mg/dL Glucose (74-99) mg/dL POC Glucose (mg/dL) 129 H 138 H (75-99) mg/dL Calcium (8.4-10.2) mg/dL Magnesium (1.6-2.3) mg/dL AST (14-36) U/L ALT (9-52) U/L Total Protein (6.3-8.2) g/dL Albumin (3.5-5.0) g/dL Arterial Blood Potassium (3.4-4.5) mmol/L Arterial Blood Glucose (75-99) mg/dL [place] Type B(3) Ab (<1:10) [place] Type B(4) Ab (<1:10) Crossmatch Assessment and Plan Plan: Assessment: #2. Triple-vessel coronary artery disease, cardiac catheterization showed RCA 90% occluded, circumflex is 90%, proximal LAD of 20% and mid LAD of 99%, LVEDP was 30 mmHg and moderate to severe mitral valve regurgitation, and left subc lavian stenosis of 90%, status post four-vessel coronary artery bypass using ASCENCION to the LAD, reverse SVG to the first diagonal artery, reverse SVG to OM 2, reverse SVG to the RCA, mitral valve repair and exclusion of the left atrial appendage, post-op day 1 #2. Acute right lower lobe pneumonia, community-acquired, recovered #3. Acute blood loss anemia, expected outcome of bypass surgery and mitral valve repair #4. Elevated troponins with ST elevation in anterior leads, the possibility of ST elevated myocardial infarction versus acute viral myocarditis #5. Acute right lower lobe pneumonia, community-acquired #6. Acute exacerbation of congestive heart failure with systolic dysfunction, and echocardiogram revealed severely impaired LVEF of 30-35%, and moderate to severe mitral regurgitation #7. History of COPD, bedside PFT showed severe obstruction with FEV1 of 1.39 L of 42% of predicted #8. Chronic nicotine dependence, in remission for last 5 days, patient is on Chantix, prior to that patient smoked a pack a day for 33 years #9. History of aortoiliac bypass #10. Recent history of laparoscopic cholecystectomy #11. Insulin-dependent diabetes mellitus type 2 #12. Hyperlipidemia #13. Carotid stenosis, bilateral, 100% on the right and 60% on the left, patient follows with Dr. Rausch. Patient has left subclavian stenosis of 90% #14. Previous history of pneumonia, and frequent bouts of bronchitis Plan: Continue encouraging deep breathing and coughing, maintain pain control, today's chest x-ray has been reviewed, showing some mild pulmonary congestion, and small bilateral pleural effusions and atelectasis. Received a dose of IV Lasix per CT surgery Hemodynamically stable, she was successfully extubated yesterday at 2131. No significant output from the chest tubes. Making good urine. Continue with nebulized bronchodilators, continue close hemodynamic monitoring, will follow patient will remain in the intensive care unit today. I performed a history & physical examination of the patient and discussed their management with my nurse practitioner, Daiana Rosa. I reviewed the nurse practitioner's note and agree with the documented findings and plan of care. Lung sounds are positive for left basilar crackles. The findings and the impre ssion was discussed with the patient. I attest to the documentation by the nurse practitioner. Time with Patient: Greater than 30
[2019-07-26] MEDS: HYDROcodone/APAP 5-325MG 1 EACH TAB PO PRN ×3 (09:45→22:53)
[2019-07-26] MEDS: HEPARIN SODIUM,PORCINE 5,000 UNIT/ML 1 ML VIAL SQ SCH ×2 (09:54→17:28)
[2019-07-26] MEDS: CLOPIDOGREL 75 MG TAB PO SCH (09:55)
[2019-07-26] MEDS: ASPIRIN 325 MG TAB PO SCH (09:55)
[2019-07-26] MEDS: VARENICLINE 1 MG TAB PO SCH ×2 (09:56→21:40)
[2019-07-26] MEDS: METOPROLOL TARTRATE 12.5 MG TAB PO SCH ×2 (09:56→21:40)
[2019-07-26] MEDS: buPROPion 75 MG TAB PO SCH ×2 (10:21→21:40)
[2019-07-26 10:28] LABS: Glucose,Whole Blood 134 mg/dL (75-99)
[2019-07-26] MEDS: INSULIN REGULAR 100 UNIT in SODIUM CHLORIDE 0.9% 100 ML IV SCH (10:28)
[2019-07-26 11:29] LABS: Glucose,Whole Blood 138 mg/dL (75-99)
[2019-07-26 13:05] LABS: Glucose,Whole Blood 134 mg/dL (75-99)
--- NOTE | 2019-07-26 13:13 | PN ---
PROGRESS NOTE Essence is a 49-year-old lady who is status post CABG and status post mitral valve repair, postop day #1. Patient is doing better this morning. She is extubated. Remains in sinus rhythm. Blood pressures are somewhat low and beta blockers are on hold. Her ejection fraction is 30%-35%. She is back on aspirin, Lipitor, Plavix. When blood pressure tolerates, will resume metoprolol. On exam, heart rate is 80 beats per minute, blood pressure is 90/60, respirations 18. Chest exam reveals diminished air entry at the bases. Heart exam reveals first and second heart sounds and a systolic murmur at the left lower sternal border. Abdomen is soft. Exam of the extremities reveals trace edema. Peripheral pulses are felt. Labs show that hemoglobin is 8, platelet count is 156, potassium is 5, creatinine is 0.73. ASSESSMENT: 1. Multivessel coronary artery disease status post coronary artery bypass grafting. 2. Mitral regurgitation status post mitral valve repair. 3. Hypotension. 4. Subclavian stenosis. Patient is doing better. Will continue to work on incentive spirometry and resume medications as tolerated. MMODL / IJN: [id number] /
--- NOTE | 2019-07-26 15:18 | P.PN ---
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 07/24/2019 patient is complaining of vaginal increased infection will use topical antifungals 07/26/2019 Patient underwent CABG 4 vessel along with mitral valve replacement. Patient has 2 mediastinal chest tubes. Patient is on IV insulin drip and IV milrinone drip. Complaining of pain and soreness in the chest area secondary to surgery Constitutional: Denied any fatigue denied any fever. Cardio vascular: Pain in the chest Gastrointestinal denied any nausea vomiting Pulmonary: Denied any shortness of breath cough Neurologic denied any new focal deficits All inpatient medications were reviewed and appropriate changes in these medications as dictated in the interval history and assessment and plan. Objective - Vital Signs Vital signs: Vital Signs Temp 36.9 F L 07/26/19 12:45 Pulse 84 07/26/19 14:00 Resp 15 07/26/19 14:00 BP 91/46 07/26/19 12:45 Pulse Ox 97 07/26/19 14:00 Intake & Output 07/25/19 07/26/19 07/26/19 18:59 06:59 18:59 Intake Total 729.856 2615.139 1185.791 Output Total 1720 1064 650 Balance -3805.847 1687.139 535.791 Weight 67.2 kg 67.2 kg Intake: IV 192 2209 912 ACETAMINOPHEN IV (For NPO 100 ) 1,000 mg In Empty Bag 1 bag @ 400 mls/hr IVPB Q6HR [facility] Rx#:[id number] Albumin Human 5% 250 ml 1000 250 In Empty Bag 1 bag @ 250 mls/hr IVPB Q1HR PRN Rx#: [id number] Calcium Gluconate 2 gm In 100 Sodium Chloride 0.9% 100 ml @ 100 mls/hr IVPB ONCE ONE Rx#:[id number] Injectate 60 360 40 LR 100 600 Pressure Lines: CVP/AL/PA 99 72 Sodium Chloride 0.45% 1, 400 000 ml @ 50 mls/hr IV . Q20H [facility] Rx#:[id number] ceFAZolin 2 gm In Sodium 50 50 Chloride 0.9% 50 ml @ 100 mls/hr IVPB Q8HR [facility] Rx# :[id number] Intake, IV Titration 0.579 93.139 23.791 Amount Insulin Regular 100 unit 0.333 9.417 1.633 In Sodium Chloride 0.9% 100 ml @ Titrate IV .Q0M [facility] Rx#:[id number] Milrinone-D5w Pmx 20 mg 83.722 22.158 In Dextrose/Water 1 100ml .bag @ Per Protocol IV . Q0M [facility] Rx#:[id number] Norepinephrine 4 mg In 0.246 Sodium Chloride 0.9% 250 ml @ 0.02 MCG/KG/MIN 4. 923 mls/hr IV .Q24H [facility] Rx#:[id number] Oral 50 250 Output: Chest Tube Drainage 245 270 25 MS x2 85 160 8 Right Pleural 160 110 17 Gastric Drainage 40 Drainage 30 25 Right Leg BARBRA 30 25 Urine 475 724 600 Estimated Blood Loss 1000 Other: Voiding Method Indwelling Catheter Indwelling Catheter ABP, PAP, CO, CI - Last Documented Arterial Blood Pressure 93/39 Pulmonary Artery Pressure 33/19 Cardiac Output 5 Cardiac Index 2.8 - Exam PHYSICAL EXAMINATION: GENERAL: The patient is alert and oriented x3, not in any acute distress. Well developed, well nourished. Mediastinal chest tubes as mentioned above patient has a [place] HEENT: Pupils are round and equally reacting to light. EOMI. No scleral icterus. No conjunctival pallor. Normocephalic, atraumatic. No pharyngeal erythema. No thyromegaly. CARDIOVASCULAR: S1 and S2 present. No murmurs, rubs, or gallops. PULMONARY: Chest is clear to auscultation, no wheezing or crackles. ABDOMEN: Soft, nontender, nondistended, normoactive bowel sounds. No palpable organomegaly. MUSCULOSKELETAL: No joint swelling or deformity. EXTREMITIES: No cyanosis, clubbing, or pedal edema. NEUROLOGICAL: Gross neurological examination did not reveal any focal deficits. SKIN: No rashes. - Labs CBC & Chem 7: 07/26/19 04:10 07/26/19 04:10 Labs: Abnormal Lab Results - Last 24 Hours (Table) 07/17/19 07/24/19 07/25/19 Range/Units 08:15 06:11 15:24 WBC (3.8-10.6) k/uL RBC (3.80-5.40) m/uL Hgb (11.4-16.0) gm/dL Hct (34.0-46.0) % Neutrophils # (1.3-7.7) k/uL Lymphocytes # (1.0-4.8) k/uL ABG pH (7.35-7.45) ABG pCO2 (35-45) mmHg ABG pO2 63 L (83-108) mmHg ABG Total CO2 25 H (19-24) mmol/L ABG O2 Saturation 92.1 L (94-97) % ABG Hematocrit 29 L (34.0-46.0) % ABG Glucose 118 H (75-99) mg/dL Hemoglobin 9.5 L (11.4-16.0) gm/dL Sodium (137-145) mmol/L Chloride (98-107) mmol/L BUN (7-17) mg/dL Glucose (74-99) mg/dL POC Glucose (mg/dL) (75-99) mg/dL Calcium (8.4-10.2) mg/dL Magnesium (1.6-2.3) mg/dL AST (14-36) U/L ALT (9-52) U/L Total Protein (6.3-8.2) g/dL Albumin (3.5-5.0) g/dL Arterial Blood Glucose 118 H (75-99) mg/dL [place] Type B(3) Ab 1:80 H (<1:10) [place] Type B(4) Ab >= 1:640 H (<1:10) Crossmatch See Detail 07/25/19 07/25/19 07/25/19 Range/Units 16:10 16:10 16:11 WBC 10.9 H (3.8-10.6) k/uL RBC 3.03 L (3.80-5.40) m/uL Hgb 9.3 L D (11.4-16.0) gm/dL Hct 27.4 L (34.0-46.0) % Neutrophils # 8.8 H (1.3-7.7) k/uL Lymphocytes # (1.0-4.8) k/uL ABG pH (7.35-7.45) ABG pCO2 (35-45) mmHg ABG pO2 (83-108) mmHg ABG Total CO2 (19-24) mmol/L ABG O2 Saturation (94-97) % ABG Hematocrit (34.0-46.0) % ABG Glucose (75-99) mg/dL Hemoglobin (11.4-16.0) gm/dL Sodium (137-145) mmol/L Chloride 109 H (98-107) mmol/L BUN (7-17) mg/dL Glucose (74-99) mg/dL POC Glucose (mg/dL) 101 H (75-99) mg/dL Calcium 8.0 L (8.4-10.2) mg/dL Magnesium 2.8 H (1.6-2.3) mg/dL AST 293 H (14-36) U/L ALT 111 H (9-52) U/L Total Protein 4.4 L (6.3-8.2) g/dL Albumin 2.7 L (3.5-5.0) g/dL Arterial Blood Glucose (75-99) mg/dL [place] Type B(3) Ab (<1:10) [place] Type B(4) Ab (<1:10) Crossmatch 07/25/19 07/25/19 07/25/19 Range/Units 17:00 17:01 18:14 WBC (3.8-10.6) k/uL RBC (3.80-5.40) m/uL Hgb (11.4-16.0) gm/dL Hct (34.0-46.0) % Neutrophils # (1.3-7.7) k/uL Lymphocytes # (1.0-4.8) k/uL ABG pH 7.31 L (7.35-7.45) ABG pCO2 51 H (35-45) mmHg ABG pO2 199 H (83-108) mmHg ABG Total CO2 27 H (19-24) mmol/L ABG O2 Saturation 99.6 H (94-97) % ABG Hematocrit (34.0-46.0) % ABG Glucose (75-99) mg/dL Hemoglobin (11.4-16.0) gm/dL Sodium (137-145) mmol/L Chloride (98-107) mmol/L BUN (7-17) mg/dL Glucose (74-99) mg/dL POC Glucose (mg/dL) 100 H 142 H (75-99) mg/dL Calcium (8.4-10.2) mg/dL Magnesium (1.6-2.3) mg/dL AST (14-36) U/L ALT (9-52) U/L Total Protein (6.3-8.2) g/dL Albumin (3.5-5.0) g/dL Arterial Blood Glucose (75-99) mg/dL [place] Type B(3) Ab (<1:10) [place] Type B(4) Ab (<1:10) Crossmatch 07/25/19 07/25/19 07/25/19 Range/Units 19:10 19:17 20:13 WBC 13.6 H (3.8-10.6) k/uL RBC 3.16 L (3.80-5.40) m/uL Hgb 9.8 L (11.4-16.0) gm/dL Hct 28.6 L (34.0-46.0) % Neutrophils # 11.4 H (1.3-7.7) k/uL Lymphocytes # 0.9 L (1.0-4.8) k/uL ABG pH (7.35-7.45) ABG pCO2 (35-45) mmHg ABG pO2 (83-108) mmHg ABG Total CO2 (19-24) mmol/L ABG O2 Saturation (94-97) % ABG Hematocrit (34.0-46.0) % ABG Glucose (75-99) mg/dL Hemoglobin (11.4-16.0) gm/dL Sodium (137-145) mmol/L Chloride (98-107) mmol/L BUN (7-17) mg/dL Glucose (74-99) mg/dL POC Glucose (mg/dL) 132 H 134 H (75-99) mg/dL Calcium (8.4-10.2) mg/dL Magnesium (1.6-2.3) mg/dL AST (14-36) U/L ALT (9-52) U/L Total Protein (6.3-8.2) g/dL Albumin (3.5-5.0) g/dL Arterial Blood Glucose (75-99) mg/dL [place] Type B(3) Ab (<1:10) [place] Type B(4) Ab (<1:10) Crossmatch 07/25/19 07/25/19 07/25/19 Range/Units 21:02 21:11 22:15 WBC (3.8-10.6) k/uL RBC (3.80-5.40) m/uL Hgb (11.4-16.0) gm/dL Hct (34.0-46.0) % Neutrophils # (1.3-7.7) k/uL Lymphocytes # (1.0-4.8) k/uL ABG pH (7.35-7.45) ABG pCO2 (35-45) mmHg ABG pO2 (83-108) mmHg ABG Total CO2 25 H (19-24) mmol/L ABG O2 Saturation 97.5 H (94-97) % ABG Hematocrit (34.0-46.0) % ABG Glucose (75-99) mg/dL Hemoglobin (11.4-16.0) gm/dL Sodium (137-145) mmol/L Chloride (98-107) mmol/L BUN (7-17) mg/dL Glucose (74-99) mg/dL POC Glucose (mg/dL) 129 H 121 H (75-99) mg/dL Calcium (8.4-10.2) mg/dL Magnesium (1.6-2.3) mg/dL AST (14-36) U/L ALT (9-52) U/L Total Protein (6.3-8.2) g/dL Albumin (3.5-5.0) g/dL Arterial Blood Glucose (75-99) mg/dL [place] Type B(3) Ab (<1:10) [place] Type B(4) Ab (<1:10) Crossmatch 07/25/19 07/25/19 07/26/19 Range/Units 23:04 23:13 00:04 WBC (3.8-10.6) k/uL RBC 2.78 L (3.80-5.40) m/uL Hgb 8.6 L (11.4-16.0) gm/dL Hct 25.0 L (34.0-46.0) % Neutrophils # (1.3-7.7) k/uL Lymphocytes # 0.8 L (1.0-4.8) k/uL ABG pH (7.35-7.45) ABG pCO2 (35-45) mmHg ABG pO2 (83-108) mmHg ABG Total CO2 (19-24) mmol/L ABG O2 Saturation (94-97) % ABG Hematocrit (34.0-46.0) % ABG Glucose (75-99) mg/dL Hemoglobin (11.4-16.0) gm/dL Sodium (137-145) mmol/L Chloride (98-107) mmol/L BUN (7-17) mg/dL Glucose (74-99) mg/dL POC Glucose (mg/dL) 122 H 117 H (75-99) mg/dL Calcium (8.4-10.2) mg/dL Magnesium (1.6-2.3) mg/dL AST (14-36) U/L ALT (9-52) U/L Total Protein (6.3-8.2) g/dL Albumin (3.5-5.0) g/dL Arterial Blood Glucose (75-99) mg/dL [place] Type B(3) Ab (<1:10) [place] Type B(4) Ab (<1:10) Crossmatch 07/26/19 07/26/19 07/26/19 Range/Units 01:07 02:07 03:09 WBC (3.8-10.6) k/uL RBC (3.80-5.40) m/uL Hgb (11.4-16.0) gm/dL Hct (34.0-46.0) % Neutrophils # (1.3-7.7) k/uL Lymphocytes # (1.0-4.8) k/uL ABG pH (7.35-7.45) ABG pCO2 (35-45) mmHg ABG pO2 (83-108) mmHg ABG Total CO2 (19-24) mmol/L ABG O2 Saturation (94-97) % ABG Hematocrit (34.0-46.0) % ABG Glucose (75-99) mg/dL Hemoglobin (11.4-16.0) gm/dL Sodium (137-145) mmol/L Chloride (98-107) mmol/L BUN (7-17) mg/dL Glucose (74-99) mg/dL POC Glucose (mg/dL) 116 H 115 H 111 H (75-99) mg/dL Calcium (8.4-10.2) mg/dL Magnesium (1.6-2.3) mg/dL AST (14-36) U/L ALT (9-52) U/L Total Protein (6.3-8.2) g/dL Albumin (3.5-5.0) g/dL Arterial Blood Glucose (75-99) mg/dL [place] Type B(3) Ab (<1:10) [place] Type B(4) Ab (<1:10) Crossmatch 07/26/19 07/26/19 07/26/19 Range/Units 04:10 04:10 04:10 WBC (3.8-10.6) k/uL RBC 2.62 L (3.80-5.40) m/uL Hgb 8.0 L (11.4-16.0) gm/dL Hct 23.8 L (34.0-46.0) % Neutrophils # (1.3-7.7) k/uL Lymphocytes # (1.0-4.8) k/uL ABG pH (7.35-7.45) ABG pCO2 (35-45) mmHg ABG pO2 (83-108) mmHg ABG Total CO2 (19-24) mmol/L ABG O2 Saturation (94-97) % ABG Hematocrit (34.0-46.0) % ABG Glucose (75-99) mg/dL Hemoglobin (11.4-16.0) gm/dL Sodium 136 L (137-145) mmol/L Chloride (98-107) mmol/L BUN 18 H (7-17) mg/dL Glucose 104 H (74-99) mg/dL POC Glucose (mg/dL) 124 H (75-99) mg/dL Calcium 8.1 L (8.4-10.2) mg/dL Magnesium (1.6-2.3) mg/dL AST 81 H (14-36) U/L ALT 69 H (9-52) U/L Total Protein 4.6 L (6.3-8.2) g/dL Albumin 2.9 L (3.5-5.0) g/dL Arterial Blood Glucose (75-99) mg/dL [place] Type B(3) Ab (<1:10) [place] Type B(4) Ab (<1:10) Crossmatch 07/26/19 07/26/19 07/26/19 Range/Units 05:11 06:27 07:12 WBC (3.8-10.6) k/uL RBC (3.80-5.40) m/uL Hgb (11.4-16.0) gm/dL Hct (34.0-46.0) % Neutrophils # (1.3-7.7) k/uL Lymphocytes # (1.0-4.8) k/uL ABG pH (7.35-7.45) ABG pCO2 (35-45) mmHg ABG pO2 (83-108) mmHg ABG Total CO2 (19-24) mmol/L ABG O2 Saturation (94-97) % ABG Hematocrit (34.0-46.0) % ABG Glucose (75-99) mg/dL Hemoglobin (11.4-16.0) gm/dL Sodium (137-145) mmol/L Chloride (98-107) mmol/L BUN (7-17) mg/dL Glucose (74-99) mg/dL POC Glucose (mg/dL) 118 H 122 H 129 H (75-99) mg/dL Calcium (8.4-10.2) mg/dL Magnesium (1.6-2.3) mg/dL AST (14-36) U/L ALT (9-52) U/L Total Protein (6.3-8.2) g/dL Albumin (3.5-5.0) g/dL Arterial Blood Glucose (75-99) mg/dL [place] Type B(3) Ab (<1:10) [place] Type B(4) Ab (<1:10) Crossmatch 07/26/19 07/26/19 07/26/19 Range/Units 08:28 10:26 11:28 WBC (3.8-10.6) k/uL RBC (3.80-5.40) m/uL Hgb (11.4-16.0) gm/dL Hct (34.0-46.0) % Neutrophils # (1.3-7.7) k/uL Lymphocytes # (1.0-4.8) k/uL ABG pH (7.35-7.45) ABG pCO2 (35-45) mmHg ABG pO2 (83-108) mmHg ABG Total CO2 (19-24) mmol/L ABG O2 Saturation (94-97) % ABG Hematocrit (34.0-46.0) % ABG Glucose (75-99) mg/dL Hemoglobin (11.4-16.0) gm/dL Sodium (137-145) mmol/L Chloride (98-107) mmol/L BUN (7-17) mg/dL Glucose (74-99) mg/dL POC Glucose (mg/dL) 138 H 134 H 138 H (75-99) mg/dL Calcium (8.4-10.2) mg/dL Magnesium (1.6-2.3) mg/dL AST (14-36) U/L ALT (9-52) U/L Total Protein (6.3-8.2) g/dL Albumin (3.5-5.0) g/dL Arterial Blood Glucose (75-99) mg/dL [place] Type B(3) Ab (<1:10) [place] Type B(4) Ab (<1:10) Crossmatch 07/26/19 Range/Units 13:01 WBC (3.8-10.6) k/uL RBC (3.80-5.40) m/uL Hgb (11.4-16.0) gm/dL Hct (34.0-46.0) % Neutrophils # (1.3-7.7) k/uL Lymphocytes # (1.0-4.8) k/uL ABG pH (7.35-7.45) ABG pCO2 (35-45) mmHg ABG pO2 (83-108) mmHg ABG Total CO2 (19-24) mmol/L ABG O2 Saturation (94-97) % ABG Hematocrit (34.0-46.0) % ABG Glucose (75-99) mg/dL Hemoglobin (11.4-16.0) gm/dL Sodium (137-145) mmol/L Chloride (98-107) mmol/L BUN (7-17) mg/dL Glucose (74-99) mg/dL POC Glucose (mg/dL) 134 H (75-99) mg/dL Calcium (8.4-10.2) mg/dL Magnesium (1.6-2.3) mg/dL AST (14-36) U/L ALT (9-52) U/L Total Protein (6.3-8.2) g/dL Albumin (3.5-5.0) g/dL Arterial Blood Glucose (75-99) mg/dL [place] Type B(3) Ab (<1:10) [place] Type B(4) Ab (<1:10) Crossmatch Assessment and Plan Plan: current artery disease with severe triple-vessel disease, patient had coronary artery bypass grafting along with mitral valve repair. 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
[2019-07-26 16:12] LABS: Glucose,Whole Blood 151 mg/dL (75-99)
[2019-07-26] MEDS: NOREPINEPHRINE 4 MG in SODIUM CHLORIDE 0.9% 250 ML IV SCH ×2 (16:30→21:43)
[2019-07-26] MEDS: CLEVIDIPINE BUTYRATE 25 MG in EMPTY BAG 1 BAG IV SCH (16:30)
[2019-07-26 17:27] LABS: Glucose,Whole Blood 147 mg/dL (75-99)
[2019-07-26 19:17] LABS: Glucose,Whole Blood 145 mg/dL (75-99)
[2019-07-26 21:23] LABS: Glucose,Whole Blood 140 mg/dL (75-99)
[2019-07-26] MEDS: SENNOSIDES-DOCUSATE SODIUM 1 EACH TAB PO SCH (21:40)
[2019-07-26] MEDS: ATORVASTATIN 40 MG TAB PO SCH (21:40)
[2019-07-26 22:45] LABS: Glucose,Whole Blood 144 mg/dL (75-99)
[2019-07-27] MEDS: KETOROLAC 30 MG/ML 1 ML VIAL IVP SCH ×5 (00:27→16:51)
[2019-07-27] MEDS: HEPARIN SODIUM,PORCINE 5,000 UNIT/ML 1 ML VIAL SQ SCH ×3 (00:27→15:36)
[2019-07-27] MEDS: ALBUMIN HUMAN 5% 250 ML in EMPTY BAG 1 BAG IVPB PRN ×2 (00:28→06:46)
[2019-07-27 00:39] LABS: Glucose,Whole Blood 159 mg/dL (75-99)
[2019-07-27 02:04] LABS: Glucose,Whole Blood 156 mg/dL (75-99)
[2019-07-27 04:27] LABS: Glucose,Whole Blood 119 mg/dL (75-99)
[2019-07-27 04:43] LABS: Basophils % (A) 0 %; Eosinophils # (A) 0.5 k/uL (0-0.7); Eosinophils % (A) 5 %; HCT 24.2 % (34.0-46.0); HGB 8.2 gm/dL (11.4-16.0); Lymphocytes # (A) 1.5 k/uL (1.0-4.8); Lymphocytes % (A) 14 %; MCH 30.7 pg (25.0-35.0); MCHC 33.8 g/dL (31.0-37.0); MCV 90.9 fL (80.0-100.0); Monocytes # (A) 0.7 k/uL (0-1.0); Monocytes % (A) 7 %; Neutrophils # (A) 7.2 k/uL (1.3-7.7); Neutrophils % (A) 70 %; Platelet Count 197 k/uL (150-450); RBC 2.66 m/uL (3.80-5.40); RDW 12.6 % (11.5-15.5); WBC 10.3 k/uL (3.8-10.6)
[2019-07-27 04:47] LABS: Ionized Calcium 4.9 mg/dL (4.5-5.3)
[2019-07-27 04:57] LABS: Albumin 3.4 g/dL (3.5-5.0); Calcium 8.8 mg/dL (8.4-10.2); Potassium 4.6 mmol/L (3.5-5.1); Total Bilirubin 0.8 mg/dL (0.2-1.3); Total Protein 5.2 g/dL (6.3-8.2)
[2019-07-27 05:50] LABS: Glucose,Whole Blood 114 mg/dL (75-99)
[2019-07-27] MEDS: SODIUM CHLORIDE 0.45% 1,000 ML IV SCH ×2 (06:12→22:09)
[2019-07-27] MEDS: MILRINONE-D5W PMX 20 MG in DEXTROSE/WATER 1 100ML.BAG IV SCH (06:13)
[2019-07-27 06:44] LABS: Glucose,Whole Blood 95 mg/dL (75-99)
[2019-07-27] MEDS: PANTOPRAZOLE 40 MG TABLET PO SCH (06:48)
[2019-07-27] MEDS ORDERED: CALCIUM GLUCONATE 1 GM in SODIUM CHLORIDE 0.9% 100 ML IVPB ONE (07:17)
[2019-07-27 08:00] LABS: Glucose,Whole Blood 101 mg/dL (75-99)
[2019-07-27] MEDS: METOPROLOL TARTRATE 12.5 MG TAB PO SCH (08:01)
[2019-07-27] MEDS: CLOPIDOGREL 75 MG TAB PO SCH (08:01)
[2019-07-27] MEDS: VARENICLINE 1 MG TAB PO SCH ×2 (08:02→20:54)
[2019-07-27] MEDS: buPROPion 75 MG TAB PO SCH (08:02)
[2019-07-27] MEDS: ASPIRIN 325 MG TAB PO SCH (08:02)
[2019-07-27] MEDS: IPRATROPIUM-ALBUTEROL 3 ML NEB INHALATION SCH ×4 (08:39→19:37)
[2019-07-27] MEDS: BUDESONIDE 1 MG/2 ML NEBU INHALATION SCH ×2 (08:39→19:36)
[2019-07-27 08:54] LABS: Glucose,Whole Blood 113 mg/dL (75-99)
--- NOTE | 2019-07-27 09:15 | XR ---
EXAMINATION TYPE: XR chest 1V portable DATE OF EXAM: 07/27/2019 COMPARISON: 07/26/2019 INDICATION: Postoperative cardiac surgery TECHNIQUE: Single frontal view of the chest is obtained. FINDINGS: The heart size is probably prominent.. The pulmonary vasculature is normal. There is an infiltrate at the right lung base. Correlate for atelectasis. Some minimal left pleural effusion may be present. Findings are similar to previous exam. [place] catheter is present with tip in the main pulmonary artery region. Right-sided chest tube is present. No pneumothorax is evident. Sternotomy wires are present from prior cardiac surgery. IMPRESSION: 1. Right lower lobe infiltrate. Correlate for atelectasis. Continued follow-up is recommended. 2. Small left pleural effusion. 3. [place] catheter and right chest tube remain in position.
--- NOTE | 2019-07-27 09:26 | P.PN ---
Subjective Progress Note Date: 07/27/19 Principal diagnosis: Severe triple-vessel coronary artery disease, NSTEMI this admission, severe mitral valve regurgitation, acute systolic heart failure with moderately impaired left ventricular systolic function and EF 30-35%, right lower lobe pneumonia present on admission. 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 POD #2 urgent quadruple coronary artery bypass grafting using the in situ right internal mammary artery crossing anteriorly over the aorta in the midline to the left anterior descending artery, a reverse greater saphenous vein graft from the aorta to the first diagonal coronary artery, a reverse greater saphenous vein graft from the aorta to the second obtuse marginal coronary artery, a reverse greater saphenous vein graft from the aorta to the RCA into the PDA. Mitral gisell ve repair with posterior annuloplasty using a 28 mm AnnuloFlex ring. Exclusion of the left atrial appendage using a 35 mm AtriClip. Endoscopic vein harvesting of the right greater saphenous vein from the groin to above the ankle level. Intraoperative transesophageal echocardiogram and epi-aortic scanning. Graft flow measurements using the [employer] system. Postoperative acute blood loss anemia, expected outcome given hemodilution and cardiopulmonary bypass pump. The patient's currently sitting up in the bedside chair in the intensive care unit. She is in no acute distress. She is complaining of post surgical pain to her chest tube insertion sites. She has been refusing pain medication throughout the night. Denies complaints of shortness of breath. She achieving 500 ml on her incentive spirometry with encouragement. She is hemodynamically stable with her norepinephrine drip on hold, although she currently has Primacor running at 0.1 mcg/kg/m. Current hemodynamics are cardiac output 3.9, cardiac index 2.2, PA pressures 41/19, CVP 7 mmHg. Mediastinal and right pleural chest tubes remained to low continuous wall suction -20 cm H2O. No air leak is present. Draining thin serosanguineous drainage. Freedom/Cordis, arterial line all remain in place. Objective - Vital Signs Vital signs: Vital Signs Temp 36.9 F L 07/26/19 12:45 Pulse 90 07/27/19 07:00 Resp 16 07/27/19 07:00 BP 90/67 07/26/19 19:00 Pulse Ox 91 L 07/27/19 07:00 Intake & Output 07/26/19 07/27/19 07/27/19 18:59 06:59 18:59 Intake Total 1695.274 881.400 53 Output Total 780 394 40 Balance 915.274 487.400 13 Weight 67.2 kg 70.9 kg Intake: IV 1168 782 53 Albumin Human 5% 250 ml 250 In Empty Bag 1 bag @ 250 mls/hr IVPB Q1HR PRN Rx#: [id number] Calcium Gluconate 2 gm In 100 Sodium Chloride 0.9% 100 ml @ 100 mls/hr IVPB ONCE ONE Rx#:[id number] Injectate 60 80 Pressure Lines: CVP/AL/PA 108 102 3 Sodium Chloride 0.45% 1, 600 600 50 000 ml @ 50 mls/hr IV . Q20H [facility] Rx#:[id number] ceFAZolin 2 gm In Sodium 50 Chloride 0.9% 50 ml @ 100 mls/hr IVPB Q8HR [facility] Rx# :[id number] Intake, IV Titration 27.274 99.400 Amount Insulin Regular 100 unit 5.116 22.958 In Sodium Chloride 0.9% 100 ml @ Titrate IV .Q0M [facility] Rx#:[id number] Milrinone-D5w Pmx 20 mg 22.158 34.432 In Dextrose/Water 1 100ml .bag @ Per Protocol IV . Q0M [facility] Rx#:[id number] Norepinephrine 4 mg In 42.010 Sodium Chloride 0.9% 250 ml @ 0.03 MCG/KG/MIN 7. 384 mls/hr IV .Q24H [facility] Rx#:[id number] Oral 500 Output: Chest Tube Drainage 45 91 MS x2 21 59 Right Pleural 24 32 Drainage 25 40 Right Leg BARBRA 25 40 Urine 710 303 0 Other: Voiding Method Indwelling Catheter Indwelling Catheter ABP, PAP, CO, CI - Last Documented Arterial Blood Pressure 88/37 Pulmonary Artery Pressure 42/17 Cardiac Output 3.7 Cardiac Index 2.1 - Constitutional General appearance: Present: cooperative, no acute distress, thin - Respiratory Details: Lung sounds essentially clear to her bilateral upper lobes, diminished bilateral bases. Respirations are symmetrical and nonlabored. Oxygen saturation are 96% on room air. Achieving 500 mL on her incentive spirometry. Mediastinal and right pleural chest tubes remain in place to low continuous wall suction -20 cm H2O. No air leak is present. Draining thin serosanguineous drainage. - Cardiovascular Details: Regular rhythm and rate. S1 and S2 present, negative for S3, gallop or murmur. Sternum is stable. Atrial and ventricular epicardial pacemaker wires in place and grounded. Heart hugger is in place and she is demonstrating appropriate use. Bedside telemetry showing normal sinus rhythm heart rate 87. Knee-high YOLANDA hose and sequential compression devices in place to bilateral lower extremities. No edema present. Right IJ Cordis with Freedom-Chidi catheter in place. - Gastrointestinal Gastrointestinal Comment(s): Abdomen is soft, nontender and nondistended. Active bowel sounds present in all 4 abdominal quadrants. No guarding or rigidity. No organomegaly appreciated. Passing flatus. - Genitourinary Genitourinary Comment(s): Voiding clear yellow urine. - Integumentary Integumentary Comment(s): Skin is warm and dry. No clubbing or cyanosis is present. Midline sternal incision is clean, dry and approximated. No drainage or redness is present. Right lower extremity EVH site clean, dry and approximated. No drainage or redness is present. Right lower extremity BARBRA drain in place, draining scant serosanguineous drainage. - Neurologic Neurologic Comment(s): No focal deficits. Neurologic: Present: CNII-XII intact - Musculoskeletal Musculoskeletal: Present: gait normal, generalized weakness, strength equal bi laterally - Psychiatric Psychiatric: Present: A&O x's 3, appropriate affect, intact judgment & insight - Allied health notes Allied health notes reviewed: nursing - Labs CBC & Chem 7: 07/27/19 04:20 07/27/19 04:20 Labs: Abnormal Lab Results - Last 24 Hours (Table) 07/26/19 07/26/19 07/26/19 Range/Units 10:26 11:28 13:01 RBC (3.80-5.40) m/uL Hgb (11.4-16.0) gm/dL Hct (34.0-46.0) % Sodium (137-145) mmol/L Carbon Dioxide (22-30) mmol/L BUN (7-17) mg/dL Glucose (74-99) mg/dL POC Glucose (mg/dL) 134 H 138 H 134 H (75-99) mg/dL AST (14-36) U/L ALT (9-52) U/L Total Protein (6.3-8.2) g/dL Albumin (3.5-5.0) g/dL 07/26/19 07/26/19 07/26/19 Range/Units 16:10 17:26 19:16 RBC (3.80-5.40) m/uL Hgb (11.4-16.0) gm/dL Hct (34.0-46.0) % Sodium (137-145) mmol/L Carbon Dioxide (22-30) mmol/L BUN (7-17) mg/dL Glucose (74-99) mg/dL POC Glucose (mg/dL) 151 H 147 H 145 H (75-99) mg/dL AST (14-36) U/L ALT (9-52) U/L Total Protein (6.3-8.2) g/dL Albumin (3.5-5.0) g/dL 07/26/19 07/26/19 07/27/19 Range/Units 21:22 22:44 00:38 RBC (3.80-5.40) m/uL Hgb (11.4-16.0) gm/dL Hct (34.0-46.0) % Sodium (137-145) mmol/L Carbon Dioxide (22-30) mmol/L BUN (7-17) mg/dL Glucose (74-99) mg/dL POC Glucose (mg/dL) 140 H 144 H 159 H (75-99) mg/dL AST (14-36) U/L ALT (9-52) U/L Total Protein (6.3-8.2) g/dL Albumin (3.5-5.0) g/dL 07/27/19 07/27/19 07/27/19 Range/Units 02:02 04:20 04:20 RBC 2.66 L (3.80-5.40) m/uL Hgb 8.2 L (11.4-16.0) gm/dL Hct 24.2 L (34.0-46.0) % Sodium 134 L (137-145) mmol/L Carbon Dioxide 21 L (22-30) mmol/L BUN 26 H (7-17) mg/dL Glucose 112 H (74-99) mg/dL POC Glucose (mg/dL) 156 H (75-99) mg/dL AST 187 H (14-36) U/L ALT 96 H (9-52) U/L Total Protein 5.2 L (6.3-8.2) g/dL Albumin 3.4 L (3.5-5.0) g/dL 07/27/19 07/27/19 07/27/19 Range/Units 04:25 05:48 07:59 RBC (3.80-5.40) m/uL Hgb (11.4-16.0) gm/dL Hct (34.0-46.0) % Sodium (137-145) mmol/L Carbon Dioxide (22-30) mmol/L BUN (7-17) mg/dL Glucose (74-99) mg/dL POC Glucose (mg/dL) 119 H 114 H 101 H (75-99) mg/dL AST (14-36) U/L ALT (9-52) U/L Total Protein (6.3-8.2) g/dL Albumin (3.5-5.0) g/dL - Imaging and Cardiology Chest x-ray: image reviewed Assessment and Plan Assessment: 1. Severe triple-vessel coronary artery disease, status post urgent 4 vessel CABG 2. Non-STEMI this admission 3. Severe mitral valve regurgitation per transesophageal echocardiogram, status post mitral valve repair with an AnnuloFlex ring 4. Acute systolic heart failure with moderately impaired left ventricular systolic function, EF 30-35% 5. Right lower lobe pneumonia, community-acquired 6. Hyperlipidemia 7. Insulin-dependent diabetes mellitus with HgbA1c 7.6% 8. 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 TIA in 2007 11. Chronic current nicotine dependence, currently on Chantix 12. Severe COPD with preoperative FEV1 42% of predicted 13. Hyperthyroidism 14. Recent laparoscopic cholecystectomy 15. Depressive disorder 16. Family history of heart disease 17. Postoperative acute blood loss anemia Plan: 1. Continue aspirin, statin, Plavix and beta kirk. Will increase her beta kirk as tolerated. Will add DEVON inhibitor when able. 2. Encourage use of her incentive spirometry 10 times every hour while awake. 3. Reinforce the importance of smoking cessation, continue Chantix. 4. Bronchodilators, inhaled steroids per pulmonology management. 5. Increase activity as tolerated, PT/OT/cardiac rehab following. 6. Discontinue Primacor. 7. Discontinue [place] catheter. Continue accurate intake and output. 8. GI/DVT prophylaxis 9. Insulin management per primary care service. 10. Pain control with current medication regimen. Discontinue [place]. 11. Discontinue mediastinal and right pleural chest tubes. 12. 1 g of calcium gluconate 1 now. 13. Patient may have left subclavian artery stented in the future with Dr. Monet, as she has a left subclavian stenosis. This was discussed between Dr. Monet and Dr. Sarmiento, as well as with the patient and all are in agreement. 14. More recommendations to follow based on patient's clinical course. Mediastinal and right pleural chest tubes removed without incident at 9 AM today. 4 x 4 gauze dressing with Vaseline impregnated gauze to cover and secured with tape. Time with Patient: Greater than 30
--- NOTE | 2019-07-27 09:41 | P.PN ---
Subjective Progress Note Date: 07/27/19 Principal diagnosis: Right lower lobe pneumonia, triple-vessel coronary artery disease This is a 49-year-old white female patient of Dr. Freya Miles, who sees Elieser Serna PA-C at her office, has passed [facility] history of COPD, not on oxygen at baseline, previous history of pneumonia, frequent bouts of bronchitis, carotid artery stenosis, and patient has a known 100% right carotid stenosis and 60% left-sided carotid stenosis she follows with Dr. Rausch, previous episode of myocardial infarction 8 years ago, diabetes mellitus type 2 on insulin, and patient carries [id number] smoking history, she recently quit 5 days ago, she is currently on Chantix. Patient presented to the emergency department on 07/17/2019 with complaints of midsternal chest pain, which was nonradiating, which was exacerbated by episodes of coughing and deep breathing, increased cough, non-productive, denied any fever, chills, denied any hemoptysis. Patient was a transfer from [facility]. Apparently last week she had a upper respiratory infection, cough and intermittent chest pain. She developed worsening of the pleuritic chest pain worse with inspiration. EKG was obtained on admission showing sinus tachycardia, 1,[address] elevation in V2 and V3, V4 and V5. Labs showed mild leukocytosis with a white blood cell count of 11.7, hemoglobin of 13.9, electrolytes and renal profile were unremarkable with the exception of CO2 which was at 21, glucose was elevated at 350, troponin came back elevated at 3.340, and 5.5, proBNP was 7190, and subsequent one came down to 5330. Chest x-ray showed right lower lobe airspace disease likely related to pneumonia, and increased diffuse interstitial markings consistent with mild interstitial edema. She has been afebrile, she is maintaining stable oxygenation on room air, she has been started on Rocephin and Zithromax, she was given a dose of IV Lasix in the emergency department, she is being evaluated by cardiology, and her echocardiogram revealed moderately severe impaired LVEF of 30-35%, hypokinesis involving the apical anterior lateral LV wall, lateral LV wall and inferior LV wall, as well as a septal wall. There is mild aortic regurgitation, moderate mitral regurgitation, trace pulmonic regurgitation, no pericardial effusion. On 07/19/2019 patient seen in follow-up on selective care unit, she is awake and alert, she had just returned from the heart catheterization and she was found to have evidence of multivessel coronary artery disease and she was referred to cardiothoracic surgery for possibility of bypass grafting. She is resting comfortably in bed, she slightly upset, but no acute distress, she states her breathing is stable, she is on room air, and her pulse ox is 91%, no fever or chills, no complaints of chest pain, hemodynamically stable. She has not been able to provide a sputum specimen, she is on a combination of Zithromax and Rocephin, nebulized bronchodilators. On 07/20/2090 patient seen in follow-up on further care unit, she is up ambulating, she is getting very to get a shower, room air pulse ox is 98%, no fever or chills, hemodynamically stable, no complaints of chest pain, no complaints of difficulty breathing, respirations are even and nonlabored, lung sounds are diminished, no rhonchi, no wheezing noted, patient is on a combination of Rocephin and Zithromax, was unable to produce a sputum sample for us. She is undergoing evaluation for bypass grafting surgery. She had a transesophageal echocardiogram today, which showed impaired left ventricle systolic function with an ejection of 30-35%, severely dilated left atrium, no evidence of thrombus in the left atrial appendage, trileaflet aortic valve without stenosis with mild insufficiency, and thickened mitral valve leaflets with evidence of severe mitral regurgitation On 07/21/2019 patient seen in follow-up on selective care unit, she is resting comfortably, she denies any acute distress, she denies any recurrent episodes of any chest pain, no shortness of breath, she is currently on room air. No cough or phlegm production, room air pulse ox is 96%, low-grade fever this morning with a temp of 99.0F. Lung sounds are diminished at the bases, no rhonchi, no wheezing. Today's lab work shows white blood cell count of 10.4, hemoglobin is 14.0, electrolytes and renal profile were unremarkable. No pleuritic chest discomfort, no hemoptysis, patient had a bedside spirometry done and it was a poor effort, and he did show FEV1 of 1.39 L or 42% of predicted, consistent with severe obstructive pulmonary defect. We will have to repeat her PFT. Continues on a combination of Rocephin and Zithromax, nebulized bronchodilators. On 07/26/2019 patient is seen in the intensive care unit, this is postoperative day 1, status post four-vessel coronary artery bypass grafting using the in situ right internal mammary artery to the LAD, reverse SVG to the first diagonal, reverse SVG to the second obtuse marginal artery, reverse SVG to the RCA into the PDA, and mitral valve repair with posterior annuloplasty using a 28 mm flex ring. Exclusion of the left atrial appendage using 35mm etcher clip was also done. OR exit time was 1559, and extubation time was 2132. This morning patient is seen in the ICU, she is awake and alert, sitting up in the recliner, having mild to moderate amount of incisional discomfort, but no acute distress, she is currently on 2 L of oxygen with a pulse ox of 97%, hemodynamically patient is stable, remains on small amount of Primacor which is being weaned down, Primacor is currently infusing at a rate of 0.5 mics per kilo per minute. 0.45 at 50 ML per hour, insulin drip is 0.5 units per hour. PA pressure is 19/16, cardiac output and index is 2.8 and 2.7 respectively. Incentive spirometer effort is 500 mL, lung sounds are positive for some scattered rhonchi. Afebrile. This morning's blood work has been reviewed, showing white blood cell count of 8.7, hemoglobin is 8.0, sodium is 136, potassium 5.0, BUN is 18 and creatinine 0.73. She did not require any blood products. 2 mediastinal chest tubes with Dr. 145 mL of serosanguineous output in last 24 hours, and right pleural was 270 mL serosanguineous output, right leg BARBRA drain with 30 mL of serosanguineous output. Saravia catheter is in, output is in the order of 55- 150 ML respectively, today's chest x-ray has been reviewed showing mild pulmonary vessel congestion, and patchy and hazy bibasilar opacities likely small effusions with the adjacent atelectasis, no evidence of pneumothorax. On 07/27/2019 patient is seen in follow-up in the intensive care unit, this is postoperative day 2 status post four-vessel coronary artery bypass grafting and mitral valve repair. Patient is doing well, she is awake and alert, she is on room air today with a pulse ox of 91-96%, hemodynamically patient is stable, currently on 0.45 at a rate of 20 ML per hour, Primacor has been discontinued, Levothroid and insulin have been discontinued as well. PA pressures are 47/21, and cardiac output and index are 4.8 and 2.7 respectively, she is in sinus rhythm, vital signs are stable, lung sounds are clear, no rhonchi, no rales, her pain is reasonably controlled, she is working on the incentive spirometer. Fol low-up chest x-ray shows a right lower lobe infiltrate, small left pleural effusion. Afebrile. There has been 80 mL of servicing this drainage from the mediastinal chest tubes and 56 out of the right pleural, and CT surgery is to discontinue all 3 chest tubes today. Saravia catheter is in, and patient is producing urine in order of 30-50 ML per hour. Patient is tolerating oral intake. Objective - Vital Signs Vital signs: Vital Signs Temp 36.9 F L 07/26/19 12:45 Pulse 90 07/27/19 07:00 Resp 16 07/27/19 07:00 BP 90/67 07/26/19 19:00 Pulse Ox 91 L 07/27/19 07:00 Intake & Output 07/26/19 07/27/19 07/27/19 18:59 06:59 18:59 Intake Total 1695.274 881.400 53 Output Total 780 394 40 Balance 915.274 487.400 13 Weight 67.2 kg 70.9 kg Intake: IV 1168 782 53 Albumin Human 5% 250 ml 250 In Empty Bag 1 bag @ 250 mls/hr IVPB Q1HR PRN Rx#: [id number] Calcium Gluconate 2 gm In 100 Sodium Chloride 0.9% 100 ml @ 100 mls/hr IVPB ONCE ONE Rx#:[id number] Injectate 60 80 Pressure Lines: CVP/AL/PA 108 102 3 Sodium Chloride 0.45% 1, 600 600 50 000 ml @ 50 mls/hr IV . Q20H [facility] Rx#:[id number] ceFAZolin 2 gm In Sodium 50 Chloride 0.9% 50 ml @ 100 mls/hr IVPB Q8HR [facility] Rx# :[id number] Intake, IV Titration 27.274 99.400 Amount Insulin Regular 100 unit 5.116 22.958 In Sodium Chloride 0.9% 100 ml @ Titrate IV .Q0M [facility] Rx#:[id number] Milrinone-D5w Pmx 20 mg 22.158 34.432 In Dextrose/Water 1 100ml .bag @ Per Protocol IV . Q0M [facility] Rx#:[id number] Norepinephrine 4 mg In 42.010 Sodium Chloride 0.9% 250 ml @ 0.03 MCG/KG/MIN 7. 384 mls/hr IV .Q24H [facility] Rx#:[id number] Oral 500 Output: Chest Tube Drainage 45 91 MS x2 21 59 Right Pleural 24 32 Drainage 25 40 Right Leg BARBRA 25 40 Urine 710 303 0 Other: Voiding Method Indwelling Catheter Indwelling Catheter ABP, PAP, CO, CI - Last Documented Arterial Blood Pressure 88/37 Pulmonary Artery Pressure 42/17 Cardiac Output 3.7 Cardiac Index 2.1 - Exam GENERAL EXAM: Alert, pleasant, 49-year-old white female, on room air, with a pulse ox of 97% and mild to moderate amount of discomfort, incisions, but no acute distress HEAD: Normocephalic/atraumatic. EYES: Normal reaction of pupils, equal size. Conjunctiva pink, sclera white. NOSE: Clear with pink turbinates. THROAT: No erythema or exudates. NECK: No masses, no JVD, no thyroid enlargement, no adenopathy. CHEST: No chest wall deformity. Symmetrical expansion. Midsternal incisions clean dry and intact, 2 mediastinal chest tubes and a right pleural chest tubes with no air leak, with moderate amount of serosanguineous output in the Pleur-ev ac containers LUNGS: Equal air entry with some scattered rhonchi CVS: Regular rate and rhythm, normal S1 and S2, no gallops, no murmurs, no rubs ABDOMEN: Soft, nontender. No hepatosplenomegaly, normal bowel sounds, no guarding or rigidity. EXTREMITIES: No clubbing, no edema, no cyanosis, 2+ pulses and upper and lower extremities. Right leg incision is clean dry and intact, BARBRA drain with small am ount of serosanguineous output, SCDs on on bilateral lower extremities MUSCULOSKELETAL: Muscle strength and tone normal. SPINE: No scoliosis or deformity SKIN: No rashes CENTRAL NERVOUS SYSTEM: Alert and oriented -3. No focal deficits, tone is normal in all 4 extremities. PSYCHIATRIC: Alert and oriented -3. Appropriate affect. Intact judgment and insight. - Labs CBC & Chem 7: 07/27/19 04:20 07/27/19 04:20 Labs: Abnormal Lab Results - Last 24 Hours (Table) 07/26/19 07/26/19 07/26/19 Range/Units 10: 11:28 13:01 RBC (3.80-5.40) m/uL Hgb (11.4-16.0) gm/dL Hct (34.0-46.0) % Sodium (137-145) mmol/L Carbon Dioxide (22-30) mmol/L BUN (7-17) mg/dL Glucose (74-99) mg/dL POC Glucose (mg/dL) 134 H 138 H 134 H (75-99) mg/dL AST (14-36) U/L ALT (9-52) U/L Total Protein (6.3-8.2) g/dL Albumin (3.5-5.0) g/dL 07/26/19 07/26/19 07/26/19 Range/Units 16:10 17:26 19:16 RBC (3.80-5.40) m/uL Hgb (11.4-16.0) gm/dL Hct (34.0-46.0) % Sodium (137-145) mmol/L Carbon Dioxide (22-30) mmol/L BUN (7-17) mg/dL Glucose (74-99) mg/dL POC Glucose (mg/dL) 151 H 147 H 145 H (75-99) mg/dL AST (14-36) U/L ALT (9-52) U/L Total Protein (6.3-8.2) g/dL Albumin (3.5-5.0) g/dL 07/26/19 07/26/19 07/27/19 Range/Units 21:22 22:44 00:38 RBC (3.80-5.40) m/uL Hgb (11.4-16.0) gm/dL Hct (34.0-46.0) % Sodium (137-145) mmol/L Carbon Dioxide (22-30) mmol/L BUN (7-17) mg/dL Glucose (74-99) mg/dL POC Glucose (mg/dL) 140 H 144 H 159 H (75-99) mg/dL AST (14-36) U/L ALT (9-52) U/L Total Protein (6.3-8.2) g/dL Albumin (3.5-5.0) g/dL 07/27/19 07/27/19 07/27/19 Range/Units 02:02 04:20 04:20 RBC 2.66 L (3.80-5.40) m/uL Hgb 8.2 L (11.4-16.0) gm/dL Hct 24.2 L (34.0-46.0) % Sodium 134 L (137-145) mmol/L Carbon Dioxide 21 L (22-30) mmol/L BUN 26 H (7-17) mg/dL Glucose 112 H (74-99) mg/dL POC Glucose (mg/dL) 156 H (75-99) mg/dL AST 187 H (14-36) U/L ALT 96 H (9-52) U/L Total Protein 5.2 L (6.3-8.2) g/dL Albumin 3.4 L (3.5-5.0) g/dL 07/27/19 07/27/19 07/27/19 Range/Units 04:25 05:48 07:59 RBC (3.80-5.40) m/uL Hgb (11.4-16.0) gm/dL Hct (34.0-46.0) % Sodium (137-145) mmol/L Carbon Dioxide (22-30) mmol/L BUN (7-17) mg/dL Glucose (74-99) mg/dL POC Glucose (mg/dL) 119 H 114 H 101 H (75-99) mg/dL AST (14-36) U/L ALT (9-52) U/L Total Protein (6.3-8.2) g/dL Albumin (3.5-5.0) g/dL 07/27/19 Range/Units 08:53 RBC (3.80-5.40) m/uL Hgb (11.4-16.0) gm/dL Hct (34.0-46.0) % Sodium (137-145) mmol/L Carbon Dioxide (22-30) mmol/L BUN (7-17) mg/dL Glucose (74-99) mg/dL POC Glucose (mg/dL) 113 H (75-99) mg/dL AST (14-36) U/L ALT (9-52) U/L Total Protein (6.3-8.2) g/dL Albumin (3.5-5.0) g/dL Assessment and Plan Plan: Assessment: #2. Triple-vessel coronary artery disease, cardiac catheterization showed RCA 90% occluded, circumflex is 90%, proximal LAD of 20% and mid LAD of 99%, LVEDP was 30 mmHg and moderate to severe mitral valve regurgitation, and left subclavian stenosis of 90%, status post four-vessel coronary artery bypass using ASCENCION to the LAD, reverse SVG to the first diagonal artery, reverse SVG to OM 2, reverse SVG to the RCA, mitral valve repair and exclusion of the left atrial appendage, post-op day 2 #2. Acute right lower lobe pneumonia, community-acquired, recovered #3. Acute blood loss anemia, expected outcome of bypass surgery and mitral valve repair #4. Elevated troponins with ST elevation in anterior leads, the possibility of ST elevated myocardial infarction versus acute viral myocarditis #5. Acute right lower lobe pneumonia, community-acquired #6. Acute exacerbation of congestive heart failure with systolic dysfunction, and echocardiogram revealed severely impaired LVEF of 30-35%, and moderate to severe mitral regurgitation #7. History of COPD, bedside PFT showed severe obstruction with FEV1 of 1.39 L of 42% of predicted #8. Chronic nicotine dependence, in remission for last 5 days, patient is on Chantix, prior to that patient smoked a pack a day for 33 years #9. History of aortoiliac bypass #10. Recent history of laparoscopic cholecystectomy #11. Insulin-dependent diabetes mellitus type 2 #12. Hyperlipidemia #13. Carotid stenosis, bilateral, 100% on the right and 60% on the left, patient follows with Dr. Rausch. Patient has left subclavian stenosis of 90% #14. Previous history of pneumonia, and frequent bouts of bronchitis Plan: Continue encouraging deep breathing and coughing, his chest x-ray has been reviewed showing right lower lobe infiltrate and small left pleural effusion. Patient is on room air, she is working on incentive spirometer, maintain pain control, her chest tubes are being discontinued today. Increase activity as tolerated, coverage ambulation. We'll continue to follow I performed a history & physical examination of the patient and discussed their management with my nurse practitioner, Daiana Rosa. I reviewed the nurse practitioner's note and agree with the documented findings and plan of care. Lung sounds are positive for left basilar crackles. The findings and the impression was discussed with the patient. I attest to the documentation by the nurse practitioner. Time with Patient: Less than 30
[2019-07-27 10:04] LABS: Glucose,Whole Blood 114 mg/dL (75-99)
[2019-07-27 11:03] LABS: Glucose,Whole Blood 112 mg/dL (75-99)
[2019-07-27 12:58] LABS: Glucose,Whole Blood 131 mg/dL (75-99)
--- NOTE | 2019-07-27 13:12 | PN ---
PROGRESS NOTE A 49-year-old lady with multivessel coronary artery disease and mitral regurgitation. Patient underwent bypass surgery with mitral valve repair. She is postop day #2. This morning she is doing well, remains in sinus rhythm. Her blood pressure has improved. Patient is currently on aspirin, Lipitor, Plavix and metoprolol. On exam, comfortable at rest. Vital signs are stable. There is no jugular venous distention. Chest exam reveals diminished air entry at the bases. Heart exam reveals first and second heart sounds. No gallop. Exam of extremities did not reveal edema. LABS: Show a hemoglobin of 8.2, platelet count is 197. ASSESSMENT: 1. Coronary artery disease, status post coronary artery bypass grafting. 2. Mitral regurgitation, status post mitral valve repair. PLAN: Patient is doing well. Continue with incentive spirometry. Continue with current medications. MMODL / IJN: [id number] /
--- NOTE | 2019-07-27 14:11 | P.PN ---
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 07/24/2019 patient is complaining of vaginal increased infection will use topical antifungals 07/26/2019 Patient underwent CABG 4 vessel along with mitral valve replacement. Patient has 2 mediastinal chest tubes. Patient is on IV insulin drip and IV milrinone drip. Complaining of pain and soreness in the chest area secondary to surgery 07/27/2019 No overnight events patient is clinically doing well patient chest tubes were removed her pain is better sitting in the chair today. Patient's IV insulin will be discontinued and patient will be started on sliding scale Constitutional: Denied any fatigue denied any fever. Cardio vascular: Pain in the chest Gastrointestinal denied any nausea vomiting Pulmonary: Denied any shortness of breath cough Neurologic denied any new focal deficits All inpatient medications were reviewed and appropriate changes in these medications as dictated in the interval history and assessment and plan. Objective - Vital Signs Vital signs: Vital Signs Temp 99.5 F 07/27/19 11:30 Pulse 83 07/27/19 13:30 Resp 21 07/27/19 13:30 BP 119/80 07/27/19 13:30 Pulse Ox 94 L 07/27/19 13:30 Intake & Output 07/26/19 07/27/19 07/27/19 18:59 06:59 18:59 Intake Total 1695.274 881.400 417.456 Output Total 780 394 40 Balance 915.274 487.400 377.456 Weight 67.2 kg 70.9 kg Intake: IV 1168 782 414 Albumin Human 5% 250 ml 250 In Empty Bag 1 bag @ 250 mls/hr IVPB Q1HR PRN Rx#: [id number] Calcium Gluconate 1 gm In 100 Sodium Chloride 0.9% 100 ml @ 100 mls/hr IVPB ONCE ONE Rx#:[id number] Calcium Gluconate 2 gm In 100 Sodium Chloride 0.9% 100 ml @ 100 mls/hr IVPB ONCE ONE Rx#:[id number] Injectate 60 80 60 Pressure Lines: CVP/AL/PA 108 102 54 Sodium Chloride 0.45% 1, 600 600 200 000 ml @ 50 mls/hr IV . Q20H [facility] Rx#:[id number] ceFAZolin 2 gm In Sodium 50 Chloride 0.9% 50 ml @ 100 mls/hr IVPB Q8HR [facility] Rx# :[id number] Intake, IV Titration 27.274 99.400 3.456 Amount Insulin Regular 100 unit 5.116 22.958 In Sodium Chloride 0.9% 100 ml @ Titrate IV .Q0M [facility] Rx#:[id number] Milrinone-D5w Pmx 20 mg 22.158 34.432 3.456 In Dextrose/Water 1 100ml .bag @ Per Protocol IV . Q0M [facility] Rx#:[id number] Norepinephrine 4 mg In 42.010 Sodium Chloride 0.9% 250 ml @ 0.03 MCG/KG/MIN 7. 384 mls/hr IV .Q24H [facility] Rx#:[id number] Oral 500 Output: Chest Tube Drainage 45 91 MS x2 21 59 Right Pleural 24 32 Drainage 25 40 Right Leg BARBRA 25 40 Urine 710 303 0 Other: Voiding Method Indwelling Catheter Indwelling Catheter Bedside Commode # Voids 1 ABP, PAP, CO, CI - Last Documented Arterial Blood Pressure 119/40 Pulmonary Artery Pressure 45/20 Cardiac Output 4 Cardiac Index 2.2 - Exam PHYSICAL EXAMINATION: GENERAL: The patient is alert and oriented x3, not in any acute distress. Well developed, well nourished. Chest tubes were removed surgical site areas appears to be clear HEENT: Pupils are round and equally reacting to light. EOMI. No scleral icterus. No conjunctival pallor. Normocephalic, atraumatic. No pharyngeal erythema. No thyromegaly. CARDIOVASCULAR: S1 and S2 present. No murmurs, rubs, or gallops. PULMONARY: Chest is clear to auscultation, no wheezing or crackles. ABDOMEN: Soft, nontender, nondistended, normoactive bowel sounds. No palpable organomegaly. MUSCULOSKELETAL: No joint swelling or deformity. EXTREMITIES: No cyanosis, clubbing, or pedal edema. NEUROLOGICAL: Gross neurological examination did not reveal any focal deficits. SKIN: No rashes. - Labs CBC & Chem 7: 07/27/19 04:20 07/27/19 04:20 Labs: Abnormal Lab Results - Last 24 Hours (Table) 07/26/19 07/26/19 07/26/19 Range/Units 16:10 17:26 19:16 RBC (3.80-5.40) m/uL Hgb (11.4-16.0) gm/dL Hct (34.0-46.0) % Sodium (137-145) mmol/L Carbon Dioxide (22-30) mmol/L BUN (7-17) mg/dL Glucose (74-99) mg/dL POC Glucose (mg/dL) 151 H 147 H 145 H (75-99) mg/dL AST (14-36) U/L ALT (9-52) U/L Total Protein (6.3-8.2) g/dL Albumin (3.5-5.0) g/dL 07/26/19 07/26/19 07/27/19 Range/Units 21:22 22:44 00:38 RBC (3.80-5.40) m/uL Hgb (11.4-16.0) gm/dL Hct (34.0-46.0) % Sodium (137-145) mmol/L Carbon Dioxide (22-30) mmol/L BUN (7-17) mg/dL Glucose (74-99) mg/dL POC Glucose (mg/dL) 140 H 144 H 159 H (75-99) mg/dL AST (14-36) U/L ALT (9-52) U/L Total Protein (6.3-8.2) g/dL Albumin (3.5-5.0) g/dL 07/27/19 07/27/19 07/27/19 Range/Units 02:02 04:20 04:20 RBC 2.66 L (3.80-5.40) m/uL Hgb 8.2 L (11.4-16.0) gm/dL Hct 24.2 L (34.0-46.0) % Sodium 134 L (137-145) mmol/L Carbon Dioxide 21 L (22-30) mmol/L BUN 26 H (7-17) mg/dL Glucose 112 H (74-99) mg/dL POC Glucose (mg/dL) 156 H (75-99) mg/dL AST 187 H (14-36) U/L ALT 96 H (9-52) U/L Total Protein 5.2 L (6.3-8.2) g/dL Albumin 3.4 L (3.5-5.0) g/dL 07/27/19 07/27/19 07/27/19 Range/Units 04:25 05:48 07:59 RBC (3.80-5.40) m/uL Hgb (11.4-16.0) gm/dL Hct (34.0-46.0) % Sodium (137-145) mmol/L Carbon Dioxide (22-30) mmol/L BUN (7-17) mg/dL Glucose (74-99) mg/dL POC Glucose (mg/dL) 119 H 114 H 101 H (75-99) mg/dL AST (14-36) U/L ALT (9-52) U/L Total Protein (6.3-8.2) g/dL Albumin (3.5-5.0) g/dL 07/27/19 07/27/19 07/27/19 Range/Units 08:53 10:02 11:01 RBC (3.80-5.40) m/uL Hgb (11.4-16.0) gm/dL Hct (34.0-46.0) % Sodium (137-145) mmol/L Carbon Dioxide (22-30) mmol/L BUN (7-17) mg/dL Glucose (74-99) mg/dL POC Glucose (mg/dL) 113 H 114 H 112 H (75-99) mg/dL AST (14-36) U/L ALT (9-52) U/L Total Protein (6.3-8.2) g/dL Albumin (3.5-5.0) g/dL 07/27/19 Range/Units 12:56 RBC (3.80-5.40) m/uL Hgb (11.4-16.0) gm/dL Hct (34.0-46.0) % Sodium (137-145) mmol/L Carbon Dioxide (22-30) mmol/L BUN (7-17) mg/dL Glucose (74-99) mg/dL POC Glucose (mg/dL) 131 H (75-99) mg/dL AST (14-36) U/L ALT (9-52) U/L Total Protein (6.3-8.2) g/dL Albumin (3.5-5.0) g/dL Assessment and Plan Plan: current artery disease with severe triple-vessel disease, patient had coronary artery bypass grafting along with mitral valve repair. 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 Antibiotics were discontinued as there is no evidence of pneumonia -Elevated blood sugars: Presently on IV insulin as per cardiothoracic protocol patient was switched to sliding scale insulin
[2019-07-27] MEDS: ACETAMINOPHEN TAB 500 MG TAB PO PRN ×2 (14:42→20:52)
[2019-07-27 16:43] LABS: Glucose,Whole Blood 139 mg/dL (75-99)
[2019-07-27] MEDS: INSULIN ASPART (NovoLOG) 100 UNIT/ML VIAL SQ SCH ×2 (16:51→20:51)
[2019-07-27 20:02] LABS: Glucose,Whole Blood 148 mg/dL (75-99)
[2019-07-27] MEDS: ATORVASTATIN 40 MG TAB PO SCH (20:50)
[2019-07-27] MEDS: SENNOSIDES-DOCUSATE SODIUM 1 EACH TAB PO SCH (20:51)
[2019-07-27] MEDS ORDERED: METOPROLOL TARTRATE 25 MG TAB PO SCH (21:00)
[2019-07-27] MEDS: buPROPion SR 150 MG TABLET.ER PO SCH (22:00)
[2019-07-27] MEDS: ONDANSETRON 4 MG/2 ML VIAL IVP PRN (22:03)
[2019-07-28] MEDS: HEPARIN SODIUM,PORCINE 5,000 UNIT/ML 1 ML VIAL SQ SCH ×4 (00:39→23:45)
[2019-07-28] MEDS: KETOROLAC 30 MG/ML 1 ML VIAL IVP SCH ×2 (00:40→06:58)
[2019-07-28] MEDS: ACETAMINOPHEN TAB 500 MG TAB PO PRN ×2 (03:08→20:00)
[2019-07-28 06:07] LABS: Basophils % (A) 0 %; Eosinophils # (A) 0.6 k/uL (0-0.7); Eosinophils % (A) 5 %; HCT 29.7 % (34.0-46.0); HGB 9.6 gm/dL (11.4-16.0); Lymphocytes # (A) 1.7 k/uL (1.0-4.8); Lymphocytes % (A) 13 %; MCH 30.7 pg (25.0-35.0); MCHC 32.5 g/dL (31.0-37.0); MCV 94.4 fL (80.0-100.0); Mean Platelet Volume 7.1; Monocytes # (A) 0.7 k/uL (0-1.0); Monocytes % (A) 5 %; Neutrophils # (A) 9.6 k/uL (1.3-7.7); Neutrophils % (A) 74 %; Platelet Count 286 k/uL (150-450); RBC 3.14 m/uL (3.80-5.40); RDW 12.9 % (11.5-15.5)
[2019-07-28 06:38] LABS: Albumin 3.3 g/dL (3.5-5.0); Calcium 8.8 mg/dL (8.4-10.2); Potassium 4.9 mmol/L (3.5-5.1); Total Bilirubin 0.9 mg/dL (0.2-1.3); Total Protein 5.2 g/dL (6.3-8.2)
[2019-07-28 06:48] LABS: Glucose,Whole Blood 165 mg/dL (75-99)
[2019-07-28] MEDS: INSULIN ASPART (NovoLOG) 100 UNIT/ML VIAL SQ SCH ×4 (07:00→20:34)
[2019-07-28] MEDS: PANTOPRAZOLE 40 MG TABLET PO SCH (07:03)
[2019-07-28] MEDS: ASPIRIN 325 MG TAB PO SCH (08:33)
[2019-07-28] MEDS: METOPROLOL TARTRATE 12.5 MG TAB PO SCH ×2 (08:33→20:00)
[2019-07-28] MEDS: buPROPion SR 150 MG TABLET.ER PO SCH ×2 (08:33→20:34)
[2019-07-28] MEDS: CLOPIDOGREL 75 MG TAB PO SCH (08:33)
[2019-07-28] MEDS: VARENICLINE 1 MG TAB PO SCH ×2 (08:34→20:34)
--- NOTE | 2019-07-28 08:36 | XR ---
EXAMINATION TYPE: XR chest 1V portable DATE OF EXAM: 07/28/2019 COMPARISON: 07/27/2019 HISTORY: Chest pain TECHNIQUE: Single frontal view of the chest is obtained. FINDINGS: Postoperative changes of CABG are noted. Right-sided chest tube and mediastinal drains have been isaac nick. There is no evidence of pneumothorax. Continued cardiac prominence. Basilar infiltrates and/or a telectasis and small effusions remain unchanged. Right [place] catheter has been removed with the r ight IJ sheath in place. IMPRESSION: 1. Overall stable appearance of the chest. Removal of the indwelling tubes and catheters.
[2019-07-28] MEDS: ONDANSETRON 4 MG/2 ML VIAL IVP PRN (08:40)
--- NOTE | 2019-07-28 08:41 | US ---
EXAMINATION TYPE: US chest DATE OF EXAM: 07/28/2019 COMPARISON: NONE CLINICAL HISTORY: assess pleural effusion. TECHNIQUE: Targeted ultrasound of the posterior lower bilateral hemithoraces EXAM MEASUREMENTS: Right Pleural Effusion pocket size: 1.0 cm Right skin surface to fluid distance: 2.1 cm Left Pleural Effusion pocket size: 2.0 cm Left skin surface to fluid distance: 3.2 cm Right side not marked for possible thoracentesis outside the dept. Left side not marked for possible thoracentesis outside the dept. Pulmonologists are able to review the images in the patient?s EMR. IMPRESSIONS: Pleural effusions as noted.
[2019-07-28] MEDS: IPRATROPIUM-ALBUTEROL 3 ML NEB INHALATION SCH ×4 (08:52→19:25)
[2019-07-28] MEDS: BUDESONIDE 1 MG/2 ML NEBU INHALATION SCH ×2 (08:52→19:25)
--- NOTE | 2019-07-28 09:07 | P.PN ---
Subjective Progress Note Date: 07/28/19 Principal diagnosis: Right lower lobe pneumonia, triple-vessel coronary artery disease This is a 49-year-old white female patient of Dr. Freya Miles, who sees Elieser Serna PA-C at her office, has passed [facility] history of COPD, not on oxygen at baseline, previous history of pneumonia, frequent bouts of bronchitis, carotid artery stenosis, and patient has a known 100% right carotid stenosis and 60% left-sided carotid stenosis she follows with Dr. Rausch, previous episode of myocardial infarction 8 years ago, diabetes mellitus type 2 on insulin, and patient carries 19-feev-yngd smoking history, she recently quit 5 days ago, she is currently on Chantix. Patient presented to the emergency department on 07/17/2019 with complaints of midsternal chest pain, which was nonradiating, which was exacerbated by episodes of coughing and deep breathing, increased cough, non-productive, denied any fever, chills, denied any hemoptysis. Patient was a transfer from [facility]. Apparently last week she had a upper respiratory infection, cough and intermittent chest pain. She developed worsening of the pleuritic chest pain worse with inspiration. EKG was obtained on admission showing sinus tachycardia, 1,[address] elevation in V2 and V3, V4 and V5. Labs showed mild leukocytosis with a white blood cell count of 11.7, hemoglobin of 13.9, electrolytes and renal profile were unremarkable with the exception of CO2 which was at 21, glucose was elevated at 350, troponin came back elevated at 3.340, and 5.5, proBNP was 7190, and subsequent one came down to 5330. Chest x-ray showed right lower lobe airspace disease likely related to pneumonia, and increased diffuse interstitial markings consistent with mild interstitial edema. She has been afebrile, she is maintaining stable oxygenation on room air, she has been started on Rocephin and Zithromax, she was given a dose of IV Lasix in the emergency department, she is being evaluated by cardiology, and her echocardiogram revealed moderately severe impaired LVEF of 30-35%, hypokinesis involving the apical anterior lateral LV wall, lateral LV wall and inferior LV wall, as well as a septal wall. There is mild aortic regurgitation, moderate mitral regurgitation, trace pulmonic regurgitation, no pericardial effusion. On 07/19/2019 patient seen in follow-up on selective care unit, she is awake and alert, she had just returned from the heart catheterization and she was found to have evidence of multivessel coronary artery disease and she was referred to cardiothoracic surgery for possibility of bypass grafting. She is resting comfortably in bed, she slightly upset, but no acute distress, she states her breathing is stable, she is on room air, and her pulse ox is 91%, no fever or chills, no complaints of chest pain, hemodynamically stable. She has not been able to provide a sputum specimen, she is on a combination of Zithromax and Rocephin, nebulized bronchodilators. On 07/20/2090 patient seen in follow-up on further care unit, she is up ambulating, she is getting very to get a shower, room air pulse ox is 98%, no fever or chills, hemodynamically stable, no complaints of chest pain, no complaints of difficulty breathing, respirations are even and nonlabored, lung sounds are diminished, no rhonchi, no wheezing noted, patient is on a combination of Rocephin and Zithromax, was unable to produce a sputum sample for us. She is undergoing evaluation for bypass grafting surgery. She had a transesophageal echocardiogram today, which showed impaired left ventricle systolic function with an ejection of 30-35%, severely dilated left atrium, no evidence of thrombus in the left atrial appendage, trileaflet aortic valve without stenosis with mild insufficiency, and thickened mitral valve leaflets with evidence of severe mitral regurgitation On 07/21/2019 patient seen in follow-up on selective care unit, she is resting comfortably, she denies any acute distress, she denies any recurrent episodes of any chest pain, no shortness of breath, she is currently on room air. No cough or phlegm production, room air pulse ox is 96%, low-grade fever this morning with a temp of 99.0F. Lung sounds are diminished at the bases, no rhonchi, no wheezing. Today's lab work shows white blood cell count of 10.4, hemoglobin is 14.0, electrolytes and renal profile were unremarkable. No pleuritic chest discomfort, no hemoptysis, patient had a bedside spirometry done and it was a poor effort, and he did show FEV1 of 1.39 L or 42% of predicted, consistent with severe obstructive pulmonary defect. We will have to repeat her PFT. Continues on a combination of Rocephin and Zithromax, nebulized bronchodilators. On 07/26/2019 patient is seen in the intensive care unit, this is postoperative day 1, status post four-vessel coronary artery bypass grafting using the in situ right internal mammary artery to the LAD, reverse SVG to the first diagonal, reverse SVG to the second obtuse marginal artery, reverse SVG to the RCA into the PDA, and mitral valve repair with posterior annuloplasty using a 28 mm flex ring. Exclusion of the left atrial appendage using 35mm etcher clip was also done. OR exit time was 1559, and extubation time was 2132. This morning patient is seen in the ICU, she is awake and alert, sitting up in the recliner, having mild to moderate amount of incisional discomfort, but no acute distress, she is currently on 2 L of oxygen with a pulse ox of 97%, hemodynamically patient is stable, remains on small amount of Primacor which is being weaned down, Primacor is currently infusing at a rate of 0.5 mics per kilo per minute. 0.45 at 50 ML per hour, insulin drip is 0.5 units per hour. PA pressure is 19/16, cardiac output and index is 2.8 and 2.7 respectively. Incentive spirometer effort is 500 mL, lung sounds are positive for some scattered rhonchi. Afebrile. This morning's blood work has been reviewed, showing white blood cell count of 8.7, hemoglobin is 8.0, sodium is 136, potassium 5.0, BUN is 18 and creatinine 0.73. She did not require any blood products. 2 mediastinal chest tubes with Dr. 145 mL of serosanguineous output in last 24 hours, and right pleural was 270 mL serosanguineous output, right leg BARBRA drain with 30 mL of serosanguineous output. Sar[place] catheter is in, output is in the order of 55- 150 ML respectively, today's chest x-ray has been reviewed showing mild pulmonary vessel congestion, and patchy and hazy bibasilar opacities likely small effusions with the adjacent atelectasis, no evidence of pneumothorax. On 07/27/2019 patient is seen in follow-up in the intensive care unit, this is postoperative day 2 status post four-vessel coronary artery bypass grafting and mitral valve repair. Patient is doing well, she is awake and alert, she is on room air today with a pulse ox of 91-96%, hemodynamically patient is stable, currently on 0.45 at a rate of 20 ML per hour, Primacor has been discontinued, Levothroid and insulin have been discontinued as well. PA pressures are 47/21, and cardiac output and index are 4.8 and 2.7 respectively, she is in sinus rhythm, vital signs are stable, lung sounds are clear, no rhonchi, no rales, her pain is reasonably controlled, she is working on the incentive spirometer. Fol low-up chest x-ray shows a right lower lobe infiltrate, small left pleural effusion. Afebrile. There has been 80 mL of servicing this drainage from the mediastinal chest tubes and 56 out of the right pleural, and CT surgery is to discontinue all 3 chest tubes today. Saravia catheter is in, and patient is producing urine in order of 30-50 ML per hour. Patient is tolerating oral intake. On 07/28/2019 patient seen in follow-up in the intensive care unit, this postoperative day 3, status post four-vessel coronary artery bypass grafting and mitral valve repair, and exclusion of the left atrial appendage. Doing very well, yesterday her chest tubes have been discontinued, her PA catheter has been discontinued, today she is awake and alert, she is sitting up in the recliner, she is on 2 L of oxygen her pulse ox 97-99%, hemodynamically stable, 0.45 saline infusing at a rate of 50 ML per hour, sinus rhythm on the monitor, she is less anxious on today's exam, her pain is controlled, her iron separate is 500 mL, today's chest x-ray has been reviewed showing bilateral pleural effusions, ultr asound the chest was done showing 1 cm pocket on the right and 2 cm pocket on the left, not enough for thoracentesis. His labs have been reviewed, showing white blood cell count of 13.0, hemoglobin of 9.6, sodium is 133, potassium is 4.9, chloride is 103, CO2 is 20, BUN is 35 and creatinine is 1.05. Saravia catheter has been discontinued, patient had a bowel movement this morning, which was loose after having received a stool softener. Otherwise no distress. Encourage activity, encourage ambulation. We'll continue to follow Objective - Vital Signs Vital signs: Vital Signs Temp 98.1 F 07/28/19 08:00 Pulse 75 07/28/19 08:00 Resp 18 07/28/19 08:00 BP 112/60 07/28/19 08:00 Pulse Ox 97 07/28/19 08:00 Intake & Output 07/27/19 07/28/19 07/28/19 18:59 06:59 18:59 Intake Total 591.456 716 106 Output Total 415 750 Balance 176.456 -34 106 Intake: IV 588 616 106 Calcium Gluconate 1 gm In 100 Sodium Chloride 0.9% 100 ml @ 100 mls/hr IVPB ONCE ONE Rx#:[id number] Injectate 60 Pressure Lines: CVP/AL/PA 78 36 6 Sodium Chloride 0.45% 1, 350 580 100 000 ml @ 50 mls/hr IV . Q20H [facility] Rx#:[id number] Intake, IV Titration 3.456 Amount Milrinone-D5w Pmx 20 mg 3.456 In Dextrose/Water 1 100ml .bag @ Per Protocol IV . Q0M [facility] Rx#:[id number] Oral 100 Output: Drainage 65 Right Leg BARBRA 65 Urine 350 300 Urine/Stool Mix 450 Other: Voiding Method Bedside Commode Bedside Commode # Voids 1 # Bowel Movements 2 ABP, PAP, CO, CI - Last Documented Arterial Blood Pressure 110/41 Pulmonary Artery Pressure 45/20 Cardiac Output 4 Cardiac Index 2.2 - Exam GENERAL EXAM: Alert, pleasant, 49-year-old white female, on 2 L of oxygen, with a pulse ox of 97% and mild to moderate amount of discomfort, incisions, but no acute distress HEAD: Normocephalic/atraumatic. EYES: Normal reaction of pupils, equal size. Conjunctiva pink, sclera white. NOSE: Clear with pink turbinates. THROAT: No erythema or exudates. NECK: No masses, no JVD, no thyroid enlargement, no adenopathy. CHEST: No chest wall deformity. Symmetrical expansion. Midsternal incisions clean dry and intact, interval removal of the 2 mediastinal chest tubes and a right pleural chest tubes. LUNGS: Equal air entry with some scattered rhonchi CVS: Regular rate and rhythm, normal S1 and S2, no gallops, no murmurs, no rubs ABDOMEN: Soft, nontender. No hepatosplenomegaly, normal bowel sounds, no guarding or rigidity. EXTREMITIES: No clubbing, no edema, no cyanosis, 2+ pulses and upper and lower extremities. Right leg incision is clean dry and intact, BARBRA drain with small amount of serosanguineous output, SCDs on on bilateral lower extremities MUSCULOSKELETAL: Muscle strength and tone normal. SPINE: No scoliosis or deformity SKIN: No rashes CENTRAL NERVOUS SYSTEM: Alert and oriented -3. No focal deficits, tone is normal in all 4 extremities. PSYCHIATRIC: Alert and oriented -3. Appropriate affect. Intact judgment and insight. - Labs CBC & Chem 7: 07/28/19 05:18 07/28/19 05:18 Labs: Abnormal Lab Results - Last 24 Hours (Table) 07/27/19 07/27/19 07/27/19 Range/Units 10:02 11:01 12:56 WBC (3.8-10.6) k/uL RBC (3.80-5.40) m/uL Hgb (11.4-16.0) gm/dL Hct (34.0-46.0) % Neutrophils # (1.3-7.7) k/uL Sodium (137-145) mmol/L Carbon Dioxide (22-30) mmol/L BUN (7-17) mg/dL Creatinine (0.52-1.04) mg/dL Glucose (74-99) mg/dL POC Glucose (mg/dL) 114 H 112 H 131 H (75-99) mg/dL AST (14-36) U/L ALT (9-52) U/L Total Protein (6.3-8.2) g/dL Albumin (3.5-5.0) g/dL 07/27/19 07/27/19 07/28/19 Range/Units 16:42 20:01 05:18 WBC 13.0 H (3.8-10.6) k/uL RBC 3.14 L (3.80-5.40) m/uL Hgb 9.6 L (11.4-16.0) gm/dL Hct 29.7 L (34.0-46.0) % Neutrophils # 9.6 H (1.3-7.7) k/uL Sodium (137-145) mmol/L Carbon Dioxide (22-30) mmol/L BUN (7-17) mg/dL Creatinine (0.52-1.04) mg/dL Glucose (74-99) mg/dL POC Glucose (mg/dL) 139 H 148 H (75-99) mg/dL AST (14-36) U/L ALT (9-52) U/L Total Protein (6.3-8.2) g/dL Albumin (3.5-5.0) g/dL 07/28/19 07/28/19 Range/Units 05:18 06:46 WBC (3.8-10.6) k/uL RBC (3.80-5.40) m/uL Hgb (11.4-16.0) gm/dL Hct (34.0-46.0) % Neutrophils # (1.3-7.7) k/uL Sodium 133 L (137-145) mmol/L Carbon Dioxide 20 L (22-30) mmol/L BUN 35 H (7-17) mg/dL Creatinine 1.05 H (0.52-1.04) mg/dL Glucose 140 H (74-99) mg/dL POC Glucose (mg/dL) 165 H (75-99) mg/dL AST 61 H (14-36) U/L ALT 79 H (9-52) U/L Total Protein 5.2 L (6.3-8.2) g/dL Albumin 3.3 L (3.5-5.0) g/dL Assessment and Plan Plan: Assessment: #2. Triple-vessel coronary artery disease, cardiac catheterization showed RCA 90% occluded, circumflex is 90%, proximal LAD of 20% and mid LAD of 99%, LVEDP was 30 mmHg and moderate to severe mitral valve regurgitation, and left subclavian stenosis of 90%, status post four-vessel coronary artery bypass using ASCENCION to the LAD, reverse SVG to the first diagonal artery, reverse SVG to OM 2, reverse SVG to the RCA, mitral valve repair and exclusion of the left atrial appendage, post-op day 3 #2. Acute right lower lobe pneumonia, community-acquired, recovered #3. Acute blood loss anemia, expected outcome of bypass surgery and mitral valve repair #4. Elevated troponins with ST elevation in anterior leads, the possibility of ST elevated myocardial infarction versus acute viral myocarditis #5. Acute right lower lobe pneumonia, community-acquired #6. Acute exacerbation of congestive heart failure with systolic dysfunction, and echocardiogram revealed severely impaired LVEF of 30-35%, and moderate to severe mitral regurgitation #7. History of COPD, bedside PFT showed severe obstruction with FEV1 of 1.39 L of 42% of predicted #8. Chronic nicotine dependence, in remission for last 5 days, patient is on Chantix, prior to that patient smoked a pack a day for 33 years #9. History of aortoiliac bypass #10. Recent history of laparoscopic cholecystectomy #11. Insulin-dependent diabetes mellitus type 2 #12. Hyperlipidemia #13. Carotid stenosis, bilateral, 100% on the right and 60% on the left, patient follows with Dr. Rausch. Patient has left subclavian stenosis of 90% #14. Previous history of pneumonia, and frequent bouts of bronchitis #15. Small bilateral pleural effusions, with 1 cm pocket on the right, and 2 cm pocket on the left Plan: There is chest x-ray has been reviewed, showing bilateral pleural effusions, ul trasound of the chest did not show sizable pockets on either side for thoracentesis, continue encouraging deep breathing and coughing, continue encouraging ambulation. Clinically patient is doing well, breathing is stable. Chest tubes have been discontinued, PA catheter has been discontinued. Vital signs are stable, anticipate transfer out of the intensive care unit if cleared by CT surgery. I performed a history & physical examination of the patient and discussed their management with my nurse practitioner, Daiana Rosa. I reviewed the nurse practitioner's note and agree with the documented findings and plan of care. Lung sounds are positive for left basilar crackles. The findings and the impression was discussed with the patient. I attest to the documentation by the nurse practitioner. Time with Patient: Less than 30
--- NOTE | 2019-07-28 09:38 | P.PN ---
Subjective Progress Note Date: 07/28/19 Principal diagnosis: Severe triple-vessel coronary artery disease, NSTEMI this admission, severe mitral valve regurgitation, acute systolic heart failure with moderately impaired left ventricular systolic function and EF 30-35%, right lower lobe pneumonia present on admission. 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 POD #3 urgent quadruple coronary artery bypass grafting using the in situ right internal mammary artery crossing anteriorly over the aorta in the midline to the left anterior descending artery, a reverse greater saphenous vein graft from the aorta to the first diagonal coronary artery, a reverse greater saphenous vein graft from the aorta to the second obtuse marginal coronary artery, a reverse greater saphenous vein graft from the aorta to the RCA into the PDA. Mitral gisell ve repair with posterior annuloplasty using a 28 mm AnnuloFlex ring. Exclusion of the left atrial appendage using a 35 mm AtriClip. Endoscopic vein harvesting of the right greater saphenous vein from the groin to above the ankle level. Intraoperative transesophageal echocardiogram and epi-aortic scanning. Graft flow measurements using the Surf Air system. Postoperative acute blood loss anemia, expected outcome given hemodilution and cardiopulmonary bypass pump. The patient's currently sitting up in the bedside chair in the intensive care unit. She is in no acute distress. She denies any complaints of pain or shortness of breath. She reports that she has been having episodes of diarrhea throughout the night with 45 episodes. She achieving 500 ml on her incentive spirometry with encouragement. She is hemodynamically stable and is currently on no inotropic or pressor support. Current CVP 10 mmHg. Mediastinal and right pleural chest tubes removed yesterday without incident. Objective - Vital Signs Vital signs: Vital Signs Temp 98.1 F 07/28/19 08:00 Pulse 75 07/28/19 08:00 Resp 18 07/28/19 08:00 BP 112/60 07/28/19 08:00 Pulse Ox 97 07/28/19 08:00 Intake & Output 07/27/19 07/28/19 07/28/19 18:59 06:59 18:59 Intake Total 591.456 716 106 Output Total 415 750 Balance 176.456 -34 106 Intake: IV 588 616 106 Calcium Gluconate 1 gm In 100 Sodium Chloride 0.9% 100 ml @ 100 mls/hr IVPB ONCE ONE Rx#:[id number] Injectate 60 Pressure Lines: CVP/AL/PA 78 36 6 Sodium Chloride 0.45% 1, 350 580 100 000 ml @ 50 mls/hr IV . Q20H [facility] Rx#:[id number] Intake, IV Titration 3.456 Amount Milrinone-D5w Pmx 20 mg 3.456 In Dextrose/Water 1 100ml .bag @ Per Protocol IV . Q0M [facility] Rx#:[id number] Oral 100 Output: Drainage 65 Right Leg BARBRA 65 Urine 350 300 Urine/Stool Mix 450 Other: Voiding Method Bedside Commode Bedside Commode # Voids 1 # Bowel Movements 2 ABP, PAP, CO, CI - Last Documented Arterial Blood Pressure 110/41 Pulmonary Artery Pressure 45/20 Cardiac Output 4 Cardiac Index 2.2 - Constitutional General appearance: Present: cooperative, no acute distress, thin - Respiratory Details: Lung sounds essentially clear to her bilateral upper lobes, diminished bilateral bases. Respirations are symmetrical and nonlabored. Oxygen saturation are 93% on 2 L nasal cannula and she is achieving 500 mL on her incentive spirometry with much encouragement. - Cardiovascular Details: Regular rhythm and rate. S1 and S2 present, negative for S3, gallop or murmur. Sternum is stable. Bedside telemetry showing normal sinus rhythm heart rate 73. Atrial and ventricular epicardial pacemaker wires in place and grounded. Right IJ Cordis in place to continue CVP monitoring current CVP pressure 10 mmHg. No edema present. Knee-high YOLANDA hose and sequential compression devices in place to bilateral lower extremities. - Gastrointestinal Gastrointestinal Comment(s): Abdomen is soft, nontender and nondistended. Active bowel sounds present in all 4 abdominal quadrants. No guarding or rigidity. No organomegaly appreciated. - Genitourinary Genitourinary Comment(s): Voiding clear yellow urine. - Integumentary Integumentary Comment(s): Skin is warm and dry. No clubbing or cyanosis is present. Midline sternal incision is clean, dry and approximated. No drainage or redness is present. Exofin dressing is clean, dry and intact. Right lower extremity EVH site are clean, dry and approximated. No drainage or redness is present. - Neurologic Neurologic Comment(s): No focal neurological deficits. Neurologic: Present: CNII-XII intact - Musculoskeletal Musculoskeletal: Present: gait normal, generalized weakness, strength equal bilaterally - Psychiatric Psychiatric: Present: A&O x's 3, appropriate affect, intact judgment & insight - Allied health notes Allied health notes reviewed: nursing - Labs CBC & Chem 7: 07/28/19 05:18 07/28/19 05:18 Labs: Abnormal Lab Results - Last 24 Hours (Table) 07/27/19 07/27/19 07/27/19 Range/Units 10:02 11:01 12:56 WBC (3.8-10.6) k/uL RBC (3.80-5.40) m/uL Hgb (11.4-16.0) gm/dL Hct (34.0-46.0) % Neutrophils # (1.3-7.7) k/uL Sodium (137-145) mmol/L Carbon Dioxide (22-30) mmol/L BUN (7-17) mg/dL Creatinine (0.52-1.04) mg/dL Glucose (74-99) mg/dL POC Glucose (mg/dL) 114 H 112 H 131 H (75-99) mg/dL AST (14-36) U/L ALT (9-52) U/L Total Protein (6.3-8.2) g/dL Albumin (3.5-5.0) g/dL 07/27/19 07/27/19 07/28/19 Range/Units 16:42 20:01 05:18 WBC 13.0 H (3.8-10.6) k/uL RBC 3.14 L (3.80-5.40) m/uL Hgb 9.6 L (11.4-16.0) gm/dL Hct 29.7 L (34.0-46.0) % Neutrophils # 9.6 H (1.3-7.7) k/uL Sodium (137-145) mmol/L Carbon Dioxide (22-30) mmol/L BUN (7-17) mg/dL Creatinine (0.52-1.04) mg/dL Glucose (74-99) mg/dL POC Glucose (mg/dL) 139 H 148 H (75-99) mg/dL AST (14-36) U/L ALT (9-52) U/L Total Protein (6.3-8.2) g/dL Albumin (3.5-5.0) g/dL 07/28/19 07/28/19 Range/Units 05:18 06:46 WBC (3.8-10.6) k/uL RBC (3.80-5.40) m/uL Hgb (11.4-16.0) gm/dL Hct (34.0-46.0) % Neutrophils # (1.3-7.7) k/uL Sodium 133 L (137-145) mmol/L Carbon Dioxide 20 L (22-30) mmol/L BUN 35 H (7-17) mg/dL Creatinine 1.05 H (0.52-1.04) mg/dL Glucose 140 H (74-99) mg/dL POC Glucose (mg/dL) 165 H (75-99) mg/dL AST 61 H (14-36) U/L ALT 79 H (9-52) U/L Total Protein 5.2 L (6.3-8.2) g/dL Albumin 3.3 L (3.5-5.0) g/dL - Imaging and Cardiology Chest x-ray: report reviewed, image reviewed Assessment and Plan Assessment: 1. Severe triple-vessel coronary artery disease, status post urgent 4 vessel CABG 2. Non-STEMI this admission 3. Severe mitral valve regurgitation per transesophageal echocardiogram, status post mitral valve repair with an AnnuloFlex ring 4. Acute systolic heart failure with moderately impaired left ventricular systolic function, EF 30-35% 5. Right lower lobe pneumonia, community-acquired 6. Hyperlipidemia 7. Insulin-dependent diabetes mellitus with HgbA1c 7.6% 8. 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 TIA in 2007 11. Chronic current nicotine dependence, currently on Chantix 12. Severe COPD with preoperative FEV1 42% of predicted 13. Hyperthyroidism 14. Recent laparoscopic cholecystectomy 15. Depressive disorder 16. Family history of heart disease 17. Postoperative acute blood loss anemia Plan: 1. Continue aspirin, statin, Plavix and beta kirk. Will increase her beta kirk as tolerated. Will add DEVON inhibitor when able as her ejection fraction was 30-35% preoperatively. 2. Encourage use of her incentive spirometry 10 times every hour while awake. 3. Reinforce the importance of smoking cessation, continue Chantix. 4. Bronchodilators, inhaled steroids per pulmonology management. 5. Increase activity as tolerated, PT/OT/cardiac rehab following. 6. Discontinue right IJ Cordis. 7. Ultrasound of her chest with markings for possible pleural effusions. 8. GI/DVT prophylaxis 9. Insulin management per primary care service. 10. Pain control with current medication regimen. Discontinue Toradol as her creatinine today is 1.05. 11. Send stool for C. difficile. 12. Patient may have left subclavian artery stented in the future with Dr. Monet, as she has a left subclavian stenosis. This was discussed between Dr. Monet and Dr. Sarmiento, as well as with the patient and all are in agreement. 13. No diuresis today. 14. More recommendations to follow based on patient's clinical course. Time with Patient: Greater than 30
[2019-07-28 11:00] VITALS: BMI 23.1
[2019-07-28 12:07] LABS: Glucose,Whole Blood 201 mg/dL (75-99)
--- NOTE | 2019-07-28 16:55 | PN ---
PROGRESS NOTE Essence is a 49-year-old lady who was admitted to the hospital with coronary artery disease and underwent bypass surgery. This morning, the patient appears comfortable at rest. Remains in sinus rhythm. Blood pressure is in the 90s systolic. She is on aspirin, Lipitor, Plavix and Lopressor. EXAM: Comfortable at rest. Vital signs are stable. Chest exam reveals diminished air entry bilaterally. Heart exam reveals first and second heart sounds and a systolic murmur at the left lower sternal border. Abdomen is soft. Exam of extremities did not reveal any edema. Peripheral pulses are felt. ASSESSMENT: Coronary artery disease status post coronary artery bypass grafting. PLAN: Patient is doing well. We will continue with incentive spirometry. MMODL / IJN: [id number] /
[2019-07-28 17:00] LABS: Glucose,Whole Blood 198 mg/dL (75-99)
--- NOTE | 2019-07-28 18:55 | P.PN ---
Progress Note - Text Progress Note Date: 07/28/19 Chief Complaint: Chest pressure Interval history: This is a pleasant [address] Freya Miles. Chronic stable medical conditions include COPD, , hyperlipidemia, diabetes. Patient states about 9 year ago she was having trouble walking even short distance. She was then seen by Dr. Smith. There trouble accessing her from the artery in the groin and also the rest. Subsequently she had took a bypass done to the block artery in the abdomen to improve her circulation to lower extremity. Patient has continued to smoke up to recently. She also has a complete report right carotid artery. History of 9:00 she suddenly became short of breath and developed chest pressure going across the chest. Became dizzy lightheaded. About 11:30 PM she went to [facility]. Her troponin there was 5 with EKG changes and she was transferred here. EKG was showing some ST elevation anterior leads. Patient also following congestive heart failure. Patient was transferred to our ER from [facility]. Patient is put on IV heparin and given IV Lasix.. Patient admitted with diagnosis of ST elevation myocardial infarction versus acute viral myocarditis., Acute CHF exacerbation EF 20-25%, right lower lobe pneumonia. cardiac catheterization by Dr. Monet -. Found to have severe 2 vessel disease. NIK - EF of 30-35% with severe mitral regurgitation. On 07/25/2019 patient underwent-quadruple coronary artery bypass, mitral valve repair with posterior annuloplasty. Today-sitting up in the bed. Did tolerate her diet. Pretty stable. Did walk in the hallway. Had a bowel movement. Review of systems: Was done for constitutional, cardiovascular, GI, pulmonary. relevant finding as above Active Medications Acetaminophen (Tylenol Tab) 1,000 mg PO Q6HR PRN PRN Reason: Fever and/ or Pain Last Admin: 07/28/19 03:08 Dose: 1,000 mg Documented by: Albuterol/Ipratropium (Duoneb 0.5 Mg-3 Mg/3 Ml Soln) 3 ml INHALATION RT-Q2H PRN PRN Reason: Shortness Of Breath Or Wheezing Last Admin: 07/25/19 19:19 Dose: 3 ml Documented by: Albuterol/Ipratropium (Duoneb 0.5 Mg-3 Mg/3 Ml Soln) 3 ml INHALATION RT-QID [facility]IS Last Admin: 07/28/19 15:26 Dose: Not Given Documented by: Aspirin (Aspirin) 325 mg PO DAILY [facility] Last Admin: 07/28/19 08:33 Dose: 325 mg Documented by: Atorvastatin Calcium (Lipitor) 40 mg PO HS [facility] Last Admin: 07/27/19 20:50 Dose: 40 mg Documented by: Benzocaine/Menthol (Cepacol Lozenge) 1 each MUCOUS MEM Q2H PRN PRN Reason: Sore Throat Bisacodyl (Dulcolax) 10 mg RECTAL DAILY PRN PRN Reason: Constipation Budesonide (Pulmicort) 1 mg INHALATION RT-BID [facility] Last Admin: 07/28/19 08:52 Dose: Not Given Documented by: Bupropion HCl (Wellbutrin Sr) 150 mg PO BID [facility] Last Admin: 07/28/19 08:33 Dose: 150 mg Documented by: Clopidogrel Bisulfate (Plavix) 75 mg PO DAILY [facility] Last Admin: 07/28/19 08:33 Dose: 75 mg Documented by: Heparin Sodium (Porcine) (Heparin) 5,000 unit SQ Q8HR [facility] Last Admin: 07/28/19 17:08 Dose: 5,000 unit Documented by: Amiodarone HCl 150 mg/ (Dextrose/Water) 103 mls @ 618 mls/hr IV .Q10M PRN; Protocol PRN Reason: A.FIB/FLUTTER Amiodarone HCl 360 mg/ (Dextrose/Water) 200 mls @ 33.333 mls/hr IV .Q6H PRN; Protocol PRN Reason: A.FIB/FLUTTER Amiodarone HCl 300 mg/ (Dextrose/Water) 250 mls @ 25 mls/hr IV .Q10H PRN; Protocol PRN Reason: A.FIB/FLUTTER Insulin Aspart (Novolog) 0 unit SQ ACHS [facility]; Protocol Last Admin: 07/28/19 17:08 Dose: 2 unit Documented by: Magnesium Hydroxide (Milk Of Magnesia) 2,400 mg PO BID PRN PRN Reason: Constipation Metoprolol Tartrate (Lopressor) 12.5 mg PO BID [facility] Last Admin: 07/28/19 08:33 Dose: 12.5 mg Documented by: Miscellaneous Information (Magnesium Per Protocol) 1 each MISCELLANE DAILY PRN; Protocol PRN Reason: Per Protocol Miscellaneous Information (Potassium Per Protocol) 1 each MISCELLANE DAILY PRN; Protocol PRN Reason: Per Protocol Miscellaneous Information (Phosphorus Per Protocol) 1 each MISCELLANE DAILY PRN; Protocol PRN Reason: Per Protocol Ondansetron HCl (Zofran) 4 mg IVP Q6HR PRN PRN Reason: Nausea And Vomiting Last Admin: 07/28/19 08:40 Dose: 4 mg Documented by: Pantoprazole Sodium (Protonix) 40 mg PO AC-BRKFST [facility] Last Admin: 07/28/19 07:03 Dose: 40 mg Documented by: Sodium (Saline Flush) 10 ml IV BID [facility] Last Admin: 07/28/19 08:34 Dose: 10 ml Documented by: Varenicline (Chantix) 1 mg PO BID [facility] Last Admin: 07/28/19 08:34 Dose: 1 mg Documented by: Physical examination: Vital signs-97.5, 79, 12, 92/50, and 96% room air GENERAL: Sitting upon a chair, comfortable EYES: Pupils equal. Conjunctiva normal. HEENT: External appearance of nose and ears normal, oral cavity grossly normal. NECK: JVD not raised; masses not palpable. HEART: First and second heart sounds are normal; mild edema. LUNGS: Respiratory rate normal, diminished breath sounds. ABDOMEN: Soft, nontender, liver spleen not palpable, no masses palpable. PSYCH: Alert and oriented x3; mood and affect, normal INVESTIGATIONS, reviewed in the clinical context: White count 13 hemoglobin 9.6 platelets 26 potassium 4.9 bun 35 creatinine 1.05 Previous testing White count 10.7 hemoglobin 13.9 platelets 196 potassium 3.8 crit 0.71 glucose 283 Troponin 3.3, 5.5 ProBNP 7190 EKG tracing personally reviewed by me-ST segment elevation in anterior leads and flipped T waves in the V4 to V6 Chest x-ray film personally reviewed by me-pulmonary edema with fluid in the fissures, infiltrative patch at the right lung 2-D echo -, multiple wall motion hypokinesia, moderate MR, EF 20-25% pro calcitonin 0.16 CT angiogram of the neck-more than 90% stenosis at the origin of the left subclavian artery. Evidence of left subclavian steal phenomena and probably reversed for the left vertebral artery. Apparent complete occlusion proximal left vertebral artery. 50% stenosis of the innominate artery. Absent flow on the right carotid artery. NIK-shows EF of 30-35%, with severe mitral regurgitation Assessment: -Acute ST elevation myocardial infarction, POA -Severe 2 vessel coronary artery disease per cardiac cath, followed by coronary bypass four-vessel -Acute congestive heart failure from ischemic cardiomyopathy EF of 30-35 % -Acute severe mitral regurgitation could be from acute ischemic cardiomyopathy, followed by mitral valve repair -acute COPD exacerbation in a smoker, improved -Diabetes mellitus 2, chronically on insulin -Possible peripheral artery disease - right lower lobe pneumonia, suspect gram-negative organism. Improved -more than 90% stenosis at the origin of the left subclavian artery. Evidence of left subclavian steal phenomena and probably reversed for the left vertebral artery. Apparent complete occlusion proximal left vertebral artery. 50% stenosis of the innominate artery. Absent flow on the right carotid artery. Plan: Current medications include DuoNeb, albuterol, aspirin, Lipitor, Pulmicort, Plavix, Wellbutrin, subcu heparin, Lopressor, Chantix. Care was discussed with the patient.
[2019-07-28] MEDS: ATORVASTATIN 40 MG TAB PO SCH (20:00)
[2019-07-28 20:25] LABS: Glucose,Whole Blood 197 mg/dL (75-99)
[2019-07-29 04:07] VITALS: TEMP 97.9
[2019-07-29] MEDS: ONDANSETRON 4 MG/2 ML VIAL IVP PRN (04:37)
[2019-07-29] MEDS: ACETAMINOPHEN TAB 500 MG TAB PO PRN ×2 (04:38→10:00)
[2019-07-29 05:34] LABS: HCT 22.9 % (34.0-46.0); MCH 30.7 pg (25.0-35.0); MCV 92.9 fL (80.0-100.0); Mean Platelet Volume 6.9; Platelet Count 243 k/uL (150-450); RBC 2.46 m/uL (3.80-5.40); WBC 8.6 k/uL (3.8-10.6)
[2019-07-29 05:35] LABS: Albumin 2.9 g/dL (3.5-5.0); Calcium 8.4 mg/dL (8.4-10.2); HGB 7.6 gm/dL (11.4-16.0); Potassium 4.5 mmol/L (3.5-5.1); Total Bilirubin 0.5 mg/dL (0.2-1.3); Total Protein 4.9 g/dL (6.3-8.2)
[2019-07-29 06:52] LABS: Glucose,Whole Blood 183 mg/dL (75-99)
[2019-07-29] MEDS: INSULIN ASPART (NovoLOG) 100 UNIT/ML VIAL SQ SCH (06:53)
[2019-07-29] MEDS: PANTOPRAZOLE 40 MG TABLET PO SCH (06:59)
[2019-07-29 07:45] LABS: HCT 26.2 % (34.0-46.0); HGB 8.4 gm/dL (11.4-16.0); MCH 30.6 pg (25.0-35.0); MCHC 32.2 g/dL (31.0-37.0); MCV 95.1 fL (80.0-100.0); Mean Platelet Volume 7.4; Platelet Count 248 k/uL (150-450); RBC 2.75 m/uL (3.80-5.40); RDW 13.2 % (11.5-15.5); WBC 7.8 k/uL (3.8-10.6)
[2019-07-29] MEDS: IPRATROPIUM-ALBUTEROL 3 ML NEB INHALATION SCH ×2 (07:54→13:19)
[2019-07-29] MEDS: BUDESONIDE 1 MG/2 ML NEBU INHALATION SCH (07:54)
--- NOTE | 2019-07-29 08:32 | XR ---
EXAMINATION TYPE: XR chest 2V DATE OF EXAM: 07/29/2019 COMPARISON: 07/28/2019 INDICATION: Postop cardiac surgery TECHNIQUE: Frontal and lateral views of the chest are obtained. FINDINGS: The heart size is normal. The pulmonary vasculature is normal. Mild infiltration at the right base. There is a small left pleural effusion and/or atelectasis at the left base sternotomy wires are present from prior CABG.. IMPRESSION: 1. Improving bibasilar infiltrates. Residual remains continued follow-up is recommended.
--- NOTE | 2019-07-29 08:54 | P.PN ---
Subjective Progress Note Date: 07/29/19 Principal diagnosis: Right lower lobe pneumonia, triple-vessel coronary artery disease This is a 49-year-old white female patient of Dr. Freya Miles, who sees Elieser Serna PA-C at her office, has passed [facility] history of COPD, not on oxygen at baseline, previous history of pneumonia, frequent bouts of bronchitis, carotid artery stenosis, and patient has a known 100% right carotid stenosis and 60% left-sided carotid stenosis she follows with Dr. Rausch, previous episode of myocardial infarction 8 years ago, diabetes mellitus type 2 on insulin, and patient carries [id number] smoking history, she recently quit 5 days ago, she is currently on Chantix. Patient presented to the emergency department on 07/17/2019 with complaints of midsternal chest pain, which was nonradiating, which was exacerbated by episodes of coughing and deep breathing, increased cough, non-productive, denied any fever, chills, denied any hemoptysis. Patient was a transfer from [facility]. Apparently last week she had a upper respiratory infection, cough and intermittent chest pain. She developed worsening of the pleuritic chest pain worse with inspiration. EKG was obtained on admission showing sinus tachycardia, 1,[address] elevation in V2 and V3, V4 and V5. Labs showed mild leukocytosis with a white blood cell count of 11.7, hemoglobin of 13.9, electrolytes and renal profile were unremarkable with the exception of CO2 which was at 21, glucose was elevated at 350, troponin came back elevated at 3.340, and 5.5, proBNP was 7190, and subsequent one came down to 5330. Chest x-ray showed right lower lobe airspace disease likely related to pneumonia, and increased diffuse interstitial markings consistent with mild interstitial edema. She has been afebrile, she is maintaining stable oxygenation on room air, she has been started on Rocephin and Zithromax, she was given a dose of IV Lasix in the emergency department, she is being evaluated by cardiology, and her echocardiogram revealed moderately severe impaired LVEF of 30-35%, hypokinesis involving the apical anterior lateral LV wall, lateral LV wall and inferior LV wall, as well as a septal wall. There is mild aortic regurgitation, moderate mitral regurgitation, trace pulmonic regurgitation, no pericardial effusion. On 07/19/2019 patient seen in follow-up on selective care unit, she is awake and alert, she had just returned from the heart catheterization and she was found to have evidence of multivessel coronary artery disease and she was referred to cardiothoracic surgery for possibility of bypass grafting. She is resting comfortably in bed, she slightly upset, but no acute distress, she states her breathing is stable, she is on room air, and her pulse ox is 91%, no fever or chills, no complaints of chest pain, hemodynamically stable. She has not been able to provide a sputum specimen, she is on a combination of Zithromax and Rocephin, nebulized bronchodilators. On 07/20/2090 patient seen in follow-up on further care unit, she is up ambulating, she is getting very to get a shower, room air pulse ox is 98%, no fever or chills, hemodynamically stable, no complaints of chest pain, no complaints of difficulty breathing, respirations are even and nonlabored, lung sounds are diminished, no rhonchi, no wheezing noted, patient is on a combination of Rocephin and Zithromax, was unable to produce a sputum sample for us. She is undergoing evaluation for bypass grafting surgery. She had a transesophageal echocardiogram today, which showed impaired left ventricle systolic function with an ejection of 30-35%, severely dilated left atrium, no evidence of thrombus in the left atrial appendage, trileaflet aortic valve without stenosis with mild insufficiency, and thickened mitral valve leaflets with evidence of severe mitral regurgitation On 07/21/2019 patient seen in follow-up on selective care unit, she is resting comfortably, she denies any acute distress, she denies any recurrent episodes of any chest pain, no shortness of breath, she is currently on room air. No cough or phlegm production, room air pulse ox is 96%, low-grade fever this morning with a temp of 99.0F. Lung sounds are diminished at the bases, no rhonchi, no wheezing. Today's lab work shows white blood cell count of 10.4, hemoglobin is 14.0, electrolytes and renal profile were unremarkable. No pleuritic chest discomfort, no hemoptysis, patient had a bedside spirometry done and it was a poor effort, and he did show FEV1 of 1.39 L or 42% of predicted, consistent with severe obstructive pulmonary defect. We will have to repeat her PFT. Continues on a combination of Rocephin and Zithromax, nebulized bronchodilators. On 07/26/2019 patient is seen in the intensive care unit, this is postoperative day 1, status post four-vessel coronary artery bypass grafting using the in situ right internal mammary artery to the LAD, reverse SVG to the first diagonal, reverse SVG to the second obtuse marginal artery, reverse SVG to the RCA into the PDA, and mitral valve repair with posterior annuloplasty using a 28 mm flex ring. Exclusion of the left atrial appendage using 35mm etcher clip was also done. OR exit time was 1559, and extubation time was 2132. This morning patient is seen in the ICU, she is awake and alert, sitting up in the recliner, having mild to moderate amount of incisional discomfort, but no acute distress, she is currently on 2 L of oxygen with a pulse ox of 97%, hemodynamically patient is stable, remains on small amount of Primacor which is being weaned down, Primacor is currently infusing at a rate of 0.5 mics per kilo per minute. 0.45 at 50 ML per hour, insulin drip is 0.5 units per hour. PA pressure is 19/16, cardiac output and index is 2.8 and 2.7 respectively. Incentive spirometer effort is 500 mL, lung sounds are positive for some scattered rhonchi. Afebrile. This morning's blood work has been reviewed, showing white blood cell count of 8.7, hemoglobin is 8.0, sodium is 136, potassium 5.0, BUN is 18 and creatinine 0.73. She did not require any blood products. 2 mediastinal chest tubes with Dr. 145 mL of serosanguineous output in last 24 hours, and right pleural was 270 mL serosanguineous output, right leg BARBRA drain with 30 mL of serosanguineous output. Saravia catheter is in, output is in the order of 55- 150 ML respectively, today's chest x-ray has been reviewed showing mild pulmonary vessel congestion, and patchy and hazy bibasilar opacities likely small effusions with the adjacent atelectasis, no evidence of pneumothorax. On 07/27/2019 patient is seen in follow-up in the intensive care unit, this is postoperative day 2 status post four-vessel coronary artery bypass grafting and mitral valve repair. Patient is doing well, she is awake and alert, she is on room air today with a pulse ox of 91-96%, hemodynamically patient is stable, currently on 0.45 at a rate of 20 ML per hour, Primacor has been discontinued, Levothroid and insulin have been discontinued as well. PA pressures are 47/21, and cardiac output and index are 4.8 and 2.7 respectively, she is in sinus rhythm, vital signs are stable, lung sounds are clear, no rhonchi, no rales, her pain is reasonably controlled, she is working on the incentive spirometer. Fol low-up chest x-ray shows a right lower lobe infiltrate, small left pleural effusion. Afebrile. There has been 80 mL of servicing this drainage from the mediastinal chest tubes and 56 out of the right pleural, and CT surgery is to discontinue all 3 chest tubes today. Saravia catheter is in, and patient is producing urine in order of 30-50 ML per hour. Patient is tolerating oral intake. On 07/28/2019 patient seen in follow-up in the intensive care unit, this postoperative day 3, status post four-vessel coronary artery bypass grafting and mitral valve repair, and exclusion of the left atrial appendage. Doing very well, yesterday her chest tubes have been discontinued, her PA catheter has been discontinued, today she is awake and alert, she is sitting up in the recliner, she is on 2 L of oxygen her pulse ox 97-99%, hemodynamically stable, 0.45 saline infusing at a rate of 50 ML per hour, sinus rhythm on the monitor, she is less anxious on today's exam, her pain is controlled, her iron separate is 500 mL, today's chest x-ray has been reviewed showing bilateral pleural effusions, ultr asound the chest was done showing 1 cm pocket on the right and 2 cm pocket on the left, not enough for thoracentesis. His labs have been reviewed, showing white blood cell count of 13.0, hemoglobin of 9.6, sodium is 133, potassium is 4.9, chloride is 103, CO2 is 20, BUN is 35 and creatinine is 1.05. Saravia catheter has been discontinued, patient had a bowel movement this morning, which was loose after having received a stool softener. Otherwise no distress. Encourage activity, encourage ambulation. We'll continue to follow On 07/29/2019 patient is seen in follow-up in the intensive care unit, this is postoperative day 4, status post four-vessel coronary artery bypass grafting and mitral valve repair and exclusion of the left atrial appendage. Patient is awake and alert, oriented 3, room air pulse ox is 94%, she denies any difficulty breathing, her pain is controlled, her chest tubes have been discontinued 48 hours ago, she's been afebrile, vital signs have been stable, no running IVs, IVs have been hep-locked. The catheter has been discontinued, Saravia catheter has been discontinued, patient has been tolerating ambulation, has been ambulating around the unit, tolerating it well, incentive spirometer effort is 500 mL, lung sounds are diminished with a few basilar rales, no acute distress, no significant cough or congestion, today's chest x-ray has been reviewed, showing improving bibasilar infiltrates and the residual small left pleural effusion and/or atelectasis at the left base and mild infiltration at the right base. Today's lab work reviewed, showing red blood cell, 7.8, hemoglobin of 8.4, no BMP done. Objective - Vital Signs Vital signs: Vital Signs Temp 97.9 F 07/29/19 04:00 Pulse 85 07/29/19 08:00 Resp 18 07/29/19 08:00 BP 111/67 07/29/19 08:00 Pulse Ox 94 L 07/29/19 08:00 Intake & Output 07/28/19 07/29/19 07/29/19 18:59 06:59 18:59 Intake Total 665 Output Total 250 Balance 415 Weight 70.9 kg 70 kg Intake: IV 265 Pressure Lines: CVP/AL/PA 15 Sodium Chloride 0.45% 1, 250 000 ml @ 50 mls/hr IV . Q20H IBIS Rx#:[id number] Oral 400 Output: Urine 250 Other: Voiding Method Bedside Commode Bedside Commode # Voids 0 # Bowel Movements 1 ABP, PAP, CO, CI - Last Documented Arterial Blood Pressure 110/41 Pulmonary Artery Pressure 45/20 Cardiac Output 4 Cardiac Index 2.2 - Exam GENERAL EXAM: Alert, pleasant, 49-year-old white female, on room air with a pulse ox of 94% and mild to moderate amount of discomfort, incisions, but no acute distress HEAD: Normocephalic/atraumatic. EYES: Normal reaction of pupils, equal size. Conjunctiva pink, sclera white. NOSE: Clear with pink turbinates. THROAT: No erythema or exudates. NECK: No masses, no JVD, no thyroid enlargement, no adenopathy. CHEST: No chest wall deformity. Symmetrical expansion. Midsternal incisions clean dry and intact, interval removal of the 2 mediastinal chest tubes and a right pleural chest tubes. LUNGS: Equal air entry with some scattered rhonchi CVS: Regular rate and rhythm, normal S1 and S2, no gallops, no murmurs, no rubs ABDOMEN: Soft, nontender. No hepatosplenomegaly, normal bowel sounds, no guarding or rigidity. EXTREMITIES: No clubbing, no edema, no cyanosis, 2+ pulses and upper and lower extremities. Right leg incision is clean dry and intact, BARBRA drain with small amount of serosanguineous output, SCDs on on bilateral lower extremities MUSCULOSKELETAL: Muscle strength and tone normal. SPINE: No scoliosis or deformity SKIN: No rashes CENTRAL NERVOUS SYSTEM: Alert and oriented -3. No focal deficits, tone is no rmal in all 4 extremities. PSYCHIATRIC: Alert and oriented -3. Appropriate affect. Intact judgment and insight. - Labs CBC & Chem 7: 07/29/19 07:24 07/29/19 04:16 Labs: Abnormal Lab Results - Last 24 Hours (Table) 07/28/19 07/28/19 07/28/19 Range/Units 11:56 16:58 20:24 RBC (3.80-5.40) m/uL Hgb (11.4-16.0) gm/dL Hct (34.0-46.0) % Sodium (137-145) mmol/L Carbon Dioxide (22-30) mmol/L BUN (7-17) mg/dL Glucose (74-99) mg/dL POC Glucose (mg/dL) 201 H 198 H 197 H (75-99) mg/dL AST (14-36) U/L ALT (9-52) U/L Total Protein (6.3-8.2) g/dL Albumin (3.5-5.0) g/dL 07/29/19 07/29/19 07/29/19 Range/Units 04:16 04:16 06:51 RBC 2.46 L (3.80-5.40) m/uL Hgb 7.6 L D (11.4-16.0) gm/dL Hct 22.9 L (34.0-46.0) % Sodium 134 L (137-145) mmol/L Carbon Dioxide 20 L (22-30) mmol/L BUN 31 H (7-17) mg/dL Glucose 147 H (74-99) mg/dL POC Glucose (mg/dL) 183 H (75-99) mg/dL AST 50 H (14-36) U/L ALT 79 H (9-52) U/L Total Protein 4.9 L (6.3-8.2) g/dL Albumin 2.9 L (3.5-5.0) g/dL 07/29/19 Range/Units 07:24 RBC 2.75 L (3.80-5.40) m/uL Hgb 8.4 L (11.4-16.0) gm/dL Hct 26.2 L (34.0-46.0) % Sodium (137-145) mmol/L Carbon Dioxide (22-30) mmol/L BUN (7-17) mg/dL Glucose (74-99) mg/dL POC Glucose (mg/dL) (75-99) mg/dL AST (14-36) U/L ALT (9-52) U/L Total Protein (6.3-8.2) g/dL Albumin (3.5-5.0) g/dL Assessment and Plan Plan: Assessment: #2. Triple-vessel coronary artery disease, cardiac catheterization showed RCA 90% occluded, circumflex is 90%, proximal LAD of 20% and mid LAD of 99%, LVEDP was 30 mmHg and moderate to severe mitral valve regurgitation, and left subclavian stenosis of 90%, status post four-vessel coronary artery bypass using ASCENCION to the LAD, reverse SVG to the first diagonal artery, reverse SVG to OM 2, reverse SVG to the RCA, mitral valve repair and exclusion of the left atrial appendage, post-op day 4 #2. Acute right lower lobe pneumonia, community-acquired, recovered #3. Acute blood loss anemia, expected outcome of bypass surgery and mitral valve repair #4. Elevated troponins with ST elevation in anterior leads, the possibility of ST elevated myocardial infarction versus acute viral myocarditis #5. Acute right lower lobe pneumonia, community-acquired #6. Acute exacerbation of congestive heart failure with systolic dysfunction, and echocardiogram revealed severely impaired LVEF of 30-35%, and moderate to severe mitral regurgitation #7. History of COPD, bedside PFT showed severe obstruction with FEV1 of 1.39 L of 42% of predicted #8. Chronic nicotine dependence, in remission for last 5 days, patient is on Chantix, prior to that patient smoked a pack a day for 33 years #9. History of aortoiliac bypass #10. Recent history of laparoscopic cholecystectomy #11. Insulin-dependent diabetes mellitus type 2 #12. Hyperlipidemia #13. Carotid stenosis, bilateral, 100% on the right and 60% on the left, patient follows with Dr. Rausch. Patient has left subclavian stenosis of 90% #14. Previous history of pneumonia, and frequent bouts of bronchitis #15. Small bilateral pleural effusions, with 1 cm pocket on the right, and 2 cm pocket on the left Plan: Continue current medical treatment, continue encouraging deep breathing and coughing, today's chest x-ray shows improvement in the appearance of bibasilar airspace disease, with some residual right basilar infiltration and small left pleural effusion and adjacent atelectasis, bleeding is stable, patient is on room air, tolerating ablation, hemodynamically stable, no acute events overnight, anticipate discharge home today if cleared by CT surgery. She will need follow-up appointment with Dr. Sabillon any office in one week for follow-up chest x-ray I performed a history & physical examination of the patient and discussed their management with my nurse practitioner, Daiana Rosa. I reviewed the nurse practitioner's note and agree with the documented findings and plan of care. Lung sounds are positive for left basilar crackles. The findings and the impression was discussed with the patient. I attest to the documentation by the nurse practitioner. Time with Patient: Less than 30
[2019-07-29] MEDS: HEPARIN SODIUM,PORCINE 5,000 UNIT/ML 1 ML VIAL SQ SCH (09:46)
[2019-07-29] MEDS: ASPIRIN 325 MG TAB PO SCH (09:46)
[2019-07-29] MEDS: CLOPIDOGREL 75 MG TAB PO SCH (09:47)
[2019-07-29] MEDS: METOPROLOL TARTRATE 12.5 MG TAB PO SCH (09:47)
[2019-07-29] MEDS: buPROPion SR 150 MG TABLET.ER PO SCH (09:47)
[2019-07-29] MEDS: VARENICLINE 1 MG TAB PO SCH (09:48)
--- NOTE | 2019-07-29 11:08 | P.DS ---
Providers Date of admission: 07/17/19 02:47 Expected date of discharge: 07/29/19 Attending physician: Katherine Sarmiento Consults: 07/17/19 02:44 Consult Physician Stat Consulting Provider: Thai Manrique Consult Reason/Comments: chest pain, elevated trop, new heart failure Do you want consulting provider notified?: Already Contacted 07/17/19 20:46 Consult Physician Routine Consulting Provider: Efrain Sabillon Consult Reason/Comments: pneumonia Do you want consulting provider notified?: Yes 07/17/19 20:47 Consult Physician Routine Consulting Provider: Carmine Smith Consult Reason/Comments: poor circulation Do you want consulting provider notified?: Yes 07/19/19 08:51 Consult Physician Stat Consulting Provider: Joon Shen Consult Reason/Comments: cad Do you want consulting provider notified?: Already Contacted 07/25/19 15:47 Consult Physician Routine Consulting Provider: Parker Keller Consult Reason/Comments: med management Do you want consulting provider notified?: Already Contacted Primary care physician: Torin Miles [facility] Course: FINAL DIAGNOSIS: 1. Severe triple-vessel coronary artery disease 2. Non-STEMI this admission 3. Severe mitral valve regurgitation per transesophageal echocardiogram 4. Acute systolic heart failure with moderately impaired left ventricular systolic function, EF 30-35% 5. Right lower lobe pneumonia, community-acquired 6. Hyperlipidemia 7. Insulin-dependent diabetes mellitus with Hgb A1c 7.6% 8. Complete occlusion of the right internal carotid artery, left subclavian s tenosis 90%, complete occlusion of the proximal left for table artery, left internal carotid artery 25% stenosis, innominate artery 50% stenosis 9. 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 TIA in 2007 11. Chronic current nicotine dependence, currently on Chantix 12. Severe COPD with preoperative FEV1 42% of predicted 13. Hyperthyroidism 14. Recent laparoscopic cholecystectomy 15. Depressive disorder 16. Family history of heart disease 17. Postoperative acute blood loss anemia PRINCIPAL PROCEDURE: 1. Selective right and left coronary angiogram and left heart catheterization performed by Dr. Monet. 2. Preoperative transesophageal echocardiogram performed by Dr. Monet. 3. Urgent quadruple coronary artery bypass grafting using the in situ right internal mammary artery crossing anteriorly over the aorta in the midline to the left anterior descending coronary artery, a reverse greater saphenous vein graft from the aorta to the first diagonal coronary artery, a reverse greater saphenous vein graft from the aorta to the second obtuse marginal coronary artery, and a reverse greater saphenous vein graft from the aorta to the right coronary artery into the PDA. 4. Mitral valve repair with a posterior annuloplasty using a 28 mm AnnuloFlex ring. 5. Exclusion of the left atrial appendage using a 35 mm Atriclip. 6. Intraoperative transesophageal echocardiogram and epi-aortic scanning. 7. Graft flow measurements using the Medi-Stim system. HISTORY OF PRESENT ILLNESS: This is a 49-year-old female patient who is followed by Dr. Freya Miles on an outpatient basis. She has a past medical history significant for insulin-dependent diabetes mellitus, hyperlipidemia, chronic obstructive pulmonary disease, severely symptomatic aortic iliac occlusion status post aortobiiliac bypass in 2010, history of TIA in 2007, chronic nicotine abuse in which she smokes about one pack per day of cigarettes, chronic cholecystitis with history of recent cholecystectomy and recent weight loss due to her cholecystitis, depressive disorder and history of complete occlusion of the right internal carotid artery. Recently, the patient has been having complaints of flulike symptoms for around a 2 week period in which she has been feeling very fatigued, with generalized weakness, chest pain, shortness of breath and a dry nonproductive cough. Subsequently, due to these above- mentioned symptoms she sought medical attention at the emergency department at [facility]. At [facility] she was found to have elevated troponin of 5.014. A chest x-ray was also completed which showed her to have diffuse pulmonary edema according to the report. A 12-lead EKG was also completed which demonstrated some anterior wall ST elevations. Due to her presenting symptoms, elevated troponins and 12-lead EKG changes she was transferred to [facility] for further workup and treatment recommendations. Repeat troponin was completed here at [facility] which was 3.34 and as high as 5.5. The patient was seen and evaluated by Dr. Zimmer and from cardiology associates and she was admitted to the hospital for further testing. HOSPITAL COURSE: The patient underwent a 2-D echocardiogram which showed her left ventricular size to be normal with a moderate concentric left ventricular hypertrophy and an overall ventricular systolic function to be moderately to severely impaired with an ejection fraction of 30-35%. The 2-D echocardiogram also showed apical septum left ventricular wall motion to be hypokinetic, mild aortic valve regurgitation, moderate mitral valve regurgitation and trace pulmonic valve regurgitation. For further evaluation the patient underwent a selective right and left coronary angiogram, left heart catheterization which demonstrated her to have a 90% stenosis to the right coronary artery, a 90% stenosis to the circumflex coronary artery, a 20% stenosis to the proximal left anterior descending coronary artery and a 99% stenosis to her mid left anterior descending coronary artery. To further evaluate her mitral valve regurgitation a transesophageal echocardiogram was completed which demonstrated an impaired left ventricular function with an ejection fraction between 30 and 35% associated with wall motion abnormalities, a severely dilated left atrium, mild aortic valve insufficiency, and severe mitral valve regurgitation. Due to the above-mentioned findings a consult was placed to Dr. Katherine Sarmiento from cardiothoracic surgery reviewed the results of the 2-D echocardiogram, cardiac catheterization and NIK results with the patient and her family and an urgent myocardial revascularization and mitral valve repair surgery was recommended. After the risks and benefits of the surgery were discussed with the patient and her family the patient wished to proceed with open heart surgery. A consent was obtained, the patient was taken to the preoperative area, prepped in the usual fashion and subsequently taken to the operating room where Dr. Katherine Sarmiento performed an urgent quadruple coronary artery bypass grafting using the in situ right internal mammary artery crossing anteriorly over the aorta in the midline to the left anterior descending coronary artery, a reverse greater saphenous vein graft from the aorta to the first diagonal coronary artery, a reverse greater saphenous vein graft from the aorta to the second obtuse marginal coronary artery, and a reverse greater saphenous vein graft from the aorta to the right coronary artery into the PDA, a mitral valve repair with a posterior annuloplasty using a 28 mm AnnuloFlex ring, an exclusion of the left atrial appendage using a 35 mm Atriclip, intraoperative transesophageal echocardiogram, epi-aortic scanning and graft flow measurements using the Decision[employer]k-CreaWor system.upon completion of the surgery the patient was transferred to the cardiovascular intensive care unit where she was recovered, monitored hemodynamically and where she progressed cardiac rehabilitation phase 1. She was extubated, all lines, tubes and supportive drips were discontinued when appropriate and transfer orders were placed for 3 S. cardiac stepdown unit, however there were no beds available and the patient remained in the intensive care unit as a stepdown patient until discharge. Her oxygen was titrated down, she continued to work with physical, occupational therapy and cardiac rehab, she was tolerating an oral diet, her pain was well-controlled and she was ready to be discharged home with [facility] health care on postoperative day #4. She has received written and verbal instructions regarding her medications, activity restrictions, signs and symptoms requiring physician notification and her follow-up appointments. COMPLICATIONS: there were no postoperative complications. CONSULTATIONS: 1. Dr. Manrique for cardiology management. 2. Dr. Keller for medical and diabetes management. 3. Dr. Sabillon for pulmonary and ventilator management. 4. Dr. Ma for general surgery management. DISCHARGE INSTRUCTIONS: 1. No driving for 4 weeks, or until physician gives their ok. 2. The patient should sleep in their own bed, no medical bed needed. 3. Stairs are not an issue. If the bedroom is upstairs, it is advised that the patient go up at night and down in the morning for the first week. Go slowly, using handrail and take 1 step at a time. 4. YOLANDA hose are to be worn for 30 days or until physician discontinues. 5. Heart hugger is to be worn 100% of the time until physician discontinues.(except when showering) 6. No lifting, pushing, or pulling more than 10 pounds for 12 weeks. The physician will advise of any restriction changes. 7. The patient is expected to continue the prescribed walking program. 8. Continue pain control per as needed orders. 9. Continue with incentive spirometry and splinting/heart hugger until otherwise directed by the physician. 10. Must shower daily using liquid antibacterial soap and a separate white washcloth for each individual incision. 11. Routine sternal incision care, no ointments, lotions or powders on the incisions. 12. Please notify surgeon/nurse practitioner for temperature greater than 101F or purulent drainage from incisions 13. Prescriptions for first 30 days given per cardiac surgery service. After 30 days, all prescription refills obtained through cardiology/primary care physician. 14. A red arm and has been placed on this patient it should be worn for 30 days post surgery and will be removed by the cardiothoracic surgeons. If an ER visit is necessary, please make sure the number on the red arm band is called. HOME HEALTH SERVICES TO PROVIDE: RN SKILLED HOME CARE SERVICES FOR POST-OP SURGICAL PATIENTS WITH THE FOLLOWING: Coronary Artery Bypass Surgery (CABG), Mitral Valve Replacement /Repair ( MVR), Aortic Valve Replacement/Repair (AVR) RN TO CONTINUE EDUCATION FROM ``ROAD TO A HEALTH HEART PATIENT EDUCATION MANUAL" (GIVEN TO PATIENT IN THE HOSPITAL) MEDICATION RECONCILIATION WITH EDUCATION NEEDED ON FIRST HOME VISIT EMPHASIZE IMPORTANCE OF WEARING BREAST SUPPORT/HEART HUGGER ENCOURAGE USE OF INCENTIVE SPIROMETER 10 X EVERY HOUR WHILE AWAKE ENCOURAGE UTILIZATION OF LOWER EXTREMITY COMPRESSION STOCKINGS/YOLANDA HOSE and ELEVATE LEGS ABOVE LEVEL OF HEART WHILE AT REST. ENCOURAGE AMBULATION 3-5x/day INCREASING TOLERATES, WHILE AVOID EXTREMES IN TEMPERATURE FREQUENCY: RN TO OPEN THE PATIENT WITHIN 24 HOURS OF DISCHARGE FROM THE HOSPITAL WITH TELEHEALTH INSTALLED AT [facility], RN TO VISIT 2-3 X A WEEK FOR 4 WEEKS ESTABLISHED BY PATIENT NEEDS. LABORATORY: CBC, CMP TO BE DRAWN ON THE THIRD DAY HOME, (RAN STAT) FAX RESULTS TO [phone]. TELEHEALTH PARAMETERS: WEIGHT: NOTIFY MD OF WEIGHT GAIN OF 2 LBS IN 24 HOURS OR 5 LBS IN ONE WEEK HR: NOTIFY MD OF HR <55 BPM OR HR>100 BPM BP: NOTIFY MD IF BP <90/55 OR BP>140/100 O2 SAT: NOTIFY MD IF PO2<93% ON ROOM AIR SEND TELEHEALTH REPORT TO LOGISTIC MANAGER AND CARDIOVASCULAR SURGEON THE FIRST WEEK OF CARE AND THEN BI-WEEKLY. PLEASE ADDITIONALLY COMMUNICATE ANY ABNORMALS AND NEW FINDINGS TO THE SURGEONS OFFICE. She was not discharged home with an DEVON inhibitor/ARB at this time due to some episodes of postoperative hypotension, this will be followed up on an outpatient basis. Patient Condition at Discharge: Serious Plan - Discharge Summary Discharge Rx Participant: Yes New Discharge Prescriptions: New Aspirin 325 mg PO DAILY tab Atorvastatin [Lipitor] 40 mg PO HS #30 tab Metoprolol Tartrate [Lopressor] 12.5 mg PO BID #60 tab Clopidogrel [Plavix] 75 mg PO DAILY #30 tab Pantoprazole [Protonix] 40 mg PO AC-BRKFST #30 tablet. Acetaminophen Tab [Tylenol] 1,000 mg PO Q6HR PRN tab PRN Reason: Fever And/ Or Pain buPROPion SR [Wellbutrin SR] 150 mg PO BID #60 tablet.er glipiZIDE [Glucotrol] 2.5 mg PO AC-BID #60 tablet Ipratropium-Albuterol Nebulize [Duoneb 0.5 mg-3 mg/3 ml Soln] 3 ml INHALATION TID #90 neb Continue Varenicline Tartrate [Chantix Starter Pack] 0.5 mg PO BID Cyanocobalamin [Vitamin B-12] 500 mcg PO DAILY Discontinued Insulin Glargine,Hum.rec.anlog [Basaglar Kwikpen U-100] 30 unit SQ DAILY Albuterol Nebulized [Ventolin Nebulized] 2.5 mg INHALATION RT-Q6H PRN PRN Reason: Shortness Of Breath Insulin Lispro [Admelog] 10 unit SQ AC-TID Discharge Medication List Cyanocobalamin [Vitamin B-12] 500 mcg PO DAILY 07/17/19 [History] Varenicline Tartrate [Chantix Starter Pack] 0.5 mg PO BID 07/17/19 [History] Acetaminophen Tab [Tylenol] 1,000 mg PO Q6HR PRN tab 07/29/19 [Rx] Aspirin 325 mg PO DAILY tab 07/29/19 [Rx] Atorvastatin [Lipitor] 40 mg PO HS #30 tab 07/29/19 [Rx] Clopidogrel [Plavix] 75 mg PO DAILY #30 tab 07/29/19 [Rx] Ipratropium-Albuterol Nebulize [Duoneb 0.5 mg-3 mg/3 ml Soln] 3 ml INHALATION TID #90 neb 07/29/19 [Rx] Metoprolol Tartrate [Lopressor] 12.5 mg PO BID #60 tab 07/29/19 [Rx] Pantoprazole [Protonix] 40 mg PO AC-BRKFST #30 tablet.dr 07/29/19 [Rx] buPROPion SR [Wellbutrin SR] 150 mg PO BID #60 tablet.er 07/29/19 [Rx] glipiZIDE [Glucotrol] 2.5 mg PO AC-BID #60 tablet 07/29/19 [Rx] Follow up Appointment(s)/Referral(s): Efrain Sabillon MD [STAFF PHYSICIAN] - 08/17/19 10:00 am Thai Manrique MD [STAFF PHYSICIAN] - 08/05/19 1:45 pm (Follow-up with Dr. Manrique/Hattie Orellana/Marbella Corona) [facility], [NON-STAFF] - 1-2 Days Nadia Herman NPC [Nurse Practitioner] - 08/04/19 11:00 am Katherine Sarmiento MD [STAFF PHYSICIAN] - 09/02/19 10:00 am Abel Serna PAC [REFERRING] - 08/05/19 9:30 am Ambulatory/Diagnostic Orders: Complete Blood Count w/diff [LAB.AMB] Time Frame: 08/01/19, Facility: [facility], Location: [facility] Comprehensive Metabolic Panel [LAB.AMB] Time Frame: 08/01/19, Facility: [facility], Location: [facility] Patient Instructions/Handouts: Heart Failure (DC), How to Stop Smoking (DC), Heart Healthy Diet (DC), Carotid Artery Disease (DC), Pneumonia (DC), CABG (Coronary Artery Bypass Graft) (DC) Activity/Diet/Wound Care/Special Instructions: accuchek daily DISCHARGE INSTRUCTIONS: 1. No driving for 4 weeks, or until physician gives their ok. 2. The patient should sleep in their own bed, no medical bed needed. 3. Stairs are not an issue. If the bedroom is upstairs, it is advised that the patient go up at night and down in the morning for the first week. Go slowly, using handrail and take 1 step at a time. 4. YOLANDA hose are to be worn for 30 days or until physician discontinues. 5. Heart hugger is to be worn 100% of the time until physician discontinues.(except when showering) 6. No lifting, pushing, or pulling more than 10 pounds for 12 weeks. The phys ician will advise of any restriction changes. 7. The patient is expected to continue the prescribed walking program. 8. Continue pain control per as needed orders. 9. Continue with incentive spirometry and splinting/heart hugger until otherwise directed by the physician. 10. Must shower daily using liquid antibacterial soap and a separate white washcloth for each individual incision. 11. Routine sternal incision care, no ointments, lotions or powders on the incisions. 12. Please notify surgeon/nurse practitioner for temperature greater than 101F or purulent drainage from incisions 13. Prescriptions for first 30 days given per cardiac surgery service. After 30 days, all prescription refills obtained through cardiology/primary care physician. 14. A red arm and has been placed on this patient it should be worn for 30 days post surgery and will be removed by the cardiothoracic surgeons. If an ER visit is necessary, please make sure the number on the red arm band is called. HOME HEALTH SERVICES TO PROVIDE: RN SKILLED HOME CARE SERVICES FOR POST-OP SURGICAL PATIENTS WITH THE FOLLOWING: Coronary Artery Bypass Surgery (CABG), Mitral Valve Replacement/Repair ( MVR), Aortic Valve Replacement/Repair (AVR) RN TO CONTINUE EDUCATION FROM ``ROAD TO A HEALTH HEART PATIENT EDUCATION MANUAL" (GIVEN TO PATIENT IN THE HOSPITAL) MEDICATION RECONCILIATION WITH EDUCATION NEEDED ON FIRST HOME VISIT EMPHASIZE IMPORTANCE OF WEARING BREAST SUPPORT/HEART HUGGER ENCOURAGE USE OF INCENTIVE SPIROMETER 10 X EVERY HOUR WHILE AWAKE ENCOURAGE UTILIZATION OF LOWER EXTREMITY COMPRESSION STOCKINGS/YOLANDA HOSE and ELEVATE LEGS ABOVE LEVEL OF HEART WHILE AT REST. ENCOURAGE AMBULATION 3-5x/day INCREASING TOLERATES, WHILE AVOID EXTREMES IN TEMPERATURE FREQUENCY: RN TO OPEN THE PATIENT WITHIN 24 HOURS OF DISCHARGE FROM THE HOSPITAL WITH TELEHEALTH INSTALLED AT [facility], RN TO VISIT 2-3 X A WEEK FOR 4 WEEKS ESTABLISHED BY PATIENT NEEDS. LABORATORY: CBC, CMP TO BE DRAWN ON THE THIRD DAY HOME, (RAN STAT) FAX RESULTS TO [phone]. TELEHEALTH PARAMETERS: WEIGHT: NOTIFY MD OF WEIGHT GAIN OF 2 LBS IN 24 HOURS OR 5 LBS IN ONE WEEK HR: NOTIFY MD OF HR <55 BPM OR HR>100 BPM BP: NOTIFY MD IF BP <90/55 OR BP>140/100 O2 SAT: NOTIFY MD IF PO2<93% ON ROOM AIR SEND TELEHEALTH REPORT TO LOGISTIC MANAGER AND CARDIOVASCULAR SURGEON THE FIRST WEEK OF CARE AND THEN BI-WEEKLY. PLEASE ADDITIONALLY COMMUNICATE ANY ABNORMALS AND NEW FINDINGS TO THE SURGEONS OFFICE. She was not discharged home with an DEVON inhibitor/ARB at this time due to some episodes of postoperative hypotension, this will be followed up on an outpatient basis. Discharge Disposition: HOME WITH HOME HEALTH SERVICES
--- NOTE | 2019-07-29 11:11 | PN ---
PROGRESS NOTE Essence is a 49-year-old lady who is admitted to hospital with multivessel coronary artery disease and underwent bypass surgery. Today is postop day #4. This morning, patient is doing well, free of symptoms. Hemodynamically stable. PHYSICAL EXAM: Comfortable at rest. Vital signs are stable. There is no jugular venous distention. Chest exam reveals good air entry bilaterally. Heart exam reveals first and second heart sounds. No gallop. No murmur. Exam of extremities did not reveal any edema. Peripheral pulses are felt. patient's hemoglobin this morning is 8.4. It was 8.2 on 07/27. ASSESSMENT: Coronary artery disease, status post coronary artery bypass grafting. Patient is doing well. She will continue current medications. MMODL / IJN: [id number] /
[2019-07-29] MEDS ORDERED: IBUPROFEN 400 MG TAB PO STA (11:44)
[2019-07-29 12:59] VITALS: BP 111/62; PULSE 73; RESP 10
--- NOTE | 2019-07-29 22:10 | P.PN ---
Progress Note - Text Progress Note Date: 07/29/19 Interval history: This is a pleasant [address] Freya Miles. Chronic stable medical conditions include COPD, , hyperlipidemia, diabetes. Patient states about 9 year ago she was having trouble walking even short distance. She was then seen by Dr. Smith. There trouble accessing her from the artery in the groin and also the rest. Subsequently she had took a bypass done to the block artery in the abdomen to improve her circulation to lower extremity. Patient has continued to smoke up to recently. She also has a complete report right carotid artery. History of 9:00 she suddenly became short of breath and developed chest pressure going across the chest. Became dizzy lightheaded. About 11:30 PM she went to [facility]. Her troponin there was 5 with EKG changes and she was transferred here. EKG was showing some ST elevation anterior leads. Patient also following congestive heart failure. Patient was transferred to our ER from [facility]. Patient is put on IV heparin and given IV Lasix.. Patient admitted with diagnosis of ST elevation myocardial infarction versus acute viral myocarditis., Acute CHF exacerbation EF 20-25%, right lower lobe pneumonia. cardiac catheterization by Dr. Monet -. Found to have severe 2 vessel disease. NIK - EF of 30-35% with severe mitral regurgitation. On 07/25/2019 patient underwent-quadruple coronary artery bypass, mitral valve repair with posterior annuloplasty. Today-feeling better. Stable. Starting a diet. Has been out of bed. No new issues. Review of systems: Was done for constitutional, cardiovascular, GI, pulmonary. relevant finding as above Current medications are reviewed from today's electronic records Physical examination: Vital signs-97.9, 84, 14, 120/61 GENERAL: Sitting upon a chair, comfortable EYES: Pupils equal. Conjunctiva normal. HEENT: External appearance of nose and ears normal, oral cavity grossly normal. NECK: JVD not raised; masses not palpable. HEART: First and second heart sounds are normal; mild edema. LUNGS: Respiratory rate normal, diminished breath sounds. ABDOMEN: Soft, nontender, liver spleen not palpable, no masses palpable. PSYCH: Alert and oriented x3; mood and affect, normal INVESTIGATIONS, reviewed in the clinical context: Hemoglobin 8.4 Previous testing White count 10.7 hemoglobin 13.9 platelets 196 potassium 3.8 crit 0.71 glucose 283 Troponin 3.3, 5.5 ProBNP 7190 EKG tracing personally reviewed by me-ST segment elevation in anterior leads and flipped T waves in the V4 to V6 Chest x-ray film personally reviewed by me-pulmonary edema with fluid in the fissures, infiltrative patch at the right lung 2-D echo -, multiple wall motion hypokinesia, moderate MR, EF 20-25% pro calcitonin 0.16 CT angiogram of the neck-more than 90% stenosis at the origin of the left subclavian artery. Evidence of left subclavian steal phenomena and probably reversed for the left vertebral artery. Apparent complete occlusion proximal left vertebral artery. 50% stenosis of the innominate artery. Absent flow on the right carotid artery. NIK-shows EF of 30-35%, with severe mitral regurgitation Assessment: -Acute ST elevation myocardial infarction, POA -Severe 2 vessel coronary artery disease per cardiac cath, followed by coronary bypass four-vessel -Acute congestive heart failure from ischemic cardiomyopathy EF of 30-35 % -Acute severe mitral regurgitation could be from acute ischemic cardiomyopathy, followed by mitral valve repair -acute COPD exacerbation in a smoker, improved -Diabetes mellitus 2, chronically on insulin -Possible peripheral artery disease - right lower lobe pneumonia, suspect gram-negative organism. Improved -more than 90% stenosis at the origin of the left subclavian artery. Evidence of left subclavian steal phenomena and probably reversed for the left vertebral artery. Apparent complete occlusion proximal left vertebral artery. 50% stenosis of the innominate artery. Absent flow on the right carotid artery. Plan: Discussed care with the patient. The patient to keep holding off insulin. Starting the patient glyburide 2.5 mg twice a day. Keep a log of Accu-Cheks. If sugars start [place] really high that she can go back on insulin after discussing with her PCP. Care was also discussed length with Edna from thoracic surgery earlier today. Total time spent today was about 40 minutes with over 25 of discussion.
== END 2019-07-29 15:29 | disposition home health service (06) | DRG 216 ==
LOC: EC 02:06 → 3SCARD 02:47 → 2SICU 07-25 07:47
PROVIDERS: ADMIT Surgery; ATTEND Surgery
PROC: 4A023N7 Measurement of Cardiac Sampling and Pressure, Left Heart, Percutaneous Approach (ICD-10-PCS; 2019-07-19)
PROC: B2111ZZ Fluoroscopy of Multiple Coronary Arteries using Low Osmolar Contrast (ICD-10-PCS; 2019-07-19)
PROC: B44HZZZ Ultrasonography of Bilateral Lower Extremity Arteries (ICD-10-PCS; 2019-07-20)
PROC: B246ZZ4 Ultrasonography of Right and Left Heart, Transesophageal (ICD-10-PCS; 2019-07-20)
PROC: B246ZZ4 Ultrasonography of Right and Left Heart, Transesophageal (ICD-10-PCS; 2019-07-25)
PROC: 02100Z8 Bypass Coronary Artery, One Artery from Right Internal Mammary, Open Approach (ICD-10-PCS; principal; 2019-07-25 07:30)
PROC: 02UG0JZ Supplement Mitral Valve with Synthetic Substitute, Open Approach (ICD-10-PCS; principal; 2019-07-25 07:30)
PROC: 02L70CK Occlusion of Left Atrial Appendage with Extraluminal Device, Open Approach (ICD-10-PCS; principal; 2019-07-25 07:30)
PROC: 5A1221Z Performance of Cardiac Output, Continuous (ICD-10-PCS; principal; 2019-07-25 07:30)
PROC: 021209W Bypass Coronary Artery, Three Arteries from Aorta with Autologous Venous Tissue, Open Approach (ICD-10-PCS; principal; 2019-07-25 07:30)
PROC: 4A1305C Monitoring of Arterial Flow, Coronary, Open Approach (ICD-10-PCS; principal; 2019-07-25 07:30)
PROC: 06BP4ZZ Excision of Right Saphenous Vein, Percutaneous Endoscopic Approach (ICD-10-PCS; principal; 2019-07-25 07:30)
DX: I21.4 Non-ST elevation (NSTEMI) myocardial infarction (principal); J18.1 Lobar pneumonia, unspecified organism; I40.0 Infective myocarditis; I50.23 Acute on chronic systolic (congestive) heart failure; J44.0 Chronic obstructive pulmonary disease with (acute) lower respiratory infection; J44.1 Chronic obstructive pulmonary disease with (acute) exacerbation; D62 Acute posthemorrhagic anemia; J98.11 Atelectasis; E11.51 Type 2 diabetes mellitus with diabetic peripheral angiopathy without gangrene; I11.0 Hypertensive heart disease with heart failure; I95.9 Hypotension, unspecified; B37.3 Candidiasis of vulva and vagina; I65.23 Occlusion and stenosis of bilateral carotid arteries; I65.02 Occlusion and stenosis of left vertebral artery; I25.5 Ischemic cardiomyopathy; I77.1 Stricture of artery; E04.2 Nontoxic multinodular goiter; I08.0 Rheumatic disorders of both mitral and aortic valves; I37.1 Nonrheumatic pulmonary valve insufficiency; B97.89 Other viral agents as the cause of diseases classified elsewhere; I70.8 Atherosclerosis of other arteries; I25.10 Atherosclerotic heart disease of native coronary artery without angina pectoris; I25.2 Old myocardial infarction; E78.5 Hyperlipidemia, unspecified; E05.90 Thyrotoxicosis, unspecified without thyrotoxic crisis or storm; F32.9 Major depressive disorder, single episode, unspecified; M81.0 Age-related osteoporosis without current pathological fracture; R26.2 Difficulty in walking, not elsewhere classified; F17.211 Nicotine dependence, cigarettes, in remission; Z71.6 Tobacco abuse counseling; Z79.4 Long term (current) use of insulin; Z79.1 Long term (current) use of non-steroidal anti-inflammatories (NSAID); Z79.899 Other long term (current) drug therapy; Z95.828 Presence of other vascular implants and grafts; Z86.73 Personal history of transient ischemic attack (TIA), and cerebral infarction without residual deficits; Z87.01 Personal history of pneumonia (recurrent); Z98.891 History of uterine scar from previous surgery; Z98.890 Other specified postprocedural states; Z90.79 Acquired absence of other genital organ(s); Z90.721 Acquired absence of ovaries, unilateral; Z90.49 Acquired absence of other specified parts of digestive tract; Z88.2 Allergy status to sulfonamides; Z88.8 Allergy status to other drugs, medicaments and biological substances; Z80.3 Family history of malignant neoplasm of breast; Z82.49 Family history of ischemic heart disease and other diseases of the circulatory system; Z83.3 Family history of diabetes mellitus; Z84.89 Family history of other specified conditions
CPT/HCPCS: 36415; 70450; 70498; 71045; 71046; 71250; 74176; 76604; 80048; 80053; 80061; 80074; 81001; 81003; 81025; 82150; 82330; 82805; 83036; 83615; 83690; 83735; 83880; 84145; 84443; 84484; 85025; 85027; 85520; 85610; 85730; 86658; 86747; 86850; 86891; 86900; 86901; 86920; 87070; 87086; 87324; 93005; 93306; 93312; 93320; 93325; 93458; 93880; 93922; 93970; 94150; 94640; 94760; 96365; 96366; 96368; 96374; 96376; 99291

== ENCOUNTER 2019-09-26 17:51 | Inpatient (IN) | payer OTHER ==
--- NOTE | 2019-09-26 18:18 | ED ---
SOB HPI <Angela Mo - Last Filed: 09/26/19 18:21> - General Source: RN notes reviewed, old records reviewed Mode of arrival: ambulatory Limitations: no limitations - History of Present Illness MD Complaint: shortness of breath -: days(s) Severity: moderate Severity scale (1-10): 6 Consistency: constant Improves With: rest, upright position Worsens With: lying flat, exertion, movement Known History Of: COPD, congestive heart failure Associated Symptoms: cough, sputum production, palpitations Treatments Prior to Arrival: none <Darnell Canela - Last Filed: 09/26/19 21:51> - General Stated Complaint: Sob/Open heart surgery in June - History of Present Illness Initial Comments: Seen in triage, hx of open heart valve replacement in june Shortness of breath increasing over 4 days, no chest pain (Angela Mo) This is a 49-year-old female DF evaluation, both recent medical history about a month and a half. CABG, open heart surgery. A few days of increasing shortness of breath especially with exertion unable to sleep laying down flat. Patient denying fever shows an increased cough and congestion, no smoking has since her surgery. Patient denying fevers. Patient is still under care of cardiac rehab. She has returned to work and was doing her work and normal job activities without difficulty (Darnell Canela) - Related Data Home Medications Medication Instructions Recorded Confirmed Albuterol Nebulized [Ventolin 2.5 mg INHALATION RT-TID PRN 09/26/19 09/26/19 Nebulized] Aspirin EC [Ecotrin Low Dose] 81 mg PO DAILY 09/26/19 09/26/19 Atorvastatin [Lipitor] 40 mg PO W/SUPPER 09/26/19 09/26/19 Insulin Glargine,Hum.rec.anlog 30 unit SQ W/LUNCH PRN 09/26/19 09/26/19 [Basaglar Kwikpen U-100] Insulin Lispro [Admelog] 10 unit SQ BID-W/MEALS 09/26/19 09/26/19 Metoprolol Succinate [Toprol XL] 25 mg PO DAILY 09/26/19 09/26/19 Multivitamin with Iron 1 tab PO DAILY 09/26/19 09/26/19 [Multivitamins with Iron] Spironolactone 25 mg PO DAILY 09/26/19 09/26/19 Varenicline Tartrate [Chantix 1 mg PO BID 09/26/19 09/26/19 Continuing Pack] Previous Rx's Medication Instructions Recorded Clopidogrel [Plavix] 75 mg PO DAILY #30 tab 07/29/19 Allergies Allergy/AdvReac Type Severity Reaction Status Date / Time sulfamethoxazole Allergy Swelling Verified 09/26/19 20:43 [From Bactrim] trimethoprim [From Bactrim] Allergy Swelling Verified 09/26/19 20:43 metformin AdvReac Nausea & Verified 09/26/19 20:43 Vomiting & Diarrhea Review of Systems ROS Other: All systems not noted in ROS Statement are negative. <Angela Mo - Last Filed: 09/26/19 18:21> ROS Other: All systems not noted in ROS Statement are negative. <Darnell Canela - Last Filed: 09/26/19 21:51> ROS Statement: Those systems with pertinent positive or pertinent negative responses have been documented in the HPI. Past Medical History Past Medical History: Coronary Artery Disease (CAD), Chest Pain / Angina, COPD, CVA/TIA, Diabetes Mellitus, Hyperlipidemia, Myocardial Infarction ([place]), Pneumonia, Thyroid Disorder Additional Past Medical History / Comment(s): Cardiac murmur, DDD, Hyperthyroid/Thyroid Nodules, nausea and vomiting since after of 2017. Has lost 75lbs. Hx CVA 2007 or 2008, no residual effects. 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 Hx Pneumonia. Last Myocardial Infarction Date:: 2011 History of Any Multi-Drug Resistant Organisms: None Reported Past Surgical History: Section, Cholecystectomy, Heart Catheterization, Hernia Repair Additional Past Surgical History / Comment(s): I&D L gluteal abscess, aortagram, Tpwac-Rd-Opaln bypass, laparoscopic surgery-one ovary/one tube removed from opposite sides, multiple abdominal incisional hernia repairs with mesh, Attempted Heart cath but patient states veins collapsed and unable to do. Past Anesthesia/Blood Transfusion Reactions: No Reported Reaction Past Psychological History: Depression Smoking Status: Current every day smoker (Smokes 1 pack per day, reports she has been on Chantix for the past week.) Past Alcohol Use History: None Reported Past Drug Use History: None Reported - Past Family History Mother Family Medical History: Cancer, Coronary Artery Disease (CAD) Additional Family Medical History / Comment(s): Mother is a breast cancer survivor. Father Family Medical History: Coronary Artery Disease (CAD), Diabetes Mellitus, Myocardial Infarction ([place]) Additional Family Medical History / Comment(s): Agent [place] Exposure. Pt does not know at what age her father had his [place]. <ChelyAngela Karen - Last Filed: 09/26/19 18:21> General Exam General appearance: alert, in no apparent distress Head exam: Present: atraumatic, normocephalic, normal inspection Eye exam: Present: normal appearance, PERRL, EOMI. Absent: scleral icterus, co njunctival injection, periorbital swelling ENT exam: Present: normal exam, mucous membranes moist Neck exam: Present: normal inspection. Absent: tenderness, meningismus, lymphadenopathy Respiratory exam: Present: wheezes, decreased breath sounds, prolonged expiratory. Absent: respiratory distress, rales, rhonchi, stridor Cardiovascular Exam: Present: normal rhythm, tachycardia, normal heart sounds. Absent: systolic murmur, diastolic murmur, rubs, gallop, clicks GI/Abdominal exam: Present: soft, normal bowel sounds. Absent: distended, tenderness, guarding, rebound, rigid Extremities exam: Present: normal inspection, full ROM, normal capillary refill. Absent: tenderness, pedal edema, joint swelling, calf tenderness Back exam: Present: normal inspection Neurological exam: Present: alert, oriented X3, CN II-XII intact Psychiatric exam: Present: normal affect, normal mood Skin exam: Present: warm, dry, intact, normal color. Absent: rash <Darnell Canela - Last Filed: 09/26/19 21:51> Course <Darnell Canela - Last Filed: 09/26/19 21:51> Vital Signs 09/26/19 09/26/19 09/26/19 18:15 18:31 18:41 Temperature 97.8 F Pulse Rate 107 H 101 H Respiratory 24 18 Rate Blood Pressure 131/73 O2 Sat by Pulse 100 Oximetry 09/26/19 09/26/19 09/26/19 18:55 19:00 20:00 Temperature Pulse Rate 105 H 103 H 103 H Respiratory 22 20 Rate Blood Pressure 106/79 100/75 O2 Sat by Pulse 100 Oximetry 09/26/19 21:00 Temperature Pulse Rate 104 H Respiratory 20 Rate Blood Pressure 110/85 O2 Sat by Pulse Oximetry - Reevaluation(s) Reevaluation #1: 09/26/19 21:49 Medical records reviewed (Darnell Canela) Reevaluation #2: 09/26/19 21:50 patient still SOB no chest pain (Darnell Canela) - Consultations Consultation #1: Did speak with Dr. Carroll for Dr Sarmiento who recommends admission and evaluation for effusion removal (Darnell Canela) Consultation #2: Spoke with [facility], was agreeable for patient admission (Darnell Canela) Medical Decision Making - Lab Data Result diagrams: 09/26/19 18:46 09/26/19 18:46 - EKG Data -: EKG Interpreted by Me (EKG shows sinus tachycardia rate of 107, MS 126, QRS 90, QTc 440) - Radiology Data Radiology results: report reviewed (Chest x-ray shows increasing size of bilateral pleural effusions), image reviewed <Darnell Canela - Last Filed: 09/26/19 21:51> - Medical Decision Making Early female in the ER for shortness of breath significant or consistent with CHF as exertional dyspnea PND and orthopnea. He be admitted for Lasix as well as possible evaluation for effusion removal (Darnell Canela) - Lab Data Lab Results 09/26/19 09/26/19 09/26/19 Range/Units 18:46 18:46 18:46 WBC 6.3 (3.8-10.6) k/uL RBC 3.97 (3.80-5.40) m/uL Hgb 11.5 D (11.4-16.0) gm/dL Hct 35.8 (34.0-46.0) % MCV 90.1 (80.0-100.0) fL MCH 29.0 (25.0-35.0) pg MCHC 32.1 (31.0-37.0) g/dL RDW 14.2 (11.5-15.5) % Plt Count 242 (150-450) k/uL Neutrophils % 58 % Lymphocytes % 26 % Monocytes % 7 % Eosinophils % 6 % Basophils % 0 % Neutrophils # 3.6 (1.3-7.7) k/uL Lymphocytes # 1.6 (1.0-4.8) k/uL Monocytes # 0.4 (0-1.0) k/uL Eosinophils # 0.4 (0-0.7) k/uL Basophils # 0.0 (0-0.2) k/uL Hypochromasia Slight PT 10.7 (9.0-12.0) sec INR 1.0 (<1.2) APTT 22.5 (22.0-30.0) sec Sodium 141 (137-145) mmol/L Potassium 4.2 (3.5-5.1) mmol/L Chloride 109 H (98-107) mmol/L Carbon Dioxide 22 (22-30) mmol/L Anion Gap 10 mmol/L BUN 16 (7-17) mg/dL Creatinine 0.89 (0.52-1.04) mg/dL Est GFR (CKD-EPI)AfAm 89 (>60 ml/min/1.73 sqM) Est GFR (CKD-EPI)NonAf 77 (>60 ml/min/1.73 sqM) Glucose 136 H (74-99) mg/dL Calcium 9.4 (8.4-10.2) mg/dL Magnesium 1.8 (1.6-2.3) mg/dL Total Bilirubin 0.6 (0.2-1.3) mg/dL AST 19 (14-36) U/L ALT 13 (4-34) U/L Alkaline Phosphatase 94 (38-126) U/L Creatine Kinase 53 (30-135) U/L Troponin I (0.000-0.034) ng/mL NT-Pro-B Natriuret Pep pg/mL Total Protein 6.5 (6.3-8.2) g/dL Albumin 3.9 (3.5-5.0) g/dL 09/26/19 09/26/19 Range/Units 18:46 18:46 WBC (3.8-10.6) k/uL RBC (3.80-5.40) m/uL Hgb (11.4-16.0) gm/dL Hct (34.0-46.0) % MCV (80.0-100.0) fL MCH (25.0-35.0) pg MCHC (31.0-37.0) g/dL RDW (11.5-15.5) % Plt Count (150-450) k/uL Neutrophils % % Lymphocytes % % Monocytes % % Eosinophils % % Basophils % % Neutrophils # (1.3-7.7) k/uL Lymphocytes # (1.0-4.8) k/uL Monocytes # (0-1.0) k/uL Eosinophils # (0-0.7) k/uL Basophils # (0-0.2) k/uL Hypochromasia PT (9.0-12.0) sec INR (<1.2) APTT (22.0-30.0) sec Sodium (137-145) mmol/L Potassium (3.5-5.1) mmol/L Chloride (98-107) mmol/L Carbon Dioxide (22-30) mmol/L Anion Gap mmol/L BUN (7-17) mg/dL Creatinine (0.52-1.04) mg/dL Est GFR (CKD-EPI)AfAm (>60 ml/min/1.73 sqM) Est GFR (CKD-EPI)NonAf (>60 ml/min/1.73 sqM) Glucose (74-99) mg/dL Calcium (8.4-10.2) mg/dL Magnesium (1.6-2.3) mg/dL Total Bilirubin (0.2-1.3) mg/dL AST (14-36) U/L ALT (4-34) U/L Alkaline Phosphatase (38-126) U/L Creatine Kinase (30-135) U/L Troponin I 0.017 (0.000-0.034) ng/mL NT-Pro-B Natriuret Pep 92962 pg/mL Total Protein (6.3-8.2) g/dL Albumin (3.5-5.0) g/dL Disposition <Angela Mo - Last Filed: 09/26/19 18:21> Is patient prescribed a controlled substance at d/c from ED?: No <Darnell Canela - Last Filed: 09/26/19 21:51> Clinical Impression: Bilateral pleural effusion, Congestive heart failure Disposition: ADMITTED IP TO THIS HOSP Condition: Fair Referrals: Torin Miles DO [Primary Care Provider] - 1-2 days
[2019-09-26] MEDS ORDERED: IPRATROPIUM-ALBUTEROL 3 ML NEB INHALATION STA (18:21)
[2019-09-26 19:01] LABS: Basophils % (A) 0 %; Eosinophils # (A) 0.4 k/uL (0-0.7); Eosinophils % (A) 6 %; HCT 35.8 % (34.0-46.0); Hypochromasia Slight; Lymphocytes # (A) 1.6 k/uL (1.0-4.8); Lymphocytes % (A) 26 %; MCHC 32.1 g/dL (31.0-37.0); MCV 90.1 fL (80.0-100.0); Monocytes # (A) 0.4 k/uL (0-1.0); Monocytes % (A) 7 %; Neutrophils # (A) 3.6 k/uL (1.3-7.7); Neutrophils % (A) 58 %; Platelet Count 242 k/uL (150-450); RBC 3.97 m/uL (3.80-5.40); RDW 14.2 % (11.5-15.5); WBC 6.3 k/uL (3.8-10.6)
[2019-09-26 19:10] LABS: Partial Thromboplastin Time 22.5 sec (22.0-30.0); Prothrombin Time 10.7 sec (9.0-12.0)
[2019-09-26 19:14] LABS: HGB 11.5 gm/dL (11.4-16.0)
[2019-09-26 19:22] LABS: Albumin 3.9 g/dL (3.5-5.0); Calcium 9.4 mg/dL (8.4-10.2); Magnesium 1.8 mg/dL (1.6-2.3); Potassium 4.2 mmol/L (3.5-5.1); Total Bilirubin 0.6 mg/dL (0.2-1.3); Total Protein 6.5 g/dL (6.3-8.2)
--- NOTE | 2019-09-26 19:44 | XR ---
EXAMINATION TYPE: XR chest 2V DATE OF EXAM: 09/26/2019 COMPARISON: 08/17/2019 HISTORY: Difficulty breathing TECHNIQUE: 2 views FINDINGS: There is blunting of the costophrenic angles. There is mild infiltrate at the lung bases. T here are sternal wires. There is no gross heart failure. IMPRESSION: There is increased pleural fluid and infiltrate and atelectasis at the lung bases compare d to last exam. No obvious heart failure.
[2019-09-26] MEDS: FUROSEMIDE 10 MG/ML 4 ML VIAL IV SCH (23:21)
[2019-09-27] MEDS: IPRATROPIUM-ALBUTEROL 3 ML NEB INHALATION PRN ×3 (07:22→16:32)
[2019-09-27] MEDS: FUROSEMIDE 10 MG/ML 4 ML VIAL IV SCH ×3 (07:28→20:22)
[2019-09-27] MEDS ORDERED: ALBUTEROL NEBULIZED 2.5 MG/3 ML INHALATION PRN (09:31)
[2019-09-27] MEDS ORDERED: INSULIN DETEMIR (LEVEMIR) 100 UNIT/ML SYR SQ PRN (09:31)
[2019-09-27 10:22] LABS: Glucose,Whole Blood 166 mg/dL (75-99)
--- NOTE | 2019-09-27 11:02 | US ---
EXAMINATION TYPE: US chest DATE OF EXAM: 09/27/2019 COMPARISON: NONE CLINICAL HISTORY: Possible thoracentesis, please sanket possible sites. TECHNIQUE: Targeted ultrasound of the posterior lower EXAM MEASUREMENTS: Right Pleural Effusion pocket size: 11.7 cm Right skin surface to fluid distance: 2.9 cm Left Pleural Effusion pocket size: 8.7 cm Left skin surface to fluid distance: 2.9 cm Right side marked for possible thoracentesis outside the dept. Left side marked for possible thoracentesis outside the dept. Pulmonologists are able to review the images in the patient?s EMR. IMPRESSIONS: Bilateral pleural effusions
[2019-09-27 12:16] LABS: Glucose,Whole Blood 155 mg/dL (75-99)
[2019-09-27] MEDS: SPIRONOLACTONE 25 MG TAB PO SCH (12:54)
[2019-09-27] MEDS: METOPROLOL SUCCINATE (ER) 25 MG TAB.ER.24H PO SCH (12:54)
[2019-09-27] MEDS: INSULIN ASPART (NovoLOG) 100 UNIT/ML VIAL SQ SCH ×3 (12:54→21:47)
--- NOTE | 2019-09-27 13:11 | PCN ---
PROCEDURE NOTE PROCEDURE: Right thoracentesis. PREOPERATIVE DIAGNOSIS: Right pleural effusion. POSTOPERATIVE DIAGNOSIS: Right pleural effusion. OPERATORS: Dr. Francois, Dr. Hills and Maxx Rosa. Indication Pleural effusion. A time-out was completed verifying correct patient, procedure, site, positioning , and implant (s) or special equipment if applicable. Ultrasound guidance was used and appropriate fluid pocket was identified and marked. Patient was positioned, prepped and draped in usual sterile fashion. Lidocaine was used to anesthetize the area. A Thoracentesis catheter was introduced into the pleural space and fluid was removed. Blood loss was none. A chest x-ray was ordered to evaluate for pneumothorax. Total Fluid Removed: 1500 mL Color of Fluid: Reddish colored fluid. Fluid was sent for appropriate laboratory tests. Patient tolerated the procedure well and there were no complications. 1500 mL of reddish colored fluid was removed from the right pleural space. The patient tolerated procedure well. A followup chest x-ray will be done. The fluid will be sent for analysis. There was no immediate complication. The patient tolerated the procedure well. The patient's procedure was done in the patient's room, room #370. MMODL / IJN: [id number] /
--- NOTE | 2019-09-27 13:17 | XR ---
EXAMINATION TYPE: XR chest 1V portable DATE OF EXAM: 09/27/2019 COMPARISON: 09/26/2019 HISTORY: Status post right thoracentesis TECHNIQUE: Single frontal view of the chest is obtained. FINDINGS: There is interval marked reduction in amount pleural fluid on the right with persistent co nsolidation small effusions. Cardiomegaly and postoperative changes seen. No sizable pneumothorax. No overt failure. IMPRESSION: 1. Interval marked reduction in amount pleural fluid on the right with no sizable pneumothorax. 2. Stable left-sided pleural effusion and consolidation.
[2019-09-27 13:54] VITALS: BMI 22.8
--- NOTE | 2019-09-27 14:23 | CONS ---
CONSULTATION PULMONARY/CRITICAL CARE CONSULTATION: DATE OF SERVICE: 09/27/2019 This is a 49-year-old female who presents to the emergency room with complaints of shortness of breath. She apparently had been having shortness of breath for a number of days prior to admission. She has a history of recent 4-vessel bypass grafting and mitral valve repair as well as intraoperative transesophageal echocardiogram and left atrial appendage excision by Dr. Sarmiento. Her shortness of breath had been present for about 4 days. Her chest x-ray in the emergency room showed evidence of bilateral pleural effusions. An ultrasound of the chest shows an 11 cm pocket in the right pleural space and an 8 cm pocket in the left pleural space. She has already undergone a right-sided pleural effusion. We were able to remove 1500 mL from the right pleural space. Again, her major complaint was that of shortness of breath. The shortness of breath had been present for about 4 days. She has a half. She has been having a hard time lying down flat in bed. She denies any fever. She does have a bit of a cough and congestion. She has not smoked since surgery. There is no fever or chills. No chest pain or chest discomfort. No nausea, vomiting or diarrhea. HOME MEDICATIONS: Include albuterol, aspirin, Lipitor, insulin, metoprolol, multivitamins, Aldactone, Chantix, Plavix. ALLERGIES: Include BACTRIM, TRIMETHOPRIM and METFORMIN. MEDICAL HISTORY: Includes CAD with recent 4-vessel bypass grafting, chest pain/angina pectoris, COPD, CVA, diabetes, hyperlipidemia, myocardial infarction, pneumonia, and hyperthyroidism. She also has a history of degenerative disc disease as well as carotid artery disease. SURGICAL HISTORY: Includes , cholecystectomy, heart catheterization, hernia repair, I and D of the left gluteal abscess, aortogram, aorto-iliac bypass, status post oophorectomy and salpingectomy, multiple abdominal incisional hernia repairs, as well as recent cardiac surgery, which was a 4-vessel bypass grafting, repair of a mitral valve and intraoperative transesophageal echocardiogram and left atrial appendage excision. SOCIAL HISTORY: Positive for ongoing tobacco use. She smoked one pack a day. She continues to smoke despite counseling. She is on Chantix currently. She has been smoking for many years. She denies alcohol use or illicit drug use. FAMILY HISTORY: Positive for mother with CAD and breast cancer and a father with CAD, diabetes, and myocardial infarction. In addition, father had history of [place] exposure. REVIEW OF SYSTEMS: CONSTITUTIONAL: Negative. NEUROLOGIC: Negative. HEENT: Negative. CARDIOVASCULAR: Negative. PULMONARY: Shortness of breath, orthopnea, cough and congestion. GI: Negative. : Negative. RHEUMATOLOGIC: Negative. IMMUNOLOGIC: Negative. ENDOCRINOLOGIC: Negative. DERMATOLOGIC Negative. Current vital signs are reviewed. Temperature is 97.8, heart rate 100, respiratory rate 20, blood pressure 125/74 mean 91, room air saturation 98%-99%. Appears in no acute distress. HEENT: Examination is grossly unremarkable. Mucous membranes are moist. No oral lesions. NECK: Supple, full range of motion. No adenopathy or thyromegaly. Neck veins are flat. CARDIOVASCULAR: Examination reveals regular rhythm and rate. S1, S2 normal. Heart rate about 90 beats per minute. No murmur. LUNGS: Reveal diminished breath sounds at both bases. There is dullness at both bases. There are bibasilar crackles. No rhonchi or wheezes. ABDOMEN: Soft, bowel sounds are heard. EXTREMITIES: Intact. No cyanosis, clubbing, or edema. SKIN: Without rash. NEUROLOGIC: Examination is brief but nonfocal. Her initial chest x-ray showed evidence of bilateral pleural effusions, right greater than left. Her ultrasound of the chest done today showed bilateral pleural effusions and 11.7 cm pocket on the right and 8.7 cm pocket on the left. Her post right-sided thoracentesis chest x-ray shows a marked good reduction in the amount of pleural fluid on the right side without any sizable pneumothorax. LABORATORY DATA: Reviewed. White count 6.3, hemoglobin 11.5, hematocrit 35.8, platelet count 242,000. PT, INR and PTT all normal. Sodium 141, potassium 4.2, chloride 109, CO2 is 22, anion gap is 10, BUN and creatinine were 16 and 0.89. The rest of the labs look good. Her N- terminal proBNP was quite elevated at 19,300. Troponin was 0.017. Medications are reviewed. ASSESSMENT: 1. Shortness of breath, with orthopnea, likely related to underlying fluid overload/congestive heart failure with bilateral large pleural effusions, right greater than left. 2. Status post right-sided thoracentesis with 1500 mL removed. 3. Anticipated left-sided thoracentesis tomorrow. 4. A recent 4 vessel bypass grafting, mitral valve repair, left atrial appendage excision, and in and intraoperative transesophageal echocardiogram. 5. History of coronary artery disease. 6. History of angina. 7. History of diabetes. 8. History of cerebrovascular accident/transient ischemic attack. 9. History of diabetes mellitus. 10.History of chronic obstructive pulmonary disease. 11.History of hyperlipidemia. 12.Prior history of myocardial infarction. 13.History of hyperthyroidism. 14.History of pneumonia. 15.History of carotid artery stenosis. PLAN: The patient had a successful right-sided thoracentesis today, 1500 mL was removed. The patient tolerated the procedure well. The post thoracentesis chest x-ray looks fine. The fluid will be sent for analysis. Tomorrow, we plan on doing the left side. No additional recommendations are made. Prognosis is guarded. She is counseled about the importance of smoking cessation. MMODL / IJN: [id number] /
--- NOTE | 2019-09-27 16:34 | P.GSCN ---
History of Present Illness Consult date: 09/27/19 Reason for Consult: The patient is known to the cardiothoracic surgery service as she recently had open heart surgery in June 2019, admitted with bilateral pleural effusions. 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 She also has a history of moderate left ventricular dysfunction with a non-ST elevated myocardial infarction in June 2019, triple-vessel coronary artery disease with severe stenosis of the left subclavian artery, moderate mitral valve regurgitation with recent quadruple coronary artery bypass grafting surgery, mitral valve repair with a 28 mm AnnuloFlex ring and exclusion of her left atrial appendage on 07/25/[address] Katherine Sarmiento. Over the past and 4-5 days the patient has had complaints of progressive shortness of breath with a dry nonproductive cough. She denies any recent fever, chills, sputum production, pain, diarrhea or constipation. She presented to the emergency department last evening here at [facility] with complaints of progressive shortness of breath especially with exertion and she is unable to lay flat as this makes her shortness of breath worse. She denies any smoking since May 2019 and states she continues to take Chantix. In the emergency department a chest x-ray was completed which the report demonstrated increased pleural fluid, infiltrate and atelectasis at the lung bases compared to her last exam. For further evaluation an ultrasound of her chest was completed which demonstrated a right p leural effusion pocket measuring 11.7 cm and a left pleural effusion pocket measuring 8.7 cm. Subsequently, due to the patient's history of open heart surgery in June 2019 and her presenting symptoms a consult was placed to Dr. Katherine Sarmiento from cardiothoracic surgery for further evaluation and treatment recommendations. Review of Systems A 14 point review of systems was completed and was negative except as mentioned in the HPI. Past Medical History Past Medical History: Coronary Artery Disease (CAD), Chest Pain / Angina, COPD, CVA/TIA, Diabetes Mellitus, Hyperlipidemia, Myocardial Infarction ([place]), Thyroid Disorder Additional Past Medical History / Comment(s): history of cardiac murmur, Thyroid Nodules,Hx CVA 2007 or 2008, no residual effects. Right carotid artery 100% blocked, left carotid artery 50% blocked, follows with Dr Rausch [id number]. Hx Pneumonia. Last Myocardial Infarction Date:: 2011 History of Any Multi-Drug Resistant Organisms: None Reported Past Surgical History: Cardiac Valve Replacement, Section, Cholecystectomy, Coronary Bypass/CABG, Heart Catheterization, Hernia Repair Additional Past Surgical History / Comment(s): I&D L gluteal abscess, aortagram, Csyel-Ij-Ugcds bypass, laparoscopic surgery-one ovary/one tube removed from opposite sides, multiple abdominal incisional hernia repairs with mesh, Attempted Heart cath but patient states veins collapsed and unable to do. 07/25quadruple CABG, mitral valve repair Past Anesthesia/Blood Transfusion Reactions: No Reported Reaction Past Psychological History: Depression Additional Psychological History / Comment(s): mild depression, takes wellbutrin when not taking chantix. Smoking Status: Former smoker (Quit smoking in May 2019) Past Alcohol Use History: None Reported Additional Past Alcohol Use History / Comment(s): Pt started smoking in 1984 and is a ppd smoker. Attempting to quit smoking-on chantix-hasn't smoked in 3 days Past Drug Use History: None Reported - Past Family History Mother Family Medical History: Cancer, Coronary Artery Disease (CAD) Additional Family Medical History / Comment(s): Mother is a breast cancer survivor. Father Family Medical History: Coronary Artery Disease (CAD), Diabetes Mellitus, Myocardial Infarction ([place]) Additional Family Medical History / Comment(s): Agent [place] Exposure. Pt does not know at what age her father had his [place]. Medications and Allergies Home Medications Medication Instructions Recorded Confirmed Type Clopidogrel [Plavix] 75 mg PO DAILY #30 tab 07/29/19 09/26/19 Rx Albuterol Nebulized [Ventolin 2.5 mg INHALATION RT-TID PRN 09/26/19 09/26/19 History Nebulized] Aspirin EC [Ecotrin Low Dose] 81 mg PO DAILY 09/26/19 09/26/19 History Atorvastatin [Lipitor] 40 mg PO W/SUPPER 09/26/19 09/26/19 History Insulin Glargine,Hum.rec.anlog 30 unit SQ W/LUNCH PRN 09/26/19 09/26/19 History [Basaglar Kwikpen U-100] Insulin Lispro [Admelog] 10 unit SQ BID-W/MEALS 09/26/19 09/26/19 History Metoprolol Succinate [Toprol XL] 25 mg PO DAILY 09/26/19 09/26/19 History Multivitamin with Iron 1 tab PO DAILY 09/26/19 09/26/19 History [Multivitamins with Iron] Spironolactone 25 mg PO DAILY 09/26/19 09/26/19 History Varenicline Tartrate [Chantix 1 mg PO BID 09/26/19 09/26/19 History Continuing Pack] Allergies Allergy/AdvReac Type Severity Reaction Status Date / Time sulfamethoxazole Allergy Swelling Verified 09/26/19 20:43 [From Bactrim] trimethoprim [From Bactrim] Allergy Swelling Verified 09/26/19 20:43 metformin AdvReac Nausea & Verified 09/26/19 20:43 Vomiting & Diarrhea Surgical - Exam Vital Signs Temp Pulse Resp BP Pulse Ox 97.8 F 107 H 24 131/73 100 09/26/19 18:15 09/26/19 18:15 09/26/19 18:15 09/26/19 18:15 09/26/19 18:15 - General Thin well developed, well nourished, no distress, no pain - Eyes PERRL, normal ocular movement - ENT normal pinna, normal nares, normal mucosa, no hearing loss, no congestion, dentures - Neck no masses, trachea midline, no venous distension carotid bruit: bilateral - Respiratory Lung sounds essentially clear to her bilateral upper lobes, diminished bilateral bases. Respirations are symmetrical and nonlabored. Oxygen saturation is 99% on room air. - Cardiovascular Regular rhythm and rate. S1 and S2 present, negative for S3, gallop or murmur. Sternum is stable. No edema present. Bedside telemetry showing normal sinus rhythm heart rate 98. - Abdomen Abdomen is soft, nontender and nondistended. Active bowel sounds present all 4 abdominal quadrants. No guarding or rigidity. No organomegaly appreciated. - Genitourinary Deferred - Rectum Deferred - Integumentary Midline sternal incision is healed, right lower extremity EVH site is healed. no rash, no growths, no abnormal pigmentation - Neurologic Cranial nerves II through XII intact. normal coordination, normal sensation - Musculoskeletal normal gait, normal posture - Psychiatric oriented to time, oriented to person, oriented to place, speech is normal, anushka ry intact Results - Labs 09/26/19 18:46 09/26/19 18:46 Abnormal Lab Results - Last 24 Hours (Table) 09/26/19 09/27/19 Range/Units 18:46 10:21 Chloride 109 H (98-107) mmol/L Glucose 136 H (74-99) mg/dL POC Glucose (mg/dL) 166 H (75-99) mg/dL Diabetes panel 09/26/19 Range/Units 18:46 Sodium 141 (137-145) mmol/L Potassium 4.2 (3.5-5.1) mmol/L Chloride 109 H (98-107) mmol/L Carbon Dioxide 22 (22-30) mmol/L BUN 16 (7-17) mg/dL Creatinine 0.89 (0.52-1.04) mg/dL Glucose 136 H (74-99) mg/dL Calcium 9.4 (8.4-10.2) mg/dL AST 19 (14-36) U/L ALT 13 (4-34) U/L Alkaline Phosphatase 94 (38-126) U/L Total Protein 6.5 (6.3-8.2) g/dL Albumin 3.9 (3.5-5.0) g/dL Calcium panel 09/26/19 Range/Units 18:46 Calcium 9.4 (8.4-10.2) mg/dL Albumin 3.9 (3.5-5.0) g/dL Pituitary panel 09/26/19 Range/Units 18:46 Sodium 141 (137-145) mmol/L Potassium 4.2 (3.5-5.1) mmol/L Chloride 109 H (98-107) mmol/L Carbon Dioxide 22 (22-30) mmol/L BUN 16 (7-17) mg/dL Creatinine 0.89 (0.52-1.04) mg/dL Glucose 136 H (74-99) mg/dL Calcium 9.4 (8.4-10.2) mg/dL Adrenal panel 09/26/19 Range/Units 18:46 Sodium 141 (137-145) mmol/L Potassium 4.2 (3.5-5.1) mmol/L Chloride 109 H (98-107) mmol/L Carbon Dioxide 22 (22-30) mmol/L BUN 16 (7-17) mg/dL Creatinine 0.89 (0.52-1.04) mg/dL Glucose 136 H (74-99) mg/dL Calcium 9.4 (8.4-10.2) mg/dL Total Bilirubin 0.6 (0.2-1.3) mg/dL AST 19 (14-36) U/L ALT 13 (4-34) U/L Alkaline Phosphatase 94 (38-126) U/L Total Protein 6.5 (6.3-8.2) g/dL Albumin 3.9 (3.5-5.0) g/dL - Imaging Chest x-ray: report reviewed, image reviewed Additional studies: Ultrasound of the chest results Assessment and Plan Assessment: 1. Bilateral pleural effusions, with shortness of breath 2. History of severe triple-vessel coronary artery disease, status post hernandez ry artery bypass grafting surgery on 07/25/2019 3. History of severe mitral valve regurgitation, status post mitral valve repair on 07/25/2019 4. History of non-ST elevated myocardial infarction in June 2019 5. Hyperlipidemia 6. History of right lower lobe pneumonia, community-acquired 7. Acute systolic heart failure with moderately impaired left ventricular systolic function with an ejection fraction of 30-35% 8. Insulin-dependent diabetes mellitus 9. History of tobacco abuse, quit smoking in May 2019 currently on Chantix 10. Complete occlusion of the right internal carotid artery, left subclavian stenosis 90% 11. History of peripheral arterial disease status post aortic iliac occlusion status post aortobiiliac bypass in 2010 12. TIA in 2007 13. Severe COPD with recent FEV1 42% of predicted value 14. Depressive disorder 15. Family history of heart disease Plan: The patient was seen and examined at her bedside in the emergency room [facility]. Her chart and diagnostics were reviewed. Her case was discussed with Dr. Carroll from cardiothoracic surgery. We will consult Dr. Francois from pulmonary medicine for possible thoracentesis. The patient has undergone an ultrasound of her chest and has been marked for thoracentesis. Continue to optimize medical management, continue beta kirk, statin, aspirin and diuretics. Medical management and other comorbidities per primary care service. Continue to follow postoperative cardiac surgery discharge instructions as this was discussed with the patient. Continue to encourage smoking cessation. Thank you for this consult and we'll look forward to working with you in the care of this patient. Time with Patient: Greater than 30
[2019-09-27 16:37] LABS: Appearance,BF Hazy; Color,BF Orange; Nucleated Cells, Body Fluid 1400 /uL; RBC, Body Fluid 12800 /uL
[2019-09-27 16:53] LABS: Glucose,Whole Blood 196 mg/dL (75-99)
[2019-09-27] MEDS: ATORVASTATIN 40 MG TAB PO SCH (17:23)
--- NOTE | 2019-09-27 18:29 | P.HPIM ---
History of Present Illness H&P Date: 09/27/19 Chief Complaint: Shortness of breath Patient is a 49-year-old female with a known history of recent CABG 4 vessel, mitral valve repair on 07/25/2019, diabetes type 2 insulin-dependent, COPD, symptomatic aortoiliac occlusion status post I aortic iliac bypass in 2010, history of TIA and chronic nicotine addiction and other multiple medical problems came to ER with complaints of shortness of breath for the past 4 days. Patient has been having shortness of breath with exertion and unable to lie flat. Denied any complaints of chest pain. No fever no chills. Patient does have increased cough congestion. Patient presented to ER with worsening symptoms. Otherwise patient has returned to work and was doing her work and normal job activities without any difficulty after surgery. Denied any nausea vomiting or abdominal pain. No dysuria or hematuria. No headache or dizziness or lightheadedness. Denied any leg swelling. Chest x-ray showed there is increased pleural fluid and infiltrate and atelectasis at the lung bases compared to last exam. Ultrasound of the chest showed bilateral pleural effusion. BNP 19,300, troponin negative 1. Review of Systems Constitutional: Patient denies any fever or chills . No generalized weakness or weight loss. Abdomen: Patient denied nausea vomiting and diarrhea and abdominal pain. Cardiovascular: Patient denies any chest pain or short of breath no palpitations. Respiratory: Patient does have cough without sputum production and congestion. Does have shortness of breath Neurologic: Patient denied any numbness or tingling headache. Musculoskeletal: Patient denies any complaints of joint swelling or deformity. Skin: Negative Psychiatric: Negative Endocrine: No heat or cold intolerance. No recent weight gain. Genitourinary: No dysuria or hematuria. All other 14 point ROS negative except the above Past Medical History Past Medical History: Coronary Artery Disease (CAD), Chest Pain / Angina, COPD, CVA/TIA, Diabetes Mellitus, Hyperlipidemia, Myocardial Infarction ([place]), Pneumonia, Thyroid Disorder Additional Past Medical History / Comment(s): Cardiac murmur, DDD, Hyperthyroid/Thyroid Nodules, nausea and vomiting since after of 2017. Has lost 75lbs. Hx CVA 2007 or 2008, no residual effects. Right carotid artery 100% blocked, left carotid artery 50% blocked, follows with Dr Rausch [id number]. Hx Pneumonia. Last Myocardial Infarction Date:: 2011 History of Any Multi-Drug Resistant Organisms: None Reported Past Surgical History: Section, Cholecystectomy, Heart Catheterization, Hernia Repair Additional Past Surgical History / Comment(s): I&D L gluteal abscess, aortagram, Uxnvd-To-Cnzks bypass, laparoscopic surgery-one ovary/one tube removed from opposite sides, multiple abdominal incisional hernia repairs with mesh, Attempted Heart cath but patient states veins collapsed and unable to do. 07/25quadruple CABG, mitral valve repair Past Anesthesia/Blood Transfusion Reactions: No Reported Reaction Past Psychological History: Depression Additional Psychological History / Comment(s): mild depression, takes wellbutrin when not taking chantix. Smoking Status: Never smoker Past Alcohol Use History: None Reported Additional Past Alcohol Use History / Comment(s): Pt started smoking in 1984 and is a ppd smoker. Attempting to quit smoking-on chantix-hasn't smoked in 3 days Past Drug Use History: None Reported - Past Family History Mother Family Medical History: Cancer, Coronary Artery Disease (CAD) Additional Family Medical History / Comment(s): Mother is a breast cancer survivor. Father Family Medical History: Coronary Artery Disease (CAD), Diabetes Mellitus, Myocardial Infarction ([place]) Additional Family Medical History / Comment(s): Agent [place] Exposure. Pt does not know at what age her father had his [place]. Medications and Allergies Home Medications Medication Instructions Recorded Confirmed Type Clopidogrel [Plavix] 75 mg PO DAILY #30 tab 07/29/19 09/26/19 Rx Albuterol Nebulized [Ventolin 2.5 mg INHALATION RT-TID PRN 09/26/19 09/26/19 History Nebulized] Aspirin EC [Ecotrin Low Dose] 81 mg PO DAILY 09/26/19 09/26/19 History Atorvastatin [Lipitor] 40 mg PO W/SUPPER 09/26/19 09/26/19 History Insulin Glargine,Hum.rec.anlog 30 unit SQ W/LUNCH PRN 09/26/19 09/26/19 History [Basaglar Kwikpen U-100] Insulin Lispro [Admelog] 10 unit SQ BID-W/MEALS 09/26/19 09/26/19 History Metoprolol Succinate [Toprol XL] 25 mg PO DAILY 09/26/19 09/26/19 History Multivitamin with Iron 1 tab PO DAILY 09/26/19 09/26/19 History [Multivitamins with Iron] Spironolactone 25 mg PO DAILY 09/26/19 09/26/19 History Varenicline Tartrate [Chantix 1 mg PO BID 09/26/19 09/26/19 History Continuing Pack] Allergies Allergy/AdvReac Type Severity Reaction Status Date / Time sulfamethoxazole Allergy Swelling Verified 09/26/19 20:43 [From Bactrim] trimethoprim [From Bactrim] Allergy Swelling Verified 09/26/19 20:43 metformin AdvReac Nausea & Verified 09/26/19 20:43 Vomiting & Diarrhea Physical Exam Vitals: Vital Signs Temp Pulse Pulse Resp BP BP Pulse Ox 09/27/19 10:28 97.2 F L 82 16 116/72 99 09/27/19 10:16 97.7 F 98 20 116/72 98 09/27/19 08:00 98 20 09/27/19 07:33 100 09/27/19 07:22 92 09/27/19 06:00 94 14 125/74 09/27/19 05:00 96 20 115/64 09/27/19 03:22 99 18 118/74 98 09/27/19 01:43 100 18 90/67 100 09/26/19 23:30 103 H 18 85/44 96 09/26/19 21:00 104 H 20 110/85 09/26/19 20:00 103 H 20 100/75 09/26/19 19:00 103 H 22 106/79 100 09/26/19 18:55 105 H 09/26/19 18:41 101 H 09/26/19 18:31 18 09/26/19 18:15 97.8 F 107 H 24 131/73 100 Intake and Output 09/26/19 09/27/19 09/27/19 22:59 06:59 14:59 Other: Weight 70.035 kg 70.035 kg PHYSICAL EXAMINATION: Patient is lying in the bed comfortably, no acute distress, awake alert and oriented.. HEENT: Normocephalic. Neck is supple. Pupils reactive. Nostrils clear. Oral cavity is moist. Ears reveal no drainage. Neck reveals no JVD, carotid bruits, or thyromegaly. CHEST EXAMINATION: Trachea is central. Symmetrical expansion. Bibasilar diminished air entry. No wheezing no rhonchi. Lung wong clear to auscultation and percussion. CARDIAC: Normal S1, S2 with no gallops. No murmurs ABDOMEN: Soft. Bowel sounds normal. No organomegaly. No abdominal bruits. Extremities: Trace edema. No clubbing or cyanosis Neurologically awake, alert, oriented x3 with well-coordinated movements. No focal deficits noted Skin: No rash or skin lesions. Psychiatric: Coperative. Nonsuicidal Musculoskeletal: No joint swelling or deformity. Normal range of motion. Results CBC & Chem 7: 09/26/19 18:46 09/26/19 18:46 Labs: Abnormal Lab Results - Last 24 Hours (Table) 09/26/19 09/27/19 Range/Units 18:46 10:21 Chloride 109 H (98-107) mmol/L Glucose 136 H (74-99) mg/dL POC Glucose (mg/dL) 166 H (75-99) mg/dL Thrombosis Risk Factor Assmnt - DVT/VTE Prophylaxis DVT/VTE Prophylaxis: Pharmacologic Prophylaxis ordered - Choose All That Apply Any of the Below Risk Factors Present?: Yes Each Factor Represents 1 point: Abnormal pulmonary function (COPD), Heart failu re (<1month) Other Risk Factors: No Thrombosis Risk Factor Assessment Total Risk Factor Score: 2 Thrombosis Risk Factor Assessment Level: Low Risk Assessment and Plan Assessment: Shortness of breath secondary to CHF and bilateral pleural effusion. Right greater than left Acute on chronic CHF with systolic dysfunction ejection fraction 30-35% as per echocardiogram on 07/20/2019 Bilateral pleural effusion due to congestive heart failure likely. Recent quadruple bypass graft and mitral valve repair on 07/25/2019 Coronary artery disease COPD History of CVA/TIA Diabetes type 2 insulin-dependent History of [place] Hypothyroidism Right carotid artery stenosis and left carotid artery 50% stenosis History of Aorto biiliac bypass Depression History of smoking quit since May 2019 DVT prophylaxis Plan: Patient will be continued on IV Lasix. Pulmonary has seen the patient and pat ient is status post right-sided thoracentesis. Plan for left-sided thoracentesis tomorrow. Continue the home medications. Aspirin and Plavix held due to procedures. Follow-up fluid analysis. Follow-up closely and continue with insulin dosing. Further recommendations based on the clinical course. Time with Patient: Greater than 30
[2019-09-27 20:03] LABS: Glucose, BF Source Pleural Fluid; Glucose, Body Fluid 158 mg/dL; LDH, Body Fluid Source Pleural Fluid; Total Protein, Body Fluid 1920 mg/dL
[2019-09-27 20:30] LABS: Mononuclear WBC,Body Fluid 85 %; Polynuclear WBC,Body Fluid 12 %
[2019-09-27 21:12] LABS: Glucose,Whole Blood 169 mg/dL (75-99)
[2019-09-28] MEDS: HEPARIN SODIUM,PORCINE 5,000 UNIT/ML 1 ML VIAL SQ SCH ×4 (02:54→20:47)
[2019-09-28 06:14] LABS: Glucose,Whole Blood 136 mg/dL (75-99)
[2019-09-28] MEDS: FUROSEMIDE 10 MG/ML 4 ML VIAL IV SCH ×4 (06:39→20:49)
[2019-09-28] MEDS: INSULIN ASPART (NovoLOG) 100 UNIT/ML VIAL SQ SCH ×4 (07:37→20:54)
[2019-09-28] MEDS: MULTIVITAMINS, THERA 1 EACH TAB PO SCH (08:12)
[2019-09-28] MEDS: SPIRONOLACTONE 25 MG TAB PO SCH (08:12)
[2019-09-28] MEDS: METOPROLOL SUCCINATE (ER) 25 MG TAB.ER.24H PO SCH (08:12)
--- NOTE | 2019-09-28 09:41 | P.PN ---
Subjective Progress Note Date: 09/28/19 Principal diagnosis: Bilateral pleural effusions, acute on chronic systolic heart failure with BNP 19,000 on admission, previous ejection fraction 30-35%. Previous medical history of severe COPD, previous tobacco dependence, severe triple vessel coronary artery disease with myocardial infarction, status post four-vessel CABG 07/25/2019, severe mitral valve regurgitation, status post mitral valve repair 07/25/2019, community-acquired right lower lobe pneumonia, hyperlipidemia, insulin-dependent diabetes, complete occlusion of the right internal carotid artery, left subclavian stenosis 90%, peripheral arterial disease status post aorto biiliac bypass in 2010, TIA in 2007, depression, and family history of heart disease POD #1 ultrasound guided thoracentesis with removal of [address] Francois The patient's currently sitting up in bed in no acute distress eating breakfast. States she has no shortness of breath at this time, feels much better since yesterday's thoracentesis. Does complain of occasional mild post surgical chest pain requiring no narcotics. Has been ambulatory in the room without difficulty. She did refuse her IV Lasix last night so that she could get some sleep, otherwise no new concerns Objective - Vital Signs Vital signs: Vital Signs Temp 97.4 F L 09/28/19 08:00 Pulse 84 09/28/19 08:00 Resp 20 09/28/19 08:00 BP 121/57 09/28/19 08:00 Pulse Ox 97 09/28/19 08:00 Intake & Output 09/27/19 09/28/19 09/28/19 18:59 06:59 18:59 Intake Total 480 490 Balance 480 490 Weight 70.035 kg 67.1 kg Intake: IV 10 0.9 10 Oral 480 480 Other: Voiding Method Toilet # Voids 2 4 - Constitutional General appearance: Present: cooperative, no acute distress - Respiratory Details: Lungs sounds diminished bilaterally, left greater than right. Respirations even, nonlabored. Currently on room air with oxygen saturation 96%. - Cardiovascular Details: S1, S2 present. Regular rate and rhythm, sinus rhythm on telemetry. Sternum stable. Palpable peripheral pulses bilaterally. No edema present. No calf pain or tenderness noted. - Gastrointestinal Gastrointestinal Comment(s): Abdomen soft, nontender, nondistended. Active bowel sounds present 4 quadrants. Tolerating diet. - Genitourinary Genitourinary Comment(s): Continues to void - Integumentary Integumentary Comment(s): Skin is warm and dry with evidence of good perfusion. Anterior chest incision well approximated without any redness or drainage - Neurologic Neurologic: Present: CNII-XII intact - Musculoskeletal Musculoskeletal: Present: gait normal, strength equal bilaterally - Psychiatric Psychiatric: Present: A&O x's 3, appropriate affect, intact judgment & insight - Allied health notes Allied health notes reviewed: nursing - Labs CBC & Chem 7: 09/26/19 18:46 09/26/19 18:46 Labs: Abnormal Lab Results - Last 24 Hours (Table) 09/27/19 09/27/19 09/27/19 Range/Units 10:21 12:13 16:48 POC Glucose (mg/dL) 166 H 155 H 196 H (75-99) mg/dL 09/27/19 09/28/19 Range/Units 21:07 06:12 POC Glucose (mg/dL) 169 H 136 H (75-99) mg/dL Microbiology - Last 24 Hours (Table) 09/27/19 12:38 Gram Stain - Preliminary Pleural Fluid Body Fluid Culture - Preliminary 09/27/19 12:38 Acid Fast Bacilli Smear - Final Pleural Fluid Acid Fast Bacilli Culture - Preliminary 09/27/19 12:38 Anaerobic Culture - Preliminary Pleural Fluid 09/27/19 12:38 Fungal Culture - Preliminary Pleural Fluid Assessment and Plan Assessment: 1. Bilateral pleural effusions, status post ultrasound guided thoracentesis with removal of 1500 mL fluid 2. Acute systolic heart failure, EF 30-35% 3. Severe COPD 4. History of severe triple vessel coronary artery disease with myocardial infarction, status post four-vessel CABG 07/25/2019 5. History of severe mitral valve regurgitation, status post mitral valve repair 07/25/2019 6. History of community-acquired right lower lobe pneumonia 7. Hyperlipidemia 8. Previous tobacco dependence 9. Insulin-dependent diabetes 10. Complete occlusion of the right internal carotid artery, left subclavian stenosis 90% 11. Peripheral arterial disease status post aorto biiliac bypass in 2010 12. History of TIA in 2007 13. History of depression 14. Family history of heart disease Plan: 1. Anticipate left sided thoracentesis today by Dr. Francois 2. Continue medications as ordered. Need to restart aspirin and Plavix after thoracentesis. 3. Encourage continued smoking cessation. 4. Increase activity, ambulate as tolerated. 5. Medical management of other comorbidities per primary care service 6. Patient does have a 3 month follow-up appointment with Dr. Sarmiento at the end of September. Patient should continue lifting restrictions until then. 7. Will continue to see on an as-needed basis. Please call us with any further questions. Time with Patient: Greater than 30
[2019-09-28 11:58] LABS: Glucose,Whole Blood 98 mg/dL (75-99)
--- NOTE | 2019-09-28 14:57 | XR ---
EXAMINATION TYPE: XR chest 1V portable DATE OF EXAM: 09/28/2019 COMPARISON: 09/27/2019 HISTORY: Thoracentesis TECHNIQUE: Single view FINDINGS: There is mild blunting of the costophrenic angles. Heart size is normal. There is no heart failure. There is no sign of a pneumothorax. IMPRESSION: There is decreased right pleural effusion compared to yesterday. There is also slight imp roved aeration and decreased fluid on the left side. No heart failure.
[2019-09-28] MEDS: ATORVASTATIN 40 MG TAB PO SCH (15:02)
[2019-09-28] MEDS ORDERED: ACETAMINOPHEN TAB 325 MG TAB PO PRN (15:09)
[2019-09-28 17:13] LABS: Glucose,Whole Blood 187 mg/dL (75-99)
[2019-09-28 20:52] LABS: Glucose,Whole Blood 202 mg/dL (75-99)
--- NOTE | 2019-09-28 21:06 | PN ---
PROGRESS NOTE PULMONARY/CRITICARE CARE PROGRESS NOTE: DATE OF SERVICE: A 49-year-old female who presents to the emergency room with complaints of shortness of breath. Chest x-ray revealed bilateral pleural effusions. She had a larger effusion on the right and a slightly smaller effusion on the left. She had a recent 4 vessel bypass grafting and mitral valve repair as well as intraoperative transesophageal echocardiogram and left atrial appendage excision by Dr. Sarmiento. The shortness of breath had been present for 4 days. Yesterday, we did a right-sided thoracentesis and removed 1500 mL. The fluid was sent for analysis. Today, we did a left-sided thoracentesis and removed a liter of fluid. The fluid was not sent for analysis. A chest x-ray both yesterday and today show significant improvement in the pleural effusions. In fact, there appears to be no effusion on the right and maybe just some mild atelectasis at the left lung base. She is feeling much better. PHYSICAL EXAMINATION: VITAL SIGNS: Current vital signs include temperature 97.4, heart rate 80, respiratory rate 20, blood pressure 105/59,mean 74, room air saturation 98%. Appears in no acute distress. HEENT examination is grossly unremarkable. No supplemental oxygen. NECK: Supple. Full range of motion. No adenopathy. Neck veins are flat. CARDIOVASCULAR examination reveals regular rhythm rate. S1, S2 normal. No S3, S4, or murmur. LUNGS: Clear. Breath sounds equal. ABDOMEN: Soft. Bowel sounds are heard. EXTREMITIES are intact. No cyanosis, clubbing, or edema. SKIN: Without rash. NEUROLOGIC: Examination is brief but nonfocal. LABS: Reviewed. No labs from today. The fluid analysis yesterday shows pleural fluid that was orange and hazy. There was 12,800 RBCs, 1400 nucleated cells of which most of them were mononuclears. The patient's glucose was 158. The pleural fluid protein was 1920, and the LDH was 74. This fluid analysis is consistent with a transudate. Cultures and cytology are pending. Chest x-rays are reviewed. Medications are reviewed. ASSESSMENT: 1. Shortness of breath with orthopnea secondary to a large bilateral pleural effusions and fluid overload with congestive heart failure, much improved. 2. Status post right-sided thoracentesis with 1500 mL removed. 3. Status post left-sided thoracentesis with 1000 mL removed. 4. Status post recent 4 vessel bypass grafting, mitral valve repair, left atrial appendage excision and intraoperative transesophageal echocardiogram. 5. History of coronary artery disease. 6. History of angina pectoris. 7. History of diabetes mellitus. 8. History of cerebrovascular accident/transient ischemic attack. 9. History of diabetes mellitus. 10.History of chronic obstructive pulmonary disease. 11.History of hyperlipidemia. 12.Prior history of myocardial infarction. 13.History of hyperthyroidism. 14.History of pneumonia. 15.History of carotid artery stenosis. PLAN: The patient tolerated the right-sided thoracentesis yesterday very well. 1500 mL was removed and the fluid was sent for analysis. It is clearly a transudate. Cytology and microbiology are pending. Today on the left side, 1 L was removed. The fluid was not sent for analysis. X-rays both yesterday and today were reviewed. She is doing much better. Hopefully she will be able to be discharged in the near future. No additional recommendations are made. MMODL / IJN: [id number] /
--- NOTE | 2019-09-29 00:37 | P.PN ---
Subjective Progress Note Date: 09/28/19 Principal diagnosis: Bilateral pleural effusion Patient is a 49-year-old female with a known history of recent CABG 4 vessel, mitral valve repair on 07/25/2019, diabetes type 2 insulin-dependent, COPD, symptomatic aortoiliac occlusion status post I aortic iliac bypass in 2010, history of TIA and chronic nicotine addiction and other multiple medical problems came to ER with complaints of shortness of breath for the past 4 days. Patient has been having shortness of breath with exertion and unable to lie flat. Denied any complaints of chest pain. No fever no chills. Patient does have increased cough congestion. Patient presented to ER with worsening symptoms. Otherwise patient has returned to work and was doing her work and normal job activities without any difficulty after surgery. Denied any nausea vomiting or abdominal pain. No dysuria or hematuria. No headache or dizziness or lightheadedness. Denied any leg swelling. Chest x-ray showed there is increased pleural fluid and infiltrate and atelectasis at the lung bases compared to last exam. Ultrasound of the chest showed bilateral pleural effusion. BNP 19,300, troponin negative 1. 09/28/2019 Patient is status post right-sided thoracentesis with 1.5 L fluid removal, mostly transudative. Denied any complains of chest pain or shortness of breath today. Tolerating oral diet. No fever no chills. Scheduled for left-sided thoracentesis sometime today afternoon. No nausea vomiting. No cough or sputum production. Active Medications Acetaminophen (Tylenol Tab) 650 mg PO Q4HR PRN PRN Reason: Fever and/ or Mild Pain Last Admin: 09/28/19 15:50 Dose: 650 mg Documented by: Albuterol Sulfate (Ventolin Nebulized) 2.5 mg INHALATION RT-TID PRN PRN Reason: Shortness Of Breath Albuterol/Ipratropium (Duoneb 0.5 Mg-3 Mg/3 Ml Soln) 3 ml INHALATION RT-QID PRN PRN Reason: Shortness Of Breath Or Wheezing Last Admin: 09/27/19 16:32 Dose: 3 ml Documented by: Atorvastatin Calcium (Lipitor) 40 mg PO W/SUPPER [facility] Last Admin: 09/28/19 15:02 Dose: 40 mg Documented by: Furosemide (Lasix) 40 mg IV Q8H [facility] Last Admin: 09/28/19 20:49 Dose: 40 mg Documented by: Heparin Sodium (Porcine) (Heparin) 5,000 unit SQ Q8HR [facility] Last Admin: 09/28/19 20:47 Dose: 5,000 unit Documented by: Insulin Aspart (Novolog) 0 unit SQ ACHS [facility]; Protocol Last Admin: 09/28/19 20:54 Dose: 2 unit Documented by: Insulin Detemir (Levemir) 30 unit SQ W/LUNCH PRN PRN Reason: Blood Sugar OVER 100 Metoprolol Succinate (Toprol Xl) 25 mg PO DAILY [facility] Last Admin: 09/28/19 08:12 Dose: 25 mg Documented by: Multivitamins (Theragran) 1 each PO DAILY [facility] Last Admin: 09/28/19 08:12 Dose: 1 each Documented by: Spironolactone (Aldactone) 25 mg PO DAILY [facility] Last Admin: 09/28/19 08:12 Dose: 25 mg Documented by: Objective - Vital Signs Vital signs: Vital Signs Temp 97.6 F 09/28/19 20:00 Pulse 99 09/28/19 20:00 Resp 20 09/28/19 20:00 BP 120/79 09/28/19 20:00 Pulse Ox 100 09/28/19 20:00 Intake & Output 09/28/19 09/28/19 09/29/19 06:59 18:59 06:59 Intake Total 490 480 Balance 490 480 Weight 67.1 kg Intake: IV 10 0.9 10 Oral 480 480 Other: Voiding Method Toilet # Voids 4 1 - Exam PHYSICAL EXAMINATION: Patient is lying in the bed comfortably, no acute distress, awake alert and oriented.. HEENT: Normocephalic. Neck is supple. Pupils reactive. Nostrils clear. Oral cavity is moist. Ears reveal no drainage. Neck reveals no JVD, carotid bruits, or thyromegaly. CHEST EXAMINATION: Trachea is central. Symmetrical expansion. Bibasilar crackles positive. No wheezing no rhonchi. CARDIAC: Normal S1, S2 with no gallops. No murmurs ABDOMEN: Soft. Bowel sounds normal. No organomegaly. No abdominal bruits. Extremities: reveal no edema. No clubbing or cyanosis Neurologically awake, alert, oriented x3 with well-coordinated movements. No focal deficits noted Skin: No rash or skin lesions. Psychiatric: Coperative. Nonsuicidal Musculoskeletal: No joint swelling or deformity. Normal range of motion. - Labs CBC & Chem 7: 09/26/19 18:46 09/26/19 18:46 Labs: Abnormal Lab Results - Last 24 Hours (Table) 09/28/19 09/28/19 09/28/19 Range/Units 06:12 17:04 20:50 POC Glucose (mg/dL) 136 H 187 H 202 H (75-99) mg/dL Microbiology - Last 24 Hours (Table) 09/27/19 12:38 Gram Stain - Preliminary Pleural Fluid Body Fluid Culture - Preliminary 09/27/19 12:38 Acid Fast Bacilli Smear - Final Pleural Fluid Acid Fast Bacilli Culture - Preliminary 09/27/19 12:38 Anaerobic Culture - Preliminary Pleural Fluid 09/27/19 12:38 Fungal Culture - Preliminary Pleural Fluid Assessment and Plan Assessment: Shortness of breath secondary to CHF and bilateral pleural effusion. Right greater than left Acute on chronic CHF with systolic dysfunction ejection fraction 30-35% as per echocardiogram on 07/20/2019 Bilateral pleural effusion due to congestive heart failure likely. Recent quadruple bypass graft and mitral valve repair on 07/25/2019 Coronary artery disease COPD History of CVA/TIA Diabetes type 2 insulin-dependent History of DE Hypothyroidism Right carotid artery stenosis and left carotid artery 50% stenosis History of Aorto biiliac bypass Depression History of smoking quit since May 2019 DVT prophylaxis Plan: Patient will be continued on IV Lasix. Pulmonary has seen the patient and patient is status post right-sided thoracentesis. Plan for left-sided thoracentesis today. Continue the home medications. Aspirin and Plavix held due to procedures. Follow-up fluid analysis. Follow-up closely and continue with insulin dosing. Further recommendations based on the clinical course. Time with Patient: Greater than 30
[2019-09-29 05:56] LABS: Glucose,Whole Blood 144 mg/dL (75-99)
[2019-09-29] MEDS: INSULIN ASPART (NovoLOG) 100 UNIT/ML VIAL SQ SCH ×2 (05:56→12:23)
[2019-09-29] MEDS: FUROSEMIDE 10 MG/ML 4 ML VIAL IV SCH (06:08)
[2019-09-29] MEDS ORDERED: ASPIRIN 81 MG PO SCH (09:00)
[2019-09-29] MEDS ORDERED: CLOPIDOGREL 75 MG TAB PO SCH (09:00)
--- NOTE | 2019-09-29 09:03 | PCN ---
PROCEDURE NOTE PROCEDURE: Left-sided thoracentesis. PREOPERATIVE DIAGNOSIS: Left pleural effusion. POSTOPERATIVE DIAGNOSIS: Left pleural effusion. OPERATORS: Dr. Francois and Dr. Hills. Indication Pleural effusion. A time-out was completed verifying correct patient, procedure, site, positioning , and implant (s) or special equipment if applicable. Ultrasound guidance was used and appropriate fluid pocket was identified and marked. Patient was positioned, prepped and draped in usual sterile fashion. Lidocaine was used to anesthetize the area. A Thoracentesis catheter was introduced into the pleural space and fluid was removed. Blood loss was none. A chest x-ray was ordered to evaluate for pneumothorax. Total Fluid Removed: 1000 mL Color of Fluid: Reddish. Fluid was not sent for appropriate laboratory tests. Patient tolerated the procedure well and there were no complications. Left posterior chest was marked by ultrasound and 1000 mL of reddish fluid was removed from the left pleural space. The patient tolerated the procedure well. There was no immediate complication. A chest x-ray was ordered to make sure there was no pneumothorax. The patient tolerated the procedure well. The fluid will not be sent for analysis because yesterday's fluid was sent for analysis. 1500 mL removed from the right side; 1 L, 1000 mL, from the left side. MMODL / IJN: [id number] /
[2019-09-29] MEDS: HEPARIN SODIUM,PORCINE 5,000 UNIT/ML 1 ML VIAL SQ SCH (09:05)
[2019-09-29] MEDS: MULTIVITAMINS, THERA 1 EACH TAB PO SCH (09:05)
[2019-09-29] MEDS: METOPROLOL SUCCINATE (ER) 25 MG TAB.ER.24H PO SCH (09:05)
[2019-09-29] MEDS: SPIRONOLACTONE 25 MG TAB PO SCH (09:06)
[2019-09-29 09:56] VITALS: RESP 18
[2019-09-29 11:45] LABS: Hemoglobin A1C 6.4 % (4.0-6.0)
[2019-09-29 12:21] LABS: Glucose,Whole Blood 192 mg/dL (75-99)
[2019-09-29 12:31] VITALS: BP 99/63; PULSE 101; TEMP 98
[2019-09-29 13:10] LABS: Calcium 9.4 mg/dL (8.4-10.2); Potassium 4.1 mmol/L (3.5-5.1)
--- NOTE | 2019-09-29 15:17 | P.PN ---
Subjective Progress Note Date: 09/29/19 Principal diagnosis: Bilateral pleural effusions The patient is seen today 09/29/2019 in follow-up on the selective care unit. She is awake and alert in no acute distress. Up ambulating in the room without any acute respiratory distress. She is maintaining good O2 saturations in the upper 90s on room air. She's been afebrile. She is status post thoracentesis with 1500 ML's removed from the right and the following day another liter removed from the left. Follow-up chest x-ray revealed no evidence of pneumothorax on either lung with significant improvement in aeration bilaterally. Fluid analysis cultures are pending. Pathology pending. Sodium 140. Potassium 4.1. Creatinine 1.20. She has been converted to oral diuretics. Objective - Vital Signs Vital signs: Vital Signs Temp 98.0 F 09/29/19 11:30 Pulse 101 H 09/29/19 11:30 Resp 18 09/29/19 11:30 BP 99/63 09/29/19 11:30 Pulse Ox 98 09/29/19 11:30 Intake & Output 09/28/19 09/29/19 09/29/19 18:59 06:59 18:59 Intake Total 480 720 Balance 480 720 Weight 62 kg Intake: Oral 480 720 Other: Voiding Method Toilet # Voids 1 1 1 - Exam GENERAL EXAM: Alert, active, pleasant 49-year-old female patient, on room air comfortable in no apparent distress. HEAD: Normocephalic. EYES: Normal reaction of pupils, equal size. NOSE: Clear with pink turbinates. THROAT: No erythema or exudates. NECK: No masses, no JVD. CHEST: No chest wall deformity. LUNGS: Equal air entry with faint crackles in the posterior bases CVS: S1 and S2 normal with no audible murmur, regular rhythm. ABDOMEN: No hepatosplenomegaly, normal bowel sounds, no guarding or rigidity. SPINE: No scoliosis or deformity SKIN: No rashes CENTRAL NERVOUS SYSTEM: No focal deficits, tone is normal in all 4 extremities. EXTREMITIES: There is no peripheral edema. No clubbing, no cyanosis. Pe ripheral pulses are intact. - Labs CBC & Chem 7: 09/26/19 18:46 09/29/19 12:42 Labs: Abnormal Lab Results - Last 24 Hours (Table) 0109/28/19 09/28/19 Range/Units 05:37 17:04 20:50 Carbon Dioxide (22-30) mmol/L BUN (7-17) mg/dL Creatinine (0.52-1.04) mg/dL Glucose (74-99) mg/dL POC Glucose (mg/dL) 187 H 202 H (75-99) mg/dL Hemoglobin A1c 6.4 H (4.0-6.0) % 09/29/19 09/29/19 09/29/19 Range/Units 05:55 12:09 12:42 Carbon Dioxide 31 H (22-30) mmol/L BUN 22 H (7-17) mg/dL Creatinine 1.20 H (0.52-1.04) mg/dL Glucose 162 H (74-99) mg/dL POC Glucose (mg/dL) 144 H 192 H (75-99) mg/dL Hemoglobin A1c (4.0-6.0) % Microbiology - Last 24 Hours (Table) 09/27/19 12:38 Anaerobic Culture - Preliminary Pleural Fluid 09/27/19 12:38 Gram Stain - Preliminary Pleural Fluid Body Fluid Culture - Preliminary Assessment and Plan Assessment: 1 Dyspnea with orthopnea secondary to large bilateral pleural effusions and fluid volume overload with congestive heart failure, status post right-sided thoracentesis with 1500 MLS removed, status post left-sided thoracentesis with 1000 MLS removed. Follow-up chest x-ray shows significant improvement in aera tion bilaterally. No pneumothorax. 2 Recent four-vessel coronary artery bypass grafting and mitral valve repair 3 History of coronary artery disease 4 Diabetes mellitus. 5 History of CVA/TIA 6 Chronic obstructive pulmonary disease 7 Hyperlipidemia. 8 Hyperthyroidism. 9 Carotid artery stenosis Plan: The patient was seen and evaluated by Dr. Francois. Chest x-ray reviewed. Continue oral diuretics. She is cleared for discharge from the pulmonary standpoint. She'll follow-up in our office in 1-2 weeks' time. We'll repeat a chest x-ray then. She is encouraged to call sooner if any recurrence of symptoms or worsening shortness of breath. I, the cosigning physician, performed a history & physical examination of the patient. Lungs sounds with faint crackles in the posterior bases. Maintaining good O2 saturations in the 90s on room air. I discussed the assessment and plan of care with my nurse practitioner, Mary Hills. I attest to the above note as dictated by her.
[2019-09-29] MEDS ORDERED: FUROSEMIDE 40 MG TAB PO SCH (16:00)
== END 2019-09-29 14:33 | disposition home or self-care (01) | DRG 292 ==
LOC: EC 17:51 → 3SCARD 21:52 → OBSVTOIN 09-29 09:14
PROVIDERS: ADMIT Hospitalist; ATTEND Hospitalist
PROC: 0W993ZX Drainage of Right Pleural Cavity, Percutaneous Approach, Diagnostic (ICD-10-PCS; principal; 2019-09-27)
PROC: 0W9B3ZZ Drainage of Left Pleural Cavity, Percutaneous Approach (ICD-10-PCS; 2019-09-28)
DX: I50.23 Acute on chronic systolic (congestive) heart failure (principal); J91.8 Pleural effusion in other conditions classified elsewhere; J98.11 Atelectasis; E11.51 Type 2 diabetes mellitus with diabetic peripheral angiopathy without gangrene; I25.10 Atherosclerotic heart disease of native coronary artery without angina pectoris; J44.9 Chronic obstructive pulmonary disease, unspecified; E78.5 Hyperlipidemia, unspecified; E05.90 Thyrotoxicosis, unspecified without thyrotoxic crisis or storm; I70.8 Atherosclerosis of other arteries; I25.2 Old myocardial infarction; F17.210 Nicotine dependence, cigarettes, uncomplicated; Z71.6 Tobacco abuse counseling; Z79.82 Long term (current) use of aspirin; Z79.02 Long term (current) use of antithrombotics/antiplatelets; Z79.4 Long term (current) use of insulin; Z79.899 Other long term (current) drug therapy; Z95.2 Presence of prosthetic heart valve; Z95.1 Presence of aortocoronary bypass graft; Z87.01 Personal history of pneumonia (recurrent); Z86.73 Personal history of transient ischemic attack (TIA), and cerebral infarction without residual deficits; Z90.49 Acquired absence of other specified parts of digestive tract; Z98.891 History of uterine scar from previous surgery; Z98.890 Other specified postprocedural states; Z95.828 Presence of other vascular implants and grafts; Z86.59 Personal history of other mental and behavioral disorders; Z86.79 Personal history of other diseases of the circulatory system; Z88.2 Allergy status to sulfonamides; Z88.8 Allergy status to other drugs, medicaments and biological substances; Z82.49 Family history of ischemic heart disease and other diseases of the circulatory system; Z80.3 Family history of malignant neoplasm of breast; Z83.3 Family history of diabetes mellitus
CPT/HCPCS: 36415; 71045; 71046; 76604; 80048; 80053; 82550; 82945; 83036; 83615; 83735; 83880; 84157; 84484; 85025; 85610; 85730; 87070; 87075; 87102; 87116; 87205; 87206; 87252; 87496; 87498; 87502; 87529; 87634; 87798; 88108; 88305; 89050; 93005; 94640; 94760; 96374; 96376; 99285

== ENCOUNTER 2020-07-19 12:37 | Outpatient (CLI) | payer OTHER | END 2020-07-19 13:48 | disposition home or self-care (01) | LOC: LABPAT 12:37 | PROVIDERS: ATTEND Internal Medicine | DX: Z53.9 Procedure and treatment not carried out, unspecified reason (principal) ==

== ENCOUNTER 2020-07-26 07:45 | Day surgery (SDC) | payer OTHER ==
[2020-07-24 14:48] VITALS: BMI 25.4
[~2020-07-26 07:45] MED LIST changes: -ACETAMINOPHEN TAB 500 MG TAB PO ONE; +ALPRAZolam 0.25 MG TAB PO PRN; +ASPIRIN 325 MG TAB PO STA; -BUPIVACAIN-EPI 0.25%-1:200,000 30 ML VIAL SQ ONE; -DEXAMETHASONE SOD PHOSPHATE 10 MG/ML 1 ML VIAL IV ONE; -GLYCOPYRROLATE 0.2 MG/ML 2 ML VIAL ONE; -HEPARIN SODIUM,PORCINE 5,000 UNIT/ML 1 ML VIAL SQ ONE; -INDOCYANINE GREEN 25 MG VIAL IV ONE; -INDOCYANINE GREEN 25 MG VIAL IV STA; -KETOROLAC 30 MG/ML 1 ML VIAL ONE; -LACTATED RINGERS 1,000 ML IV SCH; -LIDOCAINE 1% 20 ML VIAL (10MG/ML) FOR IV START INTRADERMA PRN; -LIDOCAINE 1% INJ 10MG/ML (20 ML MDV) ONE; -MIDAZOLAM 2 MG/2 ML VIAL IV PRN; -MIDAZOLAM 2 MG/2 ML VIAL ONE; -NEOSTIGMINE 1 MG/ML 10 ML VIAL ONE; -ONDANSETRON 4 MG/2 ML VIAL IVP ONE; -ONDANSETRON 4 MG/2 ML VIAL IVP PRN; -PROPOFOL 10 MG/ML 20 ML VIAL IV ONE; -ROCURONIUM BROMIDE 10 MG/ML 10 ML VIAL IV ONE; -SCOPOLAMINE 1.5MG/72HR PATCH TRANSDERM ONE; +SODIUM CHLORIDE 0.9% 1,000 ML in EMPTY BAG 1 BAG IV ONE; -SUCCINYLCHOLINE CHLORIDE 100 MG/5 ML SYR IV ONE; +ZOLPIDEM 5 MG TAB PO PRN; -fentaNYL (PF) 50 MCG/ML 2 ML AMP ONE
[2020-07-26] MEDS ORDERED: SODIUM CHLORIDE 0.9% 1,000 ML IV ONE (08:07)
[2020-07-26 08:12] LABS: Glucose,Whole Blood 356 mg/dL (75-99)
[2020-07-26] MEDS ORDERED: INSULIN ASPART (NovoLOG) 100 UNIT/ML VIAL SQ ONE (08:14)
[2020-07-26 08:22] LABS: Basophils # (A) 0.1 k/uL (0-0.2); Basophils % (A) 1 %; Eosinophils # (A) 0.3 k/uL (0-0.7); Eosinophils % (A) 4 %; HGB 14.6 gm/dL (11.4-16.0); Lymphocytes # (A) 1.8 k/uL (1.0-4.8); Lymphocytes % (A) 23 %; MCH 30.4 pg (25.0-35.0); MCHC 33.3 g/dL (31.0-37.0); MCV 91.4 fL (80.0-100.0); Mean Platelet Volume 7.1; Monocytes # (A) 0.7 k/uL (0-1.0); Monocytes % (A) 8 %; Neutrophils # (A) 4.9 k/uL (1.3-7.7); Neutrophils % (A) 61 %; Platelet Count 341 k/uL (150-450); RBC 4.81 m/uL (3.80-5.40); WBC 7.9 k/uL (3.8-10.6)
[2020-07-26 08:32] LABS: African American GFR (CKD) >90 (>60 ml/min/1.73 sqM); Anion Gap 8 mmol/L; Blood Urea Nitrogen 23 mg/dL (7-17); Calcium 9.2 mg/dL (8.4-10.2); Carbon Dioxide 29 mmol/L (22-30); Chloride 97 mmol/L (98-107); Glucose 372 mg/dL (74-99); Non-African American GFR(CKD) 84 (>60 ml/min/1.73 sqM); Potassium 4.2 mmol/L (3.5-5.1); Sodium 134 mmol/L (137-145)
[2020-07-26] MEDS: MIDAZOLAM 2 MG/2 ML VIAL IV ONE ×2 (09:04→10:13)
[2020-07-26] MEDS: LIDOCAINE 1% INJ 10MG/ML (20 ML MDV) SQ ONE ×3 (09:06→09:54)
[2020-07-26] MEDS: fentaNYL (PF) 50 MCG/ML 2 ML AMP IV ONE ×2 (09:07→09:16)
[2020-07-26] MEDS ORDERED: VERAPAMIL SYRINGE (5 MG/10 ML) INTRAARTER ONE (09:25)
[2020-07-26] MEDS: HEPARIN SODIUM 1,000 UN/ML (10ML VL) IV ONE ×2 (09:27→10:13)
[2020-07-26] MEDS ORDERED: IOPAMIDOL-250 100ML BTL INTRAARTER ONE ×2 (10:43→10:44)
[2020-07-26] MEDS ORDERED: fentaNYL (PF) 50 MCG/ML 2 ML AMP ONE (10:58)
[2020-07-26] MEDS ORDERED: SODIUM CHLORIDE 0.9% 1,000 ML IV SCH (11:00)
--- NOTE | 2020-07-26 11:29 | IR ---
Fluoroscopy HISTORY: Pain in right leg 10.9 minutes fluoroscopy time supplied to the referring clinician. 771 intraoperative C-arm images d ocument the procedure. See dictated report from cardiology.
--- NOTE | 2020-07-26 11:57 | P.PCN ---
Date of Procedure: 07/26/20 Description of Procedure: PROCEDURES PERFORMED: Ultrasound guidance. Abdominal angiography with bilateral runoff, ENGINE LATHE OPERATOR and covered stent with a Viabahn 7.0 x 38mm covered stent of the distal anastamosis of the right aorta iliac bypass graft. INDICATION: [facility] class III claudication bilaterally, right greater than left, abnormal arterial ultrasound showing concern of iliac stenosis HISTORY: Patient is a pleasant 50-year-old female with history of prior tobacco abuse, hypertension, hyperlipidemia, peripheral arterial disease with left subclavian stenosis, carotid stenosis, prior bilateral aortoiliac bypass secondary to 100% aortic occlusion, ischemic cardiomyopathy with prior CABG who presents for workup of bilateral claudication of the hips and thighs. This has been ongoing for approximately the past 3 months and is worse on the right. She did have an ultrasound which showed concern of iliac stenosis bilaterally with elevated velocities. CONSENT:I have discussed the risks, benefits and alternative therapies for the above-mentioned procedure and for both sedation/analgesia as well as necessary blood product administration, if indicated, as they pertain to this patient. The patient has indicated understanding and acceptance of the risks and procedures discussed. PROCEDURE: After the risks, benefits and alternatives of the above mentioned procedure explained in detail with the patient, informed consent was obtained. Patient was taken to the catheterization lab and prepped and draped in usual fashion. 1% lidocaine was used to anesthetize the right radial area. A 5- Slovak sheath was placed in the right radial artery using modified Seldinger technique. A 5-Slovak pigtail catheter was inserted to the descending abdominal aorta and DSA imaging was obtained of the abdominal aorta and bilateral runoff. Patient tolerated the diagnostic portion well. Next, the decision was made to perform intervention of the distal anastamosis of the right aorta iliac bypass graft. IV heparin was given. A 7-Slovak sheath was placed in the right femoral artery using modified Seldinger technique and ultrasound guidance. A 0.035 J wire was used to cross the lesion. Balloon angioplasty was performed with a 5.0 x 20 mm Gepp balloon. Next a 7.0 x 38 mm Viabahn covered stent was placed at 10 jude. A 7.0 x 20 mm balloon was inflated in the midsection to 14 jude. Final angiograms were performed. Pre intervention there was 90% stenosis with MARIBELL 3 flow. Post intervention there was 0% stenosis and MARIBELL 3 flow. A right femoral angiogram was performed and anatomoy was unsuitable for closure. The sheath was left in place to be pulled and the postoperative holding area. The right radial sheath was pulled and a TR band was placed with hemostasis achieved. The patient tolerated the procedure well. Patient was transported back to the post catheterization holding area in stable condition. In the postoperative holding area a small hematoma was noted around the right radial area which was stabilized with a blood pressure cuff. Conscious Sedation: Patient was monitored under the direct supervision of vision of myself for conscious sedation using Versed and fentanyl for a total duration of 94 minutes HEMODYNAMICS: Aorta: 158/92 Abdominal aorta: The abdominal aorta has moderate calcifcation. Renal arteries were not well visualized. There is no significant dissection or aneurysm. There is mild 20% stenosis followed by a 100% distal aortic occlusion with bilateral aortoiliac bypass grafts. Right lower extremity: Right common iliac artery: Not visualized, occluded. Right external iliac artery: Not visualized proximally, occluded. Right aorto iliac graft: The graft is widely patent with a distal anastomosis 90% stenosis at the iliac junction. Right internal iliac artery: Not visualized, occluded. Right common femoral artery: There is no significant stenosis. Right profunda: There is no significant stenosis. Right SFA: There is no significant stenosis. Right popliteal artery: There is no significant stenosis. Right tibioperoneal trunk: There is no significant stenosis. Right anterior tibial artery: There is no significant stenosis proximally. Right porterior tibial artery: There is no significant stenosis proximally. Right peroneal artery: There is no significant stenosis proximally. Left lower extremity: Left common iliac artery: Not visualized, occluded. Left external iliac artery: Not visualized proximally, occluded. Left aortoiliac graft: The graft is widely patent besides a distal graft approximately 60-70% stenosis. Further images were not obtained due to contrast threshold however elevated velocities by ultrasound suggest obstructive stenosis. Left internal iliac artery: Not visualized, occluded. Left common femoral artery: There is no significant stenosis. Left profunda: There is no significant stenosis. Left SFA: There is a distal SFA 95% stenosis Left popliteal artery: There is no significant stenosis. Left tibioperoneal trunk: There is no significant stenosis. Left anterior tibial artery: There is no significant stenosis proximally. Left porterior tibial artery: There is no significant stenosis proximally. Left peroneal artery: There is no significant stenosis proximally. FINAL IMPRESSION: 1. Peripheral arterial disease as described above including 100% distal aortic occlusion, 90% right aortoiliac graft stenosis, 60-70% left aortoiliac graft stenosis, 95% left SFA stenosis. 2. Successful ENGINE LATHE OPERATOR and covered stent with a Viabahn 7.0 x 38mm covered stent of the distal anastamosis of the right aorta iliac bypass graft. PLAN: 1. Aggressive risk factor modification per most recent ACC/AHA guidelines. 2. Follow-up in the office in 1-2 weeks.
[2020-07-26] MEDS: INSULIN ASPART (NovoLOG) 100 UNIT/ML VIAL SQ SCH ×4 (12:09→20:15)
[2020-07-26 12:10] LABS: Glucose,Whole Blood 257 mg/dL (75-99)
[2020-07-26] MEDS ORDERED: ALBUTEROL NEBULIZED 2.5 MG/3 ML INHALATION PRN (15:27)
[2020-07-26] MEDS ORDERED: FUROSEMIDE 20 MG TAB PO SCH (16:00)
[2020-07-26 17:17] LABS: Glucose,Whole Blood 367 mg/dL (75-99)
[2020-07-26] MEDS ORDERED: SACUBITRIL/VALSARTAN 49 MG-51 MG TABLET PO SCH (20:00)
[2020-07-26 20:03] LABS: Glucose,Whole Blood 378 mg/dL (75-99)
[2020-07-26] MEDS: SACUBITRIL/VALSARTAN 49 MG-51 MG TABLET PO SCH (20:28)
[2020-07-26] MEDS ORDERED: ATORVASTATIN 80 MG TAB PO SCH (21:00)
[2020-07-26] MEDS ORDERED: ACETAMINOPHEN TAB 325 MG TAB PO PRN (23:45)
[2020-07-27 06:25] LABS: Glucose,Whole Blood 319 mg/dL (75-99)
[2020-07-27] MEDS: INSULIN ASPART (NovoLOG) 100 UNIT/ML VIAL SQ SCH ×2 (06:59→12:23)
[2020-07-27] MEDS ORDERED: INSULIN DETEMIR (LEVEMIR) 100 UNIT/ML SYR SQ SCH (07:00)
[2020-07-27 08:02] LABS: African American GFR (CKD) >90 (>60 ml/min/1.73 sqM); Non-African American GFR(CKD) >90 (>60 ml/min/1.73 sqM)
[2020-07-27] MEDS: SACUBITRIL/VALSARTAN 49 MG-51 MG TABLET PO SCH (08:32)
[2020-07-27 08:35] VITALS: RESP 16; TEMP 98.4
[2020-07-27] MEDS ORDERED: METOPROLOL SUCCINATE (ER) 50 MG TAB.ER.24H PO SCH (09:00)
[2020-07-27] MEDS ORDERED: SPIRONOLACTONE 25 MG TAB PO SCH (09:00)
[2020-07-27] MEDS ORDERED: ASPIRIN 81 MG PO SCH (09:00)
[2020-07-27] MEDS ORDERED: MULTIVITAMINS, THERA 1 EACH TAB PO SCH (09:00)
[2020-07-27] MEDS ORDERED: CLOPIDOGREL 75 MG TAB PO SCH (09:00)
[2020-07-27] MEDS ORDERED: SACUBITRIL/VALSARTAN 49 MG-51 MG TABLET PO SCH (09:00)
[2020-07-27 11:40] LABS: Glucose,Whole Blood 301 mg/dL (75-99)
[2020-07-27 12:04] VITALS: BP 139/62; PULSE 73
--- NOTE | 2020-07-27 12:06 | P.DS ---
Providers Attending physician: Balwinder Gabriel DO Primary care physician: Torin [facility] Course: Patient is a pleasant 50-year-old female with history of ischemic cardiomyopathy, coronary artery disease status post CABG, peripheral arterial disease status post bilateral aorto iliac grafts who has been experiencing increasing thigh and buttocks claudication. She had an outpatient arterial ultrasound performed which showed bilateral increased velocities in the iliac artery and therefore decision was made to undergo angiography with possible intervention. Patient underwent abdominal angiography with bilateral runoff yesterday. She had successful covered stenting of her right aortoiliac distal graft anastomosis. She did have initial diagnostic images performed from the right radial approach and unfortunately did have a small hematoma which was improved with manual pressure. Today she does have some bruising however no numbness and only mild pain when you press on the area. Patient is stable for discharge with outpatient follow-up with possible intervention of her left aortoiliac graft if patient has continued claudication of her left lower extremity. Plan - Discharge Summary Discharge Rx Participant: No New Discharge Prescriptions: No Action Clopidogrel [Plavix] 75 mg PO DAILY #30 tab Multivitamin with Iron [Multivitamins with Iron] 1 tab PO DAILY Albuterol Nebulized [Ventolin Nebulized] 2.5 mg INHALATION RT-TID PRN PRN Reason: Shortness Of Breath Insulin Lispro [Admelog] 10 unit SQ BID-W/MEALS Insulin Glargine,Hum.rec.anlog [Basaglar Kwikpen U-100] 30 unit SQ QAM Spironolactone 12.5 mg PO DAILY Aspirin EC [Ecotrin Low Dose] 81 mg PO DAILY Metoprolol Succinate [Toprol XL] 50 mg PO QAM Sacubitril/Valsartan [Entresto 49 mg-51 mg Tablet] 0.5 tab PO BID Dulaglutide [Trulicity] 0.75 mg SQ TU Atorvastatin Calcium [Lipitor] 80 mg PO HS Furosemide [Lasix] 20 mg PO DIRECTED Discharge Medication List Clopidogrel [Plavix] 75 mg PO DAILY #30 tab 07/29/19 [Rx] Albuterol Nebulized [Ventolin Nebulized] 2.5 mg INHALATION RT-TID PRN 09/26/19 [History] Aspirin EC [Ecotrin Low Dose] 81 mg PO DAILY 09/26/19 [History] Insulin Glargine,Hum.rec.anlog [Basaglar Kwikpen U-100] 30 unit SQ QAM 09/26/19 [History] Insulin Lispro [Admelog] 10 unit SQ BID-W/MEALS 09/26/19 [History] Multivitamin with Iron [Multivitamins with Iron] 1 tab PO DAILY 09/26/19 [History] Spironolactone 12.5 mg PO DAILY 09/26/19 [History] Atorvastatin Calcium [Lipitor] 80 mg PO HS 07/24/20 [History] Dulaglutide [Trulicity] 0.75 mg SQ TU 07/24/20 [History] Metoprolol Succinate [Toprol XL] 50 mg PO QAM 07/24/20 [History] Sacubitril/Valsartan [Entresto 49 mg-51 mg Tablet] 0.5 tab PO BID 07/24/20 [History] Furosemide [Lasix] 20 mg PO DIRECTED 07/26/20 [History] Follow up Appointment(s)/Referral(s): [facility],Cardiac [NON-STAFF] - 1 Week (After discharge, you will follow- up with your icebox worker. Once you have obtained a prescription for cardiac rehab, please call [phone] to set up an evaluation.) Thai Manrique MD [STAFF PHYSICIAN] - 08/02/20 10:30 am () Patient Instructions/Handouts: *Surgery [facility] - After Heart Catheterization - Geophysical Engineer Instructions
[2020-07-27 16:11] LABS: Hemoglobin A1C 13.2 % (4.0-6.0)
== END 2020-07-27 13:00 | disposition home or self-care (01) ==
LOC: CATHCVL 07:45 → 3SCARD 10:40 → CATHCVL 07-27 13:00
PROVIDERS: ATTEND Internal Medicine
DX: T82.858A Stenosis of other vascular prosthetic devices, implants and grafts, initial encounter (principal); I70.213 Atherosclerosis of native arteries of extremities with intermittent claudication, bilateral legs; I25.5 Ischemic cardiomyopathy; I25.10 Atherosclerotic heart disease of native coronary artery without angina pectoris; I11.0 Hypertensive heart disease with heart failure; I50.22 Chronic systolic (congestive) heart failure; I65.23 Occlusion and stenosis of bilateral carotid arteries; E78.5 Hyperlipidemia, unspecified; Z87.891 Personal history of nicotine dependence; Z95.1 Presence of aortocoronary bypass graft; Z79.02 Long term (current) use of antithrombotics/antiplatelets; Z79.4 Long term (current) use of insulin; Z79.82 Long term (current) use of aspirin; Z79.899 Other long term (current) drug therapy; Z82.49 Family history of ischemic heart disease and other diseases of the circulatory system; Z88.2 Allergy status to sulfonamides; Z88.8 Allergy status to other drugs, medicaments and biological substances
CPT/HCPCS: 37221; 75625; 75716; 80048; 82565; 85025; 81025; 83036; C1894 ×3; C1725 ×2; C1887; C1769 ×5; C1874; J2250; J2001; J3010; J1644; Q9966

== ENCOUNTER → 2020-11-26 | Outpatient (CLI) | payer OTHER ==
[2020-11-26 13:09] LABS: Appearance,Urine Clear (Clear); Bilirubin,Urine Negative (Negative); Blood,Urine Negative (Negative); Color,Urine Light Yellow; Glucose,Urine (UA) 4+ (Negative); Ketones,Urine Negative (Negative); Leukocyte Esterase,Urine Negative (Negative); Nitrite,Urine Negative (Negative); Protein,Urine Negative (Negative); Specific Gravity,Urine 1.024 (1.001-1.035); Urobilinogen,Urine <2.0 mg/dL (<2.0)
[2020-11-26 19:43] LABS: HCT 43.3 % (37.2-46.3); HGB 14.2 g/dL (12.0-15.0); MCHC 32.8 g/dL (32.0-37.0); MCV 91.4 fL (80.0-97.0); Mean Platelet Volume 10.3 fL (9.5-12.2); Platelet Count 274 X 10*3/uL (140-440); RBC 4.74 X 10*6/uL (4.10-5.20); RDW 12.1 % (11.5-14.5)
[2020-11-26 20:46] LABS: Ferritin 150.9 ng/mL (10.0-291.0)
[2020-11-26 22:03] LABS: % Iron Saturation 30.64 (12.00-45.00); African American GFR (CKD) 68.3 (60.0-200.0); Albumin 4.6 g/dL (3.80-4.90); Albumin/Globulin Ratio 2.56 (1.60-3.17); Anion Gap 8.6 mmol/L (4.00-12.00); BUN/Creat Ratio 20.91 Ratio (12.00-20.00); Calcium 9.6 mg/dL (8.7-10.3); Carbon Dioxide 28.4 mmol/L (21.6-31.8); Globulin 1.8 g/dL (1.6-3.3); Magnesium 1.9 mg/dL (1.5-2.4); Non-African American GFR(CKD) 58.9 (60.0-200.0); Phosphorus 4.1 mg/dL (2.4-5.1); Potassium 4.5 mmol/L (3.5-5.5); Total Bilirubin 0.5 mg/dL (0.2-1.2); Total Protein 6.4 g/dL (6.2-8.2)
[2020-11-26 22:51] LABS: Urine Creatinine 37.2 mg/dL
[2020-11-27 01:20] LABS: Hepatitis A Antibody IgM Non-Reactive (Non-Reactive); Hepatitis B Core IgM Non-Reactive (Non-Reactive); Hepatitis B Surface Antigen Non-Reactive (Non-Reactive); Hepatitis C IgG Antibody Non-Reactive (Non-Reactive)
[2020-11-27 03:51] LABS: Anti-DNA, DS unit <1.0 IU/mL; DNA Double-Stranded NEGATIVE (NEGATIVE)
[2020-11-27 16:05] LABS: Free Kappa Lt Chain Qnt, Serum 1.78 mg/dL (0.33-1.94)
[2020-11-28 14:46] LABS: C-ANCA <1:20 Titer (<1:20)
== END | disposition home or self-care (01) ==
LOC: LABWHC1 11:16
PROVIDERS: ATTEND Internal Medicine
DX: N18.31 Chronic kidney disease, stage 3a (principal); D64.9 Anemia, unspecified; N39.0 Urinary tract infection, site not specified; R80.9 Proteinuria, unspecified; N25.81 Secondary hyperparathyroidism of renal origin; E55.9 Vitamin D deficiency, unspecified; M10.9 Gout, unspecified
CPT/HCPCS: 36415; 80053; 80074; 81003; 82043; 82306; 82570; 82728; 83516; 83540; 83550; 83735; 83883; 83970; 84100; 84166; 84550; 85027; 86038; 86160; 86162; 86225; 86255; 86334

== ENCOUNTER → 2020-11-26 | Outpatient (CLI) | payer OTHER ==
--- NOTE | 2020-11-26 13:01 | US ---
EXAMINATION TYPE: US kidneys/renal and bladder DATE OF EXAM: 11/26/2020 COMPARISON: NONE CLINICAL HISTORY: 50-year-old female N18.31 CKD Stage 3. TECHNIQUE: Multiple sonographic images of the kidneys and bladder are obtained. FINDINGS: EXAM MEASUREMENTS: Right Kidney: 12.1 x 5.6 x 5.9 cm Left Kidney: 6.2 x 3.2 x 2.2 cm Right Kidney: No hydronephrosis. Left Kidney: atrophic with cortical thinning. There is a lateral cyst measuring 1.6 x 1.3cm. No hydro nephrosis. Bladder: wnl Incidental echogenic liver. IMPRESSION: 1. No hydronephrosis. 2. Atrophic left kidney with a benign 1.6 cm cortical cyst. 3. Incidental hepatic steatosis.
== END ==
LOC: RADUSWWP 10:31
PROVIDERS: ATTEND Internal Medicine
DX: N18.30 Chronic kidney disease, stage 3 unspecified (principal)
CPT/HCPCS: 76770

== ENCOUNTER 2021-06-13 15:43 | Emergency (ER) | payer OTHER ==
[2021-06-13 15:57] VITALS: TEMP 97.9
[2021-06-13 15:59] LABS: Glucose,Whole Blood 482 mg/dL (75-99)
[2021-06-13] MEDS ORDERED: SODIUM CHLORIDE 0.9% 2,000 ML IV STA (16:30)
[2021-06-13 16:49] LABS: Basophils % (A) 1 %; Eosinophils # (A) 0.3 k/uL (0-0.7); Eosinophils % (A) 4 %; HCT 42.7 % (34.0-46.0); HGB 14.9 gm/dL (11.4-16.0); Lymphocytes % (A) 30 %; MCHC 34.9 g/dL (31.0-37.0); MCV 91.7 fL (80.0-100.0); Mean Platelet Volume 7.5; Monocytes # (A) 0.5 k/uL (0-1.0); Monocytes % (A) 7 %; Neutrophils # (A) 3.7 k/uL (1.3-7.7); Neutrophils % (A) 55 %; Platelet Count 247 k/uL (150-450); RBC 4.66 m/uL (3.80-5.40); RDW 12.1 % (11.5-15.5); WBC 6.7 k/uL (3.8-10.6)
[2021-06-13 17:01] LABS: Appearance,Urine Clear (Clear); Bilirubin,Urine Negative (Negative); Blood,Urine Negative (Negative); Color,Urine Light Yellow; Glucose,Urine (UA) 4+ (Negative); Ketones,Urine Negative (Negative); Leukocyte Esterase,Urine Negative (Negative); Nitrite,Urine Negative (Negative); Protein,Urine Negative (Negative); Specific Gravity,Urine 1.042 (1.001-1.035); Urobilinogen,Urine <2.0 mg/dL (<2.0)
[2021-06-13 17:03] LABS: ALT 20 U/L (4-34); AST 22 U/L (14-36); African American GFR (CKD) >90 (>60 ml/min/1.73 sqM); Albumin 3.9 g/dL (3.5-5.0); Alkaline Phosphatase 182 U/L (38-126); Anion Gap 11 mmol/L; Blood Urea Nitrogen 22 mg/dL (7-17); Calcium 9.2 mg/dL (8.4-10.2); Carbon Dioxide 23 mmol/L (22-30); Chloride 95 mmol/L (98-107); Glucose 461 mg/dL (74-99); Magnesium 1.8 mg/dL (1.6-2.3); Non-African American GFR(CKD) 89 (>60 ml/min/1.73 sqM); Potassium 4.6 mmol/L (3.5-5.1); Sodium 129 mmol/L (137-145); Total Bilirubin 0.4 mg/dL (0.2-1.3); Total Protein 6.3 g/dL (6.3-8.2)
[2021-06-13 17:38] LABS: Glucose,Whole Blood 385 mg/dL (75-99)
[2021-06-13] MEDS ORDERED: INSULIN ASPART (NovoLOG) 100 UNIT/ML VIAL SQ STA (18:03)
[2021-06-13 19:00] LABS: Glucose,Whole Blood 332 mg/dL (75-99)
--- NOTE | 2021-06-13 19:18 | ED ---
General Adult HPI - General Chief complaint: Recheck/Abnormal Lab/Rx Stated complaint: Critical Labs from CT Time Seen by Provider: 06/13/21 16:00 Source: patient, RN notes reviewed Mode of arrival: ambulatory Limitations: no limitations - History of Present Illness Initial comments: 51-year-old female with a past medical history of CAD, COPD, diabetes mellitus, hyperlipidemia presents to the emergency room for a chief complaint of high blood sugar. Patient states she went to get an outpatient CAT scan and when they're she had her blood sugar checked and it was high in the 500s. Patient states she feels fine. Patient does have a history of diabetes. Patient states that she has insulin at home but does not use it her check her blood sugar bec ause she does not know how.Patient has no other complaints at this time including shortness of breath, chest pain, abdominal pain, nausea or vomiting, headache, or visual changes - Related Data Home Medications Medication Instructions Recorded Confirmed Aspirin EC [Ecotrin Low Dose] 81 mg PO DAILY 09/26/19 06/13/21 Spironolactone 12.5 mg PO DAILY 09/26/19 06/13/21 Atorvastatin Calcium [Lipitor] 80 mg PO HS 07/24/20 06/13/21 Metoprolol Succinate [Toprol XL] 50 mg PO BID 07/24/20 06/13/21 Multivit with Calcium,Iron,Min 1 tab PO DAILY 06/13/21 06/13/21 [Women's Multivitamin] Sacubitril/Valsartan [Entresto 24 1 tab PO BID 06/13/21 06/13/21 mg-26 mg Tablet] Varenicline [Chantix Continuing 1 mg PO DAILY 06/13/21 06/13/21 Pack] Previous Rx's Medication Instructions Recorded Clopidogrel [Plavix] 75 mg PO DAILY #30 tab 07/29/19 Allergies Allergy/AdvReac Type Severity Reaction Status Date / Time sulfamethoxazole Allergy Swelling Verified 06/13/21 18:07 [From Bactrim] trimethoprim [From Bactrim] Allergy Swelling Verified 06/13/21 18:07 metformin AdvReac Nausea & Verified 06/13/21 18:07 Vomiting & Diarrhea Review of Systems ROS Statement: Those systems with pertinent positive or pertinent negative responses have been documented in the HPI. ROS Other: All systems not noted in ROS Statement are negative. Past Medical History Past Medical History: Coronary Artery Disease (CAD), Chest Pain / Angina, COPD, CVA/TIA, Diabetes Mellitus, Hyperlipidemia, Myocardial Infarction (CA), Pneumonia, Thyroid Disorder Additional Past Medical History / Comment(s): Cardiac murmur, DDD, Hyperthyroid/Thyroid Nodules, nausea and vomiting since after 2017. Has lost 75lbs. Hx CVA 2007 or 2008, no residual effects. 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 Hx Pneumonia. Last Myocardial Infarction Date:: 2011 History of Any Multi-Drug Resistant Organisms: None Reported Past Surgical History: Section, Cholecystectomy, Heart Catheterization, Hernia Repair Additional Past Surgical History / Comment(s): I&D L gluteal abscess, aortagram, Gcfpm-Cx-Barak bypass, laparoscopic surgery-one ovary/one tube removed from opposite sides, multiple abdominal incisional hernia repairs with mesh, Attempted Heart cath but patient states veins collapsed and unable to do. 07/25quadruple CABG, mitral valve repair Past Anesthesia/Blood Transfusion Reactions: No Reported Reaction Past Psychological History: Depression Past Alcohol Use History: None Reported Past Drug Use History: None Reported - Past Family History Mother Family Medical History: Cancer, Coronary Artery Disease (CAD) Additional Family Medical History / Comment(s): Mother is a breast cancer surv kalli. Father Family Medical History: Coronary Artery Disease (CAD), Diabetes Mellitus, Myocardial Infarction (CA) Additional Family Medical History / Comment(s): Agent [place] Exposure. Pt does not know at what age her father had his CA. General Exam Limitations: no limitations General appearance: alert, in no apparent distress Head exam: Present: atraumatic Eye exam: Present: normal appearance, PERRL, EOMI. Absent: scleral icterus, conjunctival injection ENT exam: Present: normal exam, mucous membranes moist Neck exam: Present: normal inspection, full ROM. Absent: tenderness Respiratory exam: Present: normal lung sounds bilaterally. Absent: respiratory distress, wheezes Cardiovascular Exam: Present: regular rate, normal rhythm, normal heart sounds GI/Abdominal exam: Present: soft, normal bowel sounds. Absent: distended, tenderness Neurological exam: Present: alert Course Vital Signs 06/13/21 15:49 Temperature 97.9 F Pulse Rate 78 Respiratory 16 Rate Blood Pressure 173/75 O2 Sat by Pulse 98 Oximetry Medical Decision Making - Medical Decision Making Vital is stable. CBC unremarkable. Pseudohyponatremia likely given her hyperglycemia. Patient is dehydrated, was given 2 L of fluid. This did improve her glucose from 482-332. She was given 5 subcu insulin. There is concern about letting patient go home without knowledge of how to use her insulin and it was recommended patient be admitted for diabetes education. However patient re ceived a call from her primary care doctor that she needs to call first thing in the morning so they can see her tomorrow so they can educate her on how to use her insulin. Patient will be discharged home as she really prefers following up outpatient tomorrow rather than being admitted to the hospital for education as her children are home. - Lab Data Result diagrams: 06/13/21 16:42 06/13/21 16:42 Lab Results 06/13/21 06/13/21 06/13/21 Range/Units 15:53 16:42 16:42 WBC 6.7 (3.8-10.6) k/uL RBC 4.66 (3.80-5.40) m/uL Hgb 14.9 (11.4-16.0) gm/dL Hct 42.7 (34.0-46.0) % MCV 91.7 (80.0-100.0) fL MCH 32.0 (25.0-35.0) pg MCHC 34.9 (31.0-37.0) g/dL RDW 12.1 (11.5-15.5) % Plt Count 247 (150-450) k/uL MPV 7.5 Neutrophils % 55 % Lymphocytes % 30 % Monocytes % 7 % Eosinophils % 4 % Basophils % 1 % Neutrophils # 3.7 (1.3-7.7) k/uL Lymphocytes # 2.0 (1.0-4.8) k/uL Monocytes # 0.5 (0-1.0) k/uL Eosinophils # 0.3 (0-0.7) k/uL Basophils # 0.0 (0-0.2) k/uL Sodium 129 L (137-145) mmol/L Potassium 4.6 (3.5-5.1) mmol/L Chloride 95 L (98-107) mmol/L Carbon Dioxide 23 (22-30) mmol/L Anion Gap 11 mmol/L BUN 22 H (7-17) mg/dL Creatinine 0.78 (0.52-1.04) mg/dL Est GFR (CKD-EPI)AfAm >90 (>60 ml/min/1.73 sqM) Est GFR (CKD-EPI)NonAf 89 (>60 ml/min/1.73 sqM) Glucose 461 H (74-99) mg/dL POC Glucose (mg/dL) 482 H (75-99) mg/dL POC Glu Moving Worker ID Kristina Love Calcium 9.2 (8.4-10.2) mg/dL Magnesium 1.8 (1.6-2.3) mg/dL Total Bilirubin 0.4 (0.2-1.3) mg/dL AST 22 (14-36) U/L ALT 20 (4-34) U/L Alkaline Phosphatase 182 H (38-126) U/L Total Protein 6.3 (6.3-8.2) g/dL Albumin 3.9 (3.5-5.0) g/dL Urine Color Urine Appearance (Clear) Urine pH (5.0-8.0) Ur Specific [place] (1.001-1.035) Urine Protein (Negative) Urine Glucose (UA) (Negative) Urine Ketones (Negative) Urine Blood (Negative) Urine Nitrite (Negative) Urine Bilirubin (Negative) Urine Urobilinogen (<2.0) mg/dL Ur Leukocyte Esterase (Negative) Acetone, Qual Negative (Negative) 06/13/21 06/13/21 06/13/21 Range/Units 16:44 17:36 18:58 WBC (3.8-10.6) k/uL RBC (3.80-5.40) m/uL Hgb (11.4-16.0) gm/dL Hct (34.0-46.0) % MCV (80.0-100.0) fL MCH (25.0-35.0) pg MCHC (31.0-37.0) g/dL RDW (11.5-15.5) % Plt Count (150-450) k/uL MPV Neutrophils % % Lymphocytes % % Monocytes % % Eosinophils % % Basophils % % Neutrophils # (1.3-7.7) k/uL Lymphocytes # (1.0-4.8) k/uL Monocytes # (0-1.0) k/uL Eosinophils # (0-0.7) k/uL Basophils # (0-0.2) k/uL Sodium (137-145) mmol/L Potassium (3.5-5.1) mmol/L Chloride (98-107) mmol/L Carbon Dioxide (22-30) mmol/L Anion Gap mmol/L BUN (7-17) mg/dL Creatinine (0.52-1.04) mg/dL Est GFR (CKD-EPI)AfAm (>60 ml/min/1.73 sqM) Est GFR (CKD-EPI)NonAf (>60 ml/min/1.73 sqM) Glucose (74-99) mg/dL POC Glucose (mg/dL) 385 H 332 H (75-99) mg/dL POC Glu Moving Worker ID Tuan Odonnell José Miguel Jeffy Calcium (8.4-10.2) mg/dL Magnesium (1.6-2.3) mg/dL Total Bilirubin (0.2-1.3) mg/dL AST (14-36) U/L ALT (4-34) U/L Alkaline Phosphatase (38-126) U/L Total Protein (6.3-8.2) g/dL Albumin (3.5-5.0) g/dL Urine Color Light Yellow Urine Appearance Clear (Clear) Urine pH 5.0 (5.0-8.0) Ur Specific [place] 1.042 H (1.001-1.035) Urine Protein Negative (Negative) Urine Glucose (UA) 4+ H (Negative) Urine Ketones Negative (Negative) Urine Blood Negative (Negative) Urine Nitrite Negative (Negative) Urine Bilirubin Negative (Negative) Urine Urobilinogen <2.0 (<2.0) mg/dL Ur Leukocyte Esterase Negative (Negative) Acetone, Qual (Negative) Disposition Clinical Impression: Hyperglycemia Disposition: HOME SELF-CARE Condition: Fair Instructions (If sedation given, give patient instructions): Diabetic Hyperglycemia (ED) Additional Instructions: Please follow-up with your doctor tomorrow morning. You will need education on how to use your insulin. If you cannot get in with your doctor you need to return to the emergency room. Is patient prescribed a controlled substance at d/c from ED?: No Referrals: JdTorin ibarra DO [Primary Care Provider] - 1-2 days Time of Disposition: 20:01
[2021-06-13 20:54] VITALS: BP 109/69; PULSE 70; RESP 18
== END 2021-06-13 20:57 | disposition home or self-care (01) ==
LOC: EC 15:43
DX: E11.65 Type 2 diabetes mellitus with hyperglycemia (principal); J44.9 Chronic obstructive pulmonary disease, unspecified; I25.119 Atherosclerotic heart disease of native coronary artery with unspecified angina pectoris; E78.5 Hyperlipidemia, unspecified; I25.2 Old myocardial infarction; Z79.82 Long term (current) use of aspirin; Z79.899 Other long term (current) drug therapy; Z86.73 Personal history of transient ischemic attack (TIA), and cerebral infarction without residual deficits; Z88.2 Allergy status to sulfonamides; Z88.1 Allergy status to other antibiotic agents; Z88.8 Allergy status to other drugs, medicaments and biological substances; Z95.9 Presence of cardiac and vascular implant and graft, unspecified
CPT/HCPCS: 36415; 80053; 81003; 82009; 83735; 85025; 96360; 96361; 99284

== ENCOUNTER → 2021-06-13 | Outpatient (CLI) | payer OTHER ==
[2021-06-13 14:44] LABS: African American GFR (CKD) >90 (>60 ml/min/1.73 sqM); Anion Gap 10 mmol/L; Blood Urea Nitrogen 23 mg/dL (7-17); Carbon Dioxide 24 mmol/L (22-30); Chloride 96 mmol/L (98-107); Non-African American GFR(CKD) 87 (>60 ml/min/1.73 sqM); Potassium 4.6 mmol/L (3.5-5.1); Sodium 130 mmol/L (137-145)
[2021-06-13 14:50] LABS: Glucose 538 mg/dL (74-99)
--- NOTE | 2021-06-14 08:16 | CT ---
EXAMINATION TYPE: CT angio neck DATE OF EXAM: 06/13/2021 HISTORY: Carotid stenosis, pt states RT 100 % occluded, LT 70%. Hx quad bypass, abdominal aortic bypa ss, defibrillator. COMPARISON: Prior CTA Neck July 20, 2019 CT DLP: 288.20 mGycm. Automated Exposure Control for Dose Reduction was Utilized. TECHNIQUE: CTA scan of the neck is performed with IV Contrast, patient injected with 65 mL of Isovue 370, axial images are obtained, coronal and sagittal reformatted images are reviewed. MIP Images are created on CT scanner and reviewed. 3D reconstructed images are created on an independent workstatio n and reviewed. FINDINGS: Carotid/Vascular Structures: Mild to moderate peripheral plaque in the aortic arch. There is normal t hree-vessel origin from the aortic arch. Focal prominent noncalcified plaque at origin of the left co mmon carotid artery causes stenosis up to 3.0 mm axial image 18 series 4 with reconstitution up to 6. 0 mm distal to this axial image 20 , this is new from prior. Note is made of significant stenosis, ne ar complete occlusion in the proximal left subclavian artery near axial image 28, no significant [place] ge from prior. Persistent completely occluded right common carotid artery from the right brachiocepha lic artery similar to prior. They're is additional [id number] noncalcified plaque along the pro ximal left common carotid artery without additional significant stenosis. There is more moderate nonc alcified plaque anteriorly in the mid to distal left common carotid artery without additional signifi cant stenosis. Both findings more prominent from prior. The left carotid bulb there is moderate to severe mixed plaque extending into proximal internal and e xternal carotid arteries not causing significant stenosis at origin of the left external carotid luisana ry more prominent from prior. There is increasing significant stenosis in the left internal carotid a rtery, lumen diameter is narrowed to 1.8 mm axial image 60 and reconstitutes to 4.7 mm distal to this . Focal mild to moderate calcified plaque distal supraclinoid segment without additional significant stenosis. Portion of distal left vertebral artery is nonvisualized suspected occluded or stenotic similar to pr ior. Right vertebral artery is patent and dominant filling the basilar artery. Other: Partial visualization of left sided pacemaker device. Thyroid gland upper limits of normal with dominant left thyroid nodule axial image 40 redemonstrated. Mild underlying emphysematous change again seen. IMPRESSION: 1. 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 Significant stenosis left subclavian a rtery more than 90% redemonstrated without significant change. Stable occluded or stenotic distal lef t vertebral artery. Reversed flow suspected. 2. New significant stenosis origin of left common carotid artery from arch measured at 50%. New Sign ificant stenosis in the left internal and external carotid arteries due to increasing atherosclerotic change, degree of stenosis measured 60-65% in the proximal left internal carotid artery. NASCET criteria was used in interpretation of this exam?
== END | disposition home or self-care (01) ==
LOC: RADCTMAIN 13:58
PROVIDERS: ATTEND Internal Medicine Clinical Cardiac Electrophysiology
DX: I65.21 Occlusion and stenosis of right carotid artery (principal)
CPT/HCPCS: 80048; 70498; 36415; Q9967

== ENCOUNTER → 2021-09-17 | Outpatient (CLI) | payer OTHER | END | disposition home or self-care (01) | LOC: LABWHC1 13:22 | PROVIDERS: ATTEND Family Medicine | DX: R05.1 Acute cough (principal) | CPT/HCPCS: U0003; C9803 ==

== ENCOUNTER → 2022-05-06 | Outpatient (CLI) | payer OTHER ==
--- NOTE | 2022-05-06 09:27 | US ---
EXAMINATION TYPE: US renal artery duplex complet DATE OF EXAM: 05/06/2022 COMPARISON: NONE CLINICAL HISTORY: Atrophy of kidney (terminal) N26.1. MEASUREMENTS: RENAL SIZE: Rt Kidney: 12.9 x 4.5 x 6.1cm Lt Kidney: 5.7 x 2.6 x 2.5cm RESISTANCE INDEX Right: 0.74 Left: unable to see arterial or venous flow RA/AO RATIO (< 3.5 ) Right: 7.5 Left: unable to see arterial or venous flow RA VELOCITY ( < 180 cm/s) Right: 748 Left: unable to see arterial or venous flow Right kidney measures large there is significant renal artery stenosis seen mid and proximally. There is a delay in segmental artery upstroke also suggestive of stenosis. The left kidney is atrophied. U nable to see any aterial or venous flow. Also has a cyst on left 1.7 x 1.4 x 1.6cm IMPRESSION: As above
== END | disposition home or self-care (01) ==
LOC: RADUSWWP 07:49
PROVIDERS: ATTEND Internal Medicine Nephrology
DX: N26.1 Atrophy of kidney (terminal) (principal); N18.31 Chronic kidney disease, stage 3a
CPT/HCPCS: 93975

== ENCOUNTER 2022-07-01 12:05 | Emergency (ER) | payer OTHER ==
[2022-07-01 12:13] VITALS: TEMP 98.7
[2022-07-01] MEDS ORDERED: ONDANSETRON 4 MG/2 ML VIAL IVP STA (12:45)
[2022-07-01] MEDS ORDERED: SODIUM CHLORIDE 0.9% 1,000 ML IV ONE (12:45)
[2022-07-01 13:21] LABS: ALT 29 U/L (4-34); AST 31 U/L (14-36); African American GFR (CKD) >90 (>60 ml/min/1.73 sqM); Albumin 3.5 g/dL (3.5-5.0); Alkaline Phosphatase 84 U/L (38-126); Amylase 139 U/L (30-110); Anion Gap 10 mmol/L; Blood Urea Nitrogen 18 mg/dL (7-17); Carbon Dioxide 23 mmol/L (22-30); Chloride 104 mmol/L (98-107); Glucose 145 mg/dL (74-99); Lipase 185 U/L (23-300); Non-African American GFR(CKD) 81 (>60 ml/min/1.73 sqM); Potassium 4.2 mmol/L (3.5-5.1); Sodium 137 mmol/L (137-145); Total Bilirubin 0.5 mg/dL (0.2-1.3); Total Protein 5.7 g/dL (6.3-8.2)
[2022-07-01] MEDS ORDERED: ACETAMINOPHEN TAB 325 MG TAB PO STA (13:23)
[2022-07-01 13:28] LABS: HCT 41.6 % (34.0-46.0); HGB 14.6 gm/dL (11.4-16.0); MCH 30.7 pg (25.0-35.0); MCHC 34.9 g/dL (31.0-37.0); Mean Platelet Volume 8.6; Platelet Count 123 k/uL (150-450); RBC 4.73 m/uL (3.80-5.40); RDW 12.7 % (11.5-15.5); WBC 2.5 k/uL (3.8-10.6)
[2022-07-01 14:09] LABS: Lymphocytes # (M) 0.75 k/uL (1.0-4.8); Monocytes # (M) 0.08 k/uL (0-1.0); Neutrophils # (M) 1.68 k/uL (1.3-7.7); Neutrophils % (M) 67 %; Nucleated Red Blood Cells 0 /100 WBC (0-0); Total Cells Counted 100
[2022-07-01 14:11] LABS: Appearance,Urine Clear (Clear); Bilirubin,Urine Negative (Negative); Blood,Urine Negative (Negative); Color,Urine Yellow; Glucose,Urine (UA) Negative (Negative); Hyaline Casts,Urine 9 /lpf (0-2); Ketones,Urine 1+ (Negative); Leukocyte Esterase,Urine Negative (Negative); Mucus,Urine Rare /hpf; Nitrite,Urine Negative (Negative); PH, Urine 5.5 (5.0-8.0); Protein,Urine 1+ (Negative); RBC,Urine 1 /hpf (0-5); Specific Gravity,Urine 1.015 (1.001-1.035); Squamous Epithelial Cell,Urine 4 /hpf (0-4); Urobilinogen,Urine <2.0 mg/dL (<2.0); WBC,Urine 2 /hpf (0-5)
--- NOTE | 2022-07-01 14:21 | ED ---
General Adult HPI - General Chief complaint: Nausea/Vomiting/Diarrhea Stated complaint: Nausea,Vomiting Time Seen by Provider: 07/01/22 12:09 Source: EMS Mode of arrival: EMS Limitations: no limitations - History of Present Illness Initial comments: This patient is a 52-year-old woman presenting with complaints of nausea and vomiting. She states that she started having onset of some hot and cold episodes yesterday. She is having some body aches. She started with vomiting. The patient had gone to an urgent care clinic, she was found to have hypotension there and therefore they transferred her here to have further evaluation., Onset/Timin -: days(s) Consistency: constant Improves with: none Worsens with: none Associated Symptoms: nausea/vomiting Treatments Prior to Arrival: none - Related Data Home Medications Medication Instructions Recorded Confirmed Aspirin EC [Ecotrin Low Dose] 81 mg PO DAILY 09/26/19 07/01/22 Spironolactone 12.5 mg PO DAILY 09/26/19 07/01/22 Atorvastatin Calcium [Lipitor] 80 mg PO HS 07/24/20 07/01/22 Metoprolol Succinate [Toprol XL] 50 mg PO BID 07/24/20 07/01/22 Sacubitril/Valsartan [Entresto 24 1 tab PO BID 06/13/21 07/01/22 mg-26 mg Tablet] Dulaglutide [Trulicity] 3 mg SQ PLATA 07/01/22 07/01/22 Empagliflozin [Jardiance] 10 mg PO DAILY 07/01/22 07/01/22 Ergocalciferol (Vitamin D2) 1,250 mcg PO PLATA 07/01/22 07/01/22 [Drisdol (50,000 Iu)] Insulin Aspart [NovoLOG Flexpen] 20 units SQ AC-BID 07/01/22 07/01/22 Insulin Glargine,Hum.rec.anlog 60 units SQ DAILY 07/01/22 07/01/22 [Lantus Solostar Pen] Previous Rx's Medication Instructions Recorded Clopidogrel [Plavix] 75 mg PO DAILY #30 tab 07/29/19 Ondansetron Odt [Zofran ODT] 4 mg PO Q8HR PRN #10 tab 07/01/22 Allergies Allergy/AdvReac Type Severity Reaction Status Date / Time sulfamethoxazole Allergy Swelling Verified 07/01/22 13:57 [From Bactrim] trimethoprim [From Bactrim] Allergy Swelling Verified 07/01/22 13:57 metformin AdvReac Nausea & Verified 07/01/22 13:57 Vomiting & Diarrhea Review of Systems ROS Statement: Those systems with pertinent positive or pertinent negative responses have been documented in the HPI. ROS Other: All systems not noted in ROS Statement are negative. Constitutional: Reports: as per HPI, fever, chills Respiratory: Denies: cough, dyspnea Cardiovascular: Denies: chest pain, palpitations Gastrointestinal: Reports: nausea, vomiting, diarrhea. Denies: abdominal pain, melena, hematochezia Genitourinary: Denies: dysuria, frequency, hematuria Musculoskeletal: Reports: back pain, myalgia Skin: Denies: rash Neurological: Denies: headache, weakness, numbness Past Medical History Past Medical History: Coronary Artery Disease (CAD), Chest Pain / Angina, COPD, CVA/TIA, Diabetes Mellitus, Hyperlipidemia, Myocardial Infarction (SD), Pneumonia, Thyroid Disorder Additional Past Medical History / Comment(s): Cardiac murmur, DDD, Hyperthyroid/Thyroid Nodules, nausea and vomiting since after 2017. Has lost 75lbs. Hx CVA 2007 or 2008, no residual effects. Right carotid artery 100% blocked, left carotid artery 50% blocked, follows with Dr Rausch [id number]. Hx Pneumonia. Last Myocardial Infarction Date:: 2011 History of Any Multi-Drug Resistant Organisms: None Reported Past Surgical History: Section, Cholecystectomy, Heart Catheterization, Hernia Repair Additional Past Surgical History / Comment(s): I&D L gluteal abscess, aortagram, Hmfps-Ph-Ktwlt bypass, laparoscopic surgery-one ovary/one tube removed from opposite sides, multiple abdominal incisional hernia repairs with mesh, Attempted Heart cath but patient states veins collapsed and unable to do. 07/25quadruple CABG, mitral valve repair Past Anesthesia/Blood Transfusion Reactions: No Reported Reaction Past Psychological History: Depression Past Alcohol Use History: None Reported Past Drug Use History: None Reported - Past Family History Mother Family Medical History: Cancer, Coronary Artery Disease (CAD) Additional Family Medical History / Comment(s): Mother is a breast cancer survivor. Father Family Medical History: Coronary Artery Disease (CAD), Diabetes Mellitus, Myocardial Infarction (SD) Additional Family Medical History / Comment(s): Agent [place] Exposure. Pt does not know at what age her father had his SD. General Exam Limitations: no limitations General appearance: alert, in no apparent distress Head exam: Present: atraumatic, normocephalic Eye exam: Present: normal appearance. Absent: scleral icterus, conjunctival injection ENT exam: Present: mucous membranes dry Neck exam: Present: normal inspection, full ROM Respiratory exam: Present: normal lung sounds bilaterally. Absent: respiratory distress, wheezes, rales, rhonchi, stridor Cardiovascular Exam: Present: regular rate, normal rhythm, normal heart sounds. Absent: systolic murmur, diastolic murmur, rubs, gallop GI/Abdominal exam: Present: soft. Absent: distended, tenderness, guarding, rebound, rigid, mass Back exam: Present: normal inspection Neurological exam: Present: alert Skin exam: Present: warm, dry, intact, normal color. Absent: rash Course Vital Signs 07/01/22 12:10 Temperature 98.7 F Pulse Rate 74 Respiratory 16 Rate Blood Pressure 186/73 O2 Sat by Pulse 98 Oximetry Medical Decision Making - Lab Data Result diagrams: 07/01/22 13:01 07/01/22 13:01 Lab Results 07/01/22 07/01/22 07/01/22 Range/Units 13:01 13:01 13:01 WBC 2.5 L (3.8-10.6) k/uL RBC 4.73 (3.80-5.40) m/uL Hgb 14.6 (11.4-16.0) gm/dL Hct 41.6 (34.0-46.0) % MCV 88.0 (80.0-100.0) fL MCH 30.7 (25.0-35.0) pg MCHC 34.9 (31.0-37.0) g/dL RDW 12.7 (11.5-15.5) % Plt Count 123 L (150-450) k/uL MPV 8.6 Neutrophils % (Manual) 67 % Lymphocytes % (Manual) 30 % Monocytes % (Manual) 3 % Neutrophils # (Manual) 1.68 (1.3-7.7) k/uL Lymphocytes # (Manual) 0.75 L (1.0-4.8) k/uL Monocytes # (Manual) 0.08 (0-1.0) k/uL Nucleated RBCs 0 (0-0) /100 WBC Manual Slide Review Performed Sodium 137 (137-145) mmol/L Potassium 4.2 (3.5-5.1) mmol/L Chloride 104 (98-107) mmol/L Carbon Dioxide 23 (22-30) mmol/L Anion Gap 10 mmol/L BUN 18 H (7-17) mg/dL Creatinine 0.84 (0.52-1.04) mg/dL Est GFR (CKD-EPI)AfAm >90 (>60 ml/min/1.73 sqM) Est GFR (CKD-EPI)NonAf 81 (>60 ml/min/1.73 sqM) Glucose 145 H (74-99) mg/dL Plasma Lactic Acid Ed 1.1 (0.7-2.0) mmol/L Calcium 8.0 L (8.4-10.2) mg/dL Total Bilirubin 0.5 (0.2-1.3) mg/dL AST 31 (14-36) U/L ALT 29 (4-34) U/L Alkaline Phosphatase 84 (38-126) U/L Troponin I (0.000-0.034) ng/mL Total Protein 5.7 L (6.3-8.2) g/dL Albumin 3.5 (3.5-5.0) g/dL Amylase 139 H (30-110) U/L Lipase 185 (23-300) U/L Urine Color Urine Appearance (Clear) Urine pH (5.0-8.0) Ur Specific [place] (1.001-1.035) Urine Protein (Negative) Urine Glucose (UA) (Negative) Urine Ketones (Negative) Urine Blood (Negative) Urine Nitrite (Negative) Urine Bilirubin (Negative) Urine Urobilinogen (<2.0) mg/dL Ur Leukocyte Esterase (Negative) Urine RBC (0-5) /hpf Urine WBC (0-5) /hpf Ur Squamous Epith Cells (0-4) /hpf Hyaline Casts (0-2) /lpf Urine Mucus (None) /hpf Coronavirus (PCR) (Not Detectd) 07/01/22 07/01/22 07/01/22 Range/Units 13:01 13:01 13:54 WBC (3.8-10.6) k/uL RBC (3.80-5.40) m/uL Hgb (11.4-16.0) gm/dL Hct (34.0-46.0) % MCV (80.0-100.0) fL MCH (25.0-35.0) pg MCHC (31.0-37.0) g/dL RDW (11.5-15.5) % Plt Count (150-450) k/uL MPV Neutrophils % (Manual) % Lymphocytes % (Manual) % Monocytes % (Manual) % Neutrophils # (Manual) (1.3-7.7) k/uL Lymphocytes # (Manual) (1.0-4.8) k/uL Monocytes # (Manual) (0-1.0) k/uL Nucleated RBCs (0-0) /100 WBC Manual Slide Review Sodium (137-145) mmol/L Potassium (3.5-5.1) mmol/L Chloride (98-107) mmol/L Carbon Dioxide (22-30) mmol/L Anion Gap mmol/L BUN (7-17) mg/dL Creatinine (0.52-1.04) mg/dL Est GFR (CKD-EPI)AfAm (>60 ml/min/1.73 sqM) Est GFR (CKD-EPI)NonAf (>60 ml/min/1.73 sqM) Glucose (74-99) mg/dL Plasma Lactic Acid Ed (0.7-2.0) mmol/L Calcium (8.4-10.2) mg/dL Total Bilirubin (0.2-1.3) mg/dL AST (14-36) U/L ALT (4-34) U/L Alkaline Phosphatase (38-126) U/L Troponin I 0.014 (0.000-0.034) ng/mL Total Protein (6.3-8.2) g/dL Albumin (3.5-5.0) g/dL Amylase (30-110) U/L Lipase (23-300) U/L Urine Color Yellow Urine Appearance Clear (Clear) Urine pH 5.5 (5.0-8.0) Ur Specific [place] 1.015 (1.001-1.035) Urine Protein 1+ H (Negative) Urine Glucose (UA) Negative (Negative) Urine Ketones 1+ H (Negative) Urine Blood Negative (Negative) Urine Nitrite Negative (Negative) Urine Bilirubin Negative (Negative) Urine Urobilinogen <2.0 (<2.0) mg/dL Ur Leukocyte Esterase Negative (Negative) Urine RBC 1 (0-5) /hpf Urine WBC 2 (0-5) /hpf Ur Squamous Epith Cells 4 (0-4) /hpf Hyaline Casts 9 H (0-2) /lpf Urine Mucus Rare H (None) /hpf Coronavirus (PCR) Detected A (Not Detectd) Disposition Clinical Impression: COVID-19 Disposition: HOME SELF-CARE Condition: Good Instructions (If sedation given, give patient instructions): COVID-19 (Coronavirus Disease 2019) (ED) Prescriptions: Ondansetron Odt [Zofran ODT] 4 mg PO Q8HR PRN #10 tab PRN Reason: Nausea Is patient prescribed a controlled substance at d/c from ED?: No Referrals: Torin Miles DO [Primary Care Provider] - 1-2 days
[2022-07-01 15:46] VITALS: BP 154/81; PULSE 96; RESP 18
== END 2022-07-01 15:46 | disposition home or self-care (01) ==
LOC: EC 12:05
DX: U07.1 COVID-19 (principal); J44.9 Chronic obstructive pulmonary disease, unspecified; E11.9 Type 2 diabetes mellitus without complications; E07.9 Disorder of thyroid, unspecified; E78.5 Hyperlipidemia, unspecified; I25.2 Old myocardial infarction; I25.10 Atherosclerotic heart disease of native coronary artery without angina pectoris; Z88.2 Allergy status to sulfonamides; Z88.8 Allergy status to other drugs, medicaments and biological substances; Z79.2 Long term (current) use of antibiotics; Z79.82 Long term (current) use of aspirin; Z79.4 Long term (current) use of insulin; Z79.899 Other long term (current) drug therapy
CPT/HCPCS: 36415; 80053; 82150; 83605; 83690; 84484; 85025; 81001; 87635; 99284; 96374; 96361; J2405

== ENCOUNTER → 2022-07-30 | Outpatient (CLI) | payer OTHER ==
[2022-07-30 14:31] LABS: HGB 14.5 g/dL (12.0-15.0); MCH 29.6 pg (27.0-32.0); MCV 89.8 fL (80.0-97.0); Mean Platelet Volume 10.5 fL (9.5-12.2); NRBC Per 100 WBC 0 /100 WBCS (0.0-0.0); Platelet Count 293 X 10*3/uL (140-440); RDW 12.6 % (11.5-14.5); WBC 9.94 X 10*3/uL (4.50-10.00)
[2022-07-30 14:44] LABS: African American GFR (CKD) 75.5 (60.0-200.0); Blood Urea Nitrogen 25.8 mg/dL (9.0-27.0); Non-African American GFR(CKD) 65.2 (60.0-200.0); Potassium 4.2 mmol/L (3.5-5.5)
== END | disposition home or self-care (01) ==
LOC: LABPAT 07:51
PROVIDERS: ATTEND Internal Medicine
DX: Z01.812 Encounter for preprocedural laboratory examination (principal); I65.23 Occlusion and stenosis of bilateral carotid arteries
CPT/HCPCS: 36415; 80051; 82565; 84520; 85027

== ENCOUNTER 2022-08-01 06:27 | Day surgery (SDC) | payer OTHER ==
[~2022-08-01 06:27] MED LIST changes: +ASPIRIN 325 MG TAB PO PRN; -ASPIRIN 325 MG TAB PO STA; -ZOLPIDEM 5 MG TAB PO PRN
[2022-08-01 06:47] VITALS: RESP 18
[2022-08-01] MEDS ORDERED: ASPIRIN 81 MG ONE (06:47)
[2022-08-01 06:52] LABS: Glucose,Whole Blood 165 mg/dL (70-110)
[2022-08-01] MEDS ORDERED: VERAPAMIL 2.5 MG/ML 2 ML AMP ONE (07:18)
[2022-08-01] MEDS ORDERED: fentaNYL (PF) 50 MCG/ML 2 ML AMP ONE (07:26)
[2022-08-01] MEDS: MIDAZOLAM 2 MG/2 ML VIAL IV ONE ×2 (07:30→07:48)
[2022-08-01] MEDS: fentaNYL (PF) 50 MCG/ML 2 ML AMP IV ONE ×2 (07:30→07:49)
[2022-08-01] MEDS ORDERED: fentaNYL (PF) 50 MCG/1 ML VIAL IV ONE (07:33)
[2022-08-01] MEDS ORDERED: LIDOCAINE 1% INJ 10MG/ML (30 ML VIAL-PF) SQ ONE (07:50)
[2022-08-01] MEDS ORDERED: IOPAMIDOL-250 100ML BTL INTRAARTER ONE ×5 (08:23→08:33)
--- NOTE | 2022-08-01 08:55 | P.PCN ---
Description of Procedure: PROCEDURES PERFORMED: Abdominal angiography with bilateral runoff, aortic root angiography with selective bilateral carotid angiography, selective renal angiography INDICATION: PAD with left greater than right claudication, renal artery stenosis, carotid artery stenosis HISTORY: Patient is a pleasant 52-year-old female with history of CAD status post CABG and additional extensive PAD including left subclavian artery stenosis with significant gradient differential, carotid artery disease with right carotid 100% stenosis, intermediate left carotid artery stenosis with discrepancy from CAT scan and ultrasound, PAD with 100% distal aortic occlusion and bilateral aortoiliac bypass with additional stenosis at the aortoiliac anas tomosis with previous stenting of the right aortoiliac anastomosis. She has been having increasing left claudication with minimal exertion. Additionally ultrasound showed concern of atrophic left kidney and additional concern of a right renal artery stenosis. Therefore recommendation was for angiography. CONSENT:I have discussed the risks, benefits and alternative therapies for the above-mentioned procedure and for both sedation/analgesia as well as necessary blood product administration, if indicated, as they pertain to this patient. The patient has indicated understanding and acceptance of the risks and procedures discussed. PROCEDURE: After the risks, benefits and alternatives of the above mentioned procedure explained in detail with the patient, informed consent was obtained. Patient was taken to the catheterization lab and prepped and draped in usual fashion. 1% lidocaine was used to anesthetize the left femoral area. A 5- Filipino sheath was placed in the left femoral artery using modified Seldinger technique. A 5-Filipino pigtail catheter was inserted to the abdominal aorta and DSA imaging was obtained. Patient tolerated the diagnostic portion well. Next the pigtail was advanced into the ascending aortic arch and aortic arch angiography was performed. Next a 5-Filipino VTK catheter was used to engage the right subclavian in the left common carotid artery. Finally a 5-Filipino SR 4 catheter was used to engage the right radial artery which showed no significant stenosis. The sheath was pulled and manual pressure was held with hemostasis achieved. The patient tolerated the procedure well. Patient was transported back to the post catheterization holding area in stable condition. Conscious Sedation: Patient was monitored under the direct supervision of vision of myself for conscious sedation using Versed and fentanyl for a total duration of 50 minutes HEMODYNAMICS: Aorta: 178/82 Aortic arch: There is no aortic arch aneurysm. Left subclavian not fully visualize however appears to have significant stenosis. Right subclavian: There is a 100% right common carotid artery stenosis. Left carotid artery: There is a proximal left common carotid artery 50-60% stenosis. There is a 90% left internal carotid artery stenosis. Abdominal aorta: The abdominal aorta has diffuse calcifcation and a distal 100% aortic stenosis with bilateral aortoiliac bypass grafts. The left renal artery is 100% stenosis, right radial artery 0% stenosis. Right lower extremity: Right common iliac artery: There is 100% stenosis. Right external iliac artery: There is a patent stents from the bypass grafts into the external iliac Right internal iliac artery: There is 100% stenosis. Right common femoral artery: There is no significant stenosis. Right profunda: There is no significant stenosis. Right SFA: There is a 90% right distal SFA stenosis Infrapopliteal: There appears to be three-vessel runoff however somewhat poor images. Left lower extremity: Left common iliac artery: There is 100% stenosis. Left external iliac artery: There is a 50% stenosis at the aortoiliac bypass. Left internal iliac artery: There is 100% stenosis. Left common femoral artery: There is no significant stenosis. Left profunda: There is no significant stenosis. Left SFA: There is a long 90% stenosis Infrapopliteal: There appears to be three-vessel runoff however somewhat poor im ages. FINAL IMPRESSION: 1. Peripheral arterial disease as described above including 100% right common carotid, 50-60% left common carotid, 90% left internal carotid artery, 100% left renal artery, 100% distal aortic stenosis with patent bilateral aortoiliac bypass grafts, 50% left external iliac, bilateral 90% SFA stenoses. PLAN: 1. Aggressive risk factor modification per most recent ACC/AHA guidelines. 2. Staged intervention of left internal carotid artery stenosis as well as left SFA. Consider treating right SFA medically unless patient has significant claudication on the right. 3. Tobacco cessation.
--- NOTE | 2022-08-01 09:02 | IR ---
EXAMINATION TYPE: IR angio abdominal w runoff DATE OF EXAM: 08/01/2022 COMPARISON: NONE HISTORY: Fluoroscopy time. Fluoroscopy was provided to the referring clinician.
--- NOTE | 2022-08-01 09:03 | IR ---
EXAMINATION TYPE: IR angio aortic arch DATE OF EXAM: 08/01/2022 COMPARISON: NONE HISTORY: Fluoroscopy time. Fluoroscopy was provided to the referring clinician.
[2022-08-01 10:55] VITALS: TEMP 71
[2022-08-01] MEDS ORDERED: ACETAMINOPHEN TAB 325 MG TAB ONE (12:14)
[2022-08-01 14:52] VITALS: BP 96/64; PULSE 74
== END 2022-08-01 14:53 | disposition home or self-care (01) ==
LOC: CATHCVL 06:27
PROVIDERS: ATTEND Internal Medicine
DX: I70.213 Atherosclerosis of native arteries of extremities with intermittent claudication, bilateral legs (principal); I65.23 Occlusion and stenosis of bilateral carotid arteries; I70.1 Atherosclerosis of renal artery; Z88.2 Allergy status to sulfonamides; Z88.8 Allergy status to other drugs, medicaments and biological substances
CPT/HCPCS: 36200; 75625; 75716; 36223; C1769 ×2; C1894 ×2; J2250; J2001; J3010; Q9966

== ENCOUNTER 2022-08-29 05:38 | Inpatient (IN) | payer OTHER ==
[2022-08-28 08:49] VITALS: BMI 22.4
[2022-08-29] MEDS ORDERED: ALPRAZolam 0.5 MG TAB PO PRN (06:00)
[2022-08-29] MEDS ORDERED: ASPIRIN 325 MG TAB PO PRN (06:00)
[2022-08-29] MEDS ORDERED: SODIUM CHLORIDE 0.9% 1,000 ML in EMPTY BAG 1 BAG IV ONE (06:00)
[2022-08-29] MEDS ORDERED: CLOPIDOGREL 75 MG TAB PO PRN (06:00)
[2022-08-29] MEDS ORDERED: ASPIRIN 81 MG PO PRN (06:00)
[2022-08-29] MEDS ORDERED: NITROGLYCERIN SL TABS 0.4 MG TAB SUBLINGUAL PRN (06:00)
[2022-08-29] MEDS ORDERED: ALPRAZolam 0.25 MG TAB PO PRN (06:00)
[2022-08-29 06:28] LABS: Glucose,Whole Blood 185 mg/dL (70-110)
[2022-08-29] MEDS ORDERED: ceFAZolin 2 GM in SODIUM CHLORIDE 0.9% 500 ML 500 ML IRRIGATION PRN (07:00)
[2022-08-29 07:17] LABS: HCT 39.7 % (34.0-46.0); MCH 30.9 pg (25.0-35.0); MCHC 35.2 g/dL (31.0-37.0); MCV 87.7 fL (80.0-100.0); Mean Platelet Volume 9.4; Poikilocytosis Slight; RBC 4.52 m/uL (3.80-5.40); RDW 13.2 % (11.5-15.5); WBC 7.5 k/uL (3.8-10.6)
[2022-08-29 07:22] LABS: Platelet Count 193 k/uL (150-450)
[2022-08-29] MEDS ORDERED: HEPARIN SODIUM 1,000 UN/ML (10ML VL) ONE (07:29)
[2022-08-29] MEDS ORDERED: fentaNYL (PF) 50 MCG/ML 2 ML AMP ONE (07:43)
[2022-08-29] MEDS ORDERED: fentaNYL (PF) 50 MCG/ML 2 ML AMP IV ONE (07:46)
[2022-08-29] MEDS ORDERED: MIDAZOLAM 2 MG/2 ML VIAL IV ONE (07:46)
[2022-08-29] MEDS ORDERED: LIDOCAINE 1% INJ 10MG/ML (30 ML VIAL-PF) SQ ONE (07:51)
[2022-08-29] MEDS: HEPARIN SODIUM 1,000 UN/ML (10ML VL) IV ONE ×3 (07:56→08:21)
[2022-08-29 08:22] LABS: African American GFR (CKD) >90 (>60 ml/min/1.73 sqM); Anion Gap 5 mmol/L; Blood Urea Nitrogen 20 mg/dL (7-17); Calcium 8.2 mg/dL (8.4-10.2); Carbon Dioxide 25 mmol/L (22-30); Chloride 108 mmol/L (98-107); Glucose 187 mg/dL (74-99); Non-African American GFR(CKD) 81 (>60 ml/min/1.73 sqM); Potassium 3.9 mmol/L (3.5-5.1); Sodium 138 mmol/L (137-145)
[2022-08-29] MEDS ORDERED: RX INFO: IV CONTRAST WAS GIVEN 1 EACH MISC MISCELLANE PRN (09:00)
[2022-08-29] MEDS ORDERED: MAG HYDROX/AL HYDROX/SIMETH 30 ML CUP PO PRN (09:06)
[2022-08-29] MEDS ORDERED: ATROPINE SULFATE 0.1 MG/ML 10ML SYRINGE IV PRN (09:06)
[2022-08-29] MEDS ORDERED: SODIUM CHLORIDE 0.9% 1,000 ML IV SCH (09:15)
[2022-08-29] MEDS ORDERED: IOPAMIDOL-370 125ML BTL INJ ONE (09:21)
[2022-08-29 09:55] LABS: Eosinophils # (M) 0.38 k/uL (0-0.7); Neutrophils # (M) 4.73 k/uL (1.3-7.7); Neutrophils % (M) 63 %; Nucleated Red Blood Cells 0 /100 WBC (0-0); Total Cells Counted 100
[2022-08-29] MEDS: ACETAMINOPHEN TAB 325 MG TAB PO PRN ×2 (15:39→20:03)
[2022-08-29 16:26] LABS: Glucose,Whole Blood 391 mg/dL (70-110)
[2022-08-29] MEDS: INSULIN ASPART (NovoLOG) 100 UNIT/ML VIAL SQ SCH (17:19)
[2022-08-29] MEDS: SACUBITRIL/VALSARTAN 24 MG-26 MG TABLET PO SCH (20:04)
[2022-08-29 20:05] LABS: Glucose,Whole Blood 135 mg/dL (70-110)
[2022-08-29] MEDS ORDERED: ATORVASTATIN 40 MG TAB PO SCH (21:00)
[2022-08-29] MEDS ORDERED: ATORVASTATIN 80 MG TAB PO SCH (21:00)
--- NOTE | 2022-08-29 22:44 | P.PCN ---
Description of Procedure: PROCEDURES PERFORMED: Selective left carotid angiography, left carotid stent with 8 x 6 x 40mm Xact carotid stent, post dilated with a 5.0 balloon INDICATION: Severe asymptomatic carotid artery stenosis CONSENT:I have discussed the risks, benefits and alternative therapies for the above-mentioned procedure and for both sedation/analgesia as well as necessary blood product administration, if indicated, as they pertain to this patient. The patient has indicated understanding and acceptance of the risks and procedures discussed. PROCEDURE: After the risks, benefits and alternatives of the above mentioned procedure explained in detail with the patient, informed consent was obtained. Patient was taken to the catheterization lab and prepped and draped in usual fashion. 1% lidocaine was used to anesthetize the right femoral area. A 6- Hungarian sheath was placed in the right femoral artery using modified Seldinger technique. Next using VTK catheter a 0.035 stiff glide wire was advanced into the common carotid artery and the short 6Fr sheath was exchanged for a shuttle sheath. Left angiography was performed. Heparin was given for ACT greater than 250. Next a 0.014 Embo shield distal embolic protection device was advanced into the petrous portion of the left internal carotid artery. The filter was then deployed. Next predilation was performed with a 4.0 x 20 mm balloon. Next a 8 x 6 x 30 mm Xact carotid stent was deployed. The stent was postdilated with a 5.0 x 20 mm balloon. Pre- intervention there was 90% stenosis with uninhibited flow and postintervention there was <10% stenosis with uninhibited flow. A right femoral angiogram was performed and showed adequate anatomy for closure and therefore a 6Fr Angioseal was placed and hemostasis was achieved. The patient tolerated the procedure well. Patient was transported back to the post catheterization holding area in stable condition however did have mild hypotension requiring low dose norepinephrine. Patient underwent conscious sedation for 60 mins. FINAL IMPRESSION: 1. 90% left internal carotid artery stenosis, status post carotid stent with 8 x 6 x 40mm Xact carotid stent, post dilated with a 5.0 balloon with excellent result PLAN: 1. Aggressive risk factor modification per most recent ACC/AHA guidelines. 2. Continue dual antiplatelets with aspirin and Plavix for minimum of 3 months. 3. Monitor for any hemodynamic or electrical instability.
[2022-08-30 06:15] LABS: Glucose,Whole Blood 264 mg/dL (70-110)
[2022-08-30] MEDS: INSULIN ASPART (NovoLOG) 100 UNIT/ML VIAL SQ SCH (06:41)
[2022-08-30] MEDS: SACUBITRIL/VALSARTAN 24 MG-26 MG TABLET PO SCH (08:48)
[2022-08-30] MEDS: ACETAMINOPHEN TAB 325 MG TAB PO PRN (08:56)
[2022-08-30] MEDS ORDERED: ASPIRIN 81 MG PO SCH (09:00)
[2022-08-30] MEDS ORDERED: INSULIN DETEMIR (LEVEMIR) 100 UNIT/ML SYR SQ SCH (09:00)
[2022-08-30] MEDS ORDERED: CYANOCOBALAMIN 500 MCG TAB PO SCH (09:00)
[2022-08-30] MEDS ORDERED: METOPROLOL SUCCINATE (ER) 50 MG TAB.ER.24H PO SCH (09:00)
[2022-08-30] MEDS ORDERED: DAPAGLIFLOZIN PROPANEDIOL 5 MG TABLET PO SCH (09:00)
[2022-08-30] MEDS ORDERED: SPIRONOLACTONE 25 MG TAB PO SCH (09:00)
[2022-08-30] MEDS ORDERED: CLOPIDOGREL 75 MG TAB PO SCH (09:00)
[2022-08-30 10:48] VITALS: TEMP 98.2
[2022-08-30 11:03] LABS: African American GFR (CKD) >90 (>60 ml/min/1.73 sqM); Anion Gap 2 mmol/L; Blood Urea Nitrogen 18 mg/dL (7-17); Calcium 8.9 mg/dL (8.4-10.2); Carbon Dioxide 29 mmol/L (22-30); Chloride 107 mmol/L (98-107); Glucose 75 mg/dL (74-99); Non-African American GFR(CKD) 79 (>60 ml/min/1.73 sqM); Sodium 138 mmol/L (137-145)
--- NOTE | 2022-08-30 11:47 | P.DS ---
Providers Date of admission: 08/29/22 05:38 Attending physician: Balwinder Gabriel DO Consults: 08/29/22 09:06 Consult Physician Routine Consulting Provider: Balwinder Gabriel Consult Reason/Comments: Post Interventional Patient Do you want consulting provider notified?: Already Contacted Primary care physician: Torin [facility] Course: Patient is a pleasant 52-year-old female with history of PAD and carotid artery stenosis with 100% right carotid artery stenosis and 90% left carotid artery stenosis. She underwent elective left carotid stenting 08/29/2022 without complications with excellent result. Hemodynamically she was stable and without any neurologic symptoms 08/30/2022 and stable for discharge home. Plan - Discharge Summary Discharge Rx Participant: No New Discharge Prescriptions: No Action Clopidogrel [Plavix] 75 mg PO DAILY #30 tab Spironolactone 12.5 mg PO DAILY Aspirin EC [Ecotrin Low Dose] 81 mg PO DAILY Metoprolol Succinate [Toprol XL] 50 mg PO DAILY Atorvastatin Calcium [Lipitor] 80 mg PO HS Sacubitril/Valsartan [Entresto 24 mg-26 mg Tablet] 1 tab PO BID Insulin Aspart [NovoLOG Flexpen] 20 units SQ AC-BID Ergocalciferol (Vitamin D2) [Drisdol (50,000 Iu)] 1,250 mcg PO PLATA Empagliflozin [Jardiance] 10 mg PO DAILY Insulin Glargine,Hum.rec.anlog [Lantus Solostar Pen] 60 units SQ QAM Cyanocobalamin (Vitamin B-12) [Vitamin B-12] 1,000 mcg PO DAILY Discharge Medication List Clopidogrel [Plavix] 75 mg PO DAILY #30 tab 07/29/19 [Rx] Aspirin EC [Ecotrin Low Dose] 81 mg PO DAILY 09/26/19 [History] Spironolactone 12.5 mg PO DAILY 09/26/19 [History] Atorvastatin Calcium [Lipitor] 80 mg PO HS 07/24/20 [History] Metoprolol Succinate [Toprol XL] 50 mg PO DAILY 07/24/20 [History] Sacubitril/Valsartan [Entresto 24 mg-26 mg Tablet] 1 tab PO BID 06/13/21 [History] Empagliflozin [Jardiance] 10 mg PO DAILY 07/01/22 [History] Ergocalciferol (Vitamin D2) [Drisdol (50,000 Iu)] 1,250 mcg PO PLATA 07/01/22 [History] Insulin Aspart [NovoLOG Flexpen] 20 units SQ AC-BID 07/01/22 [History] Insulin Glargine,Hum.rec.anlog [Lantus Solostar Pen] 60 units SQ QAM 07/01/22 [History] Cyanocobalamin (Vitamin B-12) [Vitamin B-12] 1,000 mcg PO DAILY 07/29/22 [History] Follow up Appointment(s)/Referral(s): Balwinder Gabriel DO [STAFF PHYSICIAN] - 09/05/22 4:30 pm
[2022-08-30 11:58] LABS: Glucose,Whole Blood 126 mg/dL (70-110)
[2022-08-30 11:59] VITALS: BP 141/64; PULSE 73; RESP 17
[2022-08-30 12:12] LABS: Basophils # (A) 0.1 k/uL (0-0.2); Basophils % (A) 1 %; Eosinophils # (A) 0.5 k/uL (0-0.7); Eosinophils % (A) 5 %; HCT 37.3 % (34.0-46.0); HGB 13.3 gm/dL (11.4-16.0); Lymphocytes # (A) 2.1 k/uL (1.0-4.8); Lymphocytes % (A) 23 %; MCH 31.5 pg (25.0-35.0); MCHC 35.7 g/dL (31.0-37.0); MCV 88.1 fL (80.0-100.0); Mean Platelet Volume 8.7; Monocytes # (A) 0.8 k/uL (0-1.0); Monocytes % (A) 9 %; Neutrophils # (A) 5.5 k/uL (1.3-7.7); Neutrophils % (A) 59 %; Platelet Count 205 k/uL (150-450); RBC 4.23 m/uL (3.80-5.40); RDW 12.7 % (11.5-15.5); WBC 9.3 k/uL (3.8-10.6)
[2022-08-31] MEDS ORDERED: ERGOCALCIFEROL 1,250 MCG (50,000 IU) CAPSULE PO SCH (09:00)
--- NOTE | 2022-09-01 08:54 | IR ---
EXAMINATION TYPE: IR stent intravas non coronary DATE OF EXAM: 08/29/2022 COMPARISON: NONE HISTORY: Fluoroscopy time. Fluoroscopy was provided to the referring clinician.
== END 2022-08-30 12:26 | disposition home or self-care (01) | DRG 36 ==
LOC: 2ORMAIN 05:38 → 3SCARD 11:15
PROVIDERS: ADMIT Internal Medicine; ATTEND Internal Medicine
PROC: B3171ZZ Fluoroscopy of Left Internal Carotid Artery using Low Osmolar Contrast (ICD-10-PCS; principal; 2022-08-29 07:30)
PROC: 037L3DZ Dilation of Left Internal Carotid Artery with Intraluminal Device, Percutaneous Approach (ICD-10-PCS; principal; 2022-08-29 07:30)
DX: I65.23 Occlusion and stenosis of bilateral carotid arteries (principal); E11.51 Type 2 diabetes mellitus with diabetic peripheral angiopathy without gangrene; I95.9 Hypotension, unspecified; I25.10 Atherosclerotic heart disease of native coronary artery without angina pectoris; I25.5 Ischemic cardiomyopathy; I10 Essential (primary) hypertension; E78.5 Hyperlipidemia, unspecified; Z79.84 Long term (current) use of oral hypoglycemic drugs; Z79.02 Long term (current) use of antithrombotics/antiplatelets; Z79.82 Long term (current) use of aspirin; Z79.4 Long term (current) use of insulin; Z79.899 Other long term (current) drug therapy; Z95.810 Presence of automatic (implantable) cardiac defibrillator; Z95.1 Presence of aortocoronary bypass graft; Z95.2 Presence of prosthetic heart valve; Z95.828 Presence of other vascular implants and grafts; Z87.891 Personal history of nicotine dependence; Z88.2 Allergy status to sulfonamides; Z88.8 Allergy status to other drugs, medicaments and biological substances; Z91.018 Allergy to other foods; Z82.49 Family history of ischemic heart disease and other diseases of the circulatory system
CPT/HCPCS: 37215; 80048; 81025; 85025; 86850; 86900; 86901

== ENCOUNTER → 2022-10-08 | Outpatient (CLI) | payer OTHER ==
[2022-10-08 15:01] LABS: HCT 45.3 % (37.2-46.3); HGB 14.5 g/dL (12.0-15.0); MCH 29.3 pg (27.0-32.0); MCV 91.5 fL (80.0-97.0); Mean Platelet Volume 9.8 fL (9.5-12.2); NRBC Per 100 WBC 0 /100 WBCS (0.0-0.0); Platelet Count 360 X 10*3/uL (140-440); RBC 4.95 X 10*6/uL (4.10-5.20); RDW 12.6 % (11.5-14.5); WBC 10.17 X 10*3/uL (4.50-10.00)
[2022-10-08 17:37] LABS: African American GFR (CKD) 77.2 (60.0-200.0); Anion Gap 11.4 mmol/L (10.00-18.00); Blood Urea Nitrogen 20.4 mg/dL (9.0-27.0); Carbon Dioxide 28.2 mmol/L (20.0-27.5); Non-African American GFR(CKD) 66.6 (60.0-200.0); Potassium 4.7 mmol/L (3.5-5.5)
== END | disposition home or self-care (01) ==
LOC: LABPAT 07:54
PROVIDERS: ATTEND Internal Medicine
DX: Z01.812 Encounter for preprocedural laboratory examination (principal); I70.212 Atherosclerosis of native arteries of extremities with intermittent claudication, left leg
CPT/HCPCS: 80051; 82565; 84520; 85027

== ENCOUNTER 2022-10-10 09:41 | Day surgery (SDC) | payer OTHER ==
[~2022-10-10 09:41] MED LIST changes: -ALPRAZolam 0.25 MG TAB PO PRN; -ASPIRIN 325 MG TAB PO PRN
[2022-10-10 10:12] LABS: Glucose,Whole Blood 181 mg/dL (70-110)
[2022-10-10] MEDS ORDERED: ALPRAZolam 0.5 MG TAB ONE (10:16)
[2022-10-10] MEDS ORDERED: ALPRAZolam 0.5 MG TAB PO ONE (10:18)
[2022-10-10] MEDS ORDERED: fentaNYL (PF) 50 MCG/ML 2 ML AMP IV ONE (11:19)
[2022-10-10] MEDS ORDERED: MIDAZOLAM 2 MG/2 ML VIAL IV ONE ×2 (11:19→12:56)
[2022-10-10] MEDS ORDERED: LIDOCAINE 1% INJ 10MG/ML (30 ML VIAL-PF) SQ ONE (11:20)
[2022-10-10] MEDS: HEPARIN SODIUM 1,000 UN/ML (10ML VL) IV ONE ×4 (12:01→13:05)
[2022-10-10] MEDS: NITROGLYCERIN 1000MCG/10ML SYRINGE INTRAARTER ONE ×2 (12:17→13:11)
[2022-10-10] MEDS ORDERED: IOPAMIDOL-250 100ML BTL INTRAARTER ONE (12:23)
[2022-10-10] MEDS ORDERED: IOPAMIDOL-370 100ML BTL INJ ONE (13:15)
[2022-10-10] MEDS ORDERED: NALOXONE 0.4 MG/ML 1 ML VIAL IVP PRN (13:49)
--- NOTE | 2022-10-10 13:50 | IR ---
EXAMINATION TYPE: IR stent intravas non coronary DATE OF EXAM: 10/10/2022 COMPARISON: NONE HISTORY: Fluoroscopy time. Fluoroscopy was provided to the referring clinician.
[2022-10-10] MEDS ORDERED: SODIUM CHLORIDE 0.9% 1,000 ML in EMPTY BAG 1 BAG IV SCH (14:00)
[2022-10-10 16:48] LABS: Glucose,Whole Blood 239 mg/dL (70-110)
[2022-10-10] MEDS: INSULIN ASPART (NovoLOG) 100 UNIT/ML VIAL SQ SCH (17:41)
--- NOTE | 2022-10-10 19:22 | P.PCN ---
Description of Procedure: PROCEDURES PERFORMED: Selective left lower extremity angiography, left SFA Zil[place] 5.0 x 140 mm drug-eluting stent, IVUS INDICATION: [place] class III claudication CONSENT:I have discussed the risks, benefits and alternative therapies for the above-mentioned procedure and for both sedation/analgesia as well as necessary blood product administration, if indicated, as they pertain to this patient. The patient has indicated understanding and acceptance of the risks and procedures discussed. PROCEDURE: After the risks, benefits and alternatives of the above mentioned procedure explained in detail with the patient, informed consent was obtained. Patient was taken to the catheterization lab and prepped and draped in usual fa shion. 1% lidocaine was used to anesthetize the left femoral area. Using micropuncture technique and ultrasound guidance a 5-Danish sheath was placed in the left common femoral artery and antegrade approach, SFA. Angiography was performed which showed progression of prior disease with total occlusion of the mid left SFA as well as diffusely diseased and small vessel throughout the SFA. The pressure from sheath significantly lower in the 80s to 90s systolic with systemic blood pressure reading 180 concerning for stenosis of the aortoiliac bypass graft anastomosis. Using a 0.035 stiff Glidewire and a angled glide catheter the FOLD SKIVER was able to be easily wired and was placed in the posterior tibial artery. Given diffusely small vessel initial approach was felt best for drug-coated balloon. Therefore drug-coated balloon angioplasty was performed with a 4.0 x 120 mm DCB. Repeat angiography showed dissection of the FOLD SKIVER as well as more proximal dissection. Therefore IVUS was performed which showed mainly dissection of the FOLD SKIVER as well as what appeared to be nonflow limiting more proximal dissection as well as diffuse disease throughout the entire artery. The sheath was upgraded to a 6-Danish sheath. Therefore decision was made to treat the dissection at the FOLD SKIVER with a 5.0 x 140 mm Zilver HARMONY. The stent was postdilated with a 4.0 balloon. The wire was pulled and finding angio grams were performed. Pre-intervention there is 100% stenosis and no antegrade flow and post intervention there was less than 10% stenosis with uninhibited flow. Given antegrade approach the sheath was left in place to be pulled manually later. The patient tolerated the procedure well. Patient was transported back to the post catheterization holding area in stable condition. Conscious Sedation: Patient was monitored under the direct supervision of dianna of homaelf for conscious sedation using Versed and fentanyl for a total duration of 117 minutes HEMODYNAMICS: Sheath pressure: 70s to 80s over 50s with significant difference from brachial blood pressure of 170s systolic Left lower extremity: Left SFA: There is diffuse disease with small arteries and a diffuse long 40-50% proximal left SFA stenosis and a mid left SFA 100% stenosis. Left popliteal artery: There is diffuse mild disease. Left tibioperoneal trunk: There is no significant stenosis. Left anterior tibial artery: There is no significant stenosis. Left porterior tibial artery: There is no significant stenosis. Left peroneal artery: There is no significant stenosis. FINAL IMPRESSION: 1. Peripheral arterial disease as described above including long 40-50% proximal left SFA stenosis and a mid left SFA 100% stenosis. 2. S/p left SFA Zilver 5.0 x 140 mm drug-eluting stent PLAN: 1. Aggressive risk factor modification per most recent ACC/AHA guidelines. 2. Continue aspirin and Plavix for minimum of 3 months 3. Repeat low showing ultrasound and 1-2 weeks to evaluate dissection. Monitor closely however dissection appears nonflow limiting. 4. Given discrepancy in blood pressure readings from common femoral to brachial with approximately 100 mmHg difference, consider further assessment of left aort o iliac anastomosis if continues to have symptoms.
[2022-10-10 20:16] LABS: Glucose,Whole Blood 134 mg/dL (70-110)
[2022-10-10] MEDS: SACUBITRIL/VALSARTAN 24 MG-26 MG TABLET PO SCH (20:17)
[2022-10-10] MEDS ORDERED: ATORVASTATIN 80 MG TAB PO SCH (21:00)
[2022-10-10 23:50] VITALS: RESP 16
[2022-10-11 03:20] LABS: Glucose,Whole Blood 284 mg/dL (70-110)
--- NOTE | 2022-10-11 06:23 | P.DS ---
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 There was a more proximal left SFA dissection which was felt best treated medically. She was monitored overnight with no hematoma and 2/4 DP pulse. She denies any issues overnight and appears stable for DC home. If continues to have claudication, would consider angioplasty and stenting of the left aorto iliac anastamosis. Plan - Discharge Summary Discharge Rx Participant: Yes New Discharge Prescriptions: No Action Clopidogrel [Plavix] 75 mg PO DAILY #30 tab Spironolactone 12.5 mg PO DAILY Aspirin EC [Ecotrin Low Dose] 81 mg PO DAILY Metoprolol Succinate [Toprol XL] 50 mg PO DAILY Atorvastatin Calcium [Lipitor] 80 mg PO HS Sacubitril/Valsartan [Entresto 24 mg-26 mg Tablet] 1 tab PO BID Insulin Aspart [NovoLOG Flexpen] 20 units SQ AC-BID Ergocalciferol (Vitamin D2) [Drisdol (50,000 Iu)] 1,250 mcg PO PLATA Empagliflozin [Jardiance] 10 mg PO DAILY Albuterol Inhaler [Ventolin Hfa Inhaler] 1 - 2 puff INHALATION Q6H PRN PRN Reason: Shortness Of Breath Insulin Glargine,Hum.rec.anlog [Lantus Solostar Pen] 60 units SQ QAM Cyanocobalamin (Vitamin B-12) [Vitamin B-12] 1,000 mcg PO DAILY Evolocumab [Repatha Sureclick] 140 mg SQ Q14D Discharge Medication List Clopidogrel [Plavix] 75 mg PO DAILY #30 tab 07/29/19 [Rx] Aspirin EC [Ecotrin Low Dose] 81 mg PO DAILY 09/26/19 [History] Spironolactone 12.5 mg PO DAILY 09/26/19 [History] Atorvastatin Calcium [Lipitor] 80 mg PO HS 07/24/20 [History] Metoprolol Succinate [Toprol XL] 50 mg PO DAILY 07/24/20 [History] Sacubitril/Valsartan [Entresto 24 mg-26 mg Tablet] 1 tab PO BID 06/13/21 [History] Empagliflozin [Jardiance] 10 mg PO DAILY 07/01/22 [History] Ergocalciferol (Vitamin D2) [Drisdol (50,000 Iu)] 1,250 mcg PO PLATA 07/01/22 [History] Insulin Aspart [NovoLOG Flexpen] 20 units SQ AC-BID 07/01/22 [History] Insulin Glargine,Hum.rec.anlog [Lantus Solostar Pen] 60 units SQ QAM 07/01/22 [History] Cyanocobalamin (Vitamin B-12) [Vitamin B-12] 1,000 mcg PO DAILY 07/29/22 [History] Albuterol Inhaler [Ventolin Hfa Inhaler] 1 - 2 puff INHALATION Q6H PRN 10/08/22 [History] Evolocumab [Bartolome Hernandez] 140 mg SQ Q14D 10/08/22 [History]
[2022-10-11 07:30] LABS: Glucose,Whole Blood 285 mg/dL (70-110)
[2022-10-11] MEDS ORDERED: CLOPIDOGREL 75 MG TAB PO SCH (09:00)
[2022-10-11] MEDS ORDERED: METOPROLOL SUCCINATE (ER) 50 MG TAB.ER.24H PO SCH (09:00)
[2022-10-11] MEDS ORDERED: SPIRONOLACTONE 25 MG TAB PO SCH (09:00)
[2022-10-11] MEDS ORDERED: CYANOCOBALAMIN 500 MCG TAB PO SCH (09:00)
[2022-10-11] MEDS ORDERED: INSULIN DETEMIR (LEVEMIR) 100 UNIT/ML SYR SQ SCH (09:00)
[2022-10-11] MEDS ORDERED: DAPAGLIFLOZIN PROPANEDIOL 5 MG TABLET PO SCH (09:00)
[2022-10-11] MEDS ORDERED: ASPIRIN 81 MG PO SCH (09:00)
[2022-10-11] MEDS: INSULIN ASPART (NovoLOG) 100 UNIT/ML VIAL SQ SCH (09:08)
[2022-10-11] MEDS: SACUBITRIL/VALSARTAN 24 MG-26 MG TABLET PO SCH (09:08)
[2022-10-11 09:49] LABS: African American GFR (CKD) >90 (>60 ml/min/1.73 sqM); Anion Gap 3 mmol/L; Blood Urea Nitrogen 21 mg/dL (7-17); Calcium 8.2 mg/dL (8.4-10.2); Carbon Dioxide 29 mmol/L (22-30); Chloride 104 mmol/L (98-107); Glucose 237 mg/dL (74-99); Non-African American GFR(CKD) 82 (>60 ml/min/1.73 sqM); Potassium 4.2 mmol/L (3.5-5.1); Sodium 136 mmol/L (137-145)
[2022-10-11 10:01] LABS: Basophils % (A) 1 %; Eosinophils # (A) 0.4 k/uL (0-0.7); Eosinophils % (A) 5 %; HCT 39.2 % (34.0-46.0); HGB 12.8 gm/dL (11.4-16.0); Lymphocytes # (A) 1.3 k/uL (1.0-4.8); Lymphocytes % (A) 18 %; MCH 29.4 pg (25.0-35.0); MCHC 32.7 g/dL (31.0-37.0); Mean Platelet Volume 7.5; Monocytes # (A) 0.6 k/uL (0-1.0); Monocytes % (A) 8 %; Neutrophils # (A) 4.6 k/uL (1.3-7.7); Neutrophils % (A) 65 %; Platelet Count 251 k/uL (150-450); RBC 4.36 m/uL (3.80-5.40); RDW 13.1 % (11.5-15.5); WBC 7.1 k/uL (3.8-10.6)
[2022-10-11 10:21] VITALS: BP 136/64; PULSE 75; TEMP 98.2
[2022-10-13] MEDS ORDERED: PATIENT'S OWN (Evolocumab [Repatha Sureclick] 140 MG/ML Each) SQ SCH (09:00)
== END 2022-10-11 10:19 | disposition home or self-care (01) ==
LOC: CATHCVL 09:41 → 3SCARD 13:25 → CATHCVL 10-11 10:19
PROVIDERS: ATTEND Internal Medicine
DX: T82.858A Stenosis of other vascular prosthetic devices, implants and grafts, initial encounter (principal); I70.212 Atherosclerosis of native arteries of extremities with intermittent claudication, left leg; I25.10 Atherosclerotic heart disease of native coronary artery without angina pectoris; Z79.02 Long term (current) use of antithrombotics/antiplatelets; Z79.82 Long term (current) use of aspirin; Z79.84 Long term (current) use of oral hypoglycemic drugs; Z79.899 Other long term (current) drug therapy; I10 Essential (primary) hypertension; E78.5 Hyperlipidemia, unspecified; E11.9 Type 2 diabetes mellitus without complications; Z79.4 Long term (current) use of insulin
CPT/HCPCS: 37227; 37252; 80048; 85025; J2250; J2001; J3010; J1644; Q9966; Q9967; 37226; 75710

== ENCOUNTER 2024-01-14 17:19 | Observation (INO) | payer OTHER ==
[2024-01-14 17:54] VITALS: RESP 18; TEMP 97.7
[2024-01-14 17:58] LABS: Basophils # (A) 0.1 k/uL (0-0.2); Basophils % (A) 1 %; Eosinophils # (A) 0.3 k/uL (0-0.7); Eosinophils % (A) 4 %; HCT 44.9 % (34.0-46.0); HGB 15.3 gm/dL (11.4-16.0); Lymphocytes # (A) 2.3 k/uL (1.0-4.8); Lymphocytes % (A) 29 %; MCH 30.2 pg (25.0-35.0); MCHC 34.1 g/dL (31.0-37.0); MCV 88.5 fL (80.0-100.0); Mean Platelet Volume 7.7; Monocytes # (A) 0.6 k/uL (0-1.0); Monocytes % (A) 8 %; Neutrophils # (A) 4.3 k/uL (1.3-7.7); Neutrophils % (A) 54 %; Platelet Count 212 k/uL (150-450); RBC 5.07 m/uL (3.80-5.40); RDW 13.3 % (11.5-15.5); WBC 7.9 k/uL (3.8-10.6)
[2024-01-14 18:04] LABS: ALT 20 U/L (4-34); AST 24 U/L (14-36); African American GFR (CKD) 55 (>60 ml/min/1.73 sqM); Albumin 4.4 g/dL (3.5-5.0); Alkaline Phosphatase 112 U/L (38-126); Anion Gap 12 mmol/L; Blood Urea Nitrogen 33 mg/dL (7-17); Calcium 9.3 mg/dL (8.4-10.2); Carbon Dioxide 18 mmol/L (22-30); Chloride 104 mmol/L (98-107); Glucose 182 mg/dL (74-99); Magnesium 1.7 mg/dL (1.6-2.3); Non-African American GFR(CKD) 48 (>60 ml/min/1.73 sqM); Potassium 4.5 mmol/L (3.5-5.1); Sodium 134 mmol/L (137-145); Total Bilirubin 0.7 mg/dL (0.2-1.3); Total Protein 6.9 g/dL (6.3-8.2)
--- NOTE | 2024-01-14 18:25 | XR ---
EXAMINATION TYPE: 2 view chest DATE OF EXAM: 01/14/2024 COMPARISON: 09/26/2019 HISTORY: Difficulty breathing TECHNIQUE: Frontal and lateral views of the chest are obtained. FINDINGS: The lungs are clear. There is no pleural effusion or pneumothorax. The heart and pulmonary vasculature are normal. There is an AICD device. The osseous structures are intact. IMPRESSION: No acute cardiopulmonary disease.
--- NOTE | 2024-01-14 18:49 | ED ---
Chest Pain HPI - General Source: patient Mode of arrival: wheelchair Limitations: no limitations <Ariadna Cobos - Last Filed: 01/14/24 18:45> <Zay Mayfield - Last Filed: 01/14/24 21:11> - General Chief Complaint: Chest Pain Stated Complaint: SOB/chest pain - legs swollen/tender Time Seen by Provider: 01/14/24 18:44 - History of Present Illness Initial Comments: Quick Note- This is a 53-year-old female with a history of coronary artery disease, [place], CVA, CABG presents emergency department with dizziness, shortness of breath, chest pain onset yesterday. Patient is also with complaints of left leg pain. Patient has been off of all of her cardiac and DM medications due to loss of insurance for 2 months. (Ariadna Cobos) - Related Data Home Medications Medication Instructions Recorded Confirmed Acetaminophen Tab [Tylenol Tab] 1,000 mg PO Q6HR PRN 01/14/24 01/14/24 Ibuprofen [Motrin Ib] 400 mg PO Q6H PRN 01/14/24 01/14/24 Melatonin 30 mg PO HS 01/14/24 01/14/24 Allergies Allergy/AdvReac Type Severity Reaction Status Date / Time Fish Containing Products Allergy Severe Swelling Verified 01/14/24 19:32 [Fish] of tongue sulfamethoxazole Allergy Severe Anaphylaxis, Verified 01/14/24 19:32 [From Bactrim] swelling trimethoprim [From Bactrim] Allergy Severe Anaphylaxis, Verified 01/14/24 19:32 swelling metformin AdvReac Nausea & Verified 01/14/24 19:32 Vomiting & Diarrhea Review of Systems ROS Other: All systems not noted in ROS Statement are negative. <Ariadna Cobos - Last Filed: 01/14/24 18:45> ROS Other: All systems not noted in ROS Statement are negative. <Zay Mayfield - Last Filed: 01/14/24 21:11> ROS Statement: Those systems with pertinent positive or pertinent negative responses have been documented in the HPI. EKG Findings - EKG Results: EKG: sinus rhythm (Rate 87 bpm), normal axis - Blocks, [place], Hypertrophy, ST Abn: Chamber hypertrophy or enlargement: left atrial enlargement or conduction defect, left ventricular hypertrophy or enlargement (LVE) <Zay Mayfield - Last Filed: 01/14/24 21:11> Past Medical History Past Medical History: Coronary Artery Disease (CAD), Chest Pain / Angina, COPD, CVA/TIA, Diabetes Mellitus, Hyperlipidemia, Hypertension, Myocardial Infarction ([place]), Pneumonia, Thyroid Disorder, Vascular Disorder Additional Past Medical History / Comment(s): Cardiac murmur, DDD, Hyperthyroid/Thyroid Nodules, Hx CVA 2007 or 2008, no residual effects. Right carotid artery 100% blocked, left carotid artery 50% blocked, Hx Pneumonia. only has 1 functioning kidney-sees nephr., fatty liver, left leg pain Last Myocardial Infarction Date:: 2011 History of Any Multi-Drug Resistant Organisms: None Reported Past Surgical History: Section, Cholecystectomy, Coronary Bypass/CABG, Heart Catheterization, Hernia Repair Additional Past Surgical History / Comment(s): Aortogram,mult arterial stents rt leg,I&D L gluteal abscess, aortagram, Rafvy-[id number] bypass, laparoscopic surgery-one ovary/one tube removed from opposite sides, multiple abdominal incisional hernia repairs with mesh, Attempted Heart cath but patient states veins collapsed and unable to do. 07/25/19 quadruple bypass, mitral valve repair, left carotid stent 08/29/22 Past Anesthesia/Blood Transfusion Reactions: No Reported Reaction, Previous Problems w/ Anesthesia Additional Past Anesthesia/Blood Transfusion Reaction / Comment(s): mom had problems Past Psychological History: Depression Smoking Status: Current every day smoker Past Alcohol Use History: None Reported Past Drug Use History: None Reported - Past Family History Mother Family Medical History: Cancer, Coronary Artery Disease (CAD) Additional Family Medical History / Comment(s): Mother is a breast cancer survivor. Father Family Medical History: Coronary Artery Disease (CAD), Diabetes Mellitus, Myocardial Infarction ([place]) Additional Family Medical History / Comment(s): Agent [place] Exposure. Pt does not know at what age her father had his [place]. <Ariadna Cobos - Last Filed: 01/14/24 18:45> General Exam Limitations: no limitations <Ariadna Cobos - Last Filed: 01/14/24 18:45> - General Exam Comments Initial Comments: Visual Physical Exam Vital signs reviewed General: Well-appearing, nontoxic, no acute distress. Head: Normocephalic, atraumatic Eyes: PERRLA, EOMI ENT: Airway patent Chest: Nonlabored breathing Skin: No visual rash, normal skin tone Neuro: Alert and oriented 3 Musculoskeletal: No gross abnormalities (Ariadna Cobos) Course Vital Signs 01/14/24 01/14/24 17:22 20:46 Temperature 97.7 F Pulse Rate 93 86 Respiratory 18 18 Rate Blood Pressure 199/90 187/86 O2 Sat by Pulse 100 98 Oximetry Chest Pain MDM <Ariadna Cobos - Last Filed: 01/14/24 18:45> - MDM I completed the quick note portion of this chart signed Ariadna Cobos PA-C (Ariadna Cobos) Disposition <Ariadna Cobos - Last Filed: 01/14/24 18:45> Is patient prescribed a controlled substance at d/c from ED?: No <Zay Mayfield - Last Filed: 01/14/24 21:11> Clinical Impression: Chest pain Disposition: LEFT AGAINST MEDICAL ADVICE Condition: Undetermined
--- NOTE | 2024-01-14 19:47 | US ---
EXAMINATION TYPE: US venous doppler duplex LE LT DATE OF EXAM: 01/14/2024 7:35 PM COMPARISON: NONE CLINICAL INDICATION: Female, 53 years old with history of swelling, pain; left leg pain, no h/o dvt SIDE PERFORMED: Left TECHNIQUE: The lower extremity deep venous system is examined utilizing real time linear array sonog cara with graded compression, doppler sonography and color-flow sonography. VESSELS IMAGED: Common Femoral Vein Deep Femoral Vein Greater Saphenous Vein * Femoral Vein Popliteal Vein Small Saphenous Vein * Proximal Calf Veins (* superficial vessels) The deep venous system of the left lower extremity from the common femoral vein to the proximal calf veins is patent and compressible with augmentable flow and normal waveforms. IMPRESSION: No evidence of left lower extremity DVT from the common femoral vein to the proximal calf veins.
[2024-01-14] MEDS ORDERED: NITROGLYCERIN SL TABS 0.4 MG TAB SUBLINGUAL PRN (21:01)
[2024-01-14 21:05] LABS: INR 0.9 (<1.2); Partial Thromboplastin Time 22.2 sec (22.0-30.0); Prothrombin Time 10.1 sec (10.0-12.5)
[2024-01-14 21:13] VITALS: BP 187/86; PULSE 86
[2024-01-15] MEDS ORDERED: HEPARIN SODIUM,PORCINE 5,000 UNIT/ML 1 ML VIAL SQ SCH
[2024-01-15] MEDS ORDERED: ASPIRIN 325 MG TAB PO SCH (09:00)
== END 2024-01-14 21:35 | disposition left against medical advice (07) ==
LOC: EC 17:19 → 6NMEDSUR 21:03
PROVIDERS: ADMIT Internal Medicine; ATTEND Internal Medicine
DX: R07.9 Chest pain, unspecified (principal); J44.9 Chronic obstructive pulmonary disease, unspecified; R42 Dizziness and giddiness; M79.605 Pain in left leg; I25.10 Atherosclerotic heart disease of native coronary artery without angina pectoris; I25.2 Old myocardial infarction; F17.200 Nicotine dependence, unspecified, uncomplicated; Z53.29 Procedure and treatment not carried out because of patient's decision for other reasons; Z79.899 Other long term (current) drug therapy; Z88.1 Allergy status to other antibiotic agents; Z88.2 Allergy status to sulfonamides; Z88.8 Allergy status to other drugs, medicaments and biological substances; Z91.018 Allergy to other foods; Z95.1 Presence of aortocoronary bypass graft; Z86.73 Personal history of transient ischemic attack (TIA), and cerebral infarction without residual deficits; Z59.7 Insufficient social insurance and welfare support
CPT/HCPCS: 99285; 36415; 93005; 85379; 80053; 83735; 84484; 85025; 85610; 85730; 71046; 93971; G0378

== ENCOUNTER 2024-10-04 09:33 | Inpatient (IN) | payer OTHER ==
[2024-10-04] MEDS: HYDROmorphone 1 MG/ML 1 ML SYRINGE IVP STA (10:56)
[2024-10-04] MEDS: SODIUM CHLORIDE 0.9% 1,000 ML IV ONE ×2 (10:57→14:47)
[2024-10-04] MEDS ORDERED: HEPARIN SODIUM 1,000 UN/ML (10ML VL) IV PRN (11:00)
[2024-10-04 11:03] LABS: Basophils # (A) 0.1 k/uL (0-0.2); Basophils % (A) 0 %; Eosinophils # (A) 0.3 k/uL (0-0.7); Eosinophils % (A) 2 %; HCT 43.8 % (34.0-46.0); HGB 14.1 gm/dL (11.4-16.0); Lymphocytes % (A) 9 %; MCH 29.2 pg (25.0-35.0); MCHC 32.2 g/dL (31.0-37.0); MCV 90.6 fL (80.0-100.0); Mean Platelet Volume 7.1; Monocytes # (A) 0.9 k/uL (0-1.0); Monocytes % (A) 8 %; Neutrophils % (A) 79 %; Platelet Count 222 k/uL (150-450); RBC 4.83 m/uL (3.80-5.40); RDW 13.5 % (11.5-15.5); WBC 11.4 k/uL (3.8-10.6)
--- NOTE | 2024-10-04 11:17 | ED ---
General Adult HPI - General Source: patient, RN notes reviewed Mode of arrival: ambulatory Limitations: no limitations <Maria Victoria Webster - Last Filed: 10/04/24 20:04> <Ryan Taylor - Last Filed: 10/05/24 21:31> - General Chief complaint: Extremity Injury, Lower Stated complaint: leg pain/neck/arm Time Seen by Provider: 10/04/24 10:12 - History of Present Illness Initial comments: 54-year-old female presents to the emergency department for evaluation of right leg pain. Patient reports that this started at 11:30 AM yesterday. She states that the pain is worse with walking. She reports significant history of peripheral artery disease. She reports history of stenting by Dr. Gabriel. She states that she is supposed to be on prescription medications including blood thinners but due to insurance issues she has not been on them in about 7 months. She denies recent injury to the leg. (Maria Victoria Webster) - Related Data Home Medications Medication Instructions Recorded Confirmed No Known Home Medications 10/04/24 10/04/24 Allergies Allergy/AdvReac Type Severity Reaction Status Date / Time Fish Containing Products Allergy Severe Swelling Verified 10/04/24 11:35 [Fish] of tongue sulfamethoxazole Allergy Severe Anaphylaxis, Verified 10/04/24 11:35 [From Bactrim] swelling trimethoprim [From Bactrim] Allergy Severe Anaphylaxis, Verified 10/04/24 11:35 swelling metformin AdvReac Nausea & Verified 10/04/24 11:35 Vomiting & Diarrhea Review of Systems ROS Other: All systems not noted in ROS Statement are negative. <Maria Victoria Webster - Last Filed: 10/04/24 20:04> ROS Other: All systems not noted in ROS Statement are negative. <Ryan Taylor - Last Filed: 10/05/24 21:31> ROS Statement: Those systems with pertinent positive or pertinent negative responses have been documented in the HPI. Past Medical History Past Medical History: Coronary Artery Disease (CAD), Chest Pain / Angina, COPD, CVA/TIA, Diabetes Mellitus, Hyperlipidemia, Hypertension, Myocardial Infarction ([place]), Pneumonia, Thyroid Disorder, Vascular Disorder Additional Past Medical History / Comment(s): Cardiac murmur, DDD, Hyperthyroid/Thyroid Nodules, Hx CVA 2007 or 2008, no residual effects. Right carotid artery 100% blocked, left carotid artery 50% blocked, Hx Pneumonia. only has 1 functioning kidney-sees nephr., fatty liver, left leg pain Last Myocardial Infarction Date:: 2011 History of Any Multi-Drug Resistant Organisms: None Reported Past Surgical History: Section, Cholecystectomy, Coronary Bypass/CABG, Heart Catheterization, Hernia Repair Additional Past Surgical History / Comment(s): Aortogram,mult arterial stents rt leg,I&D L gluteal abscess, aortagram, [id number] bypass, laparoscopic comer rgery-one ovary/one tube removed from opposite sides, multiple abdominal incisional hernia repairs with mesh, Attempted Heart cath but patient states veins collapsed and unable to do. 07/25/19 quadruple bypass, mitral valve repair, left carotid stent 08/29/22 Past Anesthesia/Blood Transfusion Reactions: No Reported Reaction, Previous Problems w/ Anesthesia Additional Past Anesthesia/Blood Transfusion Reaction / Comment(s): mom had problems Past Psychological History: Depression Smoking Status: Current every day smoker Past Alcohol Use History: None Reported Past Drug Use History: None Reported - Past Family History Mother Family Medical History: Cancer, Coronary Artery Disease (CAD) Additional Family Medical History / Comment(s): Mother is a breast cancer prabhu vivor. Father Family Medical History: Coronary Artery Disease (CAD), Diabetes Mellitus, Myocardial Infarction ([place]) Additional Family Medical History / Comment(s): Agent [place] Exposure. Pt does not know at what age her father had his [place]. <Maria Victoria Webster - Last Filed: 10/04/24 20:04> General Exam Limitations: no limitations General appearance: alert, in no apparent distress Head exam: Present: atraumatic, normocephalic, normal inspection Eye exam: Present: normal appearance, PERRL, EOMI. Absent: scleral icterus, conjunctival injection, periorbital swelling ENT exam: Present: normal exam, mucous membranes moist Respiratory exam: Present: normal lung sounds bilaterally. Absent: respiratory distress, wheezes, rales, rhonchi, stridor Cardiovascular Exam: Present: regular rate, normal rhythm, normal heart sounds. Absent: systolic murmur, diastolic murmur, rubs, gallop, clicks Extremities exam: Present: full ROM, tenderness, other (DP and PT pulses unable to be palpated). Absent: normal inspection, normal capillary refill (Cap refill greater than 2 seconds of the right lower extremity) Neurological exam: Present: alert, oriented X3 Psychiatric exam: Present: normal affect, normal mood Skin exam: Present: dry, intact, other (Right foot is cool comparatively to the left ). Absent: normal color <Maria Victoria Webster - Last Filed: 10/04/24 20:04> Course Vital Signs 10/04/24 10/04/24 10/04/24 10:08 10:55 12:05 Temperature 98.3 F Pulse Rate 88 80 78 Respiratory 16 18 18 Rate Blood Pressure 85/58 141/82 145/108 O2 Sat by Pulse 97 95 94 L Oximetry 10/04/24 14:16 Temperature 98.0 F Pulse Rate 82 Respiratory 18 Rate Blood Pressure 136/97 O2 Sat by Pulse 95 Oximetry Medical Decision Making - Lab Data Result diagrams: 10/04/24 10:49 10/04/24 10:49 <Maria Victoria Webster - Last Filed: 10/04/24 20:04> - Lab Data Result diagrams: 10/05/24 03:56 10/05/24 03:56 <Ryan Taylor - Last Filed: 10/05/24 21:31> - Medical Decision Making Was pt. sent in by a medical professional or institution (, BRITTANY, FORENSICS TEAM DIRECTOR, urgent care, hospital, or alf...) When possible be specific @ -No Did you speak to anyone other than the patient for history (EMS, parent, family, police, friend...)? What history was obtained from this source @ -No Did you review nursing and triage notes (agree or disagree)? Why? @ -I reviewed and agree with nursing and triage notes Were old charts reviewed (outside hosp., previous admission, EMS record, old EKG, old radiological studies, urgent care reports/EKG's, alf records)? Report findings @ -No old charts were reviewed Differential Diagnosis (chest pain, altered mental status, abdominal pain women, abdominal pain men, vaginal bleeding, weakness, fever, dyspnea, syncope, headache, dizziness, GI bleed, back pain, seizure, CVA, palpatations, mental health, musculoskeletal)? @ -Differential Musculoskeletal Muscular strain, contusion, ligament sprain, fracture, arthritis, septic arthritis, bursitis, cellulitis, muscle spasm, nerve compression, DVT, arterial occlusion, herpes zoster, electrolyte abnormality, tumor.... This is not meant to be in all inclusive list EKG interpreted by me (3pts min.). @ -EKG at 1052 shows sinus rhythm rate 75, VA 135, QRS 101, QTQTc [id number] X-rays interpreted by me (1pt min.). @ -None done CT interpreted by me (1pt min.). @ -CT angiogram of the abdominal aorta with runoff obtained Revealing severe atherosclerotic changes, complete occlusion of the right portion of the aortobifemoral graft just after the iliac bifurcation, poor flow to bilateral lower extremities with multilevel stenosis and occlusion present U/S interpreted by me (1pt. min.). @ -None done What testing was considered but not performed or refused? (CT, X-rays, U/S, labs)? Why? @ -None What meds were considered but not given or refused? Why? @ -None Did you discuss the management of the patient with other professionals (professionals i.e. , PA, FORENSICS TEAM DIRECTOR, lab, RT, psych nurse, social service worker, environmental health sanitarian, teacher, executive vice president and chief financial officer, case specialist)? Give summary @ -Case was discussed with Dr. Gabriel the patient's public health physician who has performed multiple vascular procedures on the patient, is in agreements with CT and initiating heparin following labs Case was discussed with Dr. Warren who is accepting of the admission Was smoking cessation discussed for >3mins.? @ -No Was critical care preformed (if so, how long)? @ -No Were there social determinants of health that impacted care today? How? (Homelessness, low income, unemployed, alcoholism, drug addiction, transportation, low edu. Level, literacy, decrease access to med. care, long-term, rehab)? @ -No Was there de-escalation of care discussed even if they declined (Discuss DNR or withdrawal of care, Hospice)? DNR status @ -No What co-morbidities impacted this encounter? (DM, HTN, Smoking, COPD, CAD, Cancer, CVA, ARF, Chemo, Hep., AIDS, mental health diagnosis, sleep apnea, morbid obesity)? @ -PAD, smoking Was patient admitted / discharged? Hospital course, mention meds given and rou te, prescriptions, significant lab abnormalities, going to OR and other pertinent info. @ -Admitted. Patient presented to emergency department for evaluation of right leg pain x 24 hours. Patient has a significant history of vascular disease, PAD with multiple stents in bilateral legs. On my examination there is concern for arterial occlusion and therefore cardiology was consulted who has placed multiple stents in bilateral legs in the past. Patient will undergo CT angiogram. Laboratory studies were obtained. Patient has mild leukocytosis of 11.4, hemoglobin stable; potassium mildly elevated at 5.4, the patient was provided IV fluids. The patient has slight lactic acidosis at 2.5, troponin of 0.017. CT revealed severe atherosclerotic changes, complete occlusion of the right portion of the aortobifemoral graft just after the iliac bifurcation, poor blood flow to bilateral lower extremities with multilevel stenosis and occlusion. Heparin was initiated. Patient was seen by cardiology and taken for angiography. Case was also discussed with [facility], Dr. Warren was accepting of the admission Case discussed with Dr. Taylor Undiagnosed new problem with uncertain prognosis? @ -No Drug Therapy requiring intensive monitoring for toxicity (Heparin, Nitro, Insulin, Cardizem)? @ -Heparin Were any procedures done? @ -No Diagnosis/symptom? @ -Right leg arterial occlusion Acute, or Chronic, or Acute on Chronic? @ -Acute Uncomplicated (without systemic symptoms) or Complicated (systemic symptoms)? @ -Complicated Side effects of treatment? @ -No Exacerbation, Progression, or Severe Exacerbation? @ -Progression Poses a threat to life or bodily function? How? (Chest pain, [place], [place], pneumonia, PE, COPD, DKA, ARF, appy, cholecystitis, CVA, Diverticulitis, Homicidal, Suicidal, threat to staff... and all critical care pts) @ -Possibly (Maria Victoria Webster) - Lab Data Lab Results 10/04/24 10/04/24 10/04/24 Range/Units 10:49 10:49 10:49 WBC 11.4 H (3.8-10.6) k/uL RBC 4.83 (3.80-5.40) m/uL Hgb 14.1 (11.4-16.0) gm/dL Hct 43.8 (34.0-46.0) % MCV 90.6 (80.0-100.0) fL MCH 29.2 (25.0-35.0) pg MCHC 32.2 (31.0-37.0) g/dL RDW 13.5 (11.5-15.5) % Plt Count 222 (150-450) k/uL MPV 7.1 Neutrophils % 79 % Lymphocytes % 9 % Monocytes % 8 % Eosinophils % 2 % Basophils % 0 % Neutrophils # 9.0 H (1.3-7.7) k/uL Lymphocytes # 1.0 (1.0-4.8) k/uL Monocytes # 0.9 (0-1.0) k/uL Eosinophils # 0.3 (0-0.7) k/uL Basophils # 0.1 (0-0.2) k/uL PT 9.8 L (10.0-12.5) sec INR 0.9 (<1.2) APTT 21.3 L (22.0-30.0) sec Sodium 133 L (137-145) mmol/L Potassium 5.4 H (3.5-5.1) mmol/L Chloride 99 (98-107) mmol/L Carbon Dioxide 27 (22-30) mmol/L Anion Gap 7 mmol/L BUN 25 H (7-17) mg/dL Creatinine 0.88 (0.52-1.04) mg/dL Est GFR (CKD-EPI)AfAm 87 (>60 ml/min/1.73 sqM) Est GFR (CKD-EPI)NonAf 76 (>60 ml/min/1.73 sqM) Glucose 482 H (74-99) mg/dL Lactic Ac Sepsis Rflx Plasma Lactic Acid Ed (0.7-2.0) mmol/L Calcium 8.9 (8.4-10.2) mg/dL Total Bilirubin 0.5 (0.2-1.3) mg/dL AST 26 (14-36) U/L ALT 19 (4-34) U/L Alkaline Phosphatase 148 H (38-126) U/L Troponin I (0.000-0.034) ng/mL Total Protein 5.8 L (6.3-8.2) g/dL Albumin 3.5 (3.5-5.0) g/dL 10/04/24 10/04/24 10/04/24 Range/Units 10:49 10:49 11:26 WBC (3.8-10.6) k/uL RBC (3.80-5.40) m/uL Hgb (11.4-16.0) gm/dL Hct (34.0-46.0) % MCV (80.0-100.0) fL MCH (25.0-35.0) pg MCHC (31.0-37.0) g/dL RDW (11.5-15.5) % Plt Count (150-450) k/uL MPV Neutrophils % % Lymphocytes % % Monocytes % % Eosinophils % % Basophils % % Neutrophils # (1.3-7.7) k/uL Lymphocytes # (1.0-4.8) k/uL Monocytes # (0-1.0) k/uL Eosinophils # (0-0.7) k/uL Basophils # (0-0.2) k/uL PT (10.0-12.5) sec INR (<1.2) APTT (22.0-30.0) sec Sodium (137-145) mmol/L Potassium (3.5-5.1) mmol/L Chloride (98-107) mmol/L Carbon Dioxide (22-30) mmol/L Anion Gap mmol/L BUN (7-17) mg/dL Creatinine (0.52-1.04) mg/dL Est GFR (CKD-EPI)AfAm (>60 ml/min/1.73 sqM) Est GFR (CKD-EPI)NonAf (>60 ml/min/1.73 sqM) Glucose (74-99) mg/dL Lactic Ac Sepsis Rflx Y Plasma Lactic Acid Ed 2.5 H* (0.7-2.0) mmol/L Calcium (8.4-10.2) mg/dL Total Bilirubin (0.2-1.3) mg/dL AST (14-36) U/L ALT (4-34) U/L Alkaline Phosphatase (38-126) U/L Troponin I 0.017 (0.000-0.034) ng/mL Total Protein (6.3-8.2) g/dL Albumin (3.5-5.0) g/dL Disposition Is patient prescribed a controlled substance at d/c from ED?: No <Maria Victoria Webster - Last Filed: 10/04/24 20:04> <Ryan Taylor - Last Filed: 10/05/24 21:31> Clinical Impression: Arterial occlusion, lower extremity Disposition: ADMITTED IP TO THIS HOSP Condition: Stable
[2024-10-04 11:18] LABS: ALT 19 U/L (4-34); AST 26 U/L (14-36); African American GFR (CKD) 87 (>60 ml/min/1.73 sqM); Albumin 3.5 g/dL (3.5-5.0); Alkaline Phosphatase 148 U/L (38-126); Anion Gap 7 mmol/L; Blood Urea Nitrogen 25 mg/dL (7-17); Calcium 8.9 mg/dL (8.4-10.2); Carbon Dioxide 27 mmol/L (22-30); Chloride 99 mmol/L (98-107); Glucose 482 mg/dL (74-99); Non-African American GFR(CKD) 76 (>60 ml/min/1.73 sqM); Potassium 5.4 mmol/L (3.5-5.1); Sodium 133 mmol/L (137-145); Total Bilirubin 0.5 mg/dL (0.2-1.3); Total Protein 5.8 g/dL (6.3-8.2)
[2024-10-04 11:35] LABS: INR 0.9 (<1.2); Partial Thromboplastin Time 21.3 sec (22.0-30.0); Prothrombin Time 9.8 sec (10.0-12.5)
--- NOTE | 2024-10-04 13:28 | CT ---
EXAMINATION TYPE: CT angio abd aorta w/Runoff DATE OF EXAM: 10/04/2024 HISTORY: severe Rt leg pain, history of stents CT DLP: 2397.2mGycm Automated Exposure Control for Dose Reduction was Utilized. CONTRAST: CTA scan of the abdomen and pelvis is performed without oral and without and with IV Contrast, patien t injected with 100 mL of Isovue 370. Three-D reconstructed images are created on an independent work station and reviewed. COMPARISON: Prior CTA abdomen and pelvis of 12/04/2022 FINDINGS: VASCULAR: Moderate to severe calcified plaque of the aorta extends into branch vessels similar to mahsa or. Presence of severe calcified plaque makes evaluation for accurate stenosis suboptimal. There is s ignificant stenosis at origin of the celiac artery sagittal image 121. Prominent calcified plaque pro ximal SMA may be causing additional significant stenosis. Poorly visualized left renal artery may be surgically absent or occluded. Possible significant stenosis at origin of right renal artery due to c alcified plaque. Infrarenal abdominal aorta shows severe plaque with anterior graft redemonstrated. T here is complete occlusion of the iliac portion of the right-sided graft shortly after the bifurcatio n. Distal metallic stent in the right external iliac artery is redemonstrated. There is reconstitutio n at level of the right groin region. Left-sided graft is patent without significant stenosis. There is marked diminished flow through the right lower extremity arterial system with absent flow in large portions identified. Similar findings in the left lower extremity with significant areas of ab sent flow identified. Some reconstitution at level of popliteal arteries is seen bilaterally. There i s poor flow below the bilateral knees noted. LUNG BASES: Overlying inferior sternal wires along with right-sided pacemaker leads are redemonstrate d. LIVER/GB: Liver is heterogeneously hypodense consistent with diffuse fatty infiltrative hepatocellula r disease. Gallbladder is surgically absent. PANCREAS: No significant abnormality is seen. SPLEEN: No significant abnormality is seen. ADRENALS: No significant abnormality is seen. KIDNEYS: Asymmetric diminished size and cortical thinning to the left kidney consistent with end-stag e atrophy is redemonstrated with simple small cortical cyst lower pole level redemonstrated. BOWEL: No significant abnormality is seen. UTERUS/ADNEXA: Slightly retroflexed uterus. LYMPH NODES: No greater than 1cm abdominal or pelvic lymph nodes are appreciated. OSSEOUS STRUCTURES: Vacuum disc phenomenon with moderate to severe disc space narrowing at the lumbos acral junction is redemonstrated. LOWER EXTREMITIES: No suspicious finding. OTHER: Numerous coils from the front wall hernia repair surgery over the anterior wall of the abdomen are redemonstrated. IMPRESSION: Severe atherosclerotic change. Complete occlusion of the right portion of the aortobifemo ral graft just after the iliac bifurcation. There is poor flow to the bilateral lower extremities wit h multilevel significant stenosis and multilevel significant occlusion present. Other significant vas cular stenoses are suspected in the abdomen as detailed above. [facility], , 10/04/2024 1:26 PM
[2024-10-04] MEDS ORDERED: NALOXONE 0.4 MG/ML 1 ML VIAL IV PRN (13:46)
[2024-10-04] MEDS: HEPARIN SODIUM 1,000 UN/ML (10ML VL) IV ONE (13:59)
[2024-10-04] MEDS: HEPARIN SOD,PORK IN 0.45% NACL 25,000 UNIT in 0.45% NACL 1 250ML.BAG IV SCH ×2 (14:00→16:10)
--- NOTE | 2024-10-04 14:16 | P.CRDCN ---
History of Present Illness History of present illness: HISTORY OF PRESENT ILLNESS: This is a 54-year-old female with a past medical history significant for peripheral arterial disease with previous bilateral aortic iliac bypass grafting, renal artery stenosis, carotid stenosis status post stenting, hypertension, ischemic cardiomyopathy, and AICD implantation. Patient follows in the office with Dr. Manrique but has not been seen since December 2022. We have been asked to see the patient in consultation for limb ischemia. Patient examined at the bedside in the emergency room. Patient states she began to have discomfort in her right leg yesterday. She describes the pain as a pressure type sensation. She also reports numbness in her feet which is chronic from her neuropathy. She denies any chest pain or shortness of breath. The patient states she is currently not smoking. Patient reports her insurance has recently changed and she no longer has prescription coverage. She states that she has been taking a baby aspirin but is not taking any of her other cardiac medications including Plavix. DIAGNOSTICS: - Laboratory data: WBC 11.4. Hemoglobin 14.1. Platelet count 222. Sodium 133. Potassium 5.4. BUN 25. Creatinine 0.88. Lactic acid 2.5. - Current home cardiac medications include aspirin 81 mg daily - Most recent echocardiogram obtained in September 2020 revealed ejection fraction 50%, mild TR, trace AI, mitral valve ring prosthesis, no regional wall motion abnormalities, moderate pulmonic regurgitation. -Patient underwent cardiac catheterization in 2018 revealing severe two-vessel coronary artery disease -Patient underwent lower extremity angiogram in September 2022 revealing 40 to 50% proximal left SFA stenosis and mid left SFA 100% stenosis. Patient underwent left SFA stenting. REVIEW OF SYSTEMS: At the time of my exam: CONSTITUTIONAL: Denies fever or chills. HEENT: Denies blurred vision, vision changes, or eye pain. Denies hemoptysis CARDIOVASCULAR: Denies chest pain. Denies orthopnea. Denies PND. Denies palpitations RESPIRATORY: Denies shortness of breath. GASTROINTESTINAL: Denies abdominal pain. Denies nausea or vomiting. HEMATOLOGIC: Denies bleeding disorders. GENITOURINARY: Denies any blood in urine. SKIN: Denies pruitis. Denies rash. PHYSICAL EXAM: VITAL SIGNS: Reviewed. GENERAL: Well-developed in no acute distress. HEENT: Head is normocephalic. Pupils are equal, round. Sclerae anicteric. Mucous membranes of the mouth are moist. Neck supple. No JVD or thyromegaly LUNGS: Respirations even and unlabored. Lungs essentially clear to auscultation bilaterally. HEART: Regular rate and rhythm. S1 and S2 heard. ABDOMEN: Soft. Nondistended. Nontender. EXTREMITIES: Normal range of motion. No clubbing or cyanosis. No lower extremity edema. Right lower extremity cool to touch with absent pulses. NEUROLOGIC: Awake and alert. Oriented x 3. ASSESSMENT: Right lower extremity acute limb ischemia Peripheral arterial disease with previous left SFA stenting and bilateral aortoiliac bypass grafting Carotid stenosis, status post right ICA stenting, 08/2022 Intermediate left carotid artery stenosis Coronary artery disease with previous CABG Left subclavian artery stenosis Ischemic cardiomyopathy History of ICD implantation History of CVA Former nicotine dependence PLAN: Continue IV heparin Add aspirin and statin N.p.o. Patient to undergo lower extremity angiogram with possible stenting/tPA catheter infusion today with Dr. Gabriel Further recommendations pending patient course Nurse practitioner note has been reviewed by physician. Signing provider agrees with the documented findings, assessment, and plan of care documented by [employer] as a scribe. Past Medical History Past Medical History: Coronary Artery Disease (CAD), Chest Pain / Angina, COPD, CVA/TIA, Diabetes Mellitus, Hyperlipidemia, Hypertension, Myocardial Infarction ([place]), Pneumonia, Thyroid Disorder, Vascular Disorder Additional Past Medical History / Comment(s): Cardiac murmur, DDD, Hyperthyroid/Thyroid Nodules, Hx CVA 2007 or 2008, no residual effects. Right carotid artery 100% blocked, left carotid artery 50% blocked, Hx Pneumonia. only has 1 functioning kidney-sees nephr., fatty liver, left leg pain Last Myocardial Infarction Date:: 2011 History of Any Multi-Drug Resistant Organisms: None Reported Past Surgical History: Section, Cholecystectomy, Coronary Bypass/CABG, Heart Catheterization, Hernia Repair Additional Past Surgical History / Comment(s): Aortogram,mult arterial stents rt leg,I&D L gluteal abscess, aortagram, Fyott-Ig-Ucmsd bypass, laparoscopic surgery-one ovary/one tube removed from opposite sides, multiple abdominal incisional hernia repairs with mesh, Attempted Heart cath but patient states veins collapsed and unable to do. 07/25/19 quadruple bypass, mitral valve repair, left carotid stent 08/29/22 Past Anesthesia/Blood Transfusion Reactions: No Reported Reaction, Previous Problems w/ Anesthesia Additional Past Anesthesia/Blood Transfusion Reaction / Comment(s): mom had problems Past Psychological History: Depression Smoking Status: Current every day smoker Past Alcohol Use History: None Reported Past Drug Use History: None Reported - Past Family History Mother Family Medical History: Cancer, Coronary Artery Disease (CAD) Additional Family Medical History / Comment(s): Mother is a breast cancer survivor. Father Family Medical History: Coronary Artery Disease (CAD), Diabetes Mellitus, Myocardial Infarction ([place]) Additional Family Medical History / Comment(s): Agent [place] Exposure. Pt does not know at what age her father had his [place]. Medications and Allergies Home Medications Medication Instructions Recorded Confirmed Type No Known Home Medications 10/04/24 10/04/24 History Allergies Allergy/AdvReac Type Severity Reaction Status Date / Time Fish Containing Products Allergy Severe Swelling Verified 10/04/24 11:35 [Fish] of tongue sulfamethoxazole Allergy Severe Anaphylaxis, Verified 10/04/24 11:35 [From Bactrim] swelling trimethoprim [From Bactrim] Allergy Severe Anaphylaxis, Verified 10/04/24 11:35 swelling metformin AdvReac Nausea & Verified 10/04/24 11:35 Vomiting & Diarrhea Physical Exam Vitals: Vital Signs Temp Pulse Resp BP Pulse Ox 10/04/24 12:05 78 18 145/108 94 L 10/04/24 10:55 80 18 141/82 95 10/04/24 10:08 98.3 F 88 16 85/58 97 Intake and Output 10/03/24 10/04/24 10/04/24 22:59 06:59 14:59 Other: Weight 74.843 kg Results 10/04/24 10:49 10/04/24 10:49 Cardiac Enzymes 10/04/24 10/04/24 Range/Units 10:49 10:49 AST 26 (14-36) U/L Troponin I 0.017 (0.000-0.034) ng/mL Coagulation 10/04/24 Range/Units 10:49 PT 9.8 L (10.0-12.5) sec APTT 21.3 L (22.0-30.0) sec CBC 10/04/24 Range/Units 10:49 WBC 11.4 H (3.8-10.6) k/uL RBC 4.83 (3.80-5.40) m/uL Hgb 14.1 (11.4-16.0) gm/dL Hct 43.8 (34.0-46.0) % Plt Count 222 (150-450) k/uL Comprehensive Metabolic Panel 10/04/24 Range/Units 10:49 Sodium 133 L (137-145) mmol/L Potassium 5.4 H (3.5-5.1) mmol/L Chloride 99 (98-107) mmol/L Carbon Dioxide 27 (22-30) mmol/L BUN 25 H (7-17) mg/dL Creatinine 0.88 (0.52-1.04) mg/dL Glucose 482 H (74-99) mg/dL Calcium 8.9 (8.4-10.2) mg/dL AST 26 (14-36) U/L ALT 19 (4-34) U/L Alkaline Phosphatase 148 H (38-126) U/L Total Protein 5.8 L (6.3-8.2) g/dL Albumin 3.5 (3.5-5.0) g/dL Current Medications Generic Name Dose Route Start Last Admin Trade Name Freq PRN Reason Stop Dose Admin Acetaminophen 650 mg 10/04/24 13:46 Acetaminophen Tab 325 Mg Tab PO Q6HR PRN Mild Pain or Fever > 100.5 Aspirin 81 mg 10/05/24 09:00 Aspirin 81 Mg PO DAILY [facility] Atorvastatin Calcium 80 mg 10/04/24 21:00 Atorvastatin 80 Mg Tab PO HS [facility] Heparin Sodium (Porcine) 0 unit 10/04/24 11:00 Heparin Sodium 1,000 Un/Ml (10ml Vl) IV PER PROTOCOL PRN Low PTT Protocol Hydromorphone HCl 0.5 mg 10/04/24 13:46 Hydromorphone 0.5 Mg/0.5 Ml Syringe IVP Q3HR PRN Moderate Pain (Scale 4 to 6) Hydromorphone HCl 1 mg 10/04/24 13:46 Hydromorphone 1 Mg/Ml 1 Ml Syringe IVP Q3HR PRN Severe Pain (Scale 7 to 10) Heparin Sodium/Sodium Chloride 250 mls @ 13.472 mls/hr 10/04/24 11:00 10/04/24 14:00 25,000 unit/ Sodium Chloride IV 18 units/kg/hr .[id number] IBIS 13.472 mls/hr Administration Protocol 18 UNITS/KG/HR Metoprolol Succinate 25 mg 10/04/24 14:00 Metoprolol Succinate (Er) 25 Mg Tab.Er.24h PO DAILY IBIS Naloxone HCl 0.2 mg 10/04/24 13:46 Naloxone 0.4 Mg/Ml 1 Ml Vial IV Q2M PRN Opioid Reversal Ondansetron HCl 4 mg 10/04/24 13:46 Ondansetron 4 Mg/2 Ml Vial IVP Q8HR PRN Nausea And Vomiting Intake and Output 10/03/24 10/04/24 10/04/24 22:59 06:59 14:59 Other: Weight 74.843 kg Patient Weight 10/05/24 06:59 Weight 74.843 kg 10/04/24 10:49 10/04/24 10:49
[2024-10-04] MEDS ORDERED: DEXTROSE 50% SYRINGE 50 ML IVP PRN ×2 (14:22)
--- NOTE | 2024-10-04 14:25 | P.HPIM ---
History of Present Illness This is a pleasant 54 years old female with past medical history of diabetes mellitus, hypertension, multivessel disease including coronary artery disease status post CABG about 5 years ago, history of aortic stent and multiple stents in the right lower extremities last 1 was about [address] Gabriel. Patient presents because of severe right leg pain that started yesterday make it difficult for her to walk without tenderness pain is constant nonspecific about 10/10 in severity. Patient also denies chest pain or dyspnea. No change in urine or bowel habits. No fever or chills. She denies smoking alcohol or illicit drugs. She should be on Plavix at home but because of insurance issues she cannot follow-up her medication and currently she has been using baby aspirin every day which she was adherent to as she explains. Patient states she is getting new job and she can get her insurance back currently patient is afebrile,, Rest of vitals stable, blood pressure slightly elevated Labs were unremarkable except for mildly elevated white cell count 11.4 and glucose 482 rest of CBC, BMP, LFT, INR, troponin were unremarkable CT angio of the lower extremity showing severe atherosclerotic changes with complete occlusions of the right aortofemoral graft with poor flow to the bilateral lower extremities with multilevel significant stenoses Patient currently is on heparin drip Review of Systems Review of systems CONSTITUTIONAL: No fever, no malaise, no fatigue. HEENT: No recent visual problems or hearing problems. Denied any sore throat. CARDIOVASCULAR: No orthopnea, PND, no palpitations, no syncope. PULMONARY: No shortness of breath, no cough, no hemoptysis. GASTROINTESTINAL: No diarrhea, no nausea, no vomiting, no abdominal pain. Normoactive bowel sounds. NEUROLOGICAL: No headaches, no weakness, no numbness. HEMATOLOGICAL: Denies any bleeding or petechiae. GENITOURINARY: Denies any burning micturition, frequency, or urgency. MUSCULOSKELETAL/RHEUMATOLOGICAL: Denies any joint pain, swelling, or any muscle pain. ENDOCRINE: Denies any polyuria or polydipsia. Past Medical History Past Medical History: Coronary Artery Disease (CAD), Chest Pain / Angina, COPD, CVA/TIA, Diabetes Mellitus, Hyperlipidemia, Hypertension, Myocardial Infarction ([place]), Pneumonia, Thyroid Disorder, Vascular Disorder Additional Past Medical History / Comment(s): Cardiac murmur, DDD, Hyperthyroid/Thyroid Nodules, Hx CVA 2007 or 2008, no residual effects. Right carotid artery 100% blocked, left carotid artery 50% blocked, Hx Pneumonia. only has 1 functioning kidney-sees nephr., fatty liver, left leg pain Last Myocardial Infarction Date:: 2011 History of Any Multi-Drug Resistant Organisms: None Reported Past Surgical History: Section, Cholecystectomy, Coronary Bypass/CABG, Heart Catheterization, Hernia Repair Additional Past Surgical History / Comment(s): Aortogram,mult arterial stents rt leg,I&D L gluteal abscess, aortagram, Bbztz-Fa-Uokyn bypass, laparoscopic surgery-one ovary/one tube removed from opposite sides, multiple abdominal incisional hernia repairs with mesh, Attempted Heart cath but patient states veins collapsed and unable to do. 07/25/19 quadruple bypass, mitral valve repair, left carotid stent 08/29/22 Past Anesthesia/Blood Transfusion Reactions: No Reported Reaction, Previous Problems w/ Anesthesia Additional Past Anesthesia/Blood Transfusion Reaction / Comment(s): mom had problems Past Psychological History: Depression Smoking Status: Current every day smoker Past Alcohol Use History: None Reported Past Drug Use History: None Reported - Past Family History Mother Family Medical History: Cancer, Coronary Artery Disease (CAD) Additional Family Medical History / Comment(s): Mother is a breast cancer survivor. Father Family Medical History: Coronary Artery Disease (CAD), Diabetes Mellitus, Myocardial Infarction ([place]) Additional Family Medical History / Comment(s): Agent [place] Exposure. Pt does not know at what age her father had his [place]. Medications and Allergies Home Medications Medication Instructions Recorded Confirmed Type No Known Home Medications 10/04/24 10/04/24 History Allergies Allergy/AdvReac Type Severity Reaction Status Date / Time Fish Containing Products Allergy Severe Swelling Verified 10/04/24 11:35 [Fish] of tongue sulfamethoxazole Allergy Severe Anaphylaxis, Verified 10/04/24 11:35 [From Bactrim] swelling trimethoprim [From Bactrim] Allergy Severe Anaphylaxis, Verified 10/04/24 11:35 swelling metformin AdvReac Nausea & Verified 10/04/24 11:35 Vomiting & Diarrhea Physical Exam Vitals: Vital Signs Temp Pulse Resp BP Pulse Ox 10/04/24 12:05 78 18 145/108 94 L 10/04/24 10:55 80 18 141/82 95 10/04/24 10:08 98.3 F 88 16 85/58 97 Intake and Output 10/03/24 10/04/24 10/04/24 22:59 06:59 14:59 Other: Weight 74.843 kg GENERAL: The patient is alert and oriented x3, not in any acute distress. Well developed, well nourished. HEENT: Pupils are round and equally reacting to light. EOMI. No scleral icterus. No conjunctival pallor. Normocephalic, atraumatic. No pharyngeal erythema. No thyromegaly. CARDIOVASCULAR: S1 and S2 present. No murmurs, rubs, or gallops. PULMONARY: Chest is clear to auscultation, no wheezing , no crackles. ABDOMEN: Soft, nontender, nondistended, normoactive bowel sounds. No palpable organomegaly. MUSCULOSKELETAL: No joint swelling or deformity. -EXTREMITIES: No cyanosis, clubbing, or pedal edema. Right leg is cold, diminished pulses, tender to touch NEUROLOGICAL: Gross neurological examination did not reveal any focal deficits. SKIN: No rashes. no petechiae. Results CBC & Chem 7: 10/04/24 10:49 10/04/24 10:49 Labs: Abnormal Lab Results - Last 24 Hours (Table) 10/04/24 10/04/24 10/04/24 Range/Units 10:49 10:49 10:49 WBC 11.4 H (3.8-10.6) k/uL Neutrophils # 9.0 H (1.3-7.7) k/uL PT 9.8 L (10.0-12.5) sec APTT 21.3 L (22.0-30.0) sec Sodium 133 L (137-145) mmol/L Potassium 5.4 H (3.5-5.1) mmol/L BUN 25 H (7-17) mg/dL Glucose 482 H (74-99) mg/dL Plasma Lactic Acid Ed (0.7-2.0) mmol/L Alkaline Phosphatase 148 H (38-126) U/L Total Protein 5.8 L (6.3-8.2) g/dL 10/04/24 Range/Units 10:49 WBC (3.8-10.6) k/uL Neutrophils # (1.3-7.7) k/uL PT (10.0-12.5) sec APTT (22.0-30.0) sec Sodium (137-145) mmol/L Potassium (3.5-5.1) mmol/L BUN (7-17) mg/dL Glucose (74-99) mg/dL Plasma Lactic Acid Ed 2.5 H* (0.7-2.0) mmol/L Alkaline Phosphatase (38-126) U/L Total Protein (6.3-8.2) g/dL Assessment and Plan Assessment: Acute right lower extremity ischemia. CT angio of the lower extremity showing severe atherosclerotic changes with complete occlusions of the right aortofemoral graft with poor flow to the bilateral lower extremities with multilevel significant stenoses Diabetes mellitus Hypertension Hyperlipidemia History of osteoarthritis Hypothyroidism COPD with no acute changes History of CVA/TIA Coronary artery disease status post CABG x 4 vessels Plan: Continue with Lipitor 80 mg Aspirin 81 mg Continue with heparin drip Cardiology team consult Continue with pain management Start normal saline 75 mL/h Labs and medication were reviewed.. Continue same treatment. Continue with symptomatic treatment. Resume home medication. Monitor lytes and vitals. DVT and GI prophylaxis. Further recommendations depends on the clinical course of the patient DVT prophylaxis: heparin GI Prophylaxis: Pepcid PT/OT: Pending Prognosis is guarded
[2024-10-04] MEDS: MIDAZOLAM 2 MG/2 ML VIAL IVP ONE ×2 (14:47→15:08)
[2024-10-04] MEDS: fentaNYL (PF) 50 MCG/ML 2 ML AMP IVP ONE ×2 (14:47→15:08)
[2024-10-04] MEDS: HEPARIN SODIUM,PORCINE 10,000 UNIT in SODIUM CHLORIDE 0.9% 1,000 ML IRRIGATION ONE (14:47)
[2024-10-04] MEDS: HEPARIN SODIUM,PORCINE (1 ML) 2,500 UNIT in SODIUM CHLORIDE 0.9% 250 ML IRRIGATION ONE (14:48)
[2024-10-04] MEDS: LIDOCAINE 1% INJ 10MG/ML (10 ML MDV) SQ ONE (15:03)
[2024-10-04] MEDS: HEPARIN SODIUM 1,000 UN/ML (10ML VL) IVP ONE ×2 (15:16→15:29)
[2024-10-04] MEDS: IOPAMIDOL-370 100ML BTL INJ ONE (15:47)
[2024-10-04] MEDS: CLOPIDOGREL 75 MG TAB PO ONE (15:48)
--- NOTE | 2024-10-04 15:57 | P.PCN ---
Description of Procedure: PROCEDURES PERFORMED: RLE angiography with runoff, placement of TPA lytic catheter INDICATION: Acute limb ischemia with CTA showing occludion of RLE aorto femoral bypass CONSENT:I have discussed the risks, benefits and alternative therapies for the above-mentioned procedure and for both sedation/analgesia as well as necessary blood product administration, if indicated, as they pertain to this patient. The patient has indicated understanding and acceptance of the risks and procedures discussed. PROCEDURE: After the risks, benefits and alternatives of the above mentioned procedure explained in detail with the patient, informed consent was obtained. Patient was taken to the catheterization lab and prepped and draped in usual fashion. 1% lidocaine was used to anesthetize the left femoral area. A 5- British sheath was placed in the left femoral artery using modified Seldinger technique. A 5-British rim catheter was inserted to the level of the right aorto femoral graft limb and DSA imaging was obtained. Patient tolerated the diagnostic portion well. Next, the decision was made to place a lytic catheter. IV heparin was given. An additional 6Fr sheath was placed in the right femoral artery, A 0.018 glide wire was used to cross the lesion. A 20cm lytic catheter was placed in from the distal aorta down the right aorto iliac graft and sutured in place. The sheath was pulled slightly out so that the catheter covered the entire lesion, to the distal edge of the prior stent. The left femoral sheath was left in place to be pulled later and the right femoral sheath was sutured in place. The patient tolerated the procedure well. Patient was transported back to the post catheterization holding area in stable condition. Conscious Sedation: Patient was monitored under the direct supervision of vision of myself for conscious sedation using Versed and fentanyl for a total duration of 37 minutes HEMODYNAMICS: Ao: 189/91 Right lower extremity: There is a right aorto femoral graft which is 100% occluded at it's origin. There is poor a distal anastomosis stent which has clot throughout. FINAL IMPRESSION: 1. Peripheral arterial disease as described above with 100% right aorto femoral graft thrombosis. 2. S/p TPA lytic catheter placement PLAN: 1. Aggressive risk factor modification per most recent ACC/AHA guidelines. 2. Infuse TPA at 1mg/hr x 12 hrs then reassess tomorrow.
[2024-10-04] MEDS: ALTEPLASE 10 MG in SODIUM CHLORIDE 0.9% 90 ML IA ONE (16:09)
[2024-10-04 16:31] LABS: Glucose,Whole Blood 273 mg/dL (70-110)
--- NOTE | 2024-10-04 16:34 | IR ---
EXAMINATION TYPE: IR angio abdominal w runoff DATE OF EXAM: 10/04/2024 4:04 PM COMPARISON: Pre Operative Images if available both CT/MRI or plain film CLINICAL INDICATION: Female, 54 years old with history of RT Leg pain, 5.9MIN, 30.8 DAP; TECHNIQUE: IR angio abdominal w runoff, multiple fluoroscopic images provided for procedure. Total fluoroscopy time: 5.9 minutes Total submitted images to PACS: 102 DAP: 30.8 mGym2 Gycm2 uGym2 cGycm2 or equivalent. FINDINGS: IMPRESSION: 1. Report was generated for administrative purposes only. 2. Please see the operative/procedural note for further details. [facility], , 10/04/2024 4:32 PM
[2024-10-04] MEDS: SODIUM CHLORIDE 0.9% 1,000 ML IV SCH (17:07)
[2024-10-04] MEDS: INSULIN ASPART (NovoLOG) 100 UNIT/ML VIAL SQ SCH (17:31)
[2024-10-04 17:46] LABS: Basophils % (A) 0 %; Eosinophils # (A) 0.3 k/uL (0-0.7); Eosinophils % (A) 4 %; HCT 38.8 % (34.0-46.0); HGB 12.5 gm/dL (11.4-16.0); Lymphocytes # (A) 1.8 k/uL (1.0-4.8); Lymphocytes % (A) 20 %; MCH 29.3 pg (25.0-35.0); MCHC 32.3 g/dL (31.0-37.0); MCV 90.6 fL (80.0-100.0); Mean Platelet Volume 7.1; Monocytes # (A) 0.5 k/uL (0-1.0); Monocytes % (A) 6 %; Neutrophils # (A) 6.2 k/uL (1.3-7.7); Neutrophils % (A) 68 %; Platelet Count 197 k/uL (150-450); RBC 4.28 m/uL (3.80-5.40); RDW 13.5 % (11.5-15.5); WBC 9.1 k/uL (3.8-10.6)
[2024-10-04 17:55] LABS: INR 0.9 (<1.2); Prothrombin Time 10.5 sec (10.0-12.5)
[2024-10-04] MEDS: METOPROLOL SUCCINATE (ER) 25 MG TAB.ER.24H PO SCH (18:08)
[2024-10-04 19:27] LABS: African American GFR (CKD) >90 (>60 ml/min/1.73 sqM); Blood Urea Nitrogen 19 mg/dL (7-17); Non-African American GFR(CKD) >90 (>60 ml/min/1.73 sqM)
[2024-10-04] MEDS: ATORVASTATIN 80 MG TAB PO SCH (19:46)
[2024-10-04] MEDS: HYDROmorphone 1 MG/ML 1 ML SYRINGE IVP PRN (20:07)
[2024-10-04 21:17] LABS: Glucose,Whole Blood 191 mg/dL (70-110)
[2024-10-04] MEDS: FAMOTIDINE 20 MG/2 ML VIAL IV SCH (21:46)
[2024-10-05 04:01] LABS: Basophils # (A) 0.1 k/uL (0-0.2); Basophils % (A) 1 %; Eosinophils # (A) 0.2 k/uL (0-0.7); Eosinophils % (A) 3 %; HCT 36.8 % (34.0-46.0); HGB 11.9 gm/dL (11.4-16.0); Lymphocytes # (A) 0.8 k/uL (1.0-4.8); Lymphocytes % (A) 15 %; MCH 29.5 pg (25.0-35.0); MCHC 32.3 g/dL (31.0-37.0); MCV 91.3 fL (80.0-100.0); Mean Platelet Volume 7.8; Monocytes # (A) 0.4 k/uL (0-1.0); Monocytes % (A) 8 %; Neutrophils # (A) 3.9 k/uL (1.3-7.7); Neutrophils % (A) 71 %; Platelet Count 170 k/uL (150-450); RBC 4.03 m/uL (3.80-5.40); RDW 13.6 % (11.5-15.5); WBC 5.5 k/uL (3.8-10.6)
[2024-10-05] MEDS: ONDANSETRON 4 MG/2 ML VIAL IVP PRN (04:20)
[2024-10-05 05:01] LABS: INR 0.9 (<1.2); Prothrombin Time 10.3 sec (10.0-12.5)
[2024-10-05 06:40] LABS: Glucose,Whole Blood 311 mg/dL (70-110)
[2024-10-05] MEDS: LORazepam 2 MG/ML INJ IV STA (07:04)
--- NOTE | 2024-10-05 08:09 | P.PN ---
Subjective This is a pleasant 54 years old female with past medical history of diabetes mellitus, hypertension, multivessel disease including coronary artery disease status post CABG about 5 years ago, history of aortic stent and multiple stents in the right lower extremities last 1 was about [address] Gabriel. Patient presents because of severe right leg pain that started yesterday make it difficult for her to walk without tenderness pain is constant nonspecific about 10/10 in severity. Patient also denies chest pain or dyspnea. No change in urine or bowel habits. No fever or chills. She denies smoking alcohol or illicit drugs. She should be on Plavix at home but because of insurance issues she cannot follow-up her medication and currently she has been using baby aspirin every day which she was adherent to as she explains. Patient states she is getting new job and she can get her insurance back currently patient is afebrile,, Rest of vitals stable, blood pressure slightly elevated Labs were unremarkable except for mildly elevated white cell count 11.4 and glucose 482 rest of CBC, BMP, LFT, INR, troponin were unremarkable CT angio of the lower extremity showing severe atherosclerotic changes with complete occlusions of the right aortofemoral graft with poor flow to the bilateral lower extremities with multilevel significant stenoses Patient currently is on heparin drip 10/05 Patient is status post right lower extremity angiography with runoff and placement of tPA lytic catheter on 10/04. After the procedure she was sent to the ICU for close monitoring. The tPA catheter was discontinued in the middle of the night while the heparin infusion kept running through the sheath. Patient feels anxious because she is did not eat and she feels hungry. Will give a small dose of Ativan 0.5 mg x1 Patient continued on heparin drip as above Her right lower extremity is warm, have some reperfusion pain about 7/10 as patient explains. No chest pain or dyspnea no other new complaint. She is kept on normal saline 75 mL/h as well Vital stable Creatinine 0.9. Hemoglobin is normal Review of systems CONSTITUTIONAL: No fever, no malaise, no fatigue. HEENT: No recent visual problems or hearing problems. Denied any sore throat. CARDIOVASCULAR: No orthopnea, PND, no palpitations, no syncope. GENITOURINARY: Denies any burning micturition, frequency, or urgency. MUSCULOSKELETAL/RHEUMATOLOGICAL: Denies any joint pain, swelling, or any muscle pain. ENDOCRINE: Denies any polyuria or polydipsia. Active Medications Generic Name Dose Route Start Last Admin Trade Name Freq PRN Reason Stop Dose Admin Acetaminophen 650 mg 10/04/24 13:46 Acetaminophen Tab 325 Mg Tab PO Q6HR PRN Mild Pain or Fever > 100.5 Aspirin 81 mg 10/05/24 09:00 Aspirin 81 Mg PO DAILY [facility] Atorvastatin Calcium 80 mg 10/04/24 21:00 10/04/24 19:46 Atorvastatin 80 Mg Tab PO Not Given HS [facility] Dextrose/Water 25 ml 10/04/24 14:22 Dextrose 50% Syringe 50 Ml IVP PER PROTOCOL PRN Hypoglycemia Protocol Dextrose/Water 50 ml 10/04/24 14:22 Dextrose 50% Syringe 50 Ml IVP PER PROTOCOL PRN Hypoglycemia Protocol Famotidine 20 mg 10/04/24 21:00 10/04/24 21:46 Famotidine 20 Mg/2 Ml Vial IV 20 mg Q12HR [facility] Administration Heparin Sodium (Porcine) 0 unit 10/04/24 11:00 Heparin Sodium 1,000 Un/Ml (10ml Vl) IV PER PROTOCOL PRN Low PTT Protocol Hydromorphone HCl 0.5 mg 10/04/24 13:46 Hydromorphone 0.5 Mg/0.5 Ml Syringe IVP Q3HR PRN Moderate Pain (Scale 4 to 6) Hydromorphone HCl 1 mg 10/04/24 13:46 10/05/24 06:50 Hydromorphone 1 Mg/Ml 1 Ml Syringe IVP 1 mg Q3HR PRN Administration Severe Pain (Scale 7 to 10) Heparin Sodium/Sodium Chloride 250 mls @ 13.472 mls/hr 10/04/24 11:00 10/05/24 04:21 25,000 unit/ Sodium Chloride IV Not Given .[id number] [facility] Protocol 18 UNITS/KG/HR Sodium Chloride 1,000 mls @ 75 mls/hr 10/04/24 14:30 10/05/24 03:57 Saline 0.9% IV Not Given .[id number] [facility] Heparin Sodium/Sodium Chloride 250 mls @ 5 mls/hr 10/04/24 15:30 10/04/24 16:10 25,000 unit/ Sodium Chloride IV 0 mls .Q24H [facility] Administration Insulin Aspart 0 unit 10/04/24 17:30 10/05/24 06:50 Insulin Aspart (Novolog) 100 Unit/Ml Vial SQ 4 unit ACHS [facility] Administration Protocol Metoprolol Succinate 25 mg 10/04/24 14:00 10/04/24 18:08 Metoprolol Succinate (Er) 25 Mg Tab.Er.24h PO 25 mg DAILY [facility] Administration Morphine Sulfate 2 mg 10/04/24 15:45 Morphine Sulfate 2 Mg/Ml Syringe IVP Q3HR PRN Mild to Moderate Pain (1 - 6) Naloxone HCl 0.2 mg 10/04/24 13:46 Naloxone 0.4 Mg/Ml 1 Ml Vial IV Q2M PRN Opioid Reversal Ondansetron HCl 4 mg 10/04/24 13:46 10/05/24 04:20 Ondansetron 4 Mg/2 Ml Vial IVP 4 mg Q8HR PRN Administration Nausea And Vomiting Objective - Vital Signs Vital signs: Vital Signs Temp 98.6 F 10/05/24 04:00 Pulse 68 10/05/24 07:00 Resp 10 L 10/05/24 07:00 BP 147/66 10/05/24 07:00 Pulse Ox 96 10/05/24 07:00 FiO2 Intake & Output 10/04/24 10/05/24 10/05/24 18:59 06:59 18:59 Intake Total 230 1158.587 90 Output Total 900 Balance 230 258.587 90 Weight 74.843 kg 74.4 kg Intake: IV 50 70 10 0.9% Sodium Chloride 70 10 Sheath Intake, IV Titration 180 1088.587 80 Amount Alteplase 10 mg In Sodium 20 50 Chloride 0.9% 90 ml @ 1 MG/HR 10 mls/hr IA .Q10H [facility] Rx#:[id number] Heparin Sod,Pork in 0.45% 78.587 NaCl 25,000 unit In 0.45 % NaCl 1 250ml.bag @ 18 UNITS/KG/HR 13.472 mls/hr IV .[id number] [facility] Rx#: [id number] Heparin Sod,Pork in 0.45% 10 60 5 NaCl 25,000 unit In 0.45 % NaCl 1 250ml.bag @ 5 mls/hr IV .Q24H [facility] Rx#: [id number] Sodium Chloride 0.9% 1, 150 900 75 000 ml @ 75 mls/hr IV . [id number] [facility] Rx#:[id number] Output: Urine 900 Other: Voiding Method Bedpan # Voids 1 ABP, PAP, CO, CI - Last Documented Arterial Blood Pressure 93/89 - Exam GENERAL: The patient is alert and oriented x3, not in any acute distress. Well developed, well nourished. HEENT: Pupils are round and equally reacting to light. EOMI. No scleral icterus. No conjunctival pallor. Normocephalic, atraumatic. No pharyngeal erythema. No thyromegaly. CARDIOVASCULAR: S1 and S2 present. No murmurs, rubs, or gallops. PULMONARY: Chest is clear to auscultation, no wheezing , no crackles. ABDOMEN: Soft, nontender, nondistended, normoactive bowel sounds. No palpable organomegaly. MUSCULOSKELETAL: No joint swelling or deformity. EXTREMITIES: No cyanosis, clubbing, or pedal edema. -Right lower extremity mildly tender, warm to touch after the reperfusion surger y NEUROLOGICAL: Gross neurological examination did not reveal any focal deficits. SKIN: No rashes. no petechiae. - Labs CBC & Chem 7: 10/05/24 03:56 10/05/24 03:56 Labs: Abnormal Lab Results - Last 24 Hours (Table) 10/04/24 10/04/24 10/04/24 Range/Units 10:49 10:49 10:49 WBC 11.4 H (3.8-10.6) k/uL Neutrophils # 9.0 H (1.3-7.7) k/uL Lymphocytes # (1.0-4.8) k/uL PT 9.8 L (10.0-12.5) sec APTT 21.3 L (22.0-30.0) sec Sodium 133 L (137-145) mmol/L Potassium 5.4 H (3.5-5.1) mmol/L BUN 25 H (7-17) mg/dL Glucose 482 H (74-99) mg/dL POC Glucose (mg/dL) (70-110) mg/dL Plasma Lactic Acid Ed (0.7-2.0) mmol/L Alkaline Phosphatase 148 H (38-126) U/L Total Protein 5.8 L (6.3-8.2) g/dL 10/04/24 10/04/24 10/04/24 Range/Units 10:49 16:30 18:15 WBC (3.8-10.6) k/uL Neutrophils # (1.3-7.7) k/uL Lymphocytes # (1.0-4.8) k/uL PT (10.0-12.5) sec APTT (22.0-30.0) sec Sodium (137-145) mmol/L Potassium (3.5-5.1) mmol/L BUN 19 H (7-17) mg/dL Glucose (74-99) mg/dL POC Glucose (mg/dL) 273 H (70-110) mg/dL Plasma Lactic Acid Ed 2.5 H* (0.7-2.0) mmol/L Alkaline Phosphatase (38-126) U/L Total Protein (6.3-8.2) g/dL 10/04/24 10/05/24 10/05/24 Range/Units 21:16 03:56 03:56 WBC (3.8-10.6) k/uL Neutrophils # (1.3-7.7) k/uL Lymphocytes # 0.8 L (1.0-4.8) k/uL PT (10.0-12.5) sec APTT (22.0-30.0) sec Sodium (137-145) mmol/L Potassium (3.5-5.1) mmol/L BUN 18 H (7-17) mg/dL Glucose (74-99) mg/dL POC Glucose (mg/dL) 191 H (70-110) mg/dL Plasma Lactic Acid Ed (0.7-2.0) mmol/L Alkaline Phosphatase (38-126) U/L Total Protein (6.3-8.2) g/dL 10/05/24 Range/Units 06:38 WBC (3.8-10.6) k/uL Neutrophils # (1.3-7.7) k/uL Lymphocytes # (1.0-4.8) k/uL PT (10.0-12.5) sec APTT (22.0-30.0) sec Sodium (137-145) mmol/L Potassium (3.5-5.1) mmol/L BUN (7-17) mg/dL Glucose (74-99) mg/dL POC Glucose (mg/dL) 311 H (70-110) mg/dL Plasma Lactic Acid Ed (0.7-2.0) mmol/L Alkaline Phosphatase (38-126) U/L Total Protein (6.3-8.2) g/dL
[2024-10-05] MEDS: ASPIRIN 81 MG PO SCH (08:56)
[2024-10-05] MEDS: SODIUM CHLORIDE 0.9% 1,000 ML IV ONE (10:08)
[2024-10-05] MEDS: MIDAZOLAM 2 MG/2 ML VIAL IVP ONE (10:25)
[2024-10-05] MEDS: fentaNYL (PF) 50 MCG/ML 2 ML AMP IVP ONE (10:25)
[2024-10-05] MEDS: HEPARIN SODIUM 1,000 UN/ML (10ML VL) IV ONE (10:38)
[2024-10-05 11:29] LABS: Glucose,Whole Blood 170 mg/dL (70-110)
[2024-10-05] MEDS: HYDROmorphone 0.5 MG/0.5 ML SYRINGE IVP PRN (12:59)
[2024-10-05 13:50] VITALS: BMI 24.2
--- NOTE | 2024-10-05 14:31 | P.PCN ---
Description of Procedure: PROCEDURES PERFORMED: RLE angiography with runoff, DCB of right illiac artery and right aorto femoral bypass with overlapping 6.0 x 150mm and 7.0 x 80mm DCB INDICATION: Acute limb ischemia with TPA lytic catheter placed CONSENT:I have discussed the risks, benefits and alternative therapies for the above-mentioned procedure and for both sedation/analgesia as well as necessary blood product administration, if indicated, as they pertain to this patient. The patient has indicated understanding and acceptance of the risks and proce dures discussed. PROCEDURE: After the risks, benefits and alternatives of the above mentioned procedure explained in detail with the patient, informed consent was obtained. Patient was taken to the catheterization lab and prepped and draped in usual fashion. A prior 6Fr sheath had been placed previously in the right femoral artery. Angiogram showed some improved flow through the bypass graft however continued thrombus. Next, the decision was made to do DCB. Heparin was given. A 6.0 x 150mm DCB was placed in the aoto femoral bypass and deployed and additional 7.0 x 80mm DCB was placed in the right femoral bypass to the previous stent. Final angiograms were performed which showed 10-20% stenosis and improved flow. The patient tolerated the procedure well. Patient was transported back to the post catheterization holding area in stable condition. Conscious Sedation: Patient was monitored under the direct supervision of vision of myself for conscious sedation using Versed and fentanyl for a total duration of 31 minutes HEMODYNAMICS: Ao: 134/71 Right lower extremity: There is a right aorto femoral graft which has 85% stenosis. There is poor a distal anastomosis stent which has improved thrombus and 30-50% stenosis. FINAL IMPRESSION: 1. Peripheral arterial disease as described above with 85% right aorto femoral graft thrombosis, improved s/p lytic catheter. 2. S/p DCB of right illiac artery and right aorto femoral bypass with overlapping 6.0 x 150mm and 7.0 x 80mm DCB PLAN: 1. Aggressive risk factor modification per most recent ACC/AHA guidelines. 2. Aspirin and Plavix for 12 months and may consider joint terminal attack controller dual antiplatelts given recurrent stenosis.
--- NOTE | 2024-10-05 14:40 | IR ---
EXAMINATION TYPE: IR captain waiter/waitress iliac DATE OF EXAM: 10/05/2024 CLINICAL HISTORY: Right foot pain TECHNIQUE: Fluoroscopy. COMPARISON: None. FINDINGS: Fluoroscopic guidance was provided during intraoperative right lower extremity angiogram p rocedure performed by Dr. Gabriel. A total of 3.1 minutes of fluoroscopic time was utilized during the procedure and 160 spot images was acquired. Please refer to procedure note for further details. TOTAL DAP = 2843.3 microGy x m2 IMPRESSION: As Above. [facility], , 10/05/2024 2:37 PM
--- NOTE | 2024-10-05 16:06 | P.PN ---
Subjective HISTORY OF PRESENT ILLNESS: This is a 54-year-old female with a past medical history significant for peripheral arterial disease with previous bilateral aortic iliac bypass grafting, renal artery stenosis, carotid stenosis status post stenting, hypertension, ischemic cardiomyopathy, and AICD implantation. Patient follows in the office with Dr. Manrique but has not been seen since December 2022. We have been asked to see the patient in consultation for limb ischemia. Patient examined at the bedside in the emergency room. Patient states she began to have discomfort in her right leg yesterday. She describes the pain as a pressure type sensati on. She also reports numbness in her feet which is chronic from her neuropathy. She denies any chest pain or shortness of breath. The patient states she is currently not smoking. Patient reports her insurance has recently changed and she no longer has prescription coverage. She states that she has been taking a baby aspirin but is not taking any of her other cardiac medications including Plavix. DIAGNOSTICS: - Laboratory data: WBC 11.4. Hemoglobin 14.1. Platelet count 222. Sodium 133. Potassium 5.4. BUN 25. Creatinine 0.88. Lactic acid 2.5. - Current home cardiac medications include aspirin 81 mg daily - Most recent echocardiogram obtained in September 2020 revealed ejection fraction 50%, mild TR, trace AI, mitral valve ring prosthesis, no regional wall motion abnormalities, moderate pulmonic regurgitation. -Patient underwent cardiac catheterization in 2018 revealing severe two-vessel coronary artery disease -Patient underwent lower extremity angiogram in September 2022 revealing 40 to 50% proximal left SFA stenosis and mid left SFA 100% stenosis. Patient underwent left SFA stenting. 10/05 Patient had TPA catheter placed yesterday with occluded aortofemoral graft. She went for reflux this morning with improvement in thrombus burden and underwent DCB x 2. She did have small left hematoma. She denies any chest pain or pressure. She admits to significant myalgias with the Lipitor and is interested in different sort of medication. PHYSICAL EXAM: VITAL SIGNS: Reviewed. GENERAL: Well-developed in no acute distress. HEENT: Head is normocephalic. Pupils are equal, round. Sclerae anicteric. Mucous membranes of the mouth are moist. Neck supple. No JVD or thyromegaly LUNGS: Respirations even and unlabored. Lungs essentially clear to auscultation bilaterally. HEART: Regular rate and rhythm. S1 and S2 heard. ABDOMEN: Soft. Nondistended. Nontender. EXTREMITIES: Normal range of motion. No clubbing or cyanosis. No lower extremity edema. NEUROLOGIC: Awake and alert. Oriented x 3. ASSESSMENT: Right lower extremity acute limb ischemia s/p TPA lytic catheter 10/04 and DCB 10/05 Peripheral arterial disease with previous left SFA stenting and bilateral aortoiliac bypass grafting Carotid stenosis, status post right ICA stenting, 08/2022 Intermediate left carotid artery stenosis Coronary artery disease with previous CABG Left subclavian artery stenosis Ischemic cardiomyopathy History of ICD implantation History of CVA Former nicotine dependence Statin intolerance per patient PLAN: Continue aspirin, Plavix and statin Patient does have subclavian artery stenosis and decreased blood pressure readings on the left brachial site. Monitored by right brachial site. Continue aspirin and Plavix. May consider low dose Xarelto if she can afford this. Restart heart failure regimen and monitor by right brachial site. Likely transition to Crestor 10mg on DC for possible improvement in myalgias. Objective - Vital Signs Vital signs: Vital Signs Temp 98.5 F 10/05/24 12:00 Pulse 71 10/05/24 15:00 Resp 11 L 10/05/24 15:00 BP 126/48 10/05/24 15:00 Pulse Ox 95 10/05/24 13:00 FiO2 Intake & Output 10/04/24 10/05/24 10/05/24 18:59 06:59 18:59 Intake Total 230 1158.587 570 Output Total 900 0 Balance 230 258.587 570 Weight 74.843 kg 74.4 kg 74.4 kg Intake: IV 50 70 255 0.9% Sodium Chloride 70 30 Sheath Sodium Chloride 0.9% 1, 225 000 ml @ 75 mls/hr IV . [id number] [facility] Rx#:[id number] Intake, IV Titration 180 1088.587 315 Amount Alteplase 10 mg In Sodium 20 50 Chloride 0.9% 90 ml @ 1 MG/HR 10 mls/hr IA .Q10H [facility] Rx#:[id number] Heparin Sod,Pork in 0.45% 78.587 NaCl 25,000 unit In 0.45 % NaCl 1 250ml.bag @ 18 UNITS/KG/HR 13.472 mls/hr IV .[id number] [facility] Rx#: [id number] Heparin Sod,Pork in 0.45% 10 60 15 NaCl 25,000 unit In 0.45 % NaCl 1 250ml.bag @ 5 mls/hr IV .Q24H [facility] Rx#: [id number] Sodium Chloride 0.9% 1, 150 900 300 000 ml @ 75 mls/hr IV . [id number] [facility] Rx#:[id number] Output: Urine 900 0 Other: Voiding Method Bedpan # Voids 1 1 ABP, PAP, CO, CI - Last Documented Arterial Blood Pressure 139/58 - Labs CBC & Chem 7: 10/05/24 03:56 10/05/24 03:56 Labs: Abnormal Lab Results - Last 24 Hours (Table) 10/04/24 10/04/24 10/04/24 Range/Units 16:30 18:15 21:16 Lymphocytes # (1.0-4.8) k/uL BUN 19 H (7-17) mg/dL POC Glucose (mg/dL) 273 H 191 H (70-110) mg/dL Hemoglobin A1c (<=6.0) % 10/05/24 10/05/24 10/05/24 Range/Units 03:56 03:56 03:56 Lymphocytes # 0.8 L (1.0-4.8) k/uL BUN 18 H (7-17) mg/dL POC Glucose (mg/dL) (70-110) mg/dL Hemoglobin A1c 11.6 H (<=6.0) % 10/05/24 10/05/24 Range/Units 06:38 11:27 Lymphocytes # (1.0-4.8) k/uL BUN (7-17) mg/dL POC Glucose (mg/dL) 311 H 170 H (70-110) mg/dL Hemoglobin A1c (<=6.0) %
[2024-10-05 16:22] LABS: Glucose,Whole Blood 246 mg/dL (70-110)
[2024-10-05] MEDS: LOSARTAN 25 MG TAB PO SCH (17:50)
[2024-10-05 18:56] VITALS: RESP 14
[2024-10-05 21:15] LABS: Glucose,Whole Blood 317 mg/dL (70-110)
[2024-10-06 06:03] LABS: Glucose,Whole Blood 198 mg/dL (70-110)
[2024-10-06] MEDS: MORPHINE SULFATE 2 MG/ML SYRINGE IVP PRN (06:44)
[2024-10-06 07:07] LABS: Basophils % (A) 1 %; Eosinophils # (A) 0.2 k/uL (0-0.7); Eosinophils % (A) 4 %; HCT 33.5 % (34.0-46.0); HGB 11.2 gm/dL (11.4-16.0); Lymphocytes # (A) 1.1 k/uL (1.0-4.8); Lymphocytes % (A) 24 %; MCH 30.6 pg (25.0-35.0); MCHC 33.3 g/dL (31.0-37.0); MCV 91.8 fL (80.0-100.0); Mean Platelet Volume 7.5; Monocytes # (A) 0.3 k/uL (0-1.0); Monocytes % (A) 6 %; Neutrophils # (A) 2.7 k/uL (1.3-7.7); Neutrophils % (A) 61 %; Platelet Count 174 k/uL (150-450); RBC 3.65 m/uL (3.80-5.40); RDW 13.4 % (11.5-15.5); WBC 4.4 k/uL (3.8-10.6)
[2024-10-06 07:27] LABS: African American GFR (CKD) >90 (>60 ml/min/1.73 sqM); Non-African American GFR(CKD) 81 (>60 ml/min/1.73 sqM)
[2024-10-06] MEDS: CLOPIDOGREL 75 MG TAB PO SCH (08:01)
--- NOTE | 2024-10-06 10:26 | P.PN ---
Subjective HISTORY OF PRESENT ILLNESS: This is a 54-year-old female with a past medical history significant for peripheral arterial disease with previous bilateral aortic iliac bypass grafting, renal artery stenosis, carotid stenosis status post stenting, hypertension, ischemic cardiomyopathy, and AICD implantation. Patient follows in the office with Dr. Manrique but has not been seen since December 2022. We have been asked to see the patient in consultation for limb ischemia. Patient examined at the bedside in the emergency room. Patient states she began to have discomfort in her right leg yesterday. She describes the pain as a pressure type sensati on. She also reports numbness in her feet which is chronic from her neuropathy. She denies any chest pain or shortness of breath. The patient states she is currently not smoking. Patient reports her insurance has recently changed and she no longer has prescription coverage. She states that she has been taking a baby aspirin but is not taking any of her other cardiac medications including Plavix. DIAGNOSTICS: - Laboratory data: WBC 11.4. Hemoglobin 14.1. Platelet count 222. Sodium 133. Potassium 5.4. BUN 25. Creatinine 0.88. Lactic acid 2.5. - Current home cardiac medications include aspirin 81 mg daily - Most recent echocardiogram obtained in September 2020 revealed ejection fraction 50%, mild TR, trace AI, mitral valve ring prosthesis, no regional wall motion abnormalities, moderate pulmonic regurgitation. -Patient underwent cardiac catheterization in 2018 revealing severe two-vessel coronary artery disease -Patient underwent lower extremity angiogram in September 2022 revealing 40 to 50% proximal left SFA stenosis and mid left SFA 100% stenosis. Patient underwent left SFA stenting. 10/05 Patient had TPA catheter placed yesterday with occluded aortofemoral graft. She went for reflux this morning with improvement in thrombus burden and underwent DCB x 2. She did have small left hematoma. She denies any chest pain or pressure. She admits to significant myalgias with the Lipitor and is interested in different sort of medication. 10/06/2024 Patient examined this morning at the bedside. Patient denies any chest pain or pressure. She denies any shortness of breath. Patient did develop a small left femoral hematoma with mild discomfort this morning. Right lower extremity with Doppler pulses noted. PHYSICAL EXAM: VITAL SIGNS: Reviewed. GENERAL: Well-developed in no acute distress. HEENT: Head is normocephalic. Pupils are equal, round. Sclerae anicteric. Mucous membranes of the mouth are moist. Neck supple. No JVD or thyromegaly LUNGS: Respirations even and unlabored. Lungs essentially clear to auscultation bilaterally. HEART: Regular rate and rhythm. S1 and S2 heard. ABDOMEN: Soft. Nondistended. Nontender. EXTREMITIES: Normal range of motion. No clubbing or cyanosis. No lower extremity edema. Right lower extremity with Doppler pulses. NEUROLOGIC: Awake and alert. Oriented x 3. ASSESSMENT: Right lower extremity acute limb ischemia s/p TPA lytic catheter 10/04 and DCB 10/05 Peripheral arterial disease with previous left SFA stenting and bilateral aortoiliac bypass grafting Carotid stenosis, status post right ICA stenting, 08/2022 Intermediate left carotid artery stenosis Coronary artery disease with previous CABG Left subclavian artery stenosis Ischemic cardiomyopathy History of ICD implantation History of CVA Former nicotine dependence PLAN: Continue dual antiplatelet therapy with aspirin and Plavix. Patient will also begin low-dose Xarelto 2.5 mg twice a day when she is discharged. Continue high intensity statin. Patient with previous history of inability to tolerate Lipitor. Recommend Crestor 10 mg upon discharge. Continue metoprolol succinate 25 mg daily and losartan 25 mg daily Continue to monitor patient till this afternoon. If she remains stable, she may be discharged home from a cardiac standpoint Nurse practitioner note has been reviewed by physician. Signing provider agrees with the documented findings, assessment, and plan of care documented by COOKIE PADDER as a scribe. Objective - Vital Signs Vital signs: Vital Signs Temp 98.2 F 10/05/24 20:00 Pulse 75 10/06/24 07:56 Resp 14 10/06/24 07:56 BP 138/55 10/06/24 07:56 Pulse Ox 97 10/06/24 07:56 FiO2 Intake & Output 10/05/24 10/06/24 10/06/24 18:59 06:59 18:59 Intake Total 720 Output Total 0 Balance 720 Weight 74.4 kg 73.3 kg Intake: IV 405 0.9% Sodium Chloride 30 Sheath Sodium Chloride 0.9% 1, 375 000 ml @ 75 mls/hr IV . [id number] [facility] Rx#:[id number] Intake, IV Titration 315 Amount Heparin Sod,Pork in 0.45% 15 NaCl 25,000 unit In 0.45 % NaCl 1 250ml.bag @ 5 mls/hr IV .Q24H [facility] Rx#: [id number] Sodium Chloride 0.9% 1, 300 000 ml @ 75 mls/hr IV . [id number] [facility] Rx#:[id number] Output: Urine 0 Other: Voiding Method Toilet # Voids 1 ABP, PAP, CO, CI - Last Documented Arterial Blood Pressure 139/58 - Labs CBC & Chem 7: 10/06/24 06:21 10/06/24 06:21 Labs: Abnormal Lab Results - Last 24 Hours (Table) 10/05/24 10/05/24 10/05/24 Range/Units 11:27 16:20 21:13 RBC (3.80-5.40) m/uL Hgb (11.4-16.0) gm/dL Hct (34.0-46.0) % POC Glucose (mg/dL) 170 H 246 H 317 H (70-110) mg/dL 10/06/24 10/06/24 Range/Units 06:02 06:21 RBC 3.65 L (3.80-5.40) m/uL Hgb 11.2 L (11.4-16.0) gm/dL Hct 33.5 L (34.0-46.0) % POC Glucose (mg/dL) 198 H (70-110) mg/dL
[2024-10-06 11:25] VITALS: TEMP 98
[2024-10-06] MEDS: ACETAMINOPHEN TAB 325 MG TAB PO PRN (11:27)
[2024-10-06 11:41] LABS: Glucose,Whole Blood 261 mg/dL (70-110)
[2024-10-06 16:24] LABS: Basophils % (A) 0 %; Eosinophils # (A) 0.2 k/uL (0-0.7); Eosinophils % (A) 5 %; HCT 36.4 % (34.0-46.0); HGB 11.9 gm/dL (11.4-16.0); Lymphocytes # (A) 1.2 k/uL (1.0-4.8); Lymphocytes % (A) 24 %; MCH 29.6 pg (25.0-35.0); MCHC 32.8 g/dL (31.0-37.0); MCV 90.5 fL (80.0-100.0); Mean Platelet Volume 7.9; Monocytes # (A) 0.4 k/uL (0-1.0); Monocytes % (A) 7 %; Neutrophils # (A) 3.1 k/uL (1.3-7.7); Neutrophils % (A) 61 %; Platelet Count 191 k/uL (150-450); RBC 4.03 m/uL (3.80-5.40); RDW 13.7 % (11.5-15.5); WBC 5.1 k/uL (3.8-10.6)
[2024-10-06] MEDS: INSULIN DETEMIR (LEVEMIR) 100 UNIT/ML SYR SQ SCH (16:24)
[2024-10-06 16:47] LABS: Glucose,Whole Blood 217 mg/dL (70-110)
[2024-10-06 17:29] VITALS: BP 117/75; PULSE 75
[2024-10-06] MEDS ORDERED: INSULIN ASPART (NovoLOG) 100 UNIT/ML VIAL SQ SCH (17:30)
== END 2024-10-06 17:45 | disposition home health service (06) | DRG 181 ==
LOC: EC 09:33 → 3SCARD 13:44 → 2SICU 15:28 → 3SCARD 10-05 18:45
PROVIDERS: ADMIT Internal Medicine; ATTEND Internal Medicine
PROC: 3E03317 Introduction of Other Thrombolytic into Peripheral Vein, Percutaneous Approach (ICD-10-PCS; 2024-10-04 14:40)
PROC: 047K3Z1 Dilation of Right Femoral Artery using Drug-Coated Balloon, Percutaneous Approach (ICD-10-PCS; principal; 2024-10-05 13:20)
DX: T82.868A Thrombosis due to vascular prosthetic devices, implants and grafts, initial encounter (principal); E87.20 Acidosis, unspecified; I74.3 Embolism and thrombosis of arteries of the lower extremities; E11.51 Type 2 diabetes mellitus with diabetic peripheral angiopathy without gangrene; I70.201 Unspecified atherosclerosis of native arteries of extremities, right leg; I70.202 Unspecified atherosclerosis of native arteries of extremities, left leg; I70.1 Atherosclerosis of renal artery; E11.42 Type 2 diabetes mellitus with diabetic polyneuropathy; J44.9 Chronic obstructive pulmonary disease, unspecified; I10 Essential (primary) hypertension; I70.8 Atherosclerosis of other arteries; E03.9 Hypothyroidism, unspecified; I65.22 Occlusion and stenosis of left carotid artery; I25.10 Atherosclerotic heart disease of native coronary artery without angina pectoris; T45.526A Underdosing of antithrombotic drugs, initial encounter; I25.5 Ischemic cardiomyopathy; E78.5 Hyperlipidemia, unspecified; Y71.1 Therapeutic (nonsurgical) and rehabilitative cardiovascular devices associated with adverse incidents; Z91.120 Patient's intentional underdosing of medication regimen due to financial hardship; Z95.1 Presence of aortocoronary bypass graft; Z95.5 Presence of coronary angioplasty implant and graft; Z79.02 Long term (current) use of antithrombotics/antiplatelets; Z95.810 Presence of automatic (implantable) cardiac defibrillator; Z86.73 Personal history of transient ischemic attack (TIA), and cerebral infarction without residual deficits; Z87.891 Personal history of nicotine dependence; Z88.8 Allergy status to other drugs, medicaments and biological substances; I25.2 Old myocardial infarction
CPT/HCPCS: 36415; 37211; 37214; 37220; 75635; 75710; 80053; 82565; 83036; 83605; 84484; 84520; 85025; 85384; 85610; 85730; 86850; 86900; 86901; 93005; 96361; 96374; 96375; 99285